=== PATIENT | male | born 1940 | race Caucasian/White ===

== ENCOUNTER 2016-09-25 10:31 | Inpatient (IN) | payer MEDICARE, OTHER ==
[2016-09-25] MEDS ORDERED: ASPIRIN 81 MG TABLET, CHEWABLE PO ONE (10:37)
--- NOTE | 2016-09-25 10:39 | ER Document Report ---
ED Medical Screen (RME) - General Stated Complaint: SHORTNESS OF BREATH Mode of Arrival: Ambulatory Information source: Patient Notes: Patient complains of shortness of breath and peripheral edema for the past 7 days. Patient does report some chest discomfort. Patient also reports waking this week. hx: Cardiac stent, kidney stones, gout, RA TRAVEL OUTSIDE OF THE [place] IN LAST 30 DAYS: No - Related Data Allergies/Adverse Reactions: celecoxib [From Celebrex] Allergy (Severe, Verified 09/25/16 10:37) Chest pain leflunomide [From Arava] Allergy (Severe, Verified 09/25/16 10:37) Chest pain-Full list of symptoms on 05/18/13 DC Summary meloxicam [From Mobic] Allergy (Severe, Verified 09/25/16 10:37) Chest pain methotrexate [Methotrexate] Allergy (Severe, Verified 09/25/16 10:37) Anaphylaxis ketorolac tromethamine [From Toradol] Allergy (Unknown, Verified 09/25/16 10:37) see comment Sulfa (Sulfonamide Antibiotics) Adverse Reaction (Severe, Verified 09/25/16 10: 37) Diarrhea Penicillins Adverse Reaction (Unknown, Verified 09/25/16 10:37) Rash Past Medical History - Past Medical History Cardiac Medical History: Reports: Hx Coronary Artery Disease Denies: Hx Congestive Heart Failure, Hx Heart Attack, Hx Hypertension Pulmonary Medical History: Denies: Hx Asthma, Hx Bronchitis, Hx COPD, Hx Pneumonia, Hx Tuberculosis Neurological Medical History: Denies: Hx Seizures Renal/ Medical History: Reports: Hx Kidney Stones - x30 GI Medical History: Denies: Hx Hiatal Hernia, Hx Ulcer Musculoskeltal Medical History: Reports Hx Arthritis - Rheumatoid, Reports Hx Gout Past Surgical History: Reports: Hx Appendectomy, Hx Cardiac Catheterization, Hx Cardiac Surgery - stent X1, Hx Cholecystectomy. Denies: Hx Open Heart Surgery - CATHERIZATIONS - Immunizations Hx Diphtheria, Pertussis, Tetanus Vaccination: Yes Physical Exam - Extremities General lower extremity: Edema - 2-3+ bilateral lower extremities
[2016-09-25 11:12] LABS: ABSOLUTE BASOPHILS # (AUTO) 0.1 10^3/uL (0.0-0.2); ABSOLUTE EOSINOPHILS # (AUTO) 0.5 10^3/uL (0.0-0.6); ABSOLUTE LYMPHOCYTES (AUTO) 2.2 10^3/uL (0.5-4.7); ABSOLUTE MONOCYTES (AUTO) 0.6 10^3/uL (0.1-1.4); ABSOLUTE NEUT (AUTO) 3.1 10^3/uL (1.7-8.2); EOSINOPHILS % (AUTO) 7.5 % (0-6); HEMATOCRIT 42.6 % (37.9-51.0); HGB HCT DIFFERENCE -0.6; LYMPHOCYTES % (AUTO) 34.9 % (13-45); MEAN CORPUSCULAR HEMOGLOBIN 31.4 pg (27.0-33.4); MEAN CORPUSCULAR HGB CONC 32.7 g/dL (32.0-36.0); MEAN CORPUSCULAR VOLUME 96 fl (80-97); MONOCYTES % (AUTO) 8.9 % (3-13); RED BLOOD COUNT 4.44 10^6/uL (4.35-5.55); RED CELL DISTRIBUTION WIDTH 14.6 % (11.5-14.0); SEGMENTED NEUTROPHILS % (AUTO) 47.7 % (42-78); WHITE BLOOD COUNT 6.4 10^3/uL (4.0-10.5)
--- NOTE | 2016-09-25 11:26 | ER Document Report ---
ED Respiratory Problem - General Chief Complaint: Shortness Of Breath Stated Complaint: SHORTNESS OF BREATH Mode of Arrival: Ambulatory Notes: The patient is a 75-year-old male, past medical history RA, frequent kidney stones, gout, presents with shortness of breath over the past day and chest discomfort. In addition, over the past several days he is noticing increased bilateral leg swelling. He has been in the hospital taking care of his over the past several weeks has not had much activity. He is gaining weight. Denies nausea, vomiting, fevers, cough, back pain, abdominal pain, urinary symptoms, flank pain or headache. TRAVEL OUTSIDE OF THE [place] IN LAST 30 DAYS: No - Related Data Allergies/Adverse Reactions: celecoxib [From Celebrex] Allergy (Severe, Verified 09/25/16 12:14) Chest pain leflunomide [From Arava] Allergy (Severe, Verified 09/25/16 12:14) Chest pain-Full list of symptoms on 05/18/13 DC Summary meloxicam [From Mobic] Allergy (Severe, Verified 09/25/16 12:14) Chest pain methotrexate [Methotrexate] Allergy (Severe, Verified 09/25/16 12:14) Anaphylaxis ketorolac tromethamine [From Toradol] Allergy (Unknown, Verified 09/25/16 12:14) see comment Sulfa (Sulfonamide Antibiotics) Adverse Reaction (Severe, Verified 09/25/16 12: 14) Diarrhea Penicillins Adverse Reaction (Unknown, Verified 09/25/16 12:14) Rash Home Medications: Current Home Medications Actermia 09/25/16 [History] Ezetimibe/Simvastatin [Vytorin 10-20 Mg Tablet] 0.5 each PO QHS 09/25/16 [ History] Naproxen 500 mg PO BID 09/25/16 [History] Tamsulosin HCl [Flomax 0.4 mg Cap.sr] 0.4 mg PO DAILY 09/25/16 [History] Past Medical History - General Information source: Patient - Social History Smoking Status: Never Smoker Chew tobacco use (# tins/day): No Frequency of alcohol use: Occasional Drug Abuse: None Family History: Reviewed & Not Pertinent Patient has suicidal ideation: No Patient has homicidal ideation: No - Past Medical History Cardiac Medical History: Reports: Hx Coronary Artery Disease Denies: Hx Congestive Heart Failure, Hx Heart Attack, Hx Hypertension Pulmonary Medical History: Denies: Hx Asthma, Hx Bronchitis, Hx COPD, Hx Pneumonia, Hx Tuberculosis Neurological Medical History: Denies: Hx Seizures Renal/ Medical History: Reports: Hx Kidney Stones - x30. Denies: Hx Peritoneal Dialysis GI Medical History: Denies: Hx Hiatal Hernia, Hx Ulcer Musculoskeltal Medical History: Reports Hx Arthritis - Rheumatoid, Reports Hx Gout Past Surgical History: Reports: Hx Appendectomy, Hx Cardiac Catheterization, Hx Cardiac Surgery - stent X1, Hx Cholecystectomy. Denies: Hx Open Heart Surgery - CATHERIZATIONS - Immunizations Hx Diphtheria, Pertussis, Tetanus Vaccination: Yes Hx Pneumococcal Vaccination: 08/08/13 Review of Systems - Review of Systems Notes: REVIEW OF SYSTEMS: CONSTITUTIONAL: -fevers, -chills EENT: -eye pain, -difficulty swallowing, -nasal congestion CARDIOVASCULAR: +chest pain, -syncope. RESPIRATORY: -cough, +SOB GASTROINTESTINAL: -abdominal pain, -nausea, -vomiting, -diarrhea GENITOURINARY: -dysuria, -hematuria MUSCULOSKELETAL: +leg swelling, -back pain, -neck pain SKIN: -rash or skin lesions. HEMATOLOGIC: -easy bruising or bleeding. LYMPHATIC: -swollen, enlarged glands. NEUROLOGICAL: -altered mental status or loss of consciousness, -headache, - neurologic symptoms PSYCHIATRIC: -anxiety, -depression. ALL OTHER SYSTEMS REVIEWED AND NEGATIVE. Physical Exam - Vital signs Vitals: Temp Pulse Resp BP Pulse Ox 97.9 F 123 H 22 H 122/92 H 95 09/25/16 10:36 09/25/16 10:36 09/25/16 10:36 09/25/16 10:36 09/25/16 10:36 - Notes Notes: PHYSICAL EXAMINATION: GENERAL: Well-appearing, well-nourished and in no acute distress. HEAD: Atraumatic, normocephalic. EYES: Pupils equal round and reactive to light, extraocular movements intact, sclera anicteric, conjunctiva are normal. ENT: nares patent, oropharynx clear without exudates. Moist mucous membranes. NECK: Normal range of motion, supple without lymphadenopathy LUNGS: Breath sounds clear to auscultation bilaterally and equal. No wheezes rales or rhonchi. HEART: Tachycardia, Regular rhythm without murmurs ABDOMEN: Soft, nontender, normoactive bowel sounds. No guarding, no rebound. No masses appreciated. EXTREMITIES: B/L leg edema up to knees, Normal range of motion. No cyanosis. Strong distal pulses. NEUROLOGICAL: Cranial nerves grossly intact. Normal speech, normal gait. Normal sensory, motor, and reflex exams. PSYCH: Normal mood, normal affect. SKIN: Warm, Dry, normal turgor, no rashes or lesions noted. Course - Re-evaluation Re-evalutation: Patient is tachycardic, tachypneic with new EKG changes. High suspicion for PE due to immobility in hospital visiting his . Will obtain CTA to assess for PE. 09/25/16 16:37 CTA does not show any evidence of PE and bilateral ultrasound does not show any evidence of DVT. Patient still mildly tachycardic in the 100s. Hemodynamically stable. Spoke to Dr. Zapata and the hospitalist will be down to evaluate the patient. Second troponin trending slightly up, but no chest pain at this time. Lovenox started. - Vital Signs Vital signs: Temp Pulse Resp BP Pulse Ox 97.9 F 123 H 28 H 133/102 H 95 09/25/16 10:36 09/25/16 10:36 09/25/16 18:01 09/25/16 18:00 09/25/16 13:00 - Laboratory Result Diagrams: 09/25/16 10:50 09/25/16 10:50 Laboratory results interpreted by me: 09/25/16 09/25/16 09/25/16 10:50 10:50 10:50 RDW 14.6 H Plt Count 147 L Eosinophils % 7.5 H Chloride 109 H Total Bilirubin 1.6 H Creatine Kinase 245 H CK-MB (CK-2) 4.97 H NT-Pro-B Natriuret Pep 991 H Total Protein 5.3 L Albumin 3.4 L Urine Protein Urine Blood Ur Leukocyte Esterase 09/25/16 11:15 RDW Plt Count Eosinophils % Chloride Total Bilirubin Creatine Kinase CK-MB (CK-2) NT-Pro-B Natriuret Pep Total Protein Albumin Urine Protein 30 H Urine Blood LARGE H Ur Leukocyte Esterase MODERATE H - Diagnostic Test Radiology reviewed: Image reviewed, Reports reviewed - EKG Interpretation by Vt EKG shows normal: Sinus rhythm Rate: Tachycardia [place]/QRS: Left axis deviation Voltage: Consistant with LVH When compared to previous EKG there are: Changes noted - T-wave changes in I, aVL and aVF Discharge - Discharge Clinical Impression: EKG abnormality Chest pain Qualifiers: Chest pain type: unspecified Qualified Code(s): R07.9 - Chest pain, unspecified Dyspnea Qualifiers: Dyspnea type: unspecified Qualified Code(s): R06.00 - Dyspnea, unspecified Condition: Stable Disposition: ADMITTED OBSERVATION Admitting Provider: Dodie Zapata
[2016-09-25 11:29] LABS: ALANINE AMINOTRANSFERASE 33 U/L (21-72); ALBUMIN 3.4 g/dL (3.5-5.0); ALKALINE PHOSPHATASE 56 U/L (38-126); ANION GAP 8 (5-19); ASPARTATE AMINO TRANSFERASE 36 U/L (17-59); BILIRUBIN,TOTAL 1.6 mg/dL (0.2-1.3); BLOOD UREA NITROGEN 10 mg/dL (7-20); CALCIUM 9.2 mg/dL (8.4-10.2); CARBON DIOXIDE 26 mmol/L (22-30); CHLORIDE 109 mmol/L (98-107); CREATINE KINASE 245 U/L (55-170); CREATININE RESULT 1.01 mg/dL (0.52-1.25); GLUCOSE 106 mg/dL (75-110); POTASSIUM 4.2 mmol/L (3.6-5.0); SODIUM 143.1 mmol/L (137-145); TOTAL PROTEIN 5.3 g/dL (6.3-8.2)
[2016-09-25 11:41] LABS: CREATINE KINASE MB 4.97 ng/mL (<4.55)
[2016-09-25 11:54] LABS: TROPONIN I 0.052 ng/mL
[2016-09-25 11:55] LABS: APPEARANCE,URINE SLIGHTLY-CLOUDY; BILIRUBIN,URINE NEGATIVE (NEGATIVE); GLUCOSE, URINE NEGATIVE (NEGATIVE); KETONES,URINE NEGATIVE (NEGATIVE); LEUKOCYTE ESTERASE,URINE MODERATE (NEGATIVE); NITRITE,URINE NEGATIVE (NEGATIVE); PROTEIN,URINE 30 mg/dL (NEGATIVE); URINE SPECIFIC GRAVITY 1.015; UROBILINOGEN,URINE NEGATIVE mg/dL (<2.0)
[2016-09-25] MEDS ORDERED: CEFTRIAXONE INJ 1000 MG VIAL IV ONE (12:06)
[2016-09-25] MEDS ORDERED: CEFTRIAXONE 1 GM/D5W RTU 1 GM/50 ML RTUPB IV ONE (13:20)
--- NOTE | 2016-09-25 17:59 | PDOC H&P ---
History of Present Illness Admission Date/PCP: Edward Mattson 09/25/2016 Patient complains of: SOB. weight gain History of Present Illness: KERRY COBURN is a 75 year old male With a significant history of severe rheumatoid arthritis, coronary artery stent, exposed to agent orange in [place]; Presents to the ED with a history of 4 weeks generalized edema, Increase weight of 30 pounds Dyspnea on exertion , orthopnea and chest tightness About 2 weeks ago patient had removal of left kidney stones; a left ureteral stent also was removed at [facility] in [place] Dr. Sandra Upon evaluation in the ED patient was diagnosed of mild CHF His chest x-ray showed bilateral small pleural effusion and fluid overload; BNP was over 900; troponins were intermediate range; EKG showed some ST-T changes with LVH He was subsequently admitted under hospitalist service for further workup Past Medical History Cardiac Medical History: Reports: Coronary Artery Disease Denies: Congestive Heart Failure, Myocardial Infarction, Hypertension Pulmonary Medical History: Denies: Asthma, Bronchitis, Chronic Obstructive Pulmonary Disease (COPD), Pneumonia, Tuberculosis Neurological Medical History: Denies: Seizures GI Medical History: Denies: Hiatal Hernia Musculoskeltal Medical History: Reports: Arthritis - Rheumatoid, Gout Hematology: Denies: Anemia, Sickle Cell Disease Past Surgical History Past Surgical History: Reports: Appendectomy, Cardiac Catheterization, Cholecystectomy, Other - Ureteral stent left kidney Removal stones and stent 2 weeks ago Social History Information Source: Patient Smoking Status: Never Smoker Frequency of Alcohol Use: Occasional Hx Recreational Drug Use: No Hx Prescription Drug Abuse: No - Advance Directive Resuscitation Status: Full Code Surrogate healthcare decision maker:: His Family History Parental Family History Reviewed: Yes Children Family History Reviewed: Yes Sibling(s) Family History Reviewed.: Yes - Patient has no information on his parents His mother when he was 5 years old His father left; he has a half- sister who is in good health Medication/Allergy Home Medications: Cetirizine HCl [Zyrtec 10 mg Chewable Tab] 5 mg PO DAILY 05/18/13 Allopurinol 100 mg PO BID 07/20/13 Potassium Citrate [Urocit-K] 15 meq PO DAILY 07/03/14 Hydromorphone HCl [Dilaudid 2 mg Tablet] 2 mg PO Q4HP PRN 04/02/15 Ondansetron HCl [Zofran 8 mg Tablet] 8 mg PO Q8HP PRN 04/02/15 Actermia 09/25/16 Ezetimibe/Simvastatin [Vytorin 10-20 Mg Tablet] 0.5 each PO QHS 09/25/16 Naproxen 500 mg PO BID 09/25/16 Tamsulosin HCl [Flomax 0.4 mg Cap.sr] 0.4 mg PO DAILY 09/25/16 Allergies/Adverse Reactions: celecoxib [From Celebrex] Allergy (Severe, Verified 09/25/16 12:14) Chest pain leflunomide [From Arava] Allergy (Severe, Verified 09/25/16 12:14) Chest pain-Full list of symptoms on 05/18/13 DC Summary meloxicam [From Mobic] Allergy (Severe, Verified 09/25/16 12:14) Chest pain methotrexate [Methotrexate] Allergy (Severe, Verified 09/25/16 12:14) Anaphylaxis ketorolac tromethamine [From Toradol] Allergy (Unknown, Verified 09/25/16 12:14) see comment Sulfa (Sulfonamide Antibiotics) Adverse Reaction (Severe, Verified 09/25/16 12: 14) Diarrhea Penicillins Adverse Reaction (Unknown, Verified 09/25/16 12:14) Rash Review of Systems Constitutional: PRESENT: as per HPI, fatigue, weakness, weight gain Eyes: ABSENT: visual disturbances Ears: ABSENT: hearing changes Respiratory: PRESENT: as per HPI, dyspnea Gastrointestinal: PRESENT: bloating. ABSENT: coffee ground emesis, nausea, vomiting Genitourinary: ABSENT: dysuria, hematuria Integumentary: ABSENT: rash, wounds Neurological: ABSENT: abnormal gait, abnormal speech, confusion, dizziness, focal weakness, syncope Psychiatric: ABSENT: anxiety, depression, homidical ideation, suicidal ideation Endocrine: ABSENT: cold intolerance, heat intolerance, polydipsia, polyuria Hematologic/Lymphatic: ABSENT: easy bleeding, easy bruising Physical Exam Vital Signs: Temp Pulse Resp BP Pulse Ox 97.9 F 123 H 17 127/89 H 95 09/25/16 10:36 09/25/16 10:36 09/25/16 14:00 09/25/16 11:21 09/25/16 13:00 Intake & Output 09/24/16 09/25/16 09/26/16 00:59 00:59 00:59 Weight 119.2 kg General appearance: PRESENT: no acute distress, obese Head exam: PRESENT: atraumatic, normocephalic Eye exam: PRESENT: conjunctiva pink, EOMI, PERRLA. ABSENT: scleral icterus Mouth exam: PRESENT: moist, tongue midline Neck exam: ABSENT: carotid bruit, JVD, lymphadenopathy, thyromegaly Respiratory exam: PRESENT: decreased breath sounds. ABSENT: accessory muscle use, rales, tachypnea Cardiovascular exam: PRESENT: RRR, tachycardia. ABSENT: diastolic murmur, gallop Pulses: PRESENT: normal dorsalis pedis pul GI/Abdominal exam: PRESENT: normal bowel sounds, soft, other - Obese and distended. ABSENT: distended, guarding, mass, organolmegaly, rebound, tenderness Rectal exam: PRESENT: deferred Extremities exam: PRESENT: +2 edema Musculoskeletal exam: ABSENT: ambulatory, deformity, dislocation, full ROM, normal inspection, tenderness, other Neurological exam: PRESENT: alert, awake, oriented to person, oriented to place , oriented to time, oriented to situation, CN II-XII grossly intact. ABSENT: motor sensory deficit Psychiatric exam: PRESENT: appropriate affect, normal mood. ABSENT: homicidal ideation, suicidal ideation Skin exam: PRESENT: dry, intact, warm. ABSENT: cyanosis, rash Results Laboratory Results: 09/25/16 10:50 09/25/16 10:50 09/25/16 09/25/16 09/25/16 10:50 10:50 11:15 WBC 6.4 RBC 4.44 Hgb 14.0 Hct 42.6 MCV 96 MCH 31.4 MCHC 32.7 RDW 14.6 H Plt Count 147 L Seg Neutrophils % 47.7 Lymphocytes % 34.9 Monocytes % 8.9 Eosinophils % 7.5 H Basophils % 1.0 Absolute Neutrophils 3.1 Absolute Lymphocytes 2.2 Absolute Monocytes 0.6 Absolute Eosinophils 0.5 Absolute Basophils 0.1 Sodium 143.1 Potassium 4.2 Chloride 109 H Carbon Dioxide 26 Anion Gap 8 BUN 10 Creatinine 1.01 Est GFR ( Amer) > 60 Est GFR (Non-Af Amer) > 60 Glucose 106 Calcium 9.2 Total Bilirubin 1.6 H AST 36 ALT 33 Alkaline Phosphatase 56 Total Protein 5.3 L Albumin 3.4 L Urine Color YELLOW Urine Appearance SLIGHTLY-CLOUDY Urine pH 5.0 Ur Specific [place] 1.015 Urine Protein 30 H Urine Glucose (UA) NEGATIVE Urine Ketones NEGATIVE Urine Blood LARGE H Urine Nitrite NEGATIVE Ur Leukocyte Esterase MODERATE H Urine WBC (Auto) 63 Urine RBC (Auto) 117 09/25/16 09/25/16 09/25/16 10:50 10:50 16:00 Creatine Kinase 245 H CK-MB (CK-2) 4.97 H Troponin I 0.052 0.065 NT-Pro-B Natriuret Pep 991 H Impressions: Chest X-Ray 09/25/16 10:36 IMPRESSION: Bilateral atelectasis. Chest/Abdomen CTA 09/25/16 11:23 IMPRESSION: No CT angio evidence of acute pulmonary emboli. Trace bilateral pleural effusions with mild bibasilar atelectasis. Venous Doppler Study 09/25/16 14:20 IMPRESSION: NO EVIDENCE DVT OR SVT IN EITHER LEG. Assessment & Plan - Diagnosis (1) Anasarca Is this a current diagnosis for this admission?: YesPlan: Patient does have hypoalbuminemia and proteinuria ; he may have a nephrotic syndrome We will obtain 24-hour urine for creatinine and protein ; urine a protein creatinine ratio If indeed patient a has a nephrotic syndrome we will complete the workup and a nephrology consult will be obtained In the meantime we will diurese him gently with Lasix 20 mg IV every 12 and keep him on the fluid restriction (2) Nephrotic syndrome Is this a current diagnosis for this admission?: YesPlan: See above (3) Coronary artery disease Qualifiers: Coronary Disease-Associated Artery/Lesion type: [place] artery [place] vs. transplanted heart: [place] heart Associated angina: with unspecified angina Qualified Code(s): I25.119 - Atherosclerotic heart disease of [place] coronary artery with unspecified angina pectoris Is this a current diagnosis for this admission?: YesPlan: We will monitor the patient 2 troponins were intermediate range Repeat another troponin after 6 hours Repeat EKG in a.m. EKG does not show acute ST-T changes; suggestive of LVH (4) Rheumatoid arthritis Qualifiers: Rheumatoid factor presence: unspecified presence Laterality: unspecified laterality Is this a current diagnosis for this admission?: Yes (5) EKG abnormality Is this a current diagnosis for this admission?: YesPlan: LVH Repeat in a.m. (6) CHF (congestive heart failure) Qualifiers: Congestive heart failure type: unspecified congestive heart failure type Congestive heart failure chronicity: unspecified congestive heart failure chronicity Qualified Code(s): I50.9 - Heart failure, unspecified Is this a current diagnosis for this admission?: YesPlan: Secondary to fluid overload We will treat the patient with Coreg lisinopril Lasix aspirin and Lipitor An echocardiogram will be performed (7) UTI (urinary tract infection) Qualifiers: Urinary tract infection type: site unspecified Is this a current diagnosis for this admission?: YesPlan: We'll treat with ceftriaxone - Time Time Spent with patient: Patient will be admitted to [facility] as an inpatient Time Spent: Greater than 70 Minutes - Inpatient Certification Based on my medical assessment, after consideration of the patient's comorbidities, presenting symptoms, or acuity I expect that the services needed warrant INPATIENT care.: Yes I certify that my determination is in accordance with my understanding of Medicare's requirements for reasonable and necessary INPATIENT services [42 CFR 412.3e].: Yes Medical Necessity: Need Close Monitoring Due to Risk of Patient Decompensation, Need For Continuous Telemetry Monitoring
--- NOTE | 2016-09-25 18:35 | EKG REPORT ---
SEVERITY:- ABNORMAL ECG - SINUS TACHYCARDIA LEFT AXIS DEVIATION LVH WITH SECONDARY REPOLARIZATION ABNORMALITY : Confirmed by: Conor Robert 25-Sep-2016 18:35:32
[2016-09-25] MEDS ORDERED: FUROSEMIDE INJ/PF 20 MG/2 ML SDV IV ONE (18:45)
[2016-09-25] MEDS ORDERED: LISINOPRIL 5 MG TABLET PO ONE (18:45)
[2016-09-25] MEDS: CARVEDILOL 3.125 MG TABLET PO SCH (19:47)
[2016-09-25] MEDS: FAMOTIDINE 20 MG TABLET PO SCH (21:48)
[2016-09-25] MEDS: ATORVASTATIN CALCIUM 40 MG TABLET PO SCH (21:48)
[2016-09-26] MEDS ORDERED: ACETAMINOPHEN 325 MG TABLET ONE (04:45)
[2016-09-26 05:57] LABS: ANION GAP 7 (5-19); BLOOD UREA NITROGEN 11 mg/dL (7-20); CALCIUM 9.6 mg/dL (8.4-10.2); CARBON DIOXIDE 28 mmol/L (22-30); CHLORIDE 107 mmol/L (98-107); CHOLESTEROL 144.02 mg/dL (0-200); CREATININE RESULT 1.01 mg/dL (0.52-1.25); Direct HDL 39 mg/dL (>40); GLUCOSE 93 mg/dL (75-110); POTASSIUM 4.2 mmol/L (3.6-5.0); SODIUM 141.6 mmol/L (137-145); TRIGLYCERIDES 179 mg/dL (<150)
[2016-09-26 06:07] LABS: DIRECT LDL 72 mg/dL (<100)
[2016-09-26 06:12] LABS: VLDL CHOLESTEROL 35.8 mg/dL (10-31)
[2016-09-26 06:29] LABS: THYROID STIMULATING HORMONE 2.27 uIU/mL (0.47-4.68)
[2016-09-26] MEDS: ENOXAPARIN SODIUM INJ 40 MG/0.4 ML DISP.SYRIN SUBCUT SCH (07:33)
[2016-09-26] MEDS: CEFTRIAXONE 1 GM/D5W RTU 50 ML IV SCH (09:51)
[2016-09-26] MEDS: ASPIRIN 325 MG TABLET, ENT COATED PO SCH (09:53)
[2016-09-26] MEDS: FAMOTIDINE 20 MG TABLET PO SCH ×2 (09:53→21:04)
[2016-09-26] MEDS: FUROSEMIDE INJ/PF 20 MG/2 ML SDV IV SCH ×2 (09:54→21:04)
[2016-09-26] MEDS: CARVEDILOL 3.125 MG TABLET PO SCH ×2 (09:55→17:11)
[2016-09-26] MEDS: LISINOPRIL 5 MG TABLET PO SCH (09:55)
--- NOTE | 2016-09-26 10:35 | EKG REPORT ---
SEVERITY:- ABNORMAL ECG - SINUS RHYTHM LEFT AXIS DEVIATION NONSPECIFIC T ABNORMALITIES, LATERAL LEADS : Confirmed by: Conor Robert 26-Sep-2016 10:34:08
--- NOTE | 2016-09-26 12:07 | PDOC PROGRESS REPORT ---
Subjective Progress Note for:: 09/26/16 Subjective:: Paatient is doing well minimal SOB less edema work up in progress Physical Exam Vital Signs: Temp Pulse Resp BP Pulse Ox 97.8 F 105 H 18 118/88 H 92 09/26/16 11:36 09/26/16 11:36 09/26/16 11:36 09/26/16 11:36 09/26/16 11:36 Intake & Output 09/25/16 09/26/16 09/27/16 00:59 00:59 00:59 Output Total 400 Balance -400 Weight 115.9 kg General appearance: PRESENT: no acute distress, well-developed, well-nourished Head exam: PRESENT: atraumatic, normocephalic Eye exam: PRESENT: conjunctiva pink, EOMI, PERRLA. ABSENT: scleral icterus Ear exam: PRESENT: normal external ear exam Mouth exam: PRESENT: moist, tongue midline Neck exam: ABSENT: carotid bruit, JVD, lymphadenopathy, thyromegaly Respiratory exam: PRESENT: clear to auscultation nikita. ABSENT: rales, rhonchi, wheezes Cardiovascular exam: PRESENT: RRR. ABSENT: diastolic murmur, rubs, systolic murmur Pulses: PRESENT: normal dorsalis pedis pul Vascular exam: PRESENT: normal capillary refill GI/Abdominal exam: PRESENT: normal bowel sounds, soft. ABSENT: distended, guarding, mass, organolmegaly, rebound, tenderness Rectal exam: PRESENT: deferred Extremities exam: PRESENT: full ROM, +2 edema. ABSENT: calf tenderness, clubbing, pedal edema Neurological exam: PRESENT: alert, awake, oriented to person, oriented to place , oriented to time, oriented to situation, CN II-XII grossly intact. ABSENT: motor sensory deficit Psychiatric exam: PRESENT: appropriate affect, normal mood. ABSENT: homicidal ideation, suicidal ideation Skin exam: PRESENT: dry, intact, warm. ABSENT: cyanosis, rash Results Laboratory Results: 09/26/16 04:20 09/26/16 09/26/16 04:20 04:20 Sodium 141.6 Potassium 4.2 Chloride 107 Carbon Dioxide 28 Anion Gap 7 BUN 11 Creatinine 1.01 Est GFR ( Amer) > 60 Est GFR (Non-Af Amer) > 60 Glucose 93 Calcium 9.6 Triglycerides 179 H Cholesterol 144.02 LDL Cholesterol Direct 72 VLDL Cholesterol 35.8 H HDL Cholesterol 39 L TSH 2.27 Free T4 0.95 09/25/16 09/25/16 22:20 22:20 Creatine Kinase 204 H Troponin I 0.072 Impressions: Chest X-Ray 09/25/16 10:36 IMPRESSION: Bilateral atelectasis. Chest/Abdomen CTA 09/25/16 11:23 IMPRESSION: No CT angio evidence of acute pulmonary emboli. Trace bilateral pleural effusions with mild bibasilar atelectasis. Venous Doppler Study 09/25/16 14:20 IMPRESSION: NO EVIDENCE DVT OR SVT IN EITHER LEG. Assessment & Plan - Diagnosis (1) Anasarca Is this a current diagnosis for this admission?: YesPlan: continue lasix anasarca likely secondary to hypoalbuminemia (2) Nephrotic syndrome Is this a current diagnosis for this admission?: YesPlan: 24 hour urine for protein pending (3) Coronary artery disease Qualifiers: Coronary Disease-Associated Artery/Lesion type: [place] artery [place] vs. transplanted heart: [place] heart Associated angina: with unspecified angina Qualified Code(s): I25.119 - Atherosclerotic heart disease of [place] coronary artery with unspecified angina pectoris Is this a current diagnosis for this admission?: Yes (4) Rheumatoid arthritis Qualifiers: Rheumatoid factor presence: unspecified presence Laterality: unspecified laterality Is this a current diagnosis for this admission?: YesPlan: hold naprosyn (5) EKG abnormality Is this a current diagnosis for this admission?: Yes (6) CHF (congestive heart failure) Qualifiers: Congestive heart failure type: unspecified congestive heart failure type Congestive heart failure chronicity: unspecified congestive heart failure chronicity Qualified Code(s): I50.9 - Heart failure, unspecified Is this a current diagnosis for this admission?: YesPlan: echocardiogram pending in am (7) UTI (urinary tract infection) Qualifiers: Urinary tract infection type: site unspecified Is this a current diagnosis for this admission?: YesPlan: continue ceftriaxone - Time Time Spent with patient: 25-34 minutes
[2016-09-26] MEDS: ACETAMINOPHEN 325 MG TABLET PO PRN (15:14)
[2016-09-26] MEDS: ATORVASTATIN CALCIUM 40 MG TABLET PO SCH (21:04)
[2016-09-26 23:37] LABS: URINE CREATININE 49.6 mg/dL (22-328)
[2016-09-27 08:10] LABS: HEMATOCRIT 42.7 % (37.9-51.0); HEMOGLOBIN 14.2 g/dL (13.5-17.0); HGB HCT DIFFERENCE -0.1; MEAN CORPUSCULAR HEMOGLOBIN 31.6 pg (27.0-33.4); MEAN CORPUSCULAR HGB CONC 33.2 g/dL (32.0-36.0); MEAN CORPUSCULAR VOLUME 95 fl (80-97); RED BLOOD COUNT 4.48 10^6/uL (4.35-5.55); RED CELL DISTRIBUTION WIDTH 14.9 % (11.5-14.0); WHITE BLOOD COUNT 6.4 10^3/uL (4.0-10.5)
[2016-09-27] MEDS: ENOXAPARIN SODIUM INJ 40 MG/0.4 ML DISP.SYRIN SUBCUT SCH (08:29)
[2016-09-27] MEDS: ACETAMINOPHEN 325 MG TABLET PO PRN (08:34)
[2016-09-27] MEDS: CEFTRIAXONE 1 GM/D5W RTU 50 ML IV SCH (09:19)
[2016-09-27] MEDS: FUROSEMIDE INJ/PF 20 MG/2 ML SDV IV SCH ×2 (09:20→21:06)
[2016-09-27] MEDS: FAMOTIDINE 20 MG TABLET PO SCH ×2 (09:21→21:07)
[2016-09-27] MEDS: ASPIRIN 325 MG TABLET, ENT COATED PO SCH (09:21)
[2016-09-27] MEDS: CARVEDILOL 3.125 MG TABLET PO SCH ×2 (09:21→17:25)
[2016-09-27] MEDS: LISINOPRIL 5 MG TABLET PO SCH (09:21)
[2016-09-27] MEDS: ONDANSETRON HCL INJ/PF 4 MG/2 ML SDV IV PRN ×2 (10:11→19:02)
[2016-09-27] MEDS: HYDROMORPHONE HCL 2 MG TABLET PO PRN (10:11)
[2016-09-27] MEDS ORDERED: ALLOPURINOL 100 MG TABLET PO ONE (11:15)
--- NOTE | 2016-09-27 17:07 | PDOC PROGRESS REPORT ---
Subjective Progress Note for:: 09/27/16 Subjective:: Patient is feeling well he states He has less shortness of breath less peripheral edema The workup is pending Results for 24 hour urine for protein is not back yet Report on the echocardiogram is still pending Physical Exam Vital Signs: Temp Pulse Resp BP Pulse Ox 97.5 F 59 L 19 118/86 H 94 09/27/16 15:47 09/27/16 15:47 09/27/16 15:47 09/27/16 15:47 09/27/16 15:47 Intake & Output 09/26/16 09/27/16 09/28/16 00:59 00:59 00:59 Intake Total 820 540 Output Total 1250 250 Balance -430 290 Weight 115.9 kg 115 kg General appearance: PRESENT: no acute distress, well-developed, well-nourished Head exam: PRESENT: atraumatic, normocephalic Eye exam: PRESENT: conjunctiva pink, EOMI, PERRLA. ABSENT: scleral icterus Ear exam: PRESENT: normal external ear exam Mouth exam: PRESENT: moist, tongue midline Neck exam: ABSENT: carotid bruit, JVD, lymphadenopathy, thyromegaly Respiratory exam: PRESENT: clear to auscultation nikita. ABSENT: rales, rhonchi, wheezes Cardiovascular exam: PRESENT: RRR. ABSENT: diastolic murmur, rubs, systolic murmur Pulses: PRESENT: normal dorsalis pedis pul Vascular exam: PRESENT: normal capillary refill GI/Abdominal exam: PRESENT: normal bowel sounds, soft. ABSENT: distended, guarding, mass, organolmegaly, rebound, tenderness Rectal exam: PRESENT: deferred Extremities exam: PRESENT: full ROM. ABSENT: calf tenderness, clubbing, pedal edema Neurological exam: PRESENT: alert, awake, oriented to person, oriented to place , oriented to time, oriented to situation, CN II-XII grossly intact. ABSENT: motor sensory deficit Psychiatric exam: PRESENT: appropriate affect, normal mood. ABSENT: homicidal ideation, suicidal ideation Skin exam: PRESENT: dry, intact, warm, other - Edema lower extremities is still persistent. ABSENT: cyanosis, rash Results Laboratory Results: 09/27/16 08:02 09/26/16 04:20 09/25/16 09/27/16 22:45 08:02 WBC 6.4 RBC 4.48 Hgb 14.2 Hct 42.7 MCV 95 MCH 31.6 MCHC 33.2 RDW 14.9 H Plt Count 136 L Ur 24 Hour Volume 2240 09/25/16 09/25/16 22:20 22:20 Creatine Kinase 204 H Troponin I 0.072 Impressions: Chest X-Ray 09/25/16 10:36 IMPRESSION: Bilateral atelectasis. Chest/Abdomen CTA 09/25/16 11:23 IMPRESSION: No CT angio evidence of acute pulmonary emboli. Trace bilateral pleural effusions with mild bibasilar atelectasis. Venous Doppler Study 09/25/16 14:20 IMPRESSION: NO EVIDENCE DVT OR SVT IN EITHER LEG. Abdomen Ultrasound 09/26/16 00:00 IMPRESSION: 1. Mild right hydronephrosis. Bilateral nephrolithiasis. Limited or Localized CT 09/27/16 10:16 IMPRESSION: Obstructing 3.8 mm in diameter calculus in the proximal right ureter. Small bilateral nonobstructing renal calculi are identified. Other findings as noted above Assessment & Plan - Diagnosis (1) Anasarca Is this a current diagnosis for this admission?: YesPlan: Etiology likely secondary to hypoalbuminemia and nephrotic syndrome 24 hour urine for protein is still pending (2) Nephrotic syndrome Is this a current diagnosis for this admission?: YesPlan: As mentioned above awaiting 24-hour urine for protein to confirm diagnosis Workup is in progress We discussed the case with Dr. Fallon will follow-up the patient in his office after discharge (3) Coronary artery disease Qualifiers: Coronary Disease-Associated Artery/Lesion type: [place] artery [place] vs. transplanted heart: [place] heart Associated angina: with unspecified angina Qualified Code(s): I25.119 - Atherosclerotic heart disease of [place] coronary artery with unspecified angina pectoris Is this a current diagnosis for this admission?: Yes (4) Rheumatoid arthritis Qualifiers: Rheumatoid factor presence: unspecified presence Laterality: unspecified laterality Is this a current diagnosis for this admission?: Yes (5) EKG abnormality Is this a current diagnosis for this admission?: YesPlan: EKG showed LVH with some ST-T changes The troponins were in intermediate range We do not believe that the patient had an acute coronary syndrome Echocardiogram is pending (6) CHF (congestive heart failure) Qualifiers: Congestive heart failure type: unspecified congestive heart failure type Congestive heart failure chronicity: unspecified congestive heart failure chronicity Qualified Code(s): I50.9 - Heart failure, unspecified Is this a current diagnosis for this admission?: YesPlan: Echocardiogram is pending Patient was treated with Lasix Coreg and lisinopril (7) UTI (urinary tract infection) Qualifiers: Urinary tract infection type: site unspecified Is this a current diagnosis for this admission?: YesPlan: Questionable UTI on admission Patient did have some microscopic hematuria He was treated for a couple days with ceftriaxone which will be discontinued as culture was negative (8) Kidney stones Is this a current diagnosis for this admission?: YesPlan: CT abdomen and pelvis shows a 3.8 mm ureteral stone in the proximal right ureter with hydronephrosis Patient has no pain He is already on Flomax We discussed the case with patient's urologist Dr. Santizo in [place] Patient will be seen in the office by Carina Max's PA on September 30 - Time Time Spent with patient: Patient may be discharged tomorrow if workup is completed Time Spent with patient: 25-34 minutes Within: within 24 hours
--- NOTE | 2016-09-27 19:31 | XCELERA REPORT ---
[address] [address] Transthoracic Echocardiogram Report Name: KERRY COBURN Age: 75 yrs Gender: Male : 1940 Patient Status: Inpatient Patient Location: [id number]\A Study Date: 09/27/2016 10:54 AM Height: 68 in Weight: 255 lb BSA: 2.3 m2 Procedure: A two-dimensional transthoracic echocardiogram with color flow and Doppler was performed. Study Quality: Technically suboptimal. Poor wndocardial visualisation and poor doppler interogation. Reason For Study: SOB History: Shortness of breath. Ordering Physician: MARIIA CROWELL Performed By: Adelaida Hayes Interpretation Summary Poor wndocardial visualisation and poor doppler interogation. There is normal left ventricular wall thickness. LV EF is les than 30%.% Left ventricular systolic function is severely reduced. Doppler measurements suggest pseudonormalized left ventricular relaxation, which is associated with grade II/IV or mild to moderate diastolic dysfunction There is severe global hypokinesis of the left ventricle. The left ventricle is mildly dilated. There is no evidence of mitral valve prolapse. There is no mitral valve stenosis. There is a mild amount of mitral regurgitation There is no aortic valve stenosis There is no LVOT obstruction. There is a trace to mild amount of aortic regurgitation There is no tricuspid stenosis. There is a trace amount of tricuspid regurgitation Right ventricular systolic pressure is normal. RVSP is 23 mm of Hg , with RA mean of 5. There is no pericardial effusion. MMode/2D Measurements \T\ Calculations RVDd: 2.8 cm LVIDd: 4.8 cmFS: 24.5 % Ao root diam: 4.2 cm IVSd: 1.1 cm LVIDs: 3.6 cmEDV(Teich): 107.5 ml LVPWd: 1.2 cmESV(Teich): 55.4 ml Ao root area: 13.7 cm2 EF(Teich): 48.5 % LA dimension: 2.9 cm LVOT diam: 2.7 cm LVOT area: 5.7 cm2 Doppler Measurements \T\ Calculations MV E max eligio: MV P1/2t max eligio: Ao V2 max: LV V1 max P.7 cm/sec 61.2 cm/sec 97.7 cm/sec 2.0 mmHg MV A max eligio: MV P1/2t: 44.4 msec Ao max PG: LV V1 max: 89.3 cm/sec MVA(P1/2t): 4.9 cm2 3.8 mmHg 70.0 cm/sec MV E/A: 0.67 MV dec slope: GUME(V,D): 4.1 cm2 403.3 cm/sec2 PA V2 max: TR max eligio: 77.0 cm/sec 211.7 cm/sec PA max PG: TR max P.9 mmHg 2.4 mmHg Left Ventricle There is normal left ventricular wall thickness. The left ventricle is mildly dilated. LV EF is les than 30%.%. Left ventricular systolic function is severely reduced. Doppler measurements suggest pseudonormalized left ventricular relaxation, which is associated with grade II/IV or mild to moderate diastolic dysfunction. There is severe global hypokinesis of the left ventricle. There is no thrombus. Right Ventricle The right ventricle is grossly normal size. Atria The right atrium is normal. The left atrial size is normal. Mitral Valve There is no evidence of mitral valve prolapse. There is no vegetation seen on the mitral valve. There is no mitral valve stenosis. There is a mild amount of mitral regurgitation. Aortic Valve There is no aortic valvular vegetation. There is no aortic valve stenosis. There is no LVOT obstruction. There is a trace to mild amount of aortic regurgitation. Tricuspid Valve There is no tricuspid stenosis. There is a trace amount of tricuspid regurgitation. Right ventricular systolic pressure is normal. RVSP is 23 mm of Hg , with RA mean of 5. Great Vessels The aortic root is mildly dilated. Effusions There is no pericardial effusion. : MARIIA CROWELL > Merlyn Lara
[2016-09-27] MEDS: SIMVASTATIN 10 MG TABLET PO SCH (21:07)
[2016-09-27] MEDS: EZETIMIBE 10 MG TABLET PO SCH (21:07)
[2016-09-27] MEDS ORDERED: EZETIMIBE PO SCH (22:00)
[2016-09-27] MEDS ORDERED: SIMVASTATIN PO SCH (22:00)
[2016-09-28] MEDS: ACETAMINOPHEN 325 MG TABLET PO PRN ×2 (00:01→21:25)
[2016-09-28] MEDS: ONDANSETRON HCL INJ/PF 4 MG/2 ML SDV IV PRN ×3 (01:33→17:22)
[2016-09-28] MEDS: ENOXAPARIN SODIUM INJ 40 MG/0.4 ML DISP.SYRIN SUBCUT SCH (09:08)
[2016-09-28] MEDS ORDERED: CETIRIZINE 10 MG TABLET PO SCH (10:00)
[2016-09-28] MEDS ORDERED: ALLOPURINOL 100 MG TABLET PO SCH (10:00)
[2016-09-28] MEDS ORDERED: TAMSULOSIN HCL 0.4 MG CAP.SR.24H PO SCH (10:00)
[2016-09-28] MEDS: LISINOPRIL 5 MG TABLET PO SCH (10:21)
[2016-09-28] MEDS: ASPIRIN 325 MG TABLET, ENT COATED PO SCH (10:21)
[2016-09-28] MEDS: FAMOTIDINE 20 MG TABLET PO SCH ×2 (10:21→21:23)
[2016-09-28] MEDS: CARVEDILOL 3.125 MG TABLET PO SCH ×2 (10:22→17:22)
[2016-09-28] MEDS: FUROSEMIDE INJ/PF 20 MG/2 ML SDV IV SCH (10:32)
[2016-09-28] MEDS ORDERED: BUMETANIDE INJ/PF 1 MG/4 ML SDV IV ONE (11:30)
[2016-09-28 12:28] LABS: PROTEIN TOTAL UR 24HR 174.7 mg/24 hr (30.0-150.0)
--- NOTE | 2016-09-28 14:52 | PDOC PROGRESS REPORT ---
Subjective Progress Note for:: 09/28/16 Subjective:: Reason for visit: Follow-up anasarca, mixed systolic and diastolic heart failure , obstructing right renal stone Hospital course: Per H&P -"KERRY COBURN is a 75 year old male With a significant history of severe rheumatoid arthritis, coronary artery stent, exposed to agent orange in [place]; Presents to the ED with a history of 4 weeks generalized edema, Increase weight of 30 pounds Dyspnea on exertion , orthopnea and chest tightness About 2 weeks ago patient had removal of left kidney stones; a left ureteral stent also was removed at [facility] in [place] Dr. Dominguez. Upon evaluation in the ED patient was diagnosed of mild CHF. His chest x-ray showed bilateral small pleural effusion and fluid overload; BNP was over 900; troponins were intermediate range; EKG showed some ST-T changes with LVH. He was subsequently admitted under hospitalist service for further workup. " Echocardiogram performed and showed an EF of less than 30% with severely reduced left ventricle systolic function and pseudo-normalized left ventricular relaxation associated with grade 2 out of 4 moderate diastolic dysfunction, severe global hypokinesia of the left ventricle, left ventricle mildly dilated, insignificant valvular regurgitation incidentally noted, please see cardiology' s dictation for full details. No prior history of congestive heart failure. MUGA shows dilated left ventricle with global hypokinesia and an estimated ejection fraction of 33%. Cardiology was consulted for further recommendations. His urinalysis was positive for protein, but a 24-hour protein has been sent to an outside lab and is still pending. spoke with Dr. Fallon over the weekend and suggested he follow up with them as an outpatient. His BUN and creatinine have remained within normal limits since arrival. Incidentally noted is an obstructing 3.8 mm stone in the proximal right ureter with resulting hydronephrosis. spoke with , the patient's urologist in [place], and confirmed he has follow-up appointment on September 30 already scheduled. The patient's edema improved with diuretics, however he is now refusing his Lasix stating it makes him nauseous. Changed to Bumex. Subjective: The patient denies chest pain and states his overall condition is improved including his respiratory status. ROS: per HPI plus a total of 10 systems reviewed, pertinent positives and negatives noted above, remaining systems negative. Physical Exam Vital Signs: Temp Pulse Resp BP Pulse Ox 97.4 F 98 18 122/78 98 09/28/16 07:07 09/28/16 07:07 09/28/16 07:07 09/28/16 07:07 09/28/16 07:07 Intake & Output 09/27/16 09/28/16 09/29/16 06:59 06:59 06:59 Intake Total 1060 1671 Output Total 850 250 Balance 210 1421 Weight 115 kg 113.2 kg EXAM GENERAL: NAD; well developed, well nourished; obese; alert and oriented to person, place, time, situation HEENT: normocephalic, atraumatic; no conjunctival injection, no scleral icterus ; oral mucosa moist; RESPIRATORY: no accessory muscle use, no increased WOB, good air entry bilaterally; no wheezes, rales, rhonchi; bibasilar inspiratory crackles clear with deep breath CARDIO: no JVD; RRR; no systolic murmur; no tachycardia GI: soft; nondistended; normal bowel sounds; no hepato spleno megaly; nontender VASCULAR: no carotid bruit; no abdominal bruit; no pallor; 2+ radial, DP pulse ; normal capillary refill EXTREMITIES: no calf tender; no palpable cords in calf; no clubbing, cyanosis ; 2+ bilateral pedal edema PSYCH: normal affect, normal mood SKIN: warm; moist; no petechiae; no telengectasias; no jaundice; no rash Results Laboratory Results: 09/27/16 08:02 09/26/16 04:20 09/26/16 12:25 Clean Catch Midstream Urine Culture - Final NO GROWTH 2 DAYS 09/25/16 09/25/16 22:20 22:20 Creatine Kinase 204 H Troponin I 0.072 Labs reviewed, good renal function, H&H stable Impressions: Chest X-Ray 09/25/16 10:36 IMPRESSION: Bilateral atelectasis. Chest/Abdomen CTA 09/25/16 11:23 IMPRESSION: No CT angio evidence of acute pulmonary emboli. Trace bilateral pleural effusions with mild bibasilar atelectasis. Venous Doppler Study 09/25/16 14:20 IMPRESSION: NO EVIDENCE DVT OR SVT IN EITHER LEG. Abdomen Ultrasound 09/26/16 00:00 IMPRESSION: 1. Mild right hydronephrosis. Bilateral nephrolithiasis. Limited or Localized CT 09/27/16 10:16 IMPRESSION: Obstructing 3.8 mm in diameter calculus in the proximal right ureter. Small bilateral nonobstructing renal calculi are identified. Other findings as noted above Cardiac Imaging Nuclear Medicine 09/28/16 08:00 IMPRESSION: Dilated left ventricle with global hypokinesia, and estimated left ventricular ejection fraction of 33% Status: Imported from PACS - Reports are reviewed Assessment & Plan - Diagnosis (1) Acute systolic heart failure Is this a current diagnosis for this admission?: YesPlan: Echocardiogram and MUGA show dilated cardiomyopathy with global hypokinesia of the left ventricle and severely suppressed function at only 30% EF. Continue beta carol, SAURABH inhibitor, and Aldactone and consult cardiology for further recommendations. Patient is unsure whether he he wishes to pursue invasive investigation at this time or a more conservative approach with medical management only, he will discuss with cardiology later. He is refusing Lasix therapy due to nausea and wishes to hold on any diuretic therapy at this time. (2) Anasarca Is this a current diagnosis for this admission?: YesPlan: Improved. Multifactorial, predominantly from systolic and diastolic heart failure as noted on echocardiogram but also possibly a contribution from nephrotic syndrome. UA shows proteinuria but the degree of which is yet to be quantified as the studies have not resulted as yet. (3) Coronary artery disease Qualifiers: Coronary Disease-Associated Artery/Lesion type: [place] artery [place] vs. transplanted heart: [place] heart Associated angina: with unspecified angina Qualified Code(s): I25.119 - Atherosclerotic heart disease of [place] coronary artery with unspecified angina pectoris Is this a current diagnosis for this admission?: YesPlan: Physical history of stent [place] the RCA [place] [address] [place]. Further investigation pending cardiology's input. He is chest pain-free and has been since his arrival. 3 sets of cardiac enzymes were negative for acute cardiac ischemia. Continue antiplatelet and statin therapy, beta carol therapy as noted above. (4) Dyspnea Qualifiers: Dyspnea type: unspecified Qualified Code(s): R06.00 - Dyspnea, unspecified Plan: Improved. Not requiring supplemental O2. Multifactorial, likely mostly related to the above with contribution from morbid obesity. (5) Kidney stones Is this a current diagnosis for this admission?: YesPlan: As an obstructing 3.8 mm proximal right ureteral stone, plan is to continue Flomax and outpatient follow-up with his urologist already scheduled for the in [place]. (6) Nephrotic syndrome Is this a current diagnosis for this admission?: YesPlan: Continue SAURABH inhibitor. Follow-up on 24 urine protein studies. (7) Rheumatoid arthritis Qualifiers: Rheumatoid factor presence: unspecified presence Laterality: unspecified laterality Is this a current diagnosis for this admission?: YesPlan: Stable. Predisposes to early coronary artery disease. (8) UTI (urinary tract infection) Qualifiers: Urinary tract infection type: site unspecified Is this a current diagnosis for this admission?: YesPlan: Urine culture shows no growth. No indication for antibiotics at this time. - Time Time Spent with patient: 35 or more minutes Medications reviewed and adjusted accordingly: Yes Anticipated discharge: Home Within: within 24 hours
[2016-09-28] MEDS: HYDROMORPHONE HCL 2 MG TABLET PO PRN (15:28)
[2016-09-28] MEDS: TAMSULOSIN HCL 0.4 MG CAP.SR.24H PO SCH (17:22)
[2016-09-28] MEDS: ALLOPURINOL 100 MG TABLET PO SCH (17:22)
--- NOTE | 2016-09-28 19:49 | PDOC CONSULTATION ---
Consultation Consult Date: 09/28/16 Attending physician:: ARISTIDES CAMPBELL Consult reason:: Shortness of breath, cardiomyopathy and pedal edema History of Present Illness Admission Date/PCP: 09/25/16 17:29 Edward Mattson Patient complains of: Shortness of breath and pedal edema History of Present Illness: KERRY COBURN is a 75 year old male With a significant history of rheumatoid arthritis, coronary artery stent, exposed to agent orange in [place]; Presents to the ED with a history of 4 weeks generalized edema, which progressively got worse, Increase weight of 30 pounds Dyspnea on exertion, which also progressively got worse , orthopnea and chest tightness About 2 weeks ago patient had removal of left kidney stones; a left ureteral stent also was removed at [facility] in [place]. Sandra Upon evaluation in the ED patient was diagnosed of mild CHF. His chest x-ray showed bilateral small pleural effusion and fluid overload; BNP was over 900; troponins were intermediate range; EKG showed some ST-T changes with LVH He was subsequently admitted, further evaluation revealed depressed LVEF and congestive heart failure. Patient feels much improved after being diuresed. Patient claims he has not been taking care of himself because he has to take care of his . Patient does give history of marked fatigue and tiredness during the day, he does not sleep well. He has difficulty falling asleep and staying asleep. There is some history of snoring. Past Medical History Cardiac Medical History: Reports: Coronary Artery Disease Denies: Congestive Heart Failure, Myocardial Infarction, Hypertension Pulmonary Medical History: Denies: Asthma, Bronchitis, Chronic Obstructive Pulmonary Disease (COPD), Pneumonia, Tuberculosis Neurological Medical History: Denies: Seizures GI Medical History: Denies: Hiatal Hernia Musculoskeltal Medical History: Reports: Arthritis - Rheumatoid, Gout Psychiatric Medical History: Denies: Depression Hematology: Denies: Anemia, Sickle Cell Disease Past Surgical History Past Surgical History: Reports: Appendectomy, Cardiac Catheterization, Cholecystectomy, Other - Ureteral stent left kidney Removal stones and stent 2 weeks ago Social History Information Source: Patient Smoking Status: Never Smoker Frequency of Alcohol Use: Rare Hx Recreational Drug Use: No Drugs: None Hx Prescription Drug Abuse: No - Advance Directive Resuscitation Status: Full Code Surrogate healthcare decision maker:: Patient's spouse Family History Family History: Reviewed & Not Pertinent Parental Family History Reviewed: Yes Children Family History Reviewed: Yes Sibling(s) Family History Reviewed.: Yes - Negative for premature coronary artery disease or sudden cardiac in the family amongst first degree relatives. Medication/Allergy Home Medications: Allopurinol [Zyloprim 100 mg Tablet] 200 mg PO DAILY 09/26/16 Cetirizine HCl [Zyrtec 10 mg Tablet] 10 mg PO DAILY 09/26/16 Ezetimibe/Simvastatin [Vytorin 10-20 mg Tablet] 0.5 each PO QHS 09/26/16 Hydromorphone HCl [Dilaudid 2 mg Tablet] 2 mg PO Q4HP PRN 09/26/16 Naproxen 500 mg PO Q12 09/26/16 Ondansetron HCl [Zofran 8 mg Tablet] 8 mg PO Q8HP PRN 09/26/16 Potassium Citrate [Potassium Citrate ER] 15 meq PO Q12 09/26/16 Tamsulosin HCl [Flomax 0.4 mg Cap.sr] 0.4 mg PO DAILY 09/26/16 Allergies/Adverse Reactions: celecoxib [From Celebrex] Allergy (Severe, Verified 09/25/16 12:14) Chest pain leflunomide [From Arava] Allergy (Severe, Verified 09/25/16 12:14) Chest pain-Full list of symptoms on 05/18/13 DC Summary meloxicam [From Mobic] Allergy (Severe, Verified 09/25/16 12:14) Chest pain methotrexate [Methotrexate] Allergy (Severe, Verified 09/25/16 12:14) Anaphylaxis ketorolac tromethamine [From Toradol] Allergy (Unknown, Verified 09/25/16 12:14) see comment Sulfa (Sulfonamide Antibiotics) Adverse Reaction (Severe, Verified 09/25/16 12: 14) Diarrhea Penicillins Adverse Reaction (Unknown, Verified 09/25/16 12:14) Rash Review of Systems Review of Systems: Please see history of present illness and past medical history as wall. Constitutional: No fever or chills reported. Noted marked fatigue and tiredness during the day as well as daytime sleepiness. Head : No recent chronic headaches, recent head injury. Eyes: No recent eye pain, diplopia, redness, discharge, acute visual changes. Ears: No recent chronic ear pain, acute hearing loss, ear discharge. Oral cavity: No recent ulcerations, bleeding, oral cavity discomfort. Neck: No recent acute neck pain reported. Hematologic: No recent easy bruising or bleeding or hematologic malignancy reported. Lymphatic: No recent lymphatic malignancy, chronic lymphadenopathy reported yet Cardiovascular system review: See history of present illness. Respiratory system review: No recent chronic cough, hemoptysis, blood clots in the lungs reported. Mild Shortness of breath on exertion Gastrointestinal system review: Negative for any recent acute or chronic abdominal pain, hematemesis, melena, recent change in bowel habits. Genitourinary system review: No recent acute or chronic hematuria, flank pain, UTI etc. reported. Skin system review: Negative for any recent abnormal bruising, no rash, no pruritus reported. Neurologic: No prior history of strokes, mini strokes, seizure disorder. Psychologic: No history of major psychosis or depression reported. Musculoskeletal: Minor aches and pains reported. No acute joint swelling reported. Endocrine: No recent polyuria, polydipsia, recent heat or cold intolerance. Patient has noted nocturia. Physical Exam Vital Signs: Temp Pulse Resp BP Pulse Ox 97.7 F 104 H 18 110/72 95 09/28/16 15:29 09/28/16 15:29 09/28/16 15:29 09/28/16 15:29 09/28/16 15:29 Intake & Output 09/27/16 09/28/16 09/29/16 06:59 06:59 06:59 Intake Total 1060 1671 832 Output Total 850 250 Balance 210 1421 832 Weight 115 kg 113.2 kg Exam: GENERAL: well-nourished and in no acute distress. Alert and oriented x3 HEAD: Atraumatic, normocephalic. EYES: Pupils equal round and reactive to light, extraocular movements intact, sclera anicteric, conjunctiva are normal. ENT: TMs normal, nares patent, oropharynx clear without exudates. Moist mucous membranes. No oral ulcerations or bleeding gums noted NECK: supple without lymphadenopathy. Trachea is central. No cervical or axillary lymphadenopathy noted. Carotids are 2+, JVD 10-12 CM LUNGS: Respiration seems nonlabored, no significant accessory muscle action noted. Breath sounds clear to auscultation bilaterally and equal noted. No wheezes rales or rhonchi noted. No significant dullness noted on percussion. CHEST: Palpation of the chest wall shows no significant chest wall tenderness. No other significant abnormalities noted. HEART: [place] [facility], No PSH, 1/6 ZHANG aortic area, 1/6 newsome systolic murmur mitral area, no rubs, no gallops. ABDOMEN: Soft, no significant tenderness appreciated, normoactive bowel sounds. No guarding, no rebound. No rigidity noted . No masses appreciated. EXTREMITIES: Pedal pulses are 1-2+, no calf tenderness noted. No clubbing or cyanosis.2+ + pedal edema noted NEUROLOGICAL: Focused neurological exam showed no significant neurologic deficit. Normal speech, no focal weakness appreciated. PSYCH: Normal mood, normal affect. Judgment and insight within normal limits. SKIN: No significant ecchymosis, rash, ulcerations or signs of pruritus noted. MUSCULOSKELETAL EXAM: No significant joint swelling noted. Results Laboratory Results: 09/27/16 08:02 09/26/16 04:20 09/25/16 22:45 Ur Total Protein 24 Hr 174.7 H 09/26/16 12:25 Clean Catch Midstream Urine Culture - Final NO GROWTH 2 DAYS 09/25/16 09/25/16 22:20 22:20 Creatine Kinase 204 H Troponin I 0.072 Impressions: Chest X-Ray 09/25/16 10:36 IMPRESSION: Bilateral atelectasis. Chest/Abdomen CTA 09/25/16 11:23 IMPRESSION: No CT angio evidence of acute pulmonary emboli. Trace bilateral pleural effusions with mild bibasilar atelectasis. Venous Doppler Study 09/25/16 14:20 IMPRESSION: NO EVIDENCE DVT OR SVT IN EITHER LEG. Abdomen Ultrasound 09/26/16 00:00 IMPRESSION: 1. Mild right hydronephrosis. Bilateral nephrolithiasis. Limited or Localized CT 09/27/16 10:16 IMPRESSION: Obstructing 3.8 mm in diameter calculus in the proximal right ureter. Small bilateral nonobstructing renal calculi are identified. Other findings as noted above Cardiac Imaging Nuclear Medicine 09/28/16 08:00 IMPRESSION: Dilated left ventricle with global hypokinesia, and estimated left ventricular ejection fraction of 33% Assessment & Plan - Diagnosis (1) Anasarca Is this a current diagnosis for this admission?: Yes (2) CHF (congestive heart failure) Qualifiers: Congestive heart failure type: unspecified congestive heart failure type Congestive heart failure chronicity: unspecified congestive heart failure chronicity Qualified Code(s): I50.9 - Heart failure, unspecified Is this a current diagnosis for this admission?: Yes (3) Chest pain Qualifiers: Chest pain type: unspecified Qualified Code(s): R07.9 - Chest pain, unspecified Is this a current diagnosis for this admission?: Yes (4) Coronary artery disease Qualifiers: Coronary Disease-Associated Artery/Lesion type: false pass artery [place] vs. transplanted heart: false pass heart Associated angina: with unspecified angina Qualified Code(s): I25.119 - Atherosclerotic heart disease of false pass coronary artery with unspecified angina pectoris Is this a current diagnosis for this admission?: Yes (5) Dyspnea Qualifiers: Dyspnea type: unspecified Qualified Code(s): R06.00 - Dyspnea, unspecified Is this a current diagnosis for this admission?: Yes (6) Rheumatoid arthritis Qualifiers: Rheumatoid factor presence: unspecified presence Laterality: unspecified laterality Is this a current diagnosis for this admission?: Yes - Time Time Spent with patient: Anasarca: Most likely related to underlying acute on chronic systolic heart failure. Continue diuretic therapy. Congestive heart failure: Acute on chronic systolic heart failure. LVEF is noted to be low. Patient may need prophylactic defibrillator, initially external. Cardiomyopathy: Patient noted to have dilated cardiomyopathy based on my echo review. Will optimize therapy for underlying cardiomyopathy. Chest pain: To be evaluated further with a nuclear stress test. Hopefully this can be performed tomorrow. Coronary artery disease: Patient gives a history of stent placement. Patient has symptoms indicative of underlying ischemia or ischemia equivalent symptoms. To be evaluated further with a nuclear stress test. Dyspnea: Predominantly related to cardiomyopathy and systolic heart failure but could well be a ischemia equivalent symptom, pulmonary problem etc. Rheumatoid arthritis: We will leave management plans to the fire lookout. Time Spent: Greater than 70 Minutes - CODE STATUS was discussed, patient remains full code. Surrogate decision-maker patient's . Multiple medical problems were addressed.More than 50% of the time spent coordinating care, discussing management plans with involved caregivers. Management plans discussed with involved personnels. Medical decision making was of high complexity. Medications reviewed and adjusted accordingly: Yes
[2016-09-28] MEDS: EZETIMIBE 10 MG TABLET PO SCH (21:22)
[2016-09-28] MEDS: SIMVASTATIN 10 MG TABLET PO SCH (21:23)
[2016-09-29 04:55] LABS: ANION GAP 7 (5-19); BLOOD UREA NITROGEN 19 mg/dL (7-20); CARBON DIOXIDE 29 mmol/L (22-30); CHLORIDE 102 mmol/L (98-107); CREATININE RESULT 1.61 mg/dL (0.52-1.25); GLUCOSE 88 mg/dL (75-110); MAGNESIUM 1.6 mg/dL (1.6-2.3); PHOSPHORUS 4.1 mg/dL (2.5-4.5); POTASSIUM 3.6 mmol/L (3.6-5.0); SODIUM 137.8 mmol/L (137-145)
[2016-09-29 07:44] LABS: COMPLEMENT C4 14 mg/dL (14-44)
[2016-09-29] MEDS: ONDANSETRON HCL INJ/PF 4 MG/2 ML SDV IV PRN (07:53)
[2016-09-29] MEDS: CETIRIZINE 10 MG TABLET PO SCH (07:53)
[2016-09-29] MEDS: ENOXAPARIN SODIUM INJ 40 MG/0.4 ML DISP.SYRIN SUBCUT SCH (07:58)
[2016-09-29 08:19] LABS: COMPLEMENT C3 81 mg/dL (82-167)
[2016-09-29 08:42] LABS: HEPATITIS C VIRUS AB <0.1 s/co ratio (0.0-0.9)
[2016-09-29] MEDS ORDERED: BUMETANIDE INJ/PF 1 MG/4 ML SDV IV SCH (10:00)
[2016-09-29] MEDS ORDERED: TORSEMIDE 20 MG TABLET PO SCH (10:00)
[2016-09-29] MEDS: SPIRONOLACTONE 25 MG TABLET PO SCH (10:28)
[2016-09-29] MEDS: CARVEDILOL 3.125 MG TABLET PO SCH (10:28)
[2016-09-29] MEDS: FAMOTIDINE 20 MG TABLET PO SCH ×2 (10:29→22:49)
[2016-09-29] MEDS: ASPIRIN 325 MG TABLET, ENT COATED PO SCH (10:29)
[2016-09-29] MEDS: LISINOPRIL 5 MG TABLET PO SCH (10:29)
[2016-09-29] MEDS: ALLOPURINOL 100 MG TABLET PO SCH ×2 (10:29→17:38)
--- NOTE | 2016-09-29 11:10 | PDOC PROGRESS REPORT ---
Subjective Progress Note for:: 09/29/16 Subjective:: Patient seems to be doing better with gradual improvement. Pt is denying any chest arm or neck discomfort. Patient denying any PND, orthopnea. Patient denied any sustained palpitations, dizziness, syncope, near syncope. Patient denying any fever chills. Patient denying any other significant discomfort. Patient is maintaining sinus rhythm. Patient was scheduled for a nuclear stress test but this could not be performed since patient had another nuclear study yesterday. Review of systems: Rest review of systems negative. Medications: Medications have been reviewed. Physical Exam Vital Signs: Temp Pulse Resp BP Pulse Ox 97.9 F 105 H 16 117/79 100 09/29/16 07:44 09/29/16 07:44 09/29/16 07:44 09/29/16 07:44 09/29/16 07:44 Intake & Output 09/28/16 09/29/16 09/30/16 06:59 06:59 06:59 Intake Total 1671 1237 Output Total 250 Balance 1421 1237 Weight 113.2 kg 113.5 kg Exam: GENERAL: well-nourished and in no acute distress. Alert and oriented x3 HEAD: Atraumatic, normocephalic. EYES: Pupils equal round and reactive to light, extraocular movements intact, sclera anicteric, conjunctiva are normal. ENT: TMs normal, nares patent, oropharynx clear without exudates. Moist mucous membranes. No oral ulcerations or bleeding gums noted NECK: supple without lymphadenopathy. Trachea is central. No cervical or axillary lymphadenopathy noted. Carotids are 2+, JVD 8-10 CM LUNGS: Respiration seems nonlabored, no significant accessory muscle action noted. Breath sounds clear to auscultation bilaterally and equal noted. No wheezes rales or rhonchi noted. No significant dullness noted on percussion. CHEST: Palpation of the chest wall shows no significant chest wall tenderness. No other significant abnormalities noted. HEART: [place] [employer], No PSH, 1/6 ZHANG aortic area, 1/6 newsome systolic murmur mitral area, no rubs, no gallops. ABDOMEN: Soft, no significant tenderness appreciated, normoactive bowel sounds. No guarding, no rebound. No rigidity noted . No masses appreciated. EXTREMITIES: Pedal pulses are 1-2+, no calf tenderness noted. No clubbing or cyanosis.1-2 + pedal edema noted NEUROLOGICAL: Focused neurological exam showed no significant neurologic deficit. Normal speech, no focal weakness appreciated. PSYCH: Normal mood, normal affect. Judgment and insight within normal limits. SKIN: No significant ecchymosis, rash, ulcerations or signs of pruritus noted. MUSCULOSKELETAL EXAM: No significant joint swelling noted. Results Laboratory Results: 09/27/16 08:02 09/29/16 03:50 09/25/16 09/29/16 22:45 03:50 Sodium 137.8 Potassium 3.6 Chloride 102 Carbon Dioxide 29 Anion Gap 7 BUN 19 Creatinine 1.61 H Est GFR ( Amer) 51 L Est GFR (Non-Af Amer) 42 L Glucose 88 Calcium 9.0 Phosphorus 4.1 Magnesium 1.6 Ur Total Protein 24 Hr 174.7 H 09/26/16 12:25 Clean Catch Midstream Urine Culture - Final NO GROWTH 2 DAYS 09/25/16 09/25/16 22:20 22:20 Creatine Kinase 204 H Troponin I 0.072 Impressions: Chest X-Ray 09/25/16 10:36 IMPRESSION: Bilateral atelectasis. Chest/Abdomen CTA 09/25/16 11:23 IMPRESSION: No CT angio evidence of acute pulmonary emboli. Trace bilateral pleural effusions with mild bibasilar atelectasis. Venous Doppler Study 09/25/16 14:20 IMPRESSION: NO EVIDENCE DVT OR SVT IN EITHER LEG. Abdomen Ultrasound 09/26/16 00:00 IMPRESSION: 1. Mild right hydronephrosis. Bilateral nephrolithiasis. Limited or Localized CT 09/27/16 10:16 IMPRESSION: Obstructing 3.8 mm in diameter calculus in the proximal right ureter. Small bilateral nonobstructing renal calculi are identified. Other findings as noted above Cardiac Imaging Nuclear Medicine 09/28/16 08:00 IMPRESSION: Dilated left ventricle with global hypokinesia, and estimated left ventricular ejection fraction of 33% Assessment & Plan - Diagnosis (1) Anasarca Is this a current diagnosis for this admission?: Yes (2) CHF (congestive heart failure) Qualifiers: Congestive heart failure type: unspecified congestive heart failure type Congestive heart failure chronicity: unspecified congestive heart failure chronicity Qualified Code(s): I50.9 - Heart failure, unspecified Is this a current diagnosis for this admission?: Yes (3) Chest pain Qualifiers: Chest pain type: unspecified Qualified Code(s): R07.9 - Chest pain, unspecified Is this a current diagnosis for this admission?: Yes (4) Coronary artery disease Qualifiers: Coronary Disease-Associated Artery/Lesion type: [place] artery [place] vs. transplanted heart: al[place]q heart Associated angina: with unspecified angina Qualified Code(s): I25.119 - Atherosclerotic heart disease of [place] coronary artery with unspecified angina pectoris Is this a current diagnosis for this admission?: Yes (5) Dyspnea Qualifiers: Dyspnea type: unspecified Qualified Code(s): R06.00 - Dyspnea, unspecified Is this a current diagnosis for this admission?: Yes (6) Rheumatoid arthritis Qualifiers: Rheumatoid factor presence: unspecified presence Laterality: unspecified laterality Is this a current diagnosis for this admission?: Yes - Notes Notes: Anasarca: Most likely related to underlying acute on chronic systolic heart failure. Continue diuretic therapy. Patient was placed on by mouth torsemide. Congestive heart failure: Acute on chronic systolic heart failure. LVEF is noted to be low. Patient may need prophylactic defibrillator, initially external. Will increase carvedilol to 6.25 by mouth daily. Cardiomyopathy: Patient noted to have dilated cardiomyopathy based on my echo review. Will optimize therapy for underlying cardiomyopathy. Chest pain: To be evaluated further with a nuclear stress test. Hopefully this can be performed tomorrow. This was scheduled for today but could not be performed since patient had another nuclear study yesterday. Coronary artery disease: Patient gives a history of stent placement. Patient has symptoms indicative of underlying ischemia or ischemia equivalent symptoms. To be evaluated further with a nuclear stress test. Dyspnea: Predominantly related to cardiomyopathy and systolic heart failure but could well be a ischemia equivalent symptom, pulmonary problem etc. Rheumatoid arthritis: We will leave management plans to the asphalt smoother. - Time Time with patient: Greater than 35 minutes - CODE STATUS was discussed, patient remains full code. Surrogate decision-maker unchanged. Multiple medical problems were addressed.More than 50% of the time spent coordinating care, discussing management plans with involved caregivers. Management plans discussed with involved personnels. Medical decision making was of moderate complexity. Medications reviewed and adjusted accordingly: Yes
--- NOTE | 2016-09-29 12:30 | PDOC PROGRESS REPORT ---
Subjective Progress Note for:: 09/29/16 Subjective:: Reason for visit: Follow-up anasarca, mixed systolic and diastolic heart failure , obstructing right renal stone Hospital course: Per H&P -"KERRY COBURN is a 75 year old male With a significant history of severe rheumatoid arthritis, coronary artery stent, exposed to agent orange in [place]; Presents to the ED with a history of 4 weeks generalized edema, Increase weight of 30 pounds Dyspnea on exertion , orthopnea and chest tightness About 2 weeks ago patient had removal of left kidney stones; a left ureteral stent also was removed at [facility] in [place] Dr. Dominguez. Upon evaluation in the ED patient was diagnosed of mild CHF. His chest x-ray showed bilateral small pleural effusion and fluid overload; BNP was over 900; troponins were intermediate range; EKG showed some ST-T changes with LVH. He was subsequently admitted under hospitalist service for further workup. " Echocardiogram performed and showed an EF of less than 30% with severely reduced left ventricle systolic function and pseudo-normalized left ventricular relaxation associated with grade 2 out of 4 moderate diastolic dysfunction, severe global hypokinesia of the left ventricle, left ventricle mildly dilated, insignificant valvular regurgitation incidentally noted, please see cardiology' s dictation for full details. No prior history of congestive heart failure. MUGA shows dilated left ventricle with global hypokinesia and an estimated ejection fraction of 33%. Cardiology was consulted for further recommendations. His urinalysis was positive for protein, but a 24-hour protein has been sent to an outside lab and is still pending. spoke with Dr. Fallon over the weekend and suggested he follow up with them as an outpatient. His BUN and creatinine have remained within normal limits since arrival. Incidentally noted is an obstructing 3.8 mm stone in the proximal right ureter with resulting hydronephrosis. spoke with , the patient's urologist in [place], and confirmed he has follow-up appointment on September 30 already scheduled. The patient's edema improved with diuretics, however renal function declined some with diuresis. Subjective: The patient denies chest pain and states his overall condition is improved including his respiratory status. He is frustrated that he is unable to perform his nuclear stress test this morning. ROS: per HPI plus a total of 10 systems reviewed, pertinent positives and negatives noted above, remaining systems negative. Physical Exam Vital Signs: Temp Pulse Resp BP Pulse Ox 97.5 F 98 16 122/79 97 09/29/16 11:26 09/29/16 11:26 09/29/16 11:26 09/29/16 11:26 09/29/16 11:26 Intake & Output 09/28/16 09/29/16 09/30/16 06:59 06:59 06:59 Intake Total 1671 1237 Output Total 250 Balance 1421 1237 Weight 113.2 kg 113.5 kg 113.5 kg EXAM GENERAL: NAD; well developed, well nourished; obese; alert and oriented to person, place, time, situation HEENT: normocephalic, atraumatic; no conjunctival injection, no scleral icterus ; oral mucosa moist; RESPIRATORY: no accessory muscle use, no increased WOB, good air entry bilaterally; no wheezes, rales, rhonchi; bibasilar inspiratory crackles CARDIO: RRR; no systolic murmur; no tachycardia GI: soft; nondistended; normal bowel sounds; no hepato spleno megaly; nontender VASCULAR: no carotid bruit; no abdominal bruit; no pallor; 2+ radial, DP pulse ; normal capillary refill EXTREMITIES: no calf tender; no palpable cords in calf; no clubbing, cyanosis ; 2+ bilateral pedal edema, now much improved PSYCH: normal affect, normal mood SKIN: warm; moist; no petechiae; no telengectasias; no jaundice; no rash Results Laboratory Results: 09/27/16 08:02 09/29/16 03:50 09/25/16 09/29/16 22:45 03:50 Sodium 137.8 Potassium 3.6 Chloride 102 Carbon Dioxide 29 Anion Gap 7 BUN 19 Creatinine 1.61 H Est GFR ( Amer) 51 L Est GFR (Non-Af Amer) 42 L Glucose 88 Calcium 9.0 Phosphorus 4.1 Magnesium 1.6 Ur Total Protein 24 Hr 174.7 H 09/26/16 12:25 Clean Catch Midstream Urine Culture - Final NO GROWTH 2 DAYS 09/25/16 09/25/16 22:20 22:20 Creatine Kinase 204 H Troponin I 0.072 Labs reviewed serum creatinine increasing, 24-hour protein does not reach nephrotic range proteinuria. Troponin is indeterminate Assessment & Plan - Diagnosis (1) Acute systolic heart failure Is this a current diagnosis for this admission?: YesPlan: Echocardiogram and MUGA show dilated cardiomyopathy with global hypokinesia of the left ventricle and severely suppressed function at only 30% EF. Continue beta carol, SAURABH inhibitor, and Aldactone and appreciate consult from cardiology for their recommendations. Patient is agreeable to base of investigation is warranted, plan is to proceed with nuclear stress testing in the morning. (2) Anasarca Is this a current diagnosis for this admission?: YesPlan: Improved. Multifactorial, predominantly from systolic and diastolic heart failure as noted on echocardiogram but also possibly a contribution from acute renal failure. We'll have to hold on further diuresis due to declining renal function. (3) Coronary artery disease Qualifiers: Coronary Disease-Associated Artery/Lesion type: [place] artery [place] vs. transplanted heart: [place] heart Associated angina: with unspecified angina Qualified Code(s): I25.119 - Atherosclerotic heart disease of [place] coronary artery with unspecified angina pectoris Is this a current diagnosis for this admission?: YesPlan: Physical history of stent [place] the RCA [place] [address] [place]. He is chest pain- free and has been since his arrival but his dyspnea and persistent nausea could be considered a cardiac equivalent. 3 sets of cardiac enzymes were indeterminate for acute cardiac ischemia. Continue antiplatelet and statin therapy, beta carol therapy as noted above. Awaiting nuclear stress testing in the morning. (4) Dyspnea Qualifiers: Dyspnea type: unspecified Qualified Code(s): R06.00 - Dyspnea, unspecified Is this a current diagnosis for this admission?: YesPlan: Improved. Not requiring supplemental O2. Multifactorial, likely mostly related to the above with contribution from morbid obesity. (5) Kidney stones Is this a current diagnosis for this admission?: YesPlan: As an obstructing 3.8 mm proximal right ureteral stone, plan is to continue Flomax and outpatient follow-up with his urologist already scheduled for the in [place]. (6) Nephrotic syndrome Is this a current diagnosis for this admission?: YesPlan: Ruled out. Continue low-dose SAURABH inhibitor as his renal function will allow. (7) Rheumatoid arthritis Qualifiers: Rheumatoid factor presence: unspecified presence Laterality: unspecified laterality Is this a current diagnosis for this admission?: YesPlan: Stable. Predisposes to early coronary artery disease. (8) UTI (urinary tract infection) Qualifiers: Urinary tract infection type: site unspecified Is this a current diagnosis for this admission?: YesPlan: Ruled out. Urine culture shows no growth. No indication for antibiotics at this time. (9) Acute renal failure Qualifiers: Acute renal failure type: unspecified Qualified Code(s): N17.9 - Acute kidney failure, unspecified Is this a current diagnosis for this admission?: YesPlan: Likely diuretic induced, hold further diuresis for now and other potentially nephrotoxic meds. - Time Time Spent with patient: 25-34 minutes Medications reviewed and adjusted accordingly: Yes Anticipated discharge: Other - After stress test either discharge home or transfer to tertiary care center for further invasive investigation.
[2016-09-29] MEDS: ACETAMINOPHEN 325 MG TABLET PO PRN ×2 (15:22→22:52)
[2016-09-29 15:38] LABS: FREE KAPPA LIGHT CHAINS 11.97 mg/L (3.30-19.40); FREE LAMBDA LIGHT CHAINS 9.4 mg/L (5.71-26.30)
[2016-09-29 16:39] LABS: ALBUMIN 3 3.1 g/dL (2.9-4.4); ALPHA-1-GLOBULIN 0.2 g/dL (0.0-0.4); ALPHA-2-GLOBULIN 3 0.5 g/dL (0.4-1.0); BETA GLOBULIN 0.8 g/dL (0.7-1.3); GLOBULIN TTL 1.8 g/dL (2.2-3.9); IMMUNOGLOBULIN A 65 mg/dL (61-437); IMMUNOGLOBULIN M 50 mg/dL (15-143); MONOCLONAL-SPIKE Not Observed g/dL (Not Observed); PROTEIN TOTAL SERUM 4.9 g/dL (6.0-8.5)
[2016-09-29] MEDS: TAMSULOSIN HCL 0.4 MG CAP.SR.24H PO SCH (17:38)
[2016-09-29] MEDS: EZETIMIBE 10 MG TABLET PO SCH (22:49)
[2016-09-29] MEDS: SIMVASTATIN 10 MG TABLET PO SCH (22:50)
[2016-09-29] MEDS: CARVEDILOL 6.25 MG TABLET PO SCH (22:50)
[2016-09-30 06:24] LABS: ANION GAP 11 (5-19); BLOOD UREA NITROGEN 19 mg/dL (7-20); CALCIUM 9.3 mg/dL (8.4-10.2); CARBON DIOXIDE 27 mmol/L (22-30); CHLORIDE 101 mmol/L (98-107); CREATININE RESULT 1.58 mg/dL (0.52-1.25); GLUCOSE 80 mg/dL (75-110); MAGNESIUM 1.6 mg/dL (1.6-2.3); PHOSPHORUS 4.6 mg/dL (2.5-4.5); POTASSIUM 3.7 mmol/L (3.6-5.0); SODIUM 138.5 mmol/L (137-145)
[2016-09-30] MEDS: ENOXAPARIN SODIUM INJ 40 MG/0.4 ML DISP.SYRIN SUBCUT SCH (08:23)
[2016-09-30 08:35] LABS: KAPPA LAMBDA RATIO 1.27 (0.26-1.65)
[2016-09-30 08:35] LABS: COMPLEMENT TOTAL (CH50) 54 U/mL (42-60)
[2016-09-30 08:35] LABS: IMMUNOGLOBULIN G 284 mg/dL (700-1600)
[2016-09-30] MEDS ORDERED: TORSEMIDE 20 MG TABLET PO SCH (10:00)
[2016-09-30] MEDS: ONDANSETRON HCL INJ/PF 4 MG/2 ML SDV IV PRN ×2 (10:21→16:55)
[2016-09-30] MEDS: CARVEDILOL 6.25 MG TABLET PO SCH ×2 (11:43→21:18)
[2016-09-30] MEDS: CETIRIZINE 10 MG TABLET PO SCH (11:43)
[2016-09-30] MEDS: FAMOTIDINE 20 MG TABLET PO SCH ×2 (11:44→21:19)
[2016-09-30] MEDS: SPIRONOLACTONE 25 MG TABLET PO SCH (11:44)
[2016-09-30] MEDS: LISINOPRIL 5 MG TABLET PO SCH (11:44)
[2016-09-30] MEDS: ASPIRIN 325 MG TABLET, ENT COATED PO SCH (11:44)
[2016-09-30] MEDS: ALLOPURINOL 100 MG TABLET PO SCH ×2 (11:44→17:01)
[2016-09-30] MEDS ORDERED: REGADENOSON INJ 0.4 MG/5 ML DISP.SYRIN IV ONE (13:31)
--- NOTE | 2016-09-30 14:56 | DRAGON STRESS TEST REPORT ---
INTRAVENOUS LEXISCAN CARDIOLITE STRESS TEST USING SINGLE PHOTON EMMISION COMPUTERIZED TOMOGRAPHIC. DATE OF PROCEDURE: September 30, 2016 INDICATION : Shortness of breath and chest tightness CARDIAC RISK FACTORS: Cardiomyopathy, coronary artery disease with prior stent placement, CHF RESTING EKG: Sinus rhythm, left axis deviation STRESS EKG: No significant changes noted with LexiScan bolus REASON FOR TERMINATION: Protocol. PROCEDURE REPORT: Baseline heart rate 104 beats per minute with blood pressure of 116/73. Patient had no significant complaints. Heart rate at 2 minutes post bolus 114 with a blood pressure of 117/66. 3 minutes post bolus heart rate 113 with blood pressure of 106/67. No significant EKG changes were noted. Patient had no significant complaints during the procedure or postprocedure. CONCLUSIONS: Normal EKG and hemodynamic response to IV LexiScan. NUCLEAR DATA: At rest the patient was given 14.86 millicuries of technetium 99 sestamibi injected intravenously. As per protocol rest gated SPECT images were obtained. Subsequently the patient was given intravenous LexiScan at a dose of 0.4 mg in 5 mL intravenously, followed by flush with normal saline. Subsequently the stress dose of 44.5 millicuries of technetium 99 sestamibi was injected intravenously. As per protocol stress gated images were obtained. NUCLEAR INTERPRETATION: Both raw and processed data were used for interpretation. Visual, qualitative, computer-generated quantitative data was used. There was good myocardial uptake of technetium compound. Motion artifact and soft tissue attenuations were noted. Increased visceral uptake was noted. Inferior wall transient perfusion defect noted associated with a smaller underlying fixed defect. No definitive areas of fixed perfusion defect or scars noted. EKG gated imaging showed LV EF at 20 %, rest and stress gated EF similar visually. T. I D. ratio was 1.04. Lung heart ratio noted to be within normal limits 0.45. No significant extracardiac and abnormal radiotracer activities were noted. RV free wall uptake was noted to be increased. IMPRESSION: Also refer to comments under nuclear interpretation. Also test results needs to be interpreted in the context of pretest probability. 1. Inferior wall, mild to moderate severity transient perfusion defect consistent with ischemia noted associated with a smaller underlying fixed defect. 2. RV free wall uptake noted to be mildly increased consistent with RVH/RV enlargement. 3. EKG gated imaging shows left ejection fraction of approximately 20 % with severe diffuse hypokinesia. 4. Clinical correlation requested as occasionally worse ischemia or balanced ischemia could be missed. In approximately 10% of the cases Lexiscan may not cause adequate vasodilatory stress. RECOMMENDATIONS: Aggressive risk factor modification, medical therapy. Clinical correlation with echocardiogram derived ejection fraction. Inability to exercise by itself can lead to increased cardiovascular event risks. Consider cardiology consultation if clinically indicated. I AM AVAILABLE FOR CARDIOLOGY CONSULTATION AND FOLLOWUP IF REQUESTED BY PMD Conor Robert M.D., JEISON Rib Puller mileage clerk, Board certified in cardiovascular diseases, Nuclear cardiology, Echocardiography Cardiac CT and cardiac MRI Ph. [phone] [facility]
--- NOTE | 2016-09-30 15:45 | PDOC PROGRESS REPORT ---
Subjective Progress Note for:: 09/30/16 Subjective:: Patient seems to be doing better with gradual improvement. Patient completed nuclear stress test. In the morning nuclear stress test procedure, risks benefits were discussed. Later on in the afternoon I discussed the results of nuclear stress test. On repeat questioning patient has noted some intermittent chest tightness. Patient denying any PND, orthopnea. Patient denied any sustained palpitations, dizziness, syncope, near syncope. Patient denying any fever chills. Patient denying any other significant discomfort. Patient is maintaining sinus rhythm. Review of systems: Rest review of systems negative. Medications: Medications have been reviewed. Physical Exam Vital Signs: Temp Pulse Resp BP Pulse Ox 97.9 F 107 H 19 126/76 H 94 09/30/16 11:54 09/30/16 14:00 09/30/16 11:54 09/30/16 11:54 09/30/16 11:54 Intake & Output 09/29/16 09/30/16 10/01/16 06:59 06:59 06:59 Intake Total 1237 1128 0 Balance 1237 1128 0 Weight 113.5 kg 113.5 kg 112.7 kg Exam: GENERAL: well-nourished and in no acute distress. Alert and oriented x3 HEAD: Atraumatic, normocephalic. EYES: Pupils equal round and reactive to light, extraocular movements intact, sclera anicteric, conjunctiva are normal. ENT: TMs normal, nares patent, oropharynx clear without exudates. Moist mucous membranes. No oral ulcerations or bleeding gums noted NECK: supple without lymphadenopathy. Trachea is central. No cervical or axillary lymphadenopathy noted. Carotids are 2+, JVD WNL LUNGS: Respiration seems nonlabored, no significant accessory muscle action noted. Breath sounds clear to auscultation bilaterally and equal noted. No wheezes rales or rhonchi noted. No significant dullness noted on percussion. CHEST: Palpation of the chest wall shows no significant chest wall tenderness. No other significant abnormalities noted. 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 ABDOMEN: Soft, no significant tenderness appreciated, normoactive bowel sounds. No guarding, no rebound. No rigidity noted . No masses appreciated. EXTREMITIES: Pedal pulses are 1-2+, no calf tenderness noted. No clubbing or cyanosis.1+ pedal edema noted NEUROLOGICAL: Focused neurological exam showed no significant neurologic deficit. Normal speech, no focal weakness appreciated. PSYCH: Normal mood, normal affect. Judgment and insight within normal limits. SKIN: No significant ecchymosis, rash, ulcerations or signs of pruritus noted. MUSCULOSKELETAL EXAM: No significant joint swelling noted. Results Laboratory Results: 09/27/16 08:02 09/30/16 05:13 09/27/16 09/30/16 04:20 05:13 Sodium 138.5 Potassium 3.7 Chloride 101 Carbon Dioxide 27 Anion Gap 11 BUN 19 Creatinine 1.58 H Est GFR ( Amer) 52 L Est GFR (Non-Af Amer) 43 L Glucose 80 Calcium 9.3 Phosphorus 4.6 H Magnesium 1.6 Total Protein 4.9 L Albumin 3.1 09/25/16 09/25/16 22:20 22:20 Creatine Kinase 204 H Troponin I 0.072 Impressions: Chest X-Ray 09/25/16 10:36 IMPRESSION: Bilateral atelectasis. Chest/Abdomen CTA 09/25/16 11:23 IMPRESSION: No CT angio evidence of acute pulmonary emboli. Trace bilateral pleural effusions with mild bibasilar atelectasis. Venous Doppler Study 09/25/16 14:20 IMPRESSION: NO EVIDENCE DVT OR SVT IN EITHER LEG. Abdomen Ultrasound 09/26/16 00:00 IMPRESSION: 1. Mild right hydronephrosis. Bilateral nephrolithiasis. Limited or Localized CT 09/27/16 10:16 IMPRESSION: Obstructing 3.8 mm in diameter calculus in the proximal right ureter. Small bilateral nonobstructing renal calculi are identified. Other findings as noted above Cardiac Imaging Nuclear Medicine 09/28/16 08:00 IMPRESSION: Dilated left ventricle with global hypokinesia, and estimated left ventricular ejection fraction of 33% Assessment & Plan - Diagnosis (1) Anasarca Is this a current diagnosis for this admission?: Yes (2) CHF (congestive heart failure) Qualifiers: Qualified Code(s): I50.9 - Heart failure, unspecified Is this a current diagnosis for this admission?: Yes (3) Chest pain Qualifiers: Qualified Code(s): R07.9 - Chest pain, unspecified Is this a current diagnosis for this admission?: Yes (4) Coronary artery disease Qualifiers: Qualified Code(s): I25.119 - Atherosclerotic heart disease of [place] coronary artery with unspecified angina pectoris Is this a current diagnosis for this admission?: Yes (5) Dyspnea Qualifiers: Qualified Code(s): R06.00 - Dyspnea, unspecified Is this a current diagnosis for this admission?: Yes (6) Rheumatoid arthritis Is this a current diagnosis for this admission?: Yes - Notes Notes: Anasarca: Most likely related to underlying acute on chronic systolic heart failure. Continue diuretic therapy. Patient was placed on by mouth torsemide. Congestive heart failure: Acute on chronic systolic heart failure. LVEF is noted to be low. Patient may need prophylactic defibrillator, initially external. Carvedilol increased to 6.25 mg by mouth yesterday which Patient seems to have tolerated. Will optimize therapy further. Cardiomyopathy: Patient noted to have dilated cardiomyopathy based on my echo review. Will optimize therapy for underlying cardiomyopathy. MUGA scan reported by radiologist showed EF of 33% Chest pain: Was evaluated further with a nuclear stress test. This was positive for inferior wall ischemia with her underlying small or fixed defect. On questioning patient did admit to having some chest tightness off and on. In view of depressed LVEF, patient will benefit from a heart catheterization. This was explained to the patient. 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 Coronary artery disease: Patient gives a history of stent placement. Patient has symptoms indicative of underlying ischemia or ischemia equivalent symptoms. Further evaluation with nuclear stress test that show ischemia. In view of depressed LVEF, patient will benefit from a heart catheterization. This was recommended Dyspnea: Predominantly related to cardiomyopathy and systolic heart failure but could well be a ischemia equivalent symptom, pulmonary problem etc. Rheumatoid arthritis: We will leave management plans to the peoplesoft financial developer. 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 Hopefully patient would need hydration prior to heart catheterization. - Time Time with patient: Greater than 35 minutes - Total of approximately 45 minutes spent, discussing results of nuclear stress test, discussing need for prophylactic defibrillator, initially external and then internal if needed and also cardiac catheterization. Patient questions were answered. He is agreeable to proceed.
--- NOTE | 2016-09-30 15:53 | PDOC TRANSFER SUMMARY ---
General Admission Date/PCP: 09/25/16 17:29 MIGNON ROJAS, Resuscitation Status: Full Code - Transfer Diagnosis (1) Acute systolic heart failure Is this a current diagnosis for this admission?: YesDiagnosis Summary: Echocardiogram and MUGA show dilated cardiomyopathy with global hypokinesia of the left ventricle and severely suppressed function at only 30% EF. Continue beta carol, SAURABH inhibitor, and Aldactone and torsemide. cardiolyte stress testing shows inferior wall perfusion defect and severely depressed LV function of only 20%. dr Robert has made arrangements for transfer to [facility], dr barahona accepting oven dumper for heart cath. pt is agreeable to transfer and stable to do so at this time. (2) Anasarca Is this a current diagnosis for this admission?: YesDiagnosis Summary: Improved. Multifactorial, predominantly from systolic and diastolic heart failure as noted on echocardiogram but also possibly a contribution from acute renal failure with probable nephrotic range proteinuria. continue diuresis and ACEi with careful monitoring of his renal function. (3) Coronary artery disease Is this a current diagnosis for this admission?: YesDiagnosis Summary: PT has history of stent to the RCA [place] [address] Nguyen. He is chest pain- free and has been since his arrival but his dyspnea and persistent nausea could be considered a cardiac equivalent. 3 sets of cardiac enzymes were indeterminate for acute cardiac ischemia. Continue antiplatelet and statin therapy, beta carol therapy. transfer for invasive cardiology evaluation. (4) Dyspnea Is this a current diagnosis for this admission?: YesDiagnosis Summary: Improved. Not requiring supplemental O2. Multifactorial, likely mostly related to the above with contribution from morbid obesity. (5) Kidney stones Is this a current diagnosis for this admission?: YesDiagnosis Summary: HAs an obstructing 3.8 mm proximal right ureteral stone, plan is to continue Flomax and follow-up with his urologist in [place]. (6) Nephrotic syndrome Is this a current diagnosis for this admission?: YesDiagnosis Summary: as above (7) Rheumatoid arthritis Is this a current diagnosis for this admission?: YesDiagnosis Summary: Stable. Predisposes to rapidly developing coronary artery disease. (8) UTI (urinary tract infection) Is this a current diagnosis for this admission?: YesDiagnosis Summary: Ruled out. Urine culture shows no growth. No indication for antibiotics at this time. (9) Acute renal failure Is this a current diagnosis for this admission?: YesDiagnosis Summary: Likely diuretic induced, monitor while diuresing and hold other potentially nephrotoxic meds. - Transfer Medications Home Medications: Allopurinol [Zyloprim 100 mg Tablet] 200 mg PO DAILY 09/26/16 Cetirizine HCl [Zyrtec 10 mg Tablet] 10 mg PO DAILY 09/26/16 Ezetimibe/Simvastatin [Vytorin 10-20 mg Tablet] 0.5 each PO QHS 09/26/16 Hydromorphone HCl [Dilaudid 2 mg Tablet] 2 mg PO Q4HP PRN 09/26/16 Naproxen 500 mg PO Q12 09/26/16 Ondansetron HCl [Zofran 8 mg Tablet] 8 mg PO Q8HP PRN 09/26/16 Potassium Citrate [Potassium Citrate ER] 15 meq PO Q12 09/26/16 Tamsulosin HCl [Flomax 0.4 mg Cap.sr] 0.4 mg PO DAILY 09/26/16 Transfer Medications: Current Medications Acetaminophen (Tylenol 325 Mg Tablet) 650 mg PO Q6HP PRN Stop: 10/26/16 04:38 Last Admin: 09/29/16 22:52 Dose: 650 mg Allopurinol (Zyloprim 100 Mg Tablet) 100 mg PO BID [facility] Stop: 10/28/16 17:59 Last Admin: 09/30/16 11:44 Dose: 100 mg Aspirin (Ecotrin 325 Mg Ec Tablet) 325 mg PO DAILY JERALD Stop: 10/26/16 09:59 Last Admin: 09/30/16 11:44 Dose: 325 mg Carvedilol (Coreg 6.25 Mg Tablet) 6.25 mg PO Q12 JERALD Stop: 10/29/16 21:59 Last Admin: 09/30/16 11:43 Dose: 6.25 mg Cetirizine HCl (Zyrtec 10 Mg Tablet) 10 mg PO QAM JERALD Stop: 10/29/16 07:59 Last Admin: 09/30/16 11:43 Dose: 10 mg Ezetimibe (Zetia 10 Mg Tablet) 5 mg PO QHS JERALD Stop: 10/27/16 21:59 Last Admin: 09/29/16 22:49 Dose: 5 mg Enoxaparin Sodium (Lovenox Inj 40 Mg/0.4 Ml Disp.Syrin) 40 mg SUBCUT QAM JERALD Stop: 10/26/16 07:59 Last Admin: 09/30/16 08:23 Dose: Not Given Famotidine (Pepcid 20 Mg Tablet) 20 mg PO Q12 JERALD Stop: 10/25/16 21:59 Last Admin: 09/30/16 11:44 Dose: 20 mg Hydromorphone HCl (Dilaudid 2 Mg Tablet) 2 mg PO Q4HP PRN PRN Reason: FOR PAIN Stop: 10/04/16 09:13 Last Admin: 09/28/16 15:28 Dose: 2 mg Lisinopril (Prinivil 5 Mg Tablet) 5 mg PO DAILY JERALD Stop: 10/26/16 09:59 Last Admin: 09/30/16 11:44 Dose: 5 mg Ondansetron HCl (Zofran Inj/Pf 4 Mg/2 Ml Sdv) 4 mg IV Q4HP PRN Stop: 10/28/16 10:33 Last Admin: 09/30/16 10:21 Dose: 4 mg Simvastatin (Zocor 10 Mg Tablet) 10 mg PO QHS JERALD Stop: 10/27/16 21:59 Last Admin: 09/29/16 22:50 Dose: 10 mg Spironolactone (Aldactone 25 Mg Tablet) 25 mg PO DAILY JERALD Stop: 10/29/16 09:59 Last Admin: 09/30/16 11:44 Dose: 25 mg Tamsulosin HCl (Flomax 0.4 Mg Cap.Sr) 0.4 mg PO QPM JERALD Stop: 10/28/16 17:59 Last Admin: 09/29/16 17:38 Dose: 0.4 mg Torsemide (Demadex 20 Mg Tablet) 10 mg PO DAILY JERALD Stop: 10/30/16 09:59 Last Admin: 09/30/16 11:45 Dose: 10 mg - Allergies Allergies/Adverse Reactions: celecoxib [From Celebrex] Allergy (Severe, Verified 09/25/16 12:14) Chest pain leflunomide [From Arava] Allergy (Severe, Verified 09/25/16 12:14) Chest pain-Full list of symptoms on 05/18/13 DC Summary meloxicam [From Mobic] Allergy (Severe, Verified 09/25/16 12:14) Chest pain methotrexate [Methotrexate] Allergy (Severe, Verified 09/25/16 12:14) Anaphylaxis ketorolac tromethamine [From Toradol] Allergy (Unknown, Verified 09/25/16 12:14) see comment Sulfa (Sulfonamide Antibiotics) Adverse Reaction (Severe, Verified 09/25/16 12: 14) Diarrhea Penicillins Adverse Reaction (Unknown, Verified 09/25/16 12:14) Rash - Diet/Activity Discharge Diet: Other (Comments) - NPO until evaluated at [facility] Course Hospital Course: Hospital course: Per H&P -"KERRY COBURN is a 75 year old male With a significant history of severe rheumatoid arthritis, coronary artery stent, exposed to agent orange in [place]; Presents to the ED with a history of 4 weeks generalized edema, Increase weight of 30 pounds Dyspnea on exertion , orthopnea and chest tightness About 2 weeks ago patient had removal of left kidney stones; a left ureteral stent also was removed at [facility] in [place] Dr. Dominguez. Upon evaluation in the ED patient was diagnosed of mild CHF. His chest x-ray showed bilateral small pleural effusion and fluid overload; BNP was over 900; troponins were intermediate range; EKG showed some ST-T changes with LVH. He was subsequently admitted under hospitalist service for further workup. " Echocardiogram performed and showed an EF of less than 30% with severely reduced left ventricle systolic function and pseudo-normalized left ventricular relaxation associated with grade 2 out of 4 moderate diastolic dysfunction, severe global hypokinesia of the left ventricle, left ventricle mildly dilated, insignificant valvular regurgitation incidentally noted, please see cardiology' s dictation for full details. No prior history of congestive heart failure. MUGA shows dilated left ventricle with global hypokinesia and an estimated ejection fraction of 33%. Cardiology was consulted for further recommendations. He underwent Cardiolite stress testing this morning that shows perfusion defect in the inferior wall and global hypokinesia with severely depressed LV function of 20%. Cardiology is recommending transfer to tertiary care center for invasive investigation with heart catheter. Dr. [place] sterile preparation technician at [facility] has graciously accepted the patient in transfer arrangements are in process. His urinalysis was positive for protein, but a 24-hour protein has been sent to an outside lab and is portions are still pending. spoke with Dr. Fallon who suggested he follow up with them as an outpatient. His BUN and creatinine have declined a bit with diuresis but holding at 1.6. Incidentally noted is an obstructing 3.8 mm stone in the proximal right ureter with resulting hydronephrosis. spoke with , the patient's urologist in [place], and confirmed he has follow-up appointment on September 30 already scheduled. The patient's edema improved with diuretics, however renal function declined some with diuresis. He was easily weaned off supplemental O2 and denies dyspnea at rest, only with exertion still. Physical Exam Vital Signs: Temp Pulse Resp BP Pulse Ox 97.9 F 107 H 19 126/76 H 94 09/30/16 11:54 09/30/16 14:00 09/30/16 11:54 09/30/16 11:54 09/30/16 11:54 Intake & Output 09/29/16 09/30/16 10/01/16 06:59 06:59 06:59 Intake Total 1237 1128 0 Balance 1237 1128 0 Weight 113.5 kg 113.5 kg 112.7 kg EXAM GENERAL: NAD; well developed, well nourished; obese; alert and oriented to person, place, time, situation HEENT: normocephalic, atraumatic; no conjunctival injection, no scleral icterus ; oral mucosa moist; RESPIRATORY: no accessory muscle use, no increased WOB, good air entry bilaterally; no wheezes, rales, rhonchi; bibasilar inspiratory crackles persist CARDIO: RRR; no systolic murmur; mild sinus tachycardia GI: soft; nondistended; normal bowel sounds; no hepato spleno megaly; nontender VASCULAR: Large neck. This makes it difficult to assess for JVD do not see any obvious distention, no carotid bruit; no abdominal bruit; no pallor; 2+ radial, DP pulse; normal capillary refill EXTREMITIES: no calf tender; no palpable cords in calf; no clubbing, cyanosis ; 2+ bilateral pedal edema PSYCH: normal affect, normal mood SKIN: warm; moist; no petechiae; no telengectasias; no jaundice; no rash Results Laboratory Results: 09/27/16 08:02 09/30/16 05:13 09/27/16 09/30/16 04:20 05:13 Sodium 138.5 Potassium 3.7 Chloride 101 Carbon Dioxide 27 Anion Gap 11 BUN 19 Creatinine 1.58 H Est GFR ( Amer) 52 L Est GFR (Non-Af Amer) 43 L Glucose 80 Calcium 9.3 Phosphorus 4.6 H Magnesium 1.6 Total Protein 4.9 L Albumin 3.1 09/25/16 09/25/16 22:20 22:20 Creatine Kinase 204 H Troponin I 0.072 Impressions: Chest X-Ray 09/25/16 10:36 IMPRESSION: Bilateral atelectasis. Chest/Abdomen CTA 09/25/16 11:23 IMPRESSION: No CT angio evidence of acute pulmonary emboli. Trace bilateral pleural effusions with mild bibasilar atelectasis. Venous Doppler Study 09/25/16 14:20 IMPRESSION: NO EVIDENCE DVT OR SVT IN EITHER LEG. Abdomen Ultrasound 09/26/16 00:00 IMPRESSION: 1. Mild right hydronephrosis. Bilateral nephrolithiasis. Limited or Localized CT 09/27/16 10:16 IMPRESSION: Obstructing 3.8 mm in diameter calculus in the proximal right ureter. Small bilateral nonobstructing renal calculi are identified. Other findings as noted above Cardiac Imaging Nuclear Medicine 09/28/16 08:00 IMPRESSION: Dilated left ventricle with global hypokinesia, and estimated left ventricular ejection fraction of 33% Status: Imported from PACS Plan Discharge Plan: Transfer to tertiary care center for invasive cardiology intervention. Time Spent: Greater than 30 Minutes - Anticipated bed availability later this evening per transfer center.
[2016-09-30] MEDS: TAMSULOSIN HCL 0.4 MG CAP.SR.24H PO SCH (17:01)
[2016-09-30 17:37] LABS: ALBUMIN UR 63.1 % (.); GAMMA GLOBULIN URINE 7.4 % (.); M-SPIKE % UR Not Observed % (Not Observed)
[2016-09-30] MEDS: EZETIMIBE 10 MG TABLET PO SCH (21:18)
[2016-09-30] MEDS: SIMVASTATIN 10 MG TABLET PO SCH (21:19)
[2016-09-30] MEDS: ACETAMINOPHEN 325 MG TABLET PO PRN (23:37)
[2016-10-01 01:36] VITALS: BP 101/60
== END 2016-10-01 03:00 | disposition short-term general hospital (02) | DRG 292 ==
LOC: ER 10:31 → EH 17:29 → 3N 21:30
PROVIDERS: ADMIT Emergency Medicine; ATTEND Emergency Medicine
DX: I50.23 Acute on chronic systolic (congestive) heart failure (principal); I42.9 Cardiomyopathy, unspecified; N04.9 Nephrotic syndrome with unspecified morphologic changes; N39.0 Urinary tract infection, site not specified; N13.2 Hydronephrosis with renal and ureteral calculous obstruction; N17.9 Acute kidney failure, unspecified; I25.119 Atherosclerotic heart disease of native coronary artery with unspecified angina pectoris; E88.09 Other disorders of plasma-protein metabolism, not elsewhere classified; R80.9 Proteinuria, unspecified; M06.9 Rheumatoid arthritis, unspecified; R94.31 Abnormal electrocardiogram [ECG] [EKG]; Z95.5 Presence of coronary angioplasty implant and graft; Z88.2 Allergy status to sulfonamides; Z88.0 Allergy status to penicillin; Z88.8 Allergy status to other drugs, medicaments and biological substances; Z77.29 Contact with and (suspected) exposure to other hazardous substances
CPT/HCPCS: 36415; 71020; 71275; 76380; 76700; 78452; 78496; 80048; 80053; 80061; 81001; 82550; 82553; 82570; 83036; 83735; 83880; 83883; 84100; 84156; 84166; 84439; 84443; 84484; 85025; 85027; 86038; 86160; 86162; 86320; 86592; 86706; 86803; 86804; 87086; 87340; 93005; 93010; 93017; 93306; 93970; 96365; 96375; 99285; A9500; A9560; J0696; J1650; J1940; J2405; J2785; Q9969

== ENCOUNTER 2017-02-24 16:20 | Inpatient (IN) | payer MEDICARE, OTHER ==
[2017-02-24 17:40] LABS: ABSOLUTE LYMPHOCYTES (AUTO) 0.9 10^3/uL (0.5-4.7); ABSOLUTE MONOCYTES (AUTO) 0.1 10^3/uL (0.1-1.4); BASOPHILS % (AUTO) 0.3 % (0-2); EOSINOPHILS % (AUTO) 0.1 % (0-6); HEMATOCRIT 42.9 % (37.9-51.0); HEMOGLOBIN 14.5 g/dL (13.5-17.0); HGB HCT DIFFERENCE 0.6; LYMPHOCYTES % (AUTO) 11.7 % (13-45); MEAN CORPUSCULAR HEMOGLOBIN 33.1 pg (27.0-33.4); MEAN CORPUSCULAR HGB CONC 33.8 g/dL (32.0-36.0); MEAN CORPUSCULAR VOLUME 98 fl (80-97); MONOCYTES % (AUTO) 1.3 % (3-13); RED BLOOD COUNT 4.37 10^6/uL (4.35-5.55); RED CELL DISTRIBUTION WIDTH 15.8 % (11.5-14.0); SEGMENTED NEUTROPHILS % (AUTO) 86.6 % (42-78)
[2017-02-24 17:46] LABS: ALANINE AMINOTRANSFERASE 35 U/L (21-72); ALBUMIN 4.7 g/dL (3.5-5.0); ALKALINE PHOSPHATASE 50 U/L (38-126); ANION GAP 11 (5-19); ASPARTATE AMINO TRANSFERASE 34 U/L (17-59); BILIRUBIN,DIRECT 0.4 mg/dL (0.0-0.4); BILIRUBIN,TOTAL 0.8 mg/dL (0.2-1.3); BLOOD UREA NITROGEN 28 mg/dL (7-20); CARBON DIOXIDE 27 mmol/L (22-30); CHLORIDE 103 mmol/L (98-107); CREATININE RESULT 1.43 mg/dL (0.52-1.25); GLUCOSE 142 mg/dL (75-110); POTASSIUM 4.7 mmol/L (3.6-5.0); TOTAL PROTEIN 7.3 g/dL (6.3-8.2)
[2017-02-24] MEDS ORDERED: NORMAL SALINE 1000 ML 1,000 ML IV ONE (17:49)
[2017-02-24 17:58] LABS: CREATINE KINASE MB 3.63 ng/mL (<4.55); TROPONIN I 0.018 ng/mL
[2017-02-24 18:08] LABS: APPEARANCE,URINE CLEAR; BILIRUBIN,URINE NEGATIVE (NEGATIVE); GLUCOSE, URINE NEGATIVE (NEGATIVE); KETONES,URINE NEGATIVE (NEGATIVE); LEUKOCYTE ESTERASE,URINE NEGATIVE (NEGATIVE); NITRITE,URINE NEGATIVE (NEGATIVE); PROTEIN,URINE NEGATIVE (NEGATIVE); URINE SPECIFIC GRAVITY 1.005; UROBILINOGEN,URINE NEGATIVE mg/dL (<2.0)
--- NOTE | 2017-02-24 19:16 | ER Document Report ---
ED General - General Chief Complaint: Abnormal Lab Results Stated Complaint: RIGHT LEG PAIN Time Seen by Provider: 02/24/17 17:27 Notes: Patient had an outpatient ultrasound of his right leg today showing that he has a clot in his right popliteal vein. He was being seen by Dr. Fallon today, following up on blood work that have been drawn several weeks ago. During his evaluation, Dr. Fallon noted that he has swelling of his right lower leg and the patient says that has been present for a couple of weeks. He is also noted some shortness of breath at times. He has a history of some renal insufficiency with a creatinine of 1.6 in the past. He was sent to the emergency department because Dr. Fallon felt he needed a CTA to rule out a possible PE. Patient denies any chest pains. Denies any nausea or vomiting. Denies any fever or cough or chest congestion, but does have some shortness of breath. Patient has a history of bad gout and RA for which he gets infusion treatments monthly and is on low dose of prednisone. He has considerable problems with kidney stones requiring surgical removal. PMH: Appendectomy, cholecystectomy, coronary artery disease with a stent many years ago. History of CHF episode in September. Had a cardiac cath 2-3 months ago and was told everything looked good. TRAVEL OUTSIDE OF THE [place] IN LAST 30 DAYS: No - Related Data Allergies/Adverse Reactions: celecoxib [From Celebrex] Allergy (Severe, Verified 02/24/17 16:26) Chest pain leflunomide [From Arava] Allergy (Severe, Verified 02/24/17 16:26) Chest pain-Full list of symptoms on 05/18/13 DC Summary meloxicam [From Mobic] Allergy (Severe, Verified 02/24/17 16:26) Chest pain methotrexate [Methotrexate] Allergy (Severe, Verified 02/24/17 16:26) Anaphylaxis ketorolac tromethamine [From Toradol] Allergy (Unknown, Verified 02/24/17 16:26) see comment Sulfa (Sulfonamide Antibiotics) Adverse Reaction (Severe, Verified 02/24/17 16: 26) Diarrhea Penicillins Adverse Reaction (Unknown, Verified 02/24/17 16:26) Rash Home Medications: Current Home Medications Allopurinol [Zyloprim 100 mg Tablet] 200 mg PO DAILY 02/24/17 [History] Carvedilol [Coreg 6.25 mg Tablet] 6.25 mg PO DAILY 02/24/17 [History] Cetirizine HCl [Zyrtec 10 mg Tablet] 10 mg PO DAILY 02/24/17 [History] Esomeprazole Magnesium [Nexium] 40 mg PO DAILY 02/24/17 [History] Fluticasone Propionate [Flonase Nasal [place] 50 Mcg/[place] 16 gm] 1 spray NASL DAILY 02/24/17 [History] Gabapentin [Neurontin 100 mg Capsule] 100 mg PO Q12 02/24/17 [History] Lisinopril [Zestril] 10 mg PO DAILY 02/24/17 [History] Montelukast Sodium [Singulair 10 mg Tablet] 10 mg PO QPM 02/24/17 [History] Oxycodone HCl/Acetaminophen [Percocet 7.5-325 mg Tablet] 1 tab PO Q6HP PRN 02/24 [History] Prednisone [Deltasone 5 mg Tablet] 10 mg PO DAILY 02/24/17 [History] Sacubitril/Valsartan [Entresto 24 mg-26 mg Tablet] 1 tab PO Q12 02/24/17 [ History] Spironolactone [Aldactone 25 mg Tablet] 25 mg PO DAILY 02/24/17 [History] Tamsulosin HCl [Flomax 0.4 mg Cap.sr] 0.4 mg PO DAILY 02/24/17 [History] Torsemide [Demadex 20 mg Tablet] 20 mg PO DAILY 02/24/17 [History] Past Medical History - Social History Smoking Status: Never Smoker Frequency of alcohol use: Rare Drug Abuse: None Family History: Reviewed & Not Pertinent Patient has suicidal ideation: No Patient has homicidal ideation: No - Past Medical History Cardiac Medical History: Reports: Hx Coronary Artery Disease - 1 coronary artery stent many years ago. Cardiac cath 2 or 3 months ago ok Renal/ Medical History: Reports: Hx Kidney Stones - x30 GI Medical History: Denies: Hx Hiatal Hernia, Hx Ulcer Musculoskeltal Medical History: Reports Hx Arthritis - Rheumatoid, Reports Hx Gout Past Surgical History: Reports: Hx Appendectomy, Hx Cardiac Catheterization, Hx Cardiac Surgery - stent X1, Hx Cholecystectomy, Other - Ureteral stent left kidney Removal stones and stent 2 weeks ago. Denies: Hx Open Heart Surgery - CATHERIZATIONS - Immunizations Hx Diphtheria, Pertussis, Tetanus Vaccination: Yes Hx Pneumococcal Vaccination: 08/08/13 Review of Systems - Review of Systems Notes: REVIEW OF SYSTEMS: CONSTITUTIONAL : Denies fever. EENT: Denies eye, ear, nose or mouth or throat pain or other symptoms. CARDIOVASCULAR: Denies chest pain. RESPIRATORY: Denies cough, chest congestion, but has felt some shortness of breath. GASTROINTESTINAL: Denies abdominal pain or nausea, vomiting, or diarrhea. GENITOURINARY: Denies difficulty or painful urinating, urinary frequency, blood in urine. MUSCULOSKELETAL: Denies back or neck pain. Denies joint pain or swelling. Swelling of right lower leg from the knee downward. SKIN: Denies rash or skin lesions. NEUROLOGICAL: Denies LOC or altered mental status. Denies headache. Denies sensory loss or motor deficits. ALL OTHER SYSTEMS REVIEWED AND NEGATIVE. Physical Exam - Vital signs Interpretation: Normal - Notes Notes: PHYSICAL EXAMINATION: GENERAL: Well-appearing, in no acute distress. Vital signs are all normal. HEAD: Atraumatic, normocephalic. EYES: Pupils equal round and reactive to light, extraocular movements intact. ENT: oropharynx clear without exudates. Moist mucous membranes. NECK: Normal range of motion, supple. LUNGS: Breath sounds clear and equal bilaterally. HEART: Regular rate and rhythm without murmurs. ABDOMEN: Soft, nontender. No guarding or rebound. BACK: No tenderness throughout entire back. EXTREMITIES: Normal range of motion without pain. Right lower leg is swollen from about the knee downward. However, there is no pain or tenderness of that right lower leg or the right popliteal fossa. NEUROLOGICAL: Normal speech, normal gait. Normal sensory, motor, and reflex exams. Awake, alert, and oriented x3. Cranial nerves normal. SKIN: Warm, dry, no rashes. Course - Re-evaluation Re-evalutation: 02/24/17 19:57 I called the hospitalist on, Dr. Horne, who will be admitting the patient for anticoagulation treatment. - Laboratory Result Diagrams: 02/24/17 16:37 02/24/17 16:37 Laboratory results interpreted by me: 02/24/17 02/24/17 16:37 16:37 MCV 98 H RDW 15.8 H Seg Neutrophils % 86.6 H Lymphocytes % 11.7 L Monocytes % 1.3 L BUN 28 H Creatinine 1.43 H Est GFR ( Amer) 58 L Est GFR (Non-Af Amer) 48 L Glucose 142 H Critical Care Note - Critical Care Note Total time excluding time spent on procedures (mins): 30 Discharge - Discharge Clinical Impression: Multiple pulmonary emboli Deep vein thrombosis (DVT) of popliteal vein of right lower extremity Qualifiers: Chronicity: acute Qualified Code(s): I82.431 - Acute embolism and thrombosis of right popliteal vein Condition: Stable Disposition: ADMITTED INPATIENT Admitting Provider: Hospitalist Unit Admitted: [facility]
--- NOTE | 2017-02-24 19:18 | RADIOLOGY REPORT (SQ) ---
EXAM DESCRIPTION: CHEST PA/LAT COMPLETED DATE/TIME: 02/24/2017 6:26 pm REASON FOR STUDY: Shortness of breath COMPARISON: 09/25/2016 TECHNIQUE: Frontal and lateral radiographic views of the chest acquired. NUMBER OF VIEWS: Two view. LIMITATIONS: Patient body habitus and shallow inspiration. FINDINGS: LUNGS AND PLEURA: Lungs appear generally clear on the current study, with clearing since p rior examination. No developing infiltrates or pleural effusion. MEDIASTINUM AND HILAR STRUCTURES: Stable appearance. HEART AND VASCULAR STRUCTURES: Heart is stable. No overt CHF. BONES: No acute findings. HARDWARE: None in the chest. OTHER: No other significant finding. IMPRESSION: Nothing acute. TECHNICAL DOCUMENTATION: JOB ID: [id number] [employer]- All Rights Reserved
--- NOTE | 2017-02-24 19:52 | RADIOLOGY REPORT (SQ) ---
EXAM DESCRIPTION: CTA CHEST COMPLETED DATE/TIME: 02/24/2017 6:40 pm REASON FOR STUDY: Short of breath with venous thromb R pop vein COMPARISON: None. TECHNIQUE: CT scan of the chest performed using helical scanning technique with dynamic intravenous contrast injection. Images reviewed with lung, soft tissue and bone windows. Reconstructed coronal and sagittal MPR images reviewed. Additional 3 dimensional post-processing performed to develop Maximal Intensity Projection images (CO P). All images stored on PACS. All CT scanners at this facility use dose modulation, iterative reconstruction, and/or weight based d osing when appropriate to reduce radiation dose to as low as reasonably achievable (ALARA). [facility]: Dose Right [facility]: CareDose [facility]: Dose Right [facility]: Teradose 4D [facility]: Aspen Evian CONTRAST TYPE AND DOSE: contrast/concentration: Isovue 370.00 mg/ml; Total Contrast Delivered: 86.0 ml; Total Saline Delivered: 100.0 ml RENAL FUNCTION: BUN 28 creatinine 1.43 RADIATION DOSE: Up-to-date CT equipment and radiation dose reduction techniques were employed. CTDIv ol: 19.8 - 28.5 mGy. DLP: 994 mGy-cm. . LIMITATIONS: None. FINDINGS: LUNGS AND PLEURA: No masses, infiltrates, pneumothorax. Mild dependent subsegmental atele ctasis. No pleural effusions, calcifications. AORTA AND GREAT VESSELS: No aneurysm or dissection. HEART: No pericardial effusion. PULMONARY ARTERIES: Nonocclusive thrombus is identified within the segmental branches of the right lo wer lobe, right middle lobe, and right upper lobe with extension into the subsegmental branches. Non occlusive thrombus noted in a few subsegmental branches of the left upper lobe. No large central pul monary embolus identified in the main pulmonary arteries. HILAR AND MEDIASTINAL STRUCTURES: No identified masses or abnormal nodes. HARDWARE: None in the chest. UPPER ABDOMEN: No significant findings. Question possible hydronephrosis on the right. Limited exam . THYROID AND OTHER SOFT TISSUES: No masses. No adenopathy. BONES: No acute or significant finding. 3D MIPS: Confirm above findings. OTHER: No other significant finding. IMPRESSION: Nonocclusive segmental and subsegmental pulmonary emboli identified in right upper, midd le, and lower lobes. Scattered nonocclusive thrombus noted in a few branches of the left upper lobe. Possible right hydronephrosis, kidney are completely visualized on this study. COMMENT: Pertinent findings on the imaging study reported as a CRITICAL RESULT to SARAH CAMACHO MD at19:45 on 02/24/2017. Category of Critical Result: 1 TECHNICAL DOCUMENTATION: JOB ID: [id number] Quality ID # [id number]: Final reports with documentation of one or more dose reduction techniques (e.g., Au tomated exposure control, adjustment of the mA and/or kV according to patient size, use of iterative reconstruction technique) 2010 [employer] All Rights Reserved
[2017-02-24] MEDS ORDERED: HEPARIN SOD (PORCINE) 1,000 UNIT/ML 10 ML VIAL IV ONE (19:53)
[2017-02-24] MEDS ORDERED: HEPARIN SODIUM,PORCINE/D5W 250 ML IV PRN (19:56)
[2017-02-24] MEDS ORDERED: ACETAMINOPHEN 325 MG TABLET PO PRN (19:56)
[2017-02-24] MEDS ORDERED: ONDANSETRON HCL INJ/PF 4 MG/2 ML SDV IV PRN (19:56)
[2017-02-24] MEDS ORDERED: HEPARIN SOD (PORCINE) 1,000 UNIT/ML 10 ML VIAL IV PRN (19:56)
[2017-02-24] MEDS ORDERED: IPRATROPIUM/ALBUTEROL 0.5-2.5 MG/3 ML AMPUL NEB PRN (19:56)
[2017-02-24] MEDS ORDERED: NORMAL SALINE 1000 ML 1,000 ML IV SCH (20:00)
[2017-02-24 20:09] LABS: PROTHROMBIN TIME 11.9 SEC (11.4-15.4)
[2017-02-24] MEDS ORDERED: EZETIMIBE 10 MG TABLET PO SCH ×2 (22:00)
[2017-02-24] MEDS ORDERED: SIMVASTATIN 10 MG TABLET PO SCH (22:00)
[2017-02-24] MEDS ORDERED: EZETIMIBE PO SCH (22:00)
[2017-02-24] MEDS ORDERED: SIMVASTATIN PO SCH (22:00)
--- NOTE | 2017-02-25 00:30 | PDOC H&P ---
History of Present Illness Admission Date/PCP: 02/24/17 19:57 SHERIN GR MD Patient complains of: Right leg swelling History of Present Illness: KERRY COBURN is a 76 year old male with a past medical history of rheumatoid arthritis, chronic kidney disease, chronic low back pain and gout who has been in his usual state of health until approximately 2 weeks ago noting asymmetric swelling to his right leg prompting him to take additional diuretic without significant improvement. During evaluation by his felt pad cutter is right leg swelling prompts a lower extremity Doppler resulting positive for deep vein thrombosis and is referred to the emergency room for evaluation where he has a CT of the chest notable for bilateral pulmonary emboli. Fortunately he has been without shortness of breath chest pain nausea vomiting or diaphoresis. He started on IV heparin and referred to the hospitalist for admission. Patient denies recent trauma however has chronic inflammation from gout and rheumatoid arthritis in addition to limited mobility secondary to chronic pain. He denies any recent changes in his medications. Past Medical History Cardiac Medical History: Reports: Coronary Artery Disease - 1 coronary artery stent many years ago. Cardiac cath 2 or 3 months ago ok Denies: Congestive Heart Failure, Myocardial Infarction, Hypertension Pulmonary Medical History: Denies: Asthma, Bronchitis, Chronic Obstructive Pulmonary Disease (COPD), Pneumonia, Tuberculosis Neurological Medical History: Denies: Seizures Renal/ Medical History: Reports: Chronic Kidney Disease, Nephrolithiasis GI Medical History: Denies: Hiatal Hernia Musculoskeltal Medical History: Reports: Arthritis - Rheumatoid, Gout, Other - Rheumatoid arthritis Psychiatric Medical History: Denies: Depression Hematology: Denies: Anemia, Sickle Cell Disease Past Surgical History Past Surgical History: Reports: Appendectomy, Cardiac Catheterization, Cholecystectomy, Other - Ureteral stent left kidney Removal stones and stent 2 weeks ago Social History Information Source: Patient Lives with: Spouse/Significant other Smoking Status: Never Smoker Frequency of Alcohol Use: Rare Hx Recreational Drug Use: No Drugs: None Hx Prescription Drug Abuse: No - Advance Directive Resuscitation Status: Full Code Family History Parental Family History Reviewed: Yes Children Family History Reviewed: Yes Sibling(s) Family History Reviewed.: Yes Medication/Allergy Home Medications: Actemra Infusion 800 mg IV [id number] 02/24/17 Allopurinol [Zyloprim 100 mg Tablet] 100 mg PO DAILY 02/24/17 Carvedilol [Coreg 6.25 mg Tablet] 6.25 mg PO DAILY 02/24/17 Cetirizine HCl [Zyrtec 10 mg Tablet] 10 mg PO DAILY 02/24/17 Fluticasone Propionate [Flonase Nasal [place] 50 Mcg/[place] 16 gm] 1 spray NASL DAILY 02/24/17 Gabapentin [Neurontin 100 mg Capsule] 100 mg PO Q12 02/24/17 Hydromorphone HCl [Dilaudid 2 mg Tablet] 2 mg PO Q6HP PRN 02/24/17 L.acidoph & Paracasei,B.lactis [Probiotic] 1 cap PO QHS 02/24/17 Ondansetron HCl [Zofran 8 mg Tablet] 8 mg PO Q8HP PRN 02/24/17 Prednisone [Deltasone 5 mg Tablet] 5 mg PO DAILY 02/24/17 Sacubitril/Valsartan [Entresto 24 mg-26 mg Tablet] 1 tab PO DAILY 02/24/17 Tamsulosin HCl [Flomax 0.4 mg Cap.sr] 0.4 mg PO QHS 02/24/17 Torsemide [Demadex 20 mg Tablet] 10 mg PO DAILY 02/24/17 Allergies/Adverse Reactions: celecoxib [From Celebrex] Allergy (Severe, Verified 02/24/17 16:26) Chest pain leflunomide [From Arava] Allergy (Severe, Verified 02/24/17 16:26) Chest pain-Full list of symptoms on 05/18/13 DC Summary meloxicam [From Mobic] Allergy (Severe, Verified 02/24/17 16:26) Chest pain methotrexate [Methotrexate] Allergy (Severe, Verified 02/24/17 16:26) Anaphylaxis ketorolac tromethamine [From Toradol] Allergy (Unknown, Verified 02/24/17 16:26) see comment Sulfa (Sulfonamide Antibiotics) Adverse Reaction (Severe, Verified 02/24/17 16: 26) Diarrhea Penicillins Adverse Reaction (Unknown, Verified 02/24/17 16:26) Rash Review of Systems Constitutional: ABSENT: chills, fever(s), headache(s), weight gain, weight loss Eyes: ABSENT: visual disturbances Ears: ABSENT: hearing changes Cardiovascular: ABSENT: chest pain, dyspnea on exertion, edema, orthropnea, palpitations Respiratory: ABSENT: cough, hemoptysis Gastrointestinal: ABSENT: abdominal pain, constipation, diarrhea, hematemesis, hematochezia, nausea, vomiting Genitourinary: ABSENT: dysuria, hematuria Musculoskeletal: ABSENT: joint swelling Integumentary: ABSENT: rash, wounds Neurological: ABSENT: abnormal gait, abnormal speech, confusion, dizziness, focal weakness, syncope Psychiatric: ABSENT: anxiety, depression, homidical ideation, suicidal ideation Endocrine: ABSENT: cold intolerance, heat intolerance, polydipsia, polyuria Hematologic/Lymphatic: ABSENT: easy bleeding, easy bruising Physical Exam Vital Signs: Temp Pulse Resp BP Pulse Ox 98.0 F 115 H 16 131/82 H 100 02/24/17 21:35 02/24/17 22:01 02/24/17 21:35 02/24/17 21:35 02/24/17 21:35 General appearance: PRESENT: no acute distress, well-developed, well-nourished Head exam: PRESENT: atraumatic, normocephalic Eye exam: PRESENT: conjunctiva pink, EOMI, PERRLA. ABSENT: scleral icterus Ear exam: PRESENT: normal external ear exam Mouth exam: PRESENT: moist, tongue midline Neck exam: ABSENT: carotid bruit, JVD, lymphadenopathy, thyromegaly Respiratory exam: PRESENT: clear to auscultation nikita. ABSENT: rales, rhonchi, wheezes Cardiovascular exam: PRESENT: RRR. ABSENT: diastolic murmur, rubs, systolic murmur Pulses: PRESENT: normal dorsalis pedis pul Vascular exam: PRESENT: normal capillary refill GI/Abdominal exam: PRESENT: normal bowel sounds, soft. ABSENT: distended, guarding, mass, organolmegaly, rebound, tenderness Rectal exam: PRESENT: deferred Extremities exam: PRESENT: full ROM. ABSENT: calf tenderness, clubbing, pedal edema Neurological exam: PRESENT: alert, awake, oriented to person, oriented to place , oriented to time, oriented to situation, CN II-XII grossly intact. ABSENT: motor sensory deficit Psychiatric exam: PRESENT: appropriate affect, normal mood. ABSENT: homicidal ideation, suicidal ideation Skin exam: PRESENT: dry, intact, warm. ABSENT: cyanosis, rash Results Impressions: Chest X-Ray 02/24/17 17:27 IMPRESSION: Nothing acute. Chest/Abdomen CTA 02/24/17 17:51 IMPRESSION: Nonocclusive segmental and subsegmental pulmonary emboli identified in right upper, middle, and lower lobes. Scattered nonocclusive thrombus noted in a few branches of the left upper lobe. Possible right hydronephrosis, kidney are completely visualized on this study. Assessment & Plan - Diagnosis (1) Pulmonary embolism, bilateral Is this a current diagnosis for this admission?: YesPlan: Hemodynamically stable not warranting thrombolysis he is admitted to the telemetry floor instructions for 12 hours of bedrest, IV heparin initiated, supplemental oxygen symptomatic management. History of inflammatory state with recurrent gout and rheumatoid arthritis likely underlying cause also limited mobility secondary to chronic pain. (2) Chronic renal failure Is this a current diagnosis for this admission?: YesPlan: Avoiding nephrotoxic meds and doses evaluate follow-up chemistry consideration of nephrology consultation with Dr. Fallon (3) Deep vein thrombosis (DVT) of popliteal vein of right lower extremity Qualifiers: Chronicity: acute Qualified Code(s): I82.431 - Acute embolism and thrombosis of right popliteal vein Is this a current diagnosis for this admission?: YesPlan: IV heparin with transition to Coumadin. (4) Rheumatoid arthritis Qualifiers: Rheumatoid factor presence: unspecified presence Laterality: unspecified laterality Is this a current diagnosis for this admission?: YesPlan: Continue outpatient regiment. Bowel prophylaxis for chronic pain. - Inpatient Certification Medical Necessity: Need Close Monitoring Due to Risk of Patient Decompensation
[2017-02-25] MEDS ORDERED: TAMSULOSIN HCL 0.4 MG CAP.SR.24H PO SCH ×3 (10:00→18:00)
[2017-02-25] MEDS ORDERED: ALLOPURINOL 100 MG TABLET PO SCH ×3 (10:00→18:00)
[2017-02-25] MEDS ORDERED: DOCUSATE SODIUM 100 MG CAPSULE PO SCH (10:00)
[2017-02-25] MEDS ORDERED: HYDROMORPHONE HCL 2 MG TABLET PO PRN (10:44)
[2017-02-25] MEDS ORDERED: ONDANSETRON HCL 8 MG TABLET PO PRN (10:44)
[2017-02-25] MEDS ORDERED: SACUBITRIL/VALSARTAN 24 MG/26 MG TABLET PO SCH (12:00)
[2017-02-25] MEDS ORDERED: CETIRIZINE 10 MG TABLET PO ONE (12:00)
[2017-02-25] MEDS ORDERED: TORSEMIDE 20 MG TABLET PO ONE (12:00)
[2017-02-25] MEDS ORDERED: SACUBITRIL/VALSARTAN 24 MG/26 MG TABLET PO ONE (12:00)
[2017-02-25] MEDS ORDERED: FLUTICASONE NASAL SPRAY 50 MCG/SPRY 120 SPRAY/16 GM NASL ONE (12:00)
[2017-02-25] MEDS ORDERED: TORSEMIDE 20 MG TABLET PO SCH (12:00)
[2017-02-25] MEDS ORDERED: CARVEDILOL 6.25 MG TABLET PO ONE (12:00)
[2017-02-25] MEDS ORDERED: RIVAROXABAN 15 MG TABLET PO ONE (12:00)
[2017-02-25] MEDS ORDERED: PREDNISONE 5 MG TABLET PO ONE (12:00)
[2017-02-25 12:02] LABS: ANION GAP 13 (5-19); BLOOD UREA NITROGEN 26 mg/dL (7-20); CALCIUM 9.3 mg/dL (8.4-10.2); CARBON DIOXIDE 19 mmol/L (22-30); CHLORIDE 107 mmol/L (98-107); CREATININE RESULT 1.28 mg/dL (0.52-1.25); GLUCOSE 168 mg/dL (75-110); POTASSIUM 4.3 mmol/L (3.6-5.0); SODIUM 138.6 mmol/L (137-145)
[2017-02-25 13:11] VITALS: BP 131/78
--- NOTE | 2017-02-25 16:48 | PDOC DISCHARGE SUMMARY ---
General - Admit/Disc Date/PCP Admission Date/Primary Care Provider: 02/24/17 19:57 SHERIN GR MD Discharge Date: 02/25/17 - Discharge Diagnosis (1) Pulmonary embolism, bilateral Is this a current diagnosis for this admission?: Yes (2) Deep vein thrombosis (DVT) of popliteal vein of right lower extremity Is this a current diagnosis for this admission?: Yes (3) Chronic renal failure Is this a current diagnosis for this admission?: Yes (4) CHF (congestive heart failure) Is this a current diagnosis for this admission?: Yes (5) Rheumatoid arthritis Is this a current diagnosis for this admission?: Yes - Additional Information Resuscitation Status: Full Code Discharge Diet: Cardiac, Diabetic Discharge Activity: Activity As Tolerated, Slowly Increase Activity Home Medications: Actemra Infusion 800 mg IV [id number] 02/24/17 Allopurinol [Zyloprim 100 mg Tablet] 100 mg PO QPM 02/24/17 Carvedilol [Coreg 6.25 mg Tablet] 6.25 mg PO QAM 02/24/17 Cetirizine HCl [Zyrtec 10 mg Tablet] 10 mg PO QAM 02/24/17 Fluticasone Propionate [Flonase Nasal [place] 50 Mcg/[place] 16 gm] 1 spray NASL QAM 02/24/17 Gabapentin [Neurontin 100 mg Capsule] 100 mg PO QPM 02/24/17 Hydromorphone HCl [Dilaudid 2 mg Tablet] 2 mg PO Q6HP PRN 02/24/17 L.acidoph & Paracasei,B.lactis [Probiotic] 1 cap PO QPM 02/24/17 Ondansetron HCl [Zofran 8 mg Tablet] 8 mg PO Q8HP PRN 02/24/17 Prednisone [Deltasone 5 mg Tablet] 5 mg PO QAM 02/24/17 Sacubitril/Valsartan [Entresto 24 mg-26 mg Tablet] 1 tab PO QAM 02/24/17 Tamsulosin HCl [Flomax 0.4 mg Cap.sr] 0.4 mg PO QPM 02/24/17 Torsemide [Demadex 20 mg Tablet] 10 mg PO QAM 02/24/17 Rivaroxaban [Xarelto 15 mg Tablet] 15 mg PO BIDBS #42 tablet 02/25/17 History of Present Illness History of Present Illness: KERRY COBURN is a 76 year old male with a past medical history of rheumatoid arthritis, chronic kidney disease, chronic low back pain and gout who has been in his usual state of health until approximately 2 weeks ago noting asymmetric swelling to his right leg prompting him to take additional diuretic without significant improvement. During evaluation by his test desk trouble locator is right leg swelling prompts a lower extremity Doppler resulting positive for deep vein thrombosis and is referred to the emergency room for evaluation where he has a CT of the chest notable for bilateral pulmonary emboli. Fortunately he has been without shortness of breath chest pain nausea vomiting or diaphoresis. He started on IV heparin and referred to the hospitalist for admission. Patient denies recent trauma however has chronic inflammation from gout and rheumatoid arthritis in addition to limited mobility secondary to chronic pain. He denies any recent changes in his medications. Hospital Course Hospital Course: Patient was initially started on heparin ggt. Patient received small amount of IVF for use of torsemide. Based on GFR patient is a good candidate for Xarelto. Patient educated on increased risk for bleeding. Acknowledged and accepted risk. Patient without hemodynamically significant emboli. Patient to see PCP on Tuesday. Patient should see hematology within 6 weeks. Discharged in stable condition. Physical Exam Vital Signs: Temp Pulse Resp BP Pulse Ox 98.0 F 88 17 130/77 H 99 02/25/17 12:20 02/25/17 12:20 02/25/17 12:20 02/25/17 12:20 02/25/17 12:20 Intake & Output 02/24/17 02/25/17 02/26/17 06:59 06:59 06:59 Intake Total 2004 237 Output Total 550 100 Balance 1454 137 Weight 107.4 kg Exam: General: Awake alert and orientedx3, no acute respiratory distress HEENT: AT/NC, PERRL, EOMI, oropharynx is moist, pink, no scleral icterus, no conjunctival injection Neck: No JVD, trachea midline Chest: Clear to auscultation bilaterally, no wheezes rhonchi or rales CV: Regular rate and rhythm, normal S1 and S2, no rub or gallop Abdomen: Soft, nontender to palpation, nondistended, active bowel sounds; no rebound, rigidity, or guarding Extremities: No cyanosis, clubbing;2+ edema RLE Neuro: Cranial nerves II through XII are grossly intact without focal deficits; awake alert and oriented x3 Psych: Normal mood and affect Results Laboratory Results: 02/25/17 09:17 02/25/17 02/25/17 07:25 09:17 Sodium 138.6 Potassium 4.3 Chloride 107 Carbon Dioxide 19 L Anion Gap 13 BUN 26 H Creatinine 1.28 H Est GFR ( Amer) > 60 Est GFR (Non-Af Amer) 55 L Glucose 168 H Calcium 9.3 Stool Occult Blood NEGATIVE Impressions: Chest X-Ray 02/24/17 17:27 IMPRESSION: Nothing acute. Chest/Abdomen CTA 02/24/17 17:51 IMPRESSION: Nonocclusive segmental and subsegmental pulmonary emboli identified in right upper, middle, and lower lobes. Scattered nonocclusive thrombus noted in a few branches of the left upper lobe. Possible right hydronephrosis, kidney are completely visualized on this study. Qualifiers PATEINT BEING DISCHARGED WITH ANY OF THE FOLLOWING DIAGNOSIS?: VTE (PE or DVT) VTE patient discharged on overlapping Therapy?: No Reason(s) for not prescribing Overlap Therapy:: Not indicated - on xarelto
[2017-02-25] MEDS ORDERED: RIVAROXABAN 15 MG TABLET PO SCH (17:00)
[2017-02-25] MEDS ORDERED: GABAPENTIN 100 MG CAPSULE PO SCH (18:00)
[2017-02-25] MEDS ORDERED: LACTOBACILLUS ACIDOPHILUS 250 MG TAB PO SCH (18:00)
[2017-02-25] MEDS ORDERED: (PENDING PHARMACY ID) (L.Acidoph & Paracasei,B.Lactis [Probiotic] 1 CAP) PO SCH (18:00)
[2017-02-26] MEDS ORDERED: SACUBITRIL/VALSARTAN 24 MG/26 MG TABLET PO SCH (08:00)
[2017-02-26] MEDS ORDERED: PREDNISONE 5 MG TABLET PO SCH (08:00)
[2017-02-26] MEDS ORDERED: TORSEMIDE 20 MG TABLET PO SCH (08:00)
[2017-02-26] MEDS ORDERED: FLUTICASONE NASAL SPRAY 50 MCG/SPRY 120 SPRAY/16 GM NASL SCH (08:00)
[2017-02-26] MEDS ORDERED: CETIRIZINE 10 MG TABLET PO SCH (08:00)
[2017-02-26] MEDS ORDERED: CARVEDILOL 6.25 MG TABLET PO SCH (08:00)
== END 2017-02-25 13:19 | disposition home or self-care (01) | DRG 176 ==
LOC: ER 16:20 → EH 19:57 → UNDOADMIN 20:07 → 3W 21:10 → 3N 21:30
PROVIDERS: ADMIT Internal Medicine; ATTEND Internal Medicine
DX: I26.99 Other pulmonary embolism without acute cor pulmonale (principal); I82.4Z1 Acute embolism and thrombosis of unspecified deep veins of right distal lower extremity; I25.10 Atherosclerotic heart disease of native coronary artery without angina pectoris; M06.9 Rheumatoid arthritis, unspecified; M10.9 Gout, unspecified; N18.9 Chronic kidney disease, unspecified; I50.9 Heart failure, unspecified; G89.29 Other chronic pain; Z95.5 Presence of coronary angioplasty implant and graft; Z90.49 Acquired absence of other specified parts of digestive tract; Z79.899 Other long term (current) drug therapy; Z79.52 Long term (current) use of systemic steroids; Z88.0 Allergy status to penicillin; Z88.2 Allergy status to sulfonamides; Z88.8 Allergy status to other drugs, medicaments and biological substances
CPT/HCPCS: 36415; 71020; 71275; 80048; 80053; 81001; 82272; 82553; 84484; 85025; 85610; 85730; 93971; 99291; J1644; J3490; J7030; J7512

== ENCOUNTER → 2017-02-24 | Outpatient (CLI) | payer MEDICARE, OTHER ==
--- NOTE | 2017-02-24 16:36 | XCELERA REPORT ---
[address] [address] Lower Extremity Venous Evaluation Name: KERRY COBURN Age: 76 yrs Gender: Male : 1940 Patient Status: Outpatient Patient Location: Study Date: 02/24/2017 03:31 PM Procedure: Color flow and duplex imaging of the veins of the right lower extremity as well as the left Common Femoral vein. Reason For Study: R22.41 Ordering Physician: Matthew FALLON Performed By: Cheryl New Right Sided Venous Evaluation Abnormal vessel filling, no compression no Colour flow in the Popliteal vein. Otherwise normal down to the infrageniculate veins. Left Sided Venous Evaluation The left common femoral vein is fully compressible. Spontaneous and phasic flow is present in the left common femoral vein. Critical Findings Discussed with Dr Fallon and with Dr Pacheco. Interpretation Summary Positive for DVT in the right Popliteal vein. : Matthew FALLON [place]
== END ==
LOC: SP 15:19
PROVIDERS: ATTEND Internal Medicine Nephrology
DX: R60.0 Localized edema (principal); N18.3 Chronic kidney disease, stage 3 (moderate); I50.9 Heart failure, unspecified
CPT/HCPCS: 93971

== ENCOUNTER → 2017-03-17 | Outpatient (CLI) | payer MEDICARE, OTHER ==
[2017-03-17 10:44] LABS: ABSOLUTE EOSINOPHILS # (AUTO) 0.1 10^3/uL (0.0-0.6); ABSOLUTE LYMPHOCYTES (AUTO) 2.3 10^3/uL (0.5-4.7); ABSOLUTE MONOCYTES (AUTO) 0.4 10^3/uL (0.1-1.4); ABSOLUTE NEUT (AUTO) 3.7 10^3/uL (1.7-8.2); BASOPHILS % (AUTO) 0.7 % (0-2); EOSINOPHILS % (AUTO) 1.4 % (0-6); HEMATOCRIT 37.6 % (37.9-51.0); HGB HCT DIFFERENCE 1.4; LYMPHOCYTES % (AUTO) 35.3 % (13-45); MEAN CORPUSCULAR HEMOGLOBIN 33.8 pg (27.0-33.4); MEAN CORPUSCULAR HGB CONC 34.5 g/dL (32.0-36.0); MEAN CORPUSCULAR VOLUME 98 fl (80-97); MONOCYTES % (AUTO) 5.7 % (3-13); RED BLOOD COUNT 3.85 10^6/uL (4.35-5.55); RED CELL DISTRIBUTION WIDTH 14.8 % (11.5-14.0); SEGMENTED NEUTROPHILS % (AUTO) 56.9 % (42-78); WHITE BLOOD COUNT 6.5 10^3/uL (4.0-10.5)
[2017-03-17 11:06] LABS: APPEARANCE,URINE CLEAR; BILIRUBIN,URINE NEGATIVE (NEGATIVE); GLUCOSE, URINE NEGATIVE (NEGATIVE); KETONES,URINE NEGATIVE (NEGATIVE); LEUKOCYTE ESTERASE,URINE NEGATIVE (NEGATIVE); NITRITE,URINE NEGATIVE (NEGATIVE); PROTEIN,URINE NEGATIVE (NEGATIVE); URINE SPECIFIC GRAVITY 1.015; UROBILINOGEN,URINE NEGATIVE mg/dL (<2.0)
[2017-03-17 11:08] LABS: ALANINE AMINOTRANSFERASE 30 U/L (21-72); ALBUMIN 3.6 g/dL (3.5-5.0); ALKALINE PHOSPHATASE 40 U/L (38-126); ANION GAP 9 (5-19); ASPARTATE AMINO TRANSFERASE 18 U/L (17-59); BILIRUBIN,DIRECT 0.3 mg/dL (0.0-0.4); BILIRUBIN,TOTAL 0.7 mg/dL (0.2-1.3); BLOOD UREA NITROGEN 34 mg/dL (7-20); CALCIUM 9.4 mg/dL (8.4-10.2); CARBON DIOXIDE 21 mmol/L (22-30); CHLORIDE 107 mmol/L (98-107); CREATININE RESULT 1.68 mg/dL (0.52-1.25); GLUCOSE 128 mg/dL (75-110); POTASSIUM 4.6 mmol/L (3.6-5.0); SODIUM 137.1 mmol/L (137-145); TOTAL PROTEIN 5.6 g/dL (6.3-8.2)
== END ==
LOC: OD 09:40
PROVIDERS: ATTEND Internal Medicine Nephrology
DX: N18.3 Chronic kidney disease, stage 3 (moderate) (principal); I50.9 Heart failure, unspecified; R60.9 Edema, unspecified
CPT/HCPCS: 36415; 80053; 81001; 85025

== ENCOUNTER → 2017-03-23 | Outpatient (CLI) | payer MEDICARE, OTHER ==
[2017-03-23 16:38] LABS: HEMATOCRIT 38.8 % (37.9-51.0); HEMOGLOBIN 13.1 g/dL (13.5-17.0); HGB HCT DIFFERENCE 0.5; MEAN CORPUSCULAR HEMOGLOBIN 33.4 pg (27.0-33.4); MEAN CORPUSCULAR HGB CONC 33.8 g/dL (32.0-36.0); MEAN CORPUSCULAR VOLUME 99 fl (80-97); RED BLOOD COUNT 3.92 10^6/uL (4.35-5.55); RED CELL DISTRIBUTION WIDTH 14.6 % (11.5-14.0); WHITE BLOOD COUNT 5.9 10^3/uL (4.0-10.5)
== END ==
LOC: OD 16:08
PROVIDERS: ATTEND Internal Medicine Nephrology
DX: D64.9 Anemia, unspecified (principal); N18.3 Chronic kidney disease, stage 3 (moderate)
CPT/HCPCS: 36415; 85027

== ENCOUNTER → 2017-04-29 | Outpatient (CLI) | payer MEDICARE, OTHER ==
[2017-04-29 11:57] LABS: APPEARANCE,URINE CLEAR; BILIRUBIN,URINE NEGATIVE (NEGATIVE); GLUCOSE, URINE NEGATIVE (NEGATIVE); KETONES,URINE NEGATIVE (NEGATIVE); LEUKOCYTE ESTERASE,URINE SMALL (NEGATIVE); NITRITE,URINE NEGATIVE (NEGATIVE); PROTEIN,URINE NEGATIVE (NEGATIVE); UROBILINOGEN,URINE NEGATIVE mg/dL (<2.0)
[2017-04-29 12:00] LABS: HEMOGLOBIN 14.1 g/dL (13.5-17.0); HGB HCT DIFFERENCE 1.3; MEAN CORPUSCULAR HEMOGLOBIN 32.9 pg (27.0-33.4); MEAN CORPUSCULAR HGB CONC 34.4 g/dL (32.0-36.0); MEAN CORPUSCULAR VOLUME 96 fl (80-97); RED BLOOD COUNT 4.29 10^6/uL (4.35-5.55); RED CELL DISTRIBUTION WIDTH 13.6 % (11.5-14.0); WHITE BLOOD COUNT 5.9 10^3/uL (4.0-10.5)
[2017-04-29 12:32] LABS: ANION GAP 13 (5-19); BLOOD UREA NITROGEN 22 mg/dL (7-20); CALCIUM 9.4 mg/dL (8.4-10.2); CARBON DIOXIDE 27 mmol/L (22-30); CHLORIDE 100 mmol/L (98-107); CREATININE RESULT 1.36 mg/dL (0.52-1.25); GLUCOSE 97 mg/dL (75-110); POTASSIUM 3.4 mmol/L (3.6-5.0); SODIUM 140.2 mmol/L (137-145)
== END ==
LOC: OD 10:35
PROVIDERS: ATTEND Internal Medicine Nephrology
DX: N18.3 Chronic kidney disease, stage 3 (moderate) (principal); I50.9 Heart failure, unspecified; N13.30 Unspecified hydronephrosis
CPT/HCPCS: 36415; 80048; 81001; 85027

== ENCOUNTER 2017-07-01 08:53 | Emergency (ER) | payer MEDICARE, OTHER ==
[2017-07-01] MEDS ORDERED: LIDOCAINE 5% (700 MG) TRANSDERMAL ADH..PATCH TP ONE (09:36)
[2017-07-01] MEDS ORDERED: NORMAL SALINE 1000 ML 1,000 ML IV ONE (10:06)
[2017-07-01] MEDS ORDERED: HYDROMORPHONE HCL INJ/PF 2 MG/ML AMPULE IV ONE ×2 (10:06→12:32)
[2017-07-01 10:38] LABS: ABSOLUTE LYMPHOCYTES (AUTO) 2.4 10^3/uL (0.5-4.7); ABSOLUTE MONOCYTES (AUTO) 0.9 10^3/uL (0.1-1.4); ABSOLUTE NEUT (AUTO) 6.9 10^3/uL (1.7-8.2); BASOPHILS % (AUTO) 0.1 % (0-2); EOSINOPHILS % (AUTO) 0.4 % (0-6); HEMATOCRIT 43.2 % (37.9-51.0); HEMOGLOBIN 14.5 g/dL (13.5-17.0); HGB HCT DIFFERENCE 0.3; LYMPHOCYTES % (AUTO) 23.6 % (13-45); MEAN CORPUSCULAR HEMOGLOBIN 31.5 pg (27.0-33.4); MEAN CORPUSCULAR HGB CONC 33.6 g/dL (32.0-36.0); MEAN CORPUSCULAR VOLUME 94 fl (80-97); MONOCYTES % (AUTO) 8.5 % (3-13); RED BLOOD COUNT 4.61 10^6/uL (4.35-5.55); RED CELL DISTRIBUTION WIDTH 13.3 % (11.5-14.0); SEGMENTED NEUTROPHILS % (AUTO) 67.4 % (42-78); WHITE BLOOD COUNT 10.3 10^3/uL (4.0-10.5)
[2017-07-01 10:44] LABS: PROTHROMBIN TIME 16.7 SEC (11.4-15.4)
[2017-07-01 10:45] LABS: PARTIAL THROMBOPLASTIN TIME 26.9 SEC (23.5-35.8)
[2017-07-01 11:01] LABS: ANION GAP 10 (5-19); BLOOD UREA NITROGEN 23 mg/dL (7-20); CALCIUM 9.2 mg/dL (8.4-10.2); CARBON DIOXIDE 27 mmol/L (22-30); CHLORIDE 108 mmol/L (98-107); CREATININE RESULT 0.98 mg/dL (0.52-1.25); GLUCOSE 88 mg/dL (75-110); POTASSIUM 3.7 mmol/L (3.6-5.0); SODIUM 144.6 mmol/L (137-145)
--- NOTE | 2017-07-01 11:41 | ER Document Report ---
ED General - General Chief Complaint: Back Injury Stated Complaint: BACK PAIN Time Seen by Provider: 07/01/17 09:28 TRAVEL OUTSIDE OF THE [place] IN LAST 30 DAYS: No - HPI Patient complains to provider of: back pain after fall Notes: Patient coming in for evaluation of back pain at the fall. Patient states she was in the shower when he slipped and fell in the bench in the shower in the middle of his back. Patient states receiving pain did take 2 mg of Dilaudid prior to arrival however states that this has not taken care of any of his pain. Denies any shortness of breath denies any abdominal pain denies any fevers chills chest pain or pain prior to the fall. Patient is lying in stretcher upon my evaluation. Patient is on Xarelto currently due to clotting disorder. Patient denies any head trauma - Related Data Allergies/Adverse Reactions: celecoxib [From Celebrex] Allergy (Severe, Verified 02/24/17 16:26) Chest pain leflunomide [From Arava] Allergy (Severe, Verified 02/24/17 16:26) Chest pain-Full list of symptoms on 05/18/13 DC Summary meloxicam [From Mobic] Allergy (Severe, Verified 02/24/17 16:26) Chest pain methotrexate [Methotrexate] Allergy (Severe, Verified 02/24/17 16:26) Anaphylaxis ketorolac tromethamine [From Toradol] Allergy (Unknown, Verified 02/24/17 16:26) see comment Sulfa (Sulfonamide Antibiotics) Adverse Reaction (Severe, Verified 02/24/17 16: 26) Diarrhea Penicillins Adverse Reaction (Unknown, Verified 02/24/17 16:26) Rash Past Medical History - Social History Smoking Status: Never Smoker Family History: Reviewed & Not Pertinent Patient has suicidal ideation: No Patient has homicidal ideation: No - Past Medical History Cardiac Medical History: Reports: Hx Congestive Heart Failure, Hx Coronary Artery Disease - 1 coronary artery stent many years ago. Cardiac cath 2 or 3 months ago ok Denies: Hx Heart Attack, Hx Hypertension Pulmonary Medical History: Denies: Hx Asthma, Hx Bronchitis, Hx COPD, Hx Pneumonia, Hx Tuberculosis Neurological Medical History: Denies: Hx Seizures Renal/ Medical History: Reports: Hx Kidney Stones. Denies: Hx Peritoneal Dialysis GI Medical History: Denies: Hx Hiatal Hernia, Hx Ulcer Musculoskeltal Medical History: Reports Hx Arthritis - Rheumatoid, Reports Hx Gout Psychiatric Medical History: Denies: Hx Depression Past Surgical History: Reports: Hx Appendectomy, Hx Cardiac Catheterization, Hx Cardiac Surgery - stent X1, Hx Cholecystectomy, Other - Ureteral stent left kidney Removal stones and stent 2 weeks ago. Denies: Hx Open Heart Surgery - CATHERIZATIONS - Immunizations Hx Diphtheria, Pertussis, Tetanus Vaccination: Yes Hx Pneumococcal Vaccination: 08/08/13 Review of Systems - Review of Systems Constitutional: No symptoms reported EENT: No symptoms reported Cardiovascular: No symptoms reported Respiratory: No symptoms reported Gastrointestinal: No symptoms reported Genitourinary: No symptoms reported Male Genitourinary: No symptoms reported Musculoskeletal: Back pain Skin: No symptoms reported Hematologic/Lymphatic: No symptoms reported Neurological/Psychological: No symptoms reported -: Yes All other systems reviewed and negative Physical Exam - Vital signs Vitals: Temp Pulse Resp BP Pulse Ox 97.8 F 62 22 H 147/89 H 100 07/01/17 09:02 07/01/17 09:02 07/01/17 09:02 07/01/17 09:02 07/01/17 09:02 Interpretation: Normal - General General appearance: Appears well, Alert - HEENT Head: Normocephalic, Atraumatic Eyes: Normal Pupils: PERRL - Respiratory Respiratory status: No respiratory distress Chest status: Nontender Breath sounds: Normal Chest palpation: Normal - Cardiovascular Rhythm: Regular Heart sounds: Normal auscultation Murmur: No - Abdominal Inspection: Normal Distension: No distension Bowel sounds: Normal Tenderness: Nontender Organomegaly: No organomegaly - Back Back: Normal, Tender - Diffuse tenderness of the thoracic spine paraspinal and midline - Extremities General upper extremity: Normal inspection, Nontender, Normal color, Normal ROM , Normal temperature General lower extremity: Normal inspection, Nontender, Normal color, Normal ROM , Normal temperature, Normal weight bearing. No: Lupis's sign - Neurological Neuro grossly intact: Yes Cognition: Normal Orientation: AAOx4 Jenny Coma Scale Eye Opening: Spontaneous Jenny Coma Scale Verbal: Oriented Jenny Coma Scale Motor: Obeys Commands [place] Coma Scale Total: 15 Speech: Normal Motor strength normal: LUE, RUE, LLE, RLE Sensory: Normal - Psychological Associated symptoms: Normal affect, Normal mood - Skin Skin Temperature: Warm Skin Moisture: Dry Skin Color: Normal Course - Re-evaluation Re-evalutation: 07/01/17 15:17 Patient complaint diffuse back pain. Because the patient was on blood thinning medication the CT scan of the chest and abdomen were performed no pathology. Pain better control after IV Dilaudid. Patient was in courage to continue his Dilaudid at home patient is to follow-up as needed. - Vital Signs Vital signs: Temp Pulse Resp BP Pulse Ox 97.7 F 68 18 146/89 H 98 07/01/17 12:44 07/01/17 12:44 07/01/17 12:44 07/01/17 12:44 07/01/17 12:44 - Laboratory Result Diagrams: 07/01/17 10:23 07/01/17 10:23 Laboratory results interpreted by me: 07/01/17 07/01/17 10:23 10:23 PT 16.7 H Chloride 108 H BUN 23 H Discharge - Discharge Clinical Impression: Back contusion Qualifiers: Encounter type: initial encounter Laterality: unspecified laterality Qualified Code(s): S20.229A - Contusion of unspecified back wall of thorax, initial encounter Fall Qualifiers: Encounter type: initial encounter Qualified Code(s): W19.XXXA - Unspecified fall, initial encounter Condition: Good Disposition: HOME, SELF-CARE Instructions: Contusion ([facility]), Ice Packs ([facility]), Stretching Exercises for the Back ([facility]), Warm Packs ([facility]) Additional Instructions: Follow-up with your primary care physician. Return to ER symptoms worsen. Take medications as prescribed. Your CT scans today do not show any signs of injury to your internal organs or any signs of fracture. There is no signs of acute bleeding as well. There is a slight sign of some inflammation that does not specific along the muscles in the lower abdominal cavity. This is an incidental finding and not contributing to yourr back pain nor does it contribute to your fall. Referrals: CONSTANTIN WISE PA-C [Primary Care Provider] - Follow up as needed
--- NOTE | 2017-07-01 11:51 | RADIOLOGY REPORT (SQ) ---
EXAM DESCRIPTION: CT CHEST WITH COMPLETED DATE/TIME: 07/01/2017 11:42 am REASON FOR STUDY: FALL BACK PAIN ABD PAIN ON XARELTO COMPARISON: 02/24/2017 TECHNIQUE: CT scan of the chest performed using helical scanning technique with dynamic intravenous contrast injection. Images reviewed with lung, soft tissue and bone windows. Reconstructed coronal and sagittal MPR images reviewed. All images stored on PACS. All CT scanners at this facility use dose modulation, iterative reconstruction, and/or weight based d osing when appropriate to reduce radiation dose to as low as reasonably achievable (ALARA). [facility]: Dose Right [facility]: CareDose [facility]: Dose Right [facility]: Teradose 4D [facility]: GeoQuip CONTRAST TYPE AND DOSE: 100 mL Isovue 370- low osmolar. RENAL FUNCTION: BUN 23, creatinine 0.98 RADIATION DOSE: . LIMITATIONS: None. FINDINGS: LUNGS AND PLEURA: No opacities, nodules, masses. No pneumothorax. No effusions. HILAR AND MEDIASTINAL STRUCTURES: No identified masses or abnormal nodes. HEART AND VASCULAR STRUCTURES: No aneurysm or dissection. No central pulmonary emboli. No pericardi al effusion. HARDWARE: None in the chest. UPPER ABDOMEN: No significant findings. Limited exam. THYROID AND OTHER SOFT TISSUES: No masses. No adenopathy. BONES: No significant finding. OTHER: No other significant finding. IMPRESSION: NORMAL CT OF THE CHEST WITH IV CONTRAST. TECHNICAL DOCUMENTATION: JOB ID: [id number] Quality ID # [id number]: Final reports with documentation of one or more dose reduction techniques (e.g., Au tomated exposure control, adjustment of the mA and/or kV according to patient size, use of iterative reconstruction technique) 2010 [employer]- All Rights Reserved
--- NOTE | 2017-07-01 11:54 | RADIOLOGY REPORT (SQ) ---
EXAM DESCRIPTION: CT ABD/PELVIS WITH IV ONLY COMPLETED DATE/TIME: 07/01/2017 11:42 am REASON FOR STUDY: FALL BACK PAIN ABD PAIN ON XARELTO COMPARISON: 09/27/2016 TECHNIQUE: CT scan of the abdomen and pelvis performed using helical scanning technique with dynamic intravenous contrast injection. No oral contrast. Images reviewed with lung, soft tissue, and bone windows. Reconstructed coronal and sagittal MPR images reviewed. Delayed images for evaluation of the urinary system also acquired. All images stored on PACS. All CT scanners at this facility use dose modulation, iterative reconstruction, and/or weight based d osing when appropriate to reduce radiation dose to as low as reasonably achievable (ALARA). [facility]: Dose Right [facility]: CareDose [facility]: Dose Right [facility]: Teradose 4D [facility]: Live[employer] CONTRAST TYPE AND DOSE: contrast/concentration: Isovue 370.00 mg/ml; Total Contrast Delivered: 100.0 ml; Total Saline Delivered: 64.9 ml RENAL FUNCTION: BUN 23, creatinine 0.98 RADIATION DOSE: CT Rad equipment meets quality standard of care and radiation dose reduction techniq ues were employed. CTDIvol: 18.1 - 20.9 mGy. DLP: 2463 mGy-cm.. LIMITATIONS: None. FINDINGS: LOWER CHEST: No significant findings. No nodules or infiltrates. LIVER: Normal size. No masses. No dilated ducts. SPLEEN: Normal size. No focal lesions. PANCREAS: No masses. No significant calcifications. No adjacent inflammation or peripancreatic fluid collections. Pancreatic duct not dilated. GALLBLADDER: Surgically absent. ADRENAL GLANDS: No significant masses or asymmetry. RIGHT KIDNEY AND URETER: No solid masses. No significant calcifications. No hydronephrosis or hyd roureter. LEFT KIDNEY AND URETER: No solid masses. There are nonobstructing left renal calculi. No hydronep hrosis or hydroureter. AORTA AND VESSELS: No aneurysm. No dissection. Renal arteries, SMA, celiac without stenosis. RETROPERITONEUM: No retroperitoneal adenopathy, hemorrhage or masses. BOWEL AND PERITONEAL CAVITY: There is mild inflammatory changes along the left ileo psoas muscle. Th ere is no surrounding bowel. Etiology of this is uncertain. There are scattered diverticuli. No ac [place] diverticulitis. APPENDIX: Surgically absent. PELVIS: No mass. No free fluid. Normal bladder. ABDOMINAL WALL: There is an umbilical hernia containing omental fat only. BONES: No significant or acute findings. OTHER: No other significant finding. IMPRESSION: Mild peritoneal inflammatory changes along the left ileo psoas muscle. Etiology of this is uncertain. No surrounding bowel wall thickening or diverticulitis. No focal fluid collections. TECHNICAL DOCUMENTATION: JOB ID: [id number] Quality ID # [id number]: Final reports with documentation of one or more dose reduction techniques (e.g., Au tomated exposure control, adjustment of the mA and/or kV according to patient size, use of iterative reconstruction technique) 2010 [facility]- All Rights Reserved
[2017-07-01 12:49] VITALS: BP 146/89
== END 2017-07-01 12:53 | disposition home or self-care (01) ==
LOC: ER 08:53
DX: S20.229A Contusion of unspecified back wall of thorax, initial encounter (principal); W01.0XXA Fall on same level from slipping, tripping and stumbling without subsequent striking against object, initial encounter; Y93.E1 Activity, personal bathing and showering; I50.9 Heart failure, unspecified; I25.10 Atherosclerotic heart disease of native coronary artery without angina pectoris; Z88.2 Allergy status to sulfonamides; Z88.0 Allergy status to penicillin; Z79.02 Long term (current) use of antithrombotics/antiplatelets; Z87.442 Personal history of urinary calculi; Z90.49 Acquired absence of other specified parts of digestive tract
CPT/HCPCS: 96376; 99284; 96361; 96374; 36415; 85025; 85610; 85730; 80048; 71260; 74177; J1170; J7030

== ENCOUNTER 2017-09-01 09:33 | Observation (INO) | payer MEDICARE, OTHER ==
[2017-09-01] MEDS ORDERED: ASPIRIN 81 MG TABLET, CHEWABLE PO ONE (11:04)
--- NOTE | 2017-09-01 11:05 | ER Document Report ---
ED Medical Screen (RME) - General Chief Complaint: Shortness Of Breath Stated Complaint: SHORTNESS OF BREATH Time Seen by Provider: 09/01/17 11:00 Mode of Arrival: Ambulatory Information source: Patient Notes: 76 yo CHF, severe RA, kidney stones (passed 2 this morning), CAD with stent 10 years ago, male with chest sharp discomfort and shortness of breath prior to cardiac rehab this morning. BP was OK at home but HR was 120. When he got to [facility] , HR was 122 so they brought him to the ER. Heart failure EF 30- 35% . Waiting for echo next month dr. Santo [facility] to see if he needs a defib. Took his cardica meds this am. pulse in [place] [facility], Still has chest discomfort all the way across. TRAVEL OUTSIDE OF THE [place] IN LAST 30 DAYS: No - Related Data Allergies/Adverse Reactions: celecoxib [From Celebrex] Allergy (Severe, Verified 02/24/17 16:26) Chest pain leflunomide [From Arava] Allergy (Severe, Verified 02/24/17 16:26) Chest pain-Full list of symptoms on 05/18/13 DC Summary meloxicam [From Mobic] Allergy (Severe, Verified 02/24/17 16:26) Chest pain methotrexate [Methotrexate] Allergy (Severe, Verified 02/24/17 16:26) Anaphylaxis ketorolac tromethamine [From Toradol] Allergy (Unknown, Verified 02/24/17 16:26) see comment Sulfa (Sulfonamide Antibiotics) Adverse Reaction (Severe, Verified 02/24/17 16: 26) Diarrhea Penicillins Adverse Reaction (Unknown, Verified 02/24/17 16:26) Rash Past Medical History - Past Medical History Cardiac Medical History: Reports: Hx Congestive Heart Failure, Hx Coronary Artery Disease - 1 coronary artery stent many years ago. Cardiac cath 2 or 3 months ago ok Denies: Hx Heart Attack, Hx Hypertension Pulmonary Medical History: Denies: Hx Asthma, Hx Bronchitis, Hx COPD, Hx Pneumonia, Hx Tuberculosis Neurological Medical History: Denies: Hx Seizures Renal/ Medical History: Reports: Hx Kidney Stones. Denies: Hx Peritoneal Dialysis GI Medical History: Denies: Hx Hiatal Hernia, Hx Ulcer Musculoskeltal Medical History: Reports Hx Arthritis - Rheumatoid, Reports Hx Gout Psychiatric Medical History: Denies: Hx Depression Past Surgical History: Reports: Hx Appendectomy, Hx Cardiac Catheterization, Hx Cardiac Surgery - stent X1, Hx Cholecystectomy, Other - Ureteral stent left kidney Removal stones and stent 2 weeks ago. Denies: Hx Open Heart Surgery - CATHERIZATIONS - Immunizations Hx Diphtheria, Pertussis, Tetanus Vaccination: Yes
[2017-09-01 11:29] LABS: APPEARANCE,URINE SLIGHTLY-CLOUDY; BILIRUBIN,URINE NEGATIVE (NEGATIVE); COLOR,URINE YELLOW; GLUCOSE, URINE NEGATIVE (NEGATIVE); KETONES,URINE NEGATIVE (NEGATIVE); LEUKOCYTE ESTERASE,URINE TRACE (NEGATIVE); NITRITE,URINE NEGATIVE (NEGATIVE); PROTEIN,URINE NEGATIVE (NEGATIVE); URINE SPECIFIC GRAVITY 1.012; UROBILINOGEN,URINE NEGATIVE mg/dL (<2.0)
[2017-09-01 11:45] LABS: ABSOLUTE BASOPHILS # (AUTO) 0.1 10^3/uL (0.0-0.2); ABSOLUTE EOSINOPHILS # (AUTO) 0.1 10^3/uL (0.0-0.6); ABSOLUTE MONOCYTES (AUTO) 0.6 10^3/uL (0.1-1.4); ABSOLUTE NEUT (AUTO) 4.9 10^3/uL (1.7-8.2); BASOPHILS % (AUTO) 1.1 % (0-2); EOSINOPHILS % (AUTO) 1.2 % (0-6); HEMATOCRIT 47.6 % (37.9-51.0); HEMOGLOBIN 16.1 g/dL (13.5-17.0); LYMPHOCYTES % (AUTO) 26.5 % (13-45); MEAN CORPUSCULAR HEMOGLOBIN 31.3 pg (27.0-33.4); MEAN CORPUSCULAR HGB CONC 33.9 g/dL (32.0-36.0); MEAN CORPUSCULAR VOLUME 92 fl (80-97); MONOCYTES % (AUTO) 8.3 % (3-13); PLATELET COUNT 196 10^3/uL (150-450); RED BLOOD COUNT 5.15 10^6/uL (4.35-5.55); RED CELL DISTRIBUTION WIDTH 14.2 % (11.5-14.0); SEGMENTED NEUTROPHILS % (AUTO) 62.9 % (42-78); TOTAL CELLS COUNTED % (AUTO) 100 %; WHITE BLOOD COUNT 7.7 10^3/uL (4.0-10.5)
--- NOTE | 2017-09-01 11:56 | EKG REPORT ---
SEVERITY:- ABNORMAL ECG - SINUS RHYTHM PROBABLE LEFT ATRIAL ABNORMALITY LEFT AXIS DEVIATION LVH WITH SECONDARY REPOLARIZATION ABNORMALITY BORDERLINE PROLONGED QT INTERVAL : Confirmed by: Conor Robert 01-Sep-2017 11:55:56
[2017-09-01 12:05] LABS: ALANINE AMINOTRANSFERASE 33 U/L (21-72); ALBUMIN 4.6 g/dL (3.5-5.0); ALKALINE PHOSPHATASE 66 U/L (38-126); ANION GAP 10 (5-19); ASPARTATE AMINO TRANSFERASE 35 U/L (17-59); BILIRUBIN,DIRECT 0.4 mg/dL (0.0-0.4); BILIRUBIN,TOTAL 1.7 mg/dL (0.2-1.3); BLOOD UREA NITROGEN 21 mg/dL (7-20); CARBON DIOXIDE 32 mmol/L (22-30); CHLORIDE 99 mmol/L (98-107); CREATINE KINASE 93 U/L (55-170); GLUCOSE 109 mg/dL (75-110); POTASSIUM 3.8 mmol/L (3.6-5.0); SODIUM 141.3 mmol/L (137-145); TOTAL PROTEIN 6.6 g/dL (6.3-8.2)
[2017-09-01 12:17] LABS: CREATINE KINASE MB 2.25 ng/mL (<4.55); NT PRO BNP 71 pg/mL (5-900); TROPONIN I < 0.012 ng/mL
--- NOTE | 2017-09-01 12:48 | RADIOLOGY REPORT (SQ) ---
EXAM DESCRIPTION: CHEST SINGLE VIEW COMPLETED DATE/TIME: 09/01/2017 12:34 pm REASON FOR STUDY: chest pain COMPARISON: February 2017 EXAM PARAMETERS: NUMBER OF VIEWS: One view. TECHNIQUE: Single frontal radiographic view of the chest acquired. RADIATION DOSE: NA LIMITATIONS: None. FINDINGS: LUNGS AND PLEURA: No opacities, masses or pneumothorax. No pleural effusion. MEDIASTINUM AND HILAR STRUCTURES: Stable appearance. HEART AND VASCULAR STRUCTURES: Heart normal in size. Normal vasculature. BONES: No acute findings. HARDWARE: None in the chest. OTHER: No other significant finding. IMPRESSION: NO ACUTE RADIOGRAPHIC FINDING IN THE CHEST. TECHNICAL DOCUMENTATION: JOB ID: [id number] [employer]- All Rights Reserved
--- NOTE | 2017-09-01 13:19 | ER Document Report ---
ED Cardiac - General Chief Complaint: Shortness Of Breath Stated Complaint: SHORTNESS OF BREATH Time Seen by Provider: 09/01/17 11:00 Mode of Arrival: Ambulatory Information source: Patient TRAVEL OUTSIDE OF THE [place] IN LAST 30 DAYS: No - HPI Patient complains to provider of: Chest pain, Shortness of breath, Other - TACHYCARDIA Use of: denies: Alcohol, Amphetamines, Bath salts, Caffeine, Cocaine, Decongestants Was the onset of pain: Sudden When did pain begin: THIS A.M., SHORTLY AFTER ARISING Is the pain a: New problem - HAS NOTED SOME MILD LIGHT-HEADEDNESS FOR A WEEK OR SO Chest pain location: Substernal Quality of pain: Pressure - VERY SLIGHT Chest pain radiation location: None Severity now: None Severity at worst: Mild Cardiac risk factors: Hypertension, Smoker - FORMERLY, Hx CHF. denies: Hx [place] Positive cardiac history: Yes Associated symptoms: Hypotension, Lightheaded, Palpitations, Shortness of breath - SLIGHT. denies: Diaphoresis, Edema, Syncope Exacerbated by: Standing Relieved by: Rest Similar symptoms previously: Yes Recently seen / treated by doctor: Yes - LAST WEEK, MEDS CHANGED - Related Data Allergies/Adverse Reactions: celecoxib [From Celebrex] Allergy (Severe, Verified 02/24/17 16:26) Chest pain leflunomide [From Arava] Allergy (Severe, Verified 02/24/17 16:26) Chest pain-Full list of symptoms on 05/18/13 DC Summary meloxicam [From Mobic] Allergy (Severe, Verified 02/24/17 16:26) Chest pain methotrexate [Methotrexate] Allergy (Severe, Verified 02/24/17 16:26) Anaphylaxis ketorolac tromethamine [From Toradol] Allergy (Unknown, Verified 02/24/17 16:26) see comment Sulfa (Sulfonamide Antibiotics) Adverse Reaction (Severe, Verified 02/24/17 16: 26) Diarrhea Penicillins Adverse Reaction (Unknown, Verified 02/24/17 16:26) Rash Past Medical History - General Information source: Patient - Social History Smoking Status: Former Smoker Chew tobacco use (# tins/day): No Frequency of alcohol use: None Drug Abuse: None Lives with: Spouse/Significant other Family History: Reviewed & Not Pertinent Patient has suicidal ideation: No Patient has homicidal ideation: No - Past Medical History Cardiac Medical History: Reports: Hx Congestive Heart Failure, Hx Coronary Artery Disease - 1 coronary artery stent many years ago. Cardiac cath 2 or 3 months ago ok, Hx DVT - FEBRUARY 2017 Denies: Hx Heart Attack, Hx Hypertension Pulmonary Medical History: Denies: Hx Asthma, Hx Bronchitis, Hx COPD, Hx Pneumonia, Hx Tuberculosis EENT Medical History: Reports: None Neurological Medical History: Reports: None. Denies: Hx Seizures Endocrine Medical History: Reports: None Renal/ Medical History: Reports: Hx Kidney Stones. Denies: Hx Peritoneal Dialysis Malignancy Medical History: Reports None GI Medical History: Reports: None. Denies: Hx Hiatal Hernia, Hx Ulcer Musculoskeltal Medical History: Reports Hx Arthritis - Rheumatoid, Reports Hx Gout Psychiatric Medical History: Reports: None Denies: Hx Depression Past Surgical History: Reports: Hx Appendectomy, Hx Cardiac Catheterization, Hx Cardiac Surgery - stent X1, Hx Cholecystectomy, Other - Ureteral stent left kidney Removal stones and stent 2 weeks ago. Denies: Hx Open Heart Surgery - CATHERIZATIONS - Immunizations Hx Diphtheria, Pertussis, Tetanus Vaccination: Yes Hx Pneumococcal Vaccination: 08/08/13 Review of Systems - Review of Systems Constitutional: Weakness EENT: Sinus discharge - IMPROVING W/ ANTIBIOTIC Rx Cardiovascular: See HPI Respiratory: See HPI Gastrointestinal: No symptoms reported. denies: Nausea Genitourinary: No symptoms reported Musculoskeletal: No symptoms reported Skin: No symptoms reported Neurological/Psychological: Weakness - GENERALIZED Physical Exam - Vital signs Vitals: Temp Pulse Resp BP Pulse Ox 97.9 F 105 H 16 102/78 95 09/01/17 09:49 09/01/17 09:49 09/01/17 09:49 09/01/17 09:49 09/01/17 09:49 Interpretation: Hypotensive, Tachycardic. No: Hypertensive, Tachypneic, Febrile - General General appearance: Appears well, Alert In distress: None - HEENT Head: Normocephalic Eyes: Normal Conjunctiva: Normal Ears: Normal Nasal: Normal Mouth/Lips: Normal Mucous membranes: Normal Neck: Normal - Respiratory Respiratory status: No respiratory distress Breath sounds: Normal - Cardiovascular Rhythm: Regular Heart sounds: Normal auscultation Murmur: No - Abdominal Inspection: Obese Distension: No distension Bowel sounds: Normal - Back Back: Normal - Extremities General upper extremity: Normal inspection General lower extremity: Normal inspection. No: Tender, Edema - Neurological Neuro grossly intact: Yes Cognition: Normal Orientation: AAOx4 - Psychological Associated symptoms: Normal affect, Normal mood - Skin Skin Temperature: Warm Skin Moisture: Dry Skin Color: Normal Skin Turgor: Elastic Course - Vital Signs Vital signs: Temp Pulse Resp BP Pulse Ox 97.9 F 105 H 23 H 113/79 87 L 09/01/17 09:49 09/01/17 09:49 09/01/17 18:01 09/01/17 17:31 09/01/17 18:01 - Laboratory Result Diagrams: 09/01/17 11:34 09/01/17 11:34 Laboratory results interpreted by me: 09/01/17 09/01/17 09/01/17 11:11 11:34 11:34 RDW 14.2 H Carbon Dioxide 32 H BUN 21 H Creatinine 1.28 H Est GFR (Non-Af Amer) 55 L Total Bilirubin 1.7 H Ur Leukocyte Esterase TRACE H - Diagnostic Test Radiology reviewed: Image reviewed, Reports reviewed - EKG Interpretation by Me EKG shows normal: Sinus rhythm. abnormal: [place], Intervals - BORDERLINE LONG QT , QRS Complexes, ST-T Waves - REPOL. ABNL. DUE TO LVH Rate: Normal Rhythm: NSR [place]/QRS: Left axis deviation Voltage: Consistant with LVH - Consults DR. AKBAR Time consulted: 16:00 Consulted provider: will come to ER Discharge - Discharge Clinical Impression: Symptomatic hypotension Condition: Good Disposition: ADMITTED OBSERVATION Admitting Provider: Hospitalist Unit Admitted: Telemetry
--- NOTE | 2017-09-01 16:07 | RADIOLOGY REPORT (SQ) ---
EXAM DESCRIPTION: VENOUS BILATERAL LOWER COMPLETED DATE/TIME: 09/01/2017 3:51 pm REASON FOR STUDY: DYSPNEA, TACHYCARDIA, H/O DVT COMPARISON: 09/25/2016. TECHNIQUE: Dynamic and static chiang scale and color images acquired of both lower extremity venous sy stems. Selected spectral images acquired with additional compression and augmentation maneuvers. Imag es stored on PACS. LIMITATIONS: None. FINDINGS: RIGHT LEG COMMON FEMORAL AND FEMORAL: Normal phasicity, compression and augmentation. No visualized echogenic m aterial on chiang scale. No defects on color images. POPLITEAL: Normal compression and augmentation. No visualized echogenic material on chiang scale. No de fects on color images. CALF VESSELS: Normal compression and augmentation. No visualized echogenic material on chiang scale. No defects on color image. GSV AND SSV: Normal compression. No visualized echogenic material on chiang scale. No defects on color images. ANY DEEP VENOUS INSUFFICIENCY: Not evaluated. ANY EVIDENCE OF POPLITEAL CYST: No. OTHER: No other significant finding. LEFT LEG COMMON FEMORAL AND FEMORAL: Normal phasicity, compression and augmentation. No visualized echogenic m aterial on chiang scale. No defects on color images. POPLITEAL: Normal compression and augmentation. No visualized echogenic material on chiang scale. No de fects on color images. CALF VESSELS: Normal compression and augmentation. No visualized echogenic material on chiang scale. No defects on color images. GSV AND SSV: Normal compression. No visualized echogenic material on chiang scale. No defects on color images. ANY DEEP VENOUS INSUFFICIENCY: Not evaluated. ANY EVIDENCE POPLITEAL CYST: No. OTHER: No other significant finding. IMPRESSION: NO EVIDENCE DVT OR SVT IN EITHER LEG. TECHNICAL DOCUMENTATION: JOB ID: [id number] [employer]- All Rights Reserved
[2017-09-01] MEDS ORDERED: ACETAMINOPHEN 325 MG TABLET PO PRN (16:51)
[2017-09-01] MEDS ORDERED: RIVAROXABAN 15 MG TABLET PO SCH (17:00)
[2017-09-01] MEDS ORDERED: HYDROMORPHONE HCL 2 MG TABLET PO PRN (17:00)
[2017-09-01] MEDS ORDERED: NORMAL SALINE 1000 ML 500 ML IV ONE (17:01)
--- NOTE | 2017-09-01 17:23 | PDOC H&P ---
History of Present Illness Admission Date/PCP: Dr. Cole 09/01/2017 Patient complains of: Dizziness and falling in setting of low blood pressure History of Present Illness: KERRY COBURN is a 76 year old male presents with to the hospital after complaining of low blood pressure for 10 weeks. 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 Cole during the last 3-4 days. Patient states that Dr. Cole decreased his losartan to try to see if patient's hypotension would improve. Patient states that he continue to take his other medicines as directed and he continued to feel lightheaded and dizzy. Patient states that 2 days ago he fell out of bed. Past Medical History Cardiac Medical History: Reports: Congestive Heart Failure, Coronary Artery Disease - 1 coronary artery stent many years ago. Cardiac cath 2 or 3 months ago ok, DVT - FEBRUARY 2017 Denies: Myocardial Infarction, Hypertension Pulmonary Medical History: Denies: Asthma, Bronchitis, Chronic Obstructive Pulmonary Disease (COPD), Pneumonia, Tuberculosis EENT Medical History: Reports: None Neurological Medical History: Reports: None Denies: Seizures Endocrine Medical History: Reports: None Malignancy Medical History: Reports: None GI Medical History: Reports: None Denies: Hiatal Hernia Musculoskeltal Medical History: Reports: Arthritis - Rheumatoid, Gout Psychiatric Medical History: Reports: None Denies: Depression Hematology: Denies: Anemia, Sickle Cell Disease Past Surgical History Past Surgical History: Reports: Appendectomy, Cardiac Catheterization, Cholecystectomy, Orthopedic Surgery - ankle / elbows, Other - Ureteral stent left kidney Removal stones and stent 2 weeks ago Social History Information Source: Patient Lives with: Spouse/Significant other Smoking Status: Former Smoker Frequency of Alcohol Use: Rare Hx Recreational Drug Use: No Drugs: None Hx Prescription Drug Abuse: No - Advance Directive Resuscitation Status: Full Code Family History Family History: Reviewed & Not Pertinent Parental Family History Reviewed: Yes Children Family History Reviewed: Yes Sibling(s) Family History Reviewed.: Yes Medication/Allergy Home Medications: Actemra Infusion 800 mg IV [id number] 02/24/17 Allopurinol [Zyloprim 100 mg Tablet] 100 mg PO QPM 02/24/17 Carvedilol [Coreg 6.25 mg Tablet] 6.25 mg PO QAM 02/24/17 Cetirizine HCl [Zyrtec 10 mg Tablet] 10 mg PO QAM 07/20/17 Fluticasone Propionate [Flonase Nasal Oto 50 Mcg/Oto 16 gm] 1 spray NASL QAM 02/24/17 Gabapentin [Neurontin 100 mg Capsule] 100 mg PO QPM 02/24/17 Hydromorphone HCl [Dilaudid 2 mg Tablet] 2 mg PO Q6HP PRN 02/24/17 L.acidoph,Paracasei, B.lactis [Probiotic] 1 cap PO QPM 02/24/17 Ondansetron HCl [Zofran 8 mg Tablet] 8 mg PO Q8HP PRN 02/24/17 Prednisone [Deltasone 5 mg Tablet] 5 mg PO QAM 02/24/17 Sacubitril/Valsartan [Entresto 24 mg-26 mg Tablet] 1 tab PO QAM 02/24/17 Tamsulosin HCl [Flomax 0.4 mg Cap.sr] 0.4 mg PO QPM 02/24/17 Torsemide [Demadex 20 mg Tablet] 10 mg PO QAM 02/24/17 Rivaroxaban [Xarelto 15 mg Tablet] 15 mg PO BIDBS #42 tablet 02/25/17 Allergies/Adverse Reactions: celecoxib [From Celebrex] Allergy (Severe, Verified 02/24/17 16:26) Chest pain leflunomide [From Arava] Allergy (Severe, Verified 02/24/17 16:26) Chest pain-Full list of symptoms on 05/18/13 DC Summary meloxicam [From Mobic] Allergy (Severe, Verified 02/24/17 16:26) Chest pain methotrexate [Methotrexate] Allergy (Severe, Verified 02/24/17 16:26) Anaphylaxis ketorolac tromethamine [From Toradol] Allergy (Unknown, Verified 02/24/17 16:26) see comment Sulfa (Sulfonamide Antibiotics) Adverse Reaction (Severe, Verified 02/24/17 16: 26) Diarrhea Penicillins Adverse Reaction (Unknown, Verified 02/24/17 16:26) Rash Review of Systems Constitutional: PRESENT: fatigue, weakness. ABSENT: chills, fever(s), headache( s), weight gain, weight loss Eyes: ABSENT: visual disturbances Ears: ABSENT: hearing changes Cardiovascular: PRESENT: other - Dizziness. ABSENT: chest pain, dyspnea on exertion, edema, orthropnea, palpitations Respiratory: ABSENT: cough, hemoptysis Gastrointestinal: ABSENT: abdominal pain, constipation, diarrhea, hematemesis, hematochezia, nausea, vomiting Genitourinary: ABSENT: dysuria, hematuria Musculoskeletal: ABSENT: joint swelling Integumentary: ABSENT: rash, wounds Neurological: ABSENT: abnormal gait, abnormal speech, confusion, dizziness, focal weakness, syncope Psychiatric: ABSENT: anxiety, depression, homidical ideation, suicidal ideation Endocrine: ABSENT: cold intolerance, heat intolerance, polydipsia, polyuria Hematologic/Lymphatic: ABSENT: easy bleeding, easy bruising Physical Exam Vital Signs: Temp Pulse Resp BP Pulse Ox 97.9 F 105 H 14 87/68 L 91 L 09/01/17 09:49 09/01/17 09:49 09/01/17 15:01 09/01/17 15:01 09/01/17 15:01 General appearance: PRESENT: no acute distress, well-developed, well-nourished Head exam: PRESENT: atraumatic, normocephalic Eye exam: PRESENT: conjunctiva pink, EOMI. ABSENT: scleral icterus Ear exam: PRESENT: normal external ear exam Mouth exam: PRESENT: moist, tongue midline Neck exam: ABSENT: carotid bruit, JVD, lymphadenopathy, thyromegaly Respiratory exam: PRESENT: clear to auscultation nikita. ABSENT: rales, rhonchi, wheezes Cardiovascular exam: PRESENT: RRR. ABSENT: diastolic murmur, rubs, systolic murmur Pulses: PRESENT: normal dorsalis pedis pul Vascular exam: PRESENT: normal capillary refill GI/Abdominal exam: PRESENT: normal bowel sounds, soft. ABSENT: distended, guarding, mass, organolmegaly, rebound, tenderness Rectal exam: PRESENT: deferred Extremities exam: PRESENT: full ROM. ABSENT: calf tenderness, clubbing, pedal edema Neurological exam: PRESENT: alert, awake, oriented to person, oriented to place , oriented to time, oriented to situation, CN II-XII grossly intact. ABSENT: motor sensory deficit Psychiatric exam: PRESENT: appropriate affect, normal mood. ABSENT: homicidal ideation, suicidal ideation Skin exam: PRESENT: dry, intact, warm. ABSENT: cyanosis, rash Results Laboratory Results: 09/01/17 11:34 09/01/17 11:34 09/01/17 09/01/17 09/01/17 11:11 11:34 11:34 WBC 7.7 RBC 5.15 Hgb 16.1 Hct 47.6 MCV 92 MCH 31.3 MCHC 33.9 RDW 14.2 H Plt Count 196 Seg Neutrophils % 62.9 Lymphocytes % 26.5 Monocytes % 8.3 Eosinophils % 1.2 Basophils % 1.1 Absolute Neutrophils 4.9 Absolute Lymphocytes 2.0 Absolute Monocytes 0.6 Absolute Eosinophils 0.1 Absolute Basophils 0.1 Sodium 141.3 Potassium 3.8 Chloride 99 Carbon Dioxide 32 H Anion Gap 10 BUN 21 H Creatinine 1.28 H Est GFR ( Amer) > 60 Est GFR (Non-Af Amer) 55 L Glucose 109 Calcium 10.0 Total Bilirubin 1.7 H AST 35 ALT 33 Alkaline Phosphatase 66 Total Protein 6.6 Albumin 4.6 Urine Color YELLOW Urine Appearance SLIGHTLY-CLOUDY Urine pH 6.0 Ur Specific [place] 1.012 Urine Protein NEGATIVE Urine Glucose (UA) NEGATIVE Urine Ketones NEGATIVE Urine Blood NEGATIVE Urine Nitrite NEGATIVE Ur Leukocyte Esterase TRACE H Urine WBC (Auto) 10 Urine RBC (Auto) 2 09/01/17 09/01/17 11:34 11:34 Creatine Kinase 93 CK-MB (CK-2) 2.25 Troponin I < 0.012 NT-Pro-B Natriuret Pep 71 Impressions: Chest X-Ray 09/01/17 11:04 IMPRESSION: NO ACUTE RADIOGRAPHIC FINDING IN THE CHEST. Venous Doppler Study 09/01/17 13:42 IMPRESSION: NO EVIDENCE DVT OR SVT IN EITHER LEG. Assessment & Plan - Diagnosis (1) Orthostatic hypotension Is this a current diagnosis for this admission?: Yes Plan: Secondary to medication: We will hold patient's blood pressure medication. Will give 500 cc normal saline bolus. Of note patient does have EF of 30-35%. (2) Fall Is this a current diagnosis for this admission?: Yes Plan: We will have patient work with PT OT. Will check CT of head given the fact the patient fell and was recently on blood thinner. (3) CHF (congestive heart failure) Qualifiers: Congestive heart failure type: unspecified congestive heart failure type Congestive heart failure chronicity: unspecified congestive heart failure chronicity Qualified Code(s): I50.9 - Heart failure, unspecified Is this a current diagnosis for this admission?: Yes Plan: Systolic congestive heart failure stable no acute exacerbation: Patient with EF of 30%. Will give 500 cc normal saline bolus. Patient currently is not in CHF exacerbation. (4) Pulmonary embolism, bilateral Is this a current diagnosis for this admission?: Yes Plan: Patient has completed treatment with anticoagulation. (5) Rheumatoid arthritis Qualifiers: Rheumatoid factor presence: unspecified presence Laterality: unspecified laterality Is this a current diagnosis for this admission?: Yes Plan: We will continue patient's steroids. (6) Swelling of lower limb Is this a current diagnosis for this admission?: Yes Plan: ER ordered venous study to evaluate for DVTs. No evidence of DVTs and d-dimer within normal range. Of note patient did not have lower extremity edema on physical exam. (7) DVT prophylaxis Is this a current diagnosis for this admission?: Yes Plan: SCDs - Time Time Spent: 30 to 50 Minutes - Patient admitted under observation status.
[2017-09-01] MEDS ORDERED: TAMSULOSIN HCL 0.4 MG CAP.SR.24H PO SCH (18:00)
[2017-09-01] MEDS ORDERED: GABAPENTIN 100 MG CAPSULE PO SCH (18:00)
[2017-09-01] MEDS ORDERED: ALLOPURINOL 100 MG TABLET PO SCH (18:00)
--- NOTE | 2017-09-01 18:47 | RADIOLOGY REPORT (SQ) ---
EXAM DESCRIPTION: CT HEAD WITHOUT COMPLETED DATE/TIME: 09/01/2017 6:12 pm REASON FOR STUDY: Fall COMPARISON: 10/19/2013 TECHNIQUE: Axial images acquired through the brain without intravenous contrast. Images reviewed wi th bone, brain and subdural windows. Images stored on PACS. All CT scanners at this facility use dose modulation, iterative reconstruction, and/or weight based d osing when appropriate to reduce radiation dose to as low as reasonably achievable (ALARA). [facility]: Dose Right [facility]: CareDose [facility]: Dose Right [facility]: Teradose 4D [facility]: ReDigi RADIATION DOSE: CT Rad equipment meets quality standard of care and radiation dose reduction techniq ues were employed. CTDIvol: 64.6 mGy. DLP: 1034 mGy-cm. mGy. FINDINGS: VENTRICLES: Normal size and contour. CEREBRUM: No masses. No hemorrhage. No midline shift. No evidence for acute infarction. Normal gra y/white matter differentiation. No areas of low density in the white matter. CEREBELLUM: No masses. No hemorrhage. No alteration of density. No evidence for acute infarction. EXTRAAXIAL SPACES: No fluid collections. No masses. ORBITS AND GLOBE: No intra- or extraconal masses. Normal contour of globe without masses. CALVARIUM: No fracture. PARANASAL SINUSES: No fluid or mucosal thickening. SOFT TISSUES: No mass or hematoma. OTHER: No other significant finding. IMPRESSION: No acute intracranial findings. EVIDENCE OF ACUTE STROKE: NO. COMMENT: Quality ID # [id number]: Final reports with documentation of one or more dose reduction techniques (e.g., Automated exposure control, adjustment of the mA and/or kV according to patient size, use of iterative reconstruction technique) TECHNICAL DOCUMENTATION: JOB ID: [id number] [email or web address] All Rights Reserved
[2017-09-02] MEDS: ONDANSETRON 4 MG TAB.RAPDIS PO PRN ×2 (00:49→10:15)
[2017-09-02 05:29] LABS: ABSOLUTE BASOPHILS # (AUTO) 0.1 10^3/uL (0.0-0.2); ABSOLUTE EOSINOPHILS # (AUTO) 0.2 10^3/uL (0.0-0.6); ABSOLUTE MONOCYTES (AUTO) 0.7 10^3/uL (0.1-1.4); ABSOLUTE NEUT (AUTO) 3.5 10^3/uL (1.7-8.2); BASOPHILS % (AUTO) 0.9 % (0-2); EOSINOPHILS % (AUTO) 3.1 % (0-6); HEMATOCRIT 42.2 % (37.9-51.0); HEMOGLOBIN 14.4 g/dL (13.5-17.0); LYMPHOCYTES % (AUTO) 40.5 % (13-45); MEAN CORPUSCULAR HEMOGLOBIN 31.2 pg (27.0-33.4); MEAN CORPUSCULAR HGB CONC 34.1 g/dL (32.0-36.0); MEAN CORPUSCULAR VOLUME 92 fl (80-97); MONOCYTES % (AUTO) 8.8 % (3-13); PLATELET COUNT 155 10^3/uL (150-450); RED CELL DISTRIBUTION WIDTH 14.1 % (11.5-14.0); SEGMENTED NEUTROPHILS % (AUTO) 46.7 % (42-78); TOTAL CELLS COUNTED % (AUTO) 100 %; WHITE BLOOD COUNT 7.5 10^3/uL (4.0-10.5)
[2017-09-02 06:04] LABS: ALANINE AMINOTRANSFERASE 34 U/L (21-72); ALBUMIN 3.6 g/dL (3.5-5.0); ALKALINE PHOSPHATASE 49 U/L (38-126); ANION GAP 7 (5-19); ASPARTATE AMINO TRANSFERASE 28 U/L (17-59); BILIRUBIN,DIRECT 0.3 mg/dL (0.0-0.4); BILIRUBIN,TOTAL 1.5 mg/dL (0.2-1.3); BLOOD UREA NITROGEN 21 mg/dL (7-20); CALCIUM 9.7 mg/dL (8.4-10.2); CARBON DIOXIDE 29 mmol/L (22-30); CHLORIDE 105 mmol/L (98-107); GLUCOSE 95 mg/dL (75-110); POTASSIUM 3.5 mmol/L (3.6-5.0); TOTAL PROTEIN 5.3 g/dL (6.3-8.2)
[2017-09-02 06:11] LABS: FREE T4 (FREE THYROXINE) 1.28 ng/dL (0.78-2.19)
[2017-09-02 06:25] LABS: THYROID STIMULATING HORMONE 1.84 uIU/mL (0.47-4.68)
[2017-09-02] MEDS ORDERED: CARVEDILOL 6.25 MG TABLET PO SCH (08:00)
[2017-09-02] MEDS ORDERED: FLUTICASONE NASAL SPRAY 50 MCG/SPRY 120 SPRAY/16 GM NASL SCH (08:00)
[2017-09-02] MEDS ORDERED: CETIRIZINE 10 MG TABLET PO SCH (08:00)
[2017-09-02] MEDS ORDERED: PREDNISONE 5 MG TABLET PO SCH (08:00)
[2017-09-02 15:46] VITALS: BP 134/79
--- NOTE | 2017-09-02 15:57 | PDOC DISCHARGE SUMMARY ---
General - Admit/Disc Date/PCP Admission Date/Primary Care Provider: 09/01/17 17:39 Discharge Date: 09/02/17 - Discharge Diagnosis (1) Orthostatic hypotension Is this a current diagnosis for this admission?: Yes Summary: Secondary to medication Lorsartan, Torsemide, and Metoprolol: Losartan was discontinued and torsemide was changed to as needed. Patient was told that he will need to weigh himself and if weight increases by 3 pounds to use torsemide (2) Fall Is this a current diagnosis for this admission?: Yes Summary: Hypotension secondary to medication: Patient has been ambulating around room without any difficulty. (3) CHF (congestive heart failure) Is this a current diagnosis for this admission?: Yes Summary: Stable (4) Pulmonary embolism, bilateral Is this a current diagnosis for this admission?: No Summary: resolved. (5) Rheumatoid arthritis Is this a current diagnosis for this admission?: Yes Summary: Continue home medication (6) Swelling of lower limb Is this a current diagnosis for this admission?: Yes Summary: No evidence of DVT - Additional Information Resuscitation Status: Full Code Discharge Diet: Cardiac Discharge Activity: Activity As Tolerated Prescriptions: Metoprolol Succinate [Toprol Xl 25 mg Tab.sr] 12.5 mg PO DAILY #1 tab.sr.24h Home Medications: Cetirizine HCl [Zyrtec 10 mg Tablet] 10 mg PO DAILY 09/01/17 Escitalopram Oxalate [Lexapro] 5 mg PO DAILY 09/01/17 Fluticasone Propionate [Flonase Nasal Section 50 Mcg/Section 16 gm] 1 spray NASL DAILY 09/01/17 Lidocaine [Lidoderm 5% (700 mg) Transdermal Patch] 1 patch TOP DAILY 09/01/17 Montelukast Sodium [Singulair 10 mg Tablet] 10 mg PO QPM 09/01/17 Ondansetron HCl [Zofran 8 mg Tablet] 8 mg PO Q6HP PRN 09/01/17 Rivaroxaban [Xarelto] 20 mg PO WSUPPER 09/01/17 Tamsulosin HCl [Flomax 0.4 mg Cap.sr] 0.4 mg PO DAILY 09/01/17 Zolpidem Tartrate [Ambien 5 mg Tablet] 5 mg PO QHS 09/01/17 Allopurinol [Zyloprim 100 mg Tablet] 100 mg PO QPM tablet 09/02/17 Cetirizine HCl [Zyrtec 10 mg Tablet] 10 mg PO QAM tablet 09/02/17 Fluticasone Propionate [Flonase Nasal Section 50 Mcg/Section 16 gm] 1 spray NASL QAM spray.pump 09/02/17 Gabapentin [Neurontin 100 mg Capsule] 100 mg PO QPM capsule 09/02/17 Hydromorphone HCl [Dilaudid 2 mg Tablet] 2 mg PO Q6HP PRN tablet 09/02/17 Metoprolol Succinate [Toprol Xl 25 mg Tab.sr] 12.5 mg PO DAILY #1 tab.sr.24h Ondansetron [Zofran Odt 4 mg Tablet] 4 mg PO Q6HP PRN tab.rapdis 09/02/17 Prednisone [Deltasone 5 mg Tablet] 5 mg PO QAM tablet 09/02/17 Tamsulosin HCl [Flomax 0.4 mg Cap.sr] 0.4 mg PO QPM cap.sr.24h 09/02/17 History of Present Illness Patient complains of: Syncope History of Present Illness: KERRY COBURN is a 76 year old male presents with to the hospital after complaining of low blood pressure for 10 weeks. Patient states he followed up with his orchestrator Dr. Cole during the last 3-4 days. Patient states that Dr. Cole decreased his losartan to try to see if patient's hypotension would improve. Patient states that he continue to take his other medicines as directed and he continued to feel lightheaded and dizzy. Patient states that 2 days ago he fell out of bed. Hospital Course Hospital Course: Patient is a 76-year-old gentleman that was admitted to our facility due to syncope. Patient was found to be orthostatic at time of admission. After reviewing patient's medications patient's syncope was due to med home meds. Patient was given a 500 cc normal saline bolus and home medicines were held. At time of discharge patient was able to ambulate around room without any difficulty. Patient's metoprolol dose was decreased to 12.5 p.o. daily and losartan was discontinued. Patient was told to use torsemide only if weight increases by 3 pounds. Patient will need to follow-up with cardiology. Patient also had ultrasound of lower extremities that demonstrated no evidence of DVT and d-dimer was within normal range. Physical Exam Vital Signs: Temp Pulse Resp BP Pulse Ox 98.4 F 80 14 134/79 H 96 09/02/17 15:00 09/02/17 15:00 09/02/17 15:00 09/02/17 15:00 09/02/17 07:26 Intake & Output 09/01/17 09/02/17 09/03/17 06:59 06:59 06:59 Intake Total 103 550 Output Total 200 Balance -97 550 Weight 103.8 kg General appearance: PRESENT: no acute distress, well-developed, well-nourished Head exam: PRESENT: atraumatic, normocephalic Eye exam: PRESENT: conjunctiva pink, EOMI, PERRLA. ABSENT: scleral icterus Ear exam: PRESENT: normal external ear exam Mouth exam: PRESENT: moist, tongue midline Neck exam: ABSENT: carotid bruit, JVD, lymphadenopathy, thyromegaly Respiratory exam: PRESENT: clear to auscultation nikita. ABSENT: rales, rhonchi, wheezes Cardiovascular exam: PRESENT: RRR. ABSENT: diastolic murmur, rubs, systolic murmur Pulses: PRESENT: normal dorsalis pedis pul Vascular exam: PRESENT: normal capillary refill GI/Abdominal exam: PRESENT: normal bowel sounds, soft. ABSENT: distended, guarding, mass, organolmegaly, rebound, tenderness Rectal exam: PRESENT: deferred Extremities exam: PRESENT: full ROM. ABSENT: calf tenderness, clubbing, pedal edema Neurological exam: PRESENT: alert, awake, oriented to person, oriented to place , oriented to time, oriented to situation, CN II-XII grossly intact. ABSENT: motor sensory deficit Psychiatric exam: PRESENT: appropriate affect, normal mood. ABSENT: homicidal ideation, suicidal ideation Skin exam: PRESENT: dry, intact, warm. ABSENT: cyanosis, rash Results Laboratory Results: 09/02/17 05:23 09/02/17 05:23 09/02/17 09/02/17 09/02/17 05:23 05:23 05:23 WBC 7.5 RBC 4.60 Hgb 14.4 Hct 42.2 MCV 92 MCH 31.2 MCHC 34.1 RDW 14.1 H Plt Count 155 Seg Neutrophils % 46.7 Lymphocytes % 40.5 Monocytes % 8.8 Eosinophils % 3.1 Basophils % 0.9 Absolute Neutrophils 3.5 Absolute Lymphocytes 3.0 Absolute Monocytes 0.7 Absolute Eosinophils 0.2 Absolute Basophils 0.1 Sodium 141.0 Potassium 3.5 L Chloride 105 Carbon Dioxide 29 Anion Gap 7 BUN 21 H Creatinine 1.03 Est GFR ( Amer) > 60 Est GFR (Non-Af Amer) > 60 Glucose 95 Calcium 9.7 Total Bilirubin 1.5 H AST 28 ALT 34 Alkaline Phosphatase 49 Total Protein 5.3 L Albumin 3.6 TSH 1.84 Free T4 1.28 09/01/17 09/02/17 09/02/17 23:20 05:23 10:54 Troponin I 0.020 0.015 < 0.012 Impressions: Head CT 09/01/17 00:00 IMPRESSION: No acute intracranial findings. EVIDENCE OF ACUTE STROKE: NO. Chest X-Ray 09/01/17 11:04 IMPRESSION: NO ACUTE RADIOGRAPHIC FINDING IN THE CHEST. Venous Doppler Study 09/01/17 13:42 IMPRESSION: NO EVIDENCE DVT OR SVT IN EITHER LEG. Plan Time Spent: Less than 30 Minutes
== END 2017-09-02 16:30 | disposition home or self-care (01) ==
LOC: ER 09:33 → INTOOBSV 17:39 → EH 17:39 → ICU 09-02 01:13
PROVIDERS: ADMIT Emergency Medicine; ATTEND Emergency Medicine
DX: I95.2 Hypotension due to drugs (principal); T46.5X5A Adverse effect of other antihypertensive drugs, initial encounter; T50.1X5A Adverse effect of loop [high-ceiling] diuretics, initial encounter; T44.7X5A Adverse effect of beta-adrenoreceptor antagonists, initial encounter; W06.XXXA Fall from bed, initial encounter; I26.99 Other pulmonary embolism without acute cor pulmonale; M06.9 Rheumatoid arthritis, unspecified; M79.89 Other specified soft tissue disorders; I50.20 Unspecified systolic (congestive) heart failure; I25.10 Atherosclerotic heart disease of native coronary artery without angina pectoris; M10.9 Gout, unspecified; R09.89 Other specified symptoms and signs involving the circulatory and respiratory systems; E66.9 Obesity, unspecified; Z68.32 Body mass index [BMI] 32.0-32.9, adult; Z79.899 Other long term (current) drug therapy; Z95.5 Presence of coronary angioplasty implant and graft; Z86.718 Personal history of other venous thrombosis and embolism; Z90.49 Acquired absence of other specified parts of digestive tract; Z96.0 Presence of urogenital implants; Z87.891 Personal history of nicotine dependence
CPT/HCPCS: 93005; 99285; 36415 ×2; 84439; 82553; 82550; 84443; 85025 ×2; 80053 ×2; 81001; 84484 ×2; 85379; 83880; 93970; 71045; 70450; 93010; G0378 ×2; A9270 ×10; J7030; J7512; S0119

== ENCOUNTER 2017-10-14 11:20 | Emergency (ER) | payer MEDICARE, OTHER ==
[2017-10-14] MEDS ORDERED: ASPIRIN 81 MG TABLET, CHEWABLE PO ONE (11:32)
--- NOTE | 2017-10-14 11:34 | ER Document Report ---
ED Medical Screen (RME) - General Chief Complaint: Chest Pain > 30 Stated Complaint: CHEST PRESSURE Time Seen by Provider: 10/14/17 11:27 Notes: RME DISCLOSURE I have seen this patient as part of a Rapid Medical Evaluation and, if applicable, placed any initially appropriate orders. The patient will be seen and fully evaluated, including a full history and physical exam, by a provider ( in Main ED or Fast Track) when a room becomes available. 76-year-old male past medical history CHF here with complaints of midsternal chest discomfort and shortness of breath that started yesterday. He tried taking some [id number] pain medication without much relief. 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 Also complains of some headache. TRAVEL OUTSIDE OF THE [place] IN LAST 30 DAYS: No - Related Data Allergies/Adverse Reactions: celecoxib [From Celebrex] Allergy (Severe, Verified 10/14/17 11:21) Chest pain leflunomide [From Arava] Allergy (Severe, Verified 10/14/17 11:21) Chest pain-Full list of symptoms on 05/18/13 DC Summary meloxicam [From Mobic] Allergy (Severe, Verified 10/14/17 11:21) Chest pain methotrexate [Methotrexate] Allergy (Severe, Verified 10/14/17 11:21) Anaphylaxis ketorolac tromethamine [From Toradol] Allergy (Unknown, Verified 10/14/17 11:21) see comment Sulfa (Sulfonamide Antibiotics) Adverse Reaction (Severe, Verified 10/14/17 11: 21) Diarrhea Penicillins Adverse Reaction (Unknown, Verified 10/14/17 11:21) Rash Past Medical History - Social History Frequency of alcohol use: None Drug Abuse: None - Past Medical History Cardiac Medical History: Reports: Hx Congestive Heart Failure, Hx Coronary Artery Disease - 1 coronary artery stent many years ago. Cardiac cath 2 or 3 months ago ok, Hx DVT - FEBRUARY 2017 Denies: Hx Heart Attack, Hx Hypertension Pulmonary Medical History: Denies: Hx Asthma, Hx Bronchitis, Hx COPD, Hx Pneumonia, Hx Tuberculosis Neurological Medical History: Denies: Hx Seizures Renal/ Medical History: Reports: Hx Kidney Stones. Denies: Hx Peritoneal Dialysis GI Medical History: Denies: Hx Hiatal Hernia, Hx Ulcer Musculoskeltal Medical History: Reports Hx Arthritis - Rheumatoid, Reports Hx Gout Psychiatric Medical History: Denies: Hx Depression Past Surgical History: Reports: Hx Appendectomy, Hx Cardiac Catheterization, Hx Cardiac Surgery - stent X1, Hx Cholecystectomy, Hx Orthopedic Surgery - ankle / elbows, Other - Ureteral stent left kidney Removal stones and stent 2 weeks ago. Denies: Hx Open Heart Surgery - CATHERIZATIONS - Immunizations Hx Diphtheria, Pertussis, Tetanus Vaccination: Yes History of Influenza Vaccine for 05/2017 - 10/2017 Season: Yes Influenza Administration Date for 05/2017 - 10/2017 Season: 04/08/17 Physical Exam - Vital signs Vitals: Temp Pulse Resp BP Pulse Ox 98.4 F 66 18 152/80 H 100 10/14/17 11:28 10/14/17 11:28 10/14/17 11:28 10/14/17 11:28 10/14/17 11:28 Course - Vital Signs Vital signs: Temp Pulse Resp BP Pulse Ox 98.4 F 66 18 152/80 H 100 10/14/17 11:28 10/14/17 11:28 10/14/17 11:28 10/14/17 11:28 10/14/17 11:28
--- NOTE | 2017-10-14 12:08 | RADIOLOGY REPORT (SQ) ---
EXAM DESCRIPTION: CHEST PA/LAT COMPLETED DATE/TIME: 10/14/2017 11:51 am REASON FOR STUDY: cp COMPARISON: 09/01/2017 EXAM PARAMETERS: NUMBER OF VIEWS: two views TECHNIQUE: Digital Frontal and Lateral radiographic views of the chest acquired. RADIATION DOSE: NA LIMITATIONS: none FINDINGS: LUNGS AND PLEURA: No opacities, masses or pneumothorax. No pleural effusion. MEDIASTINUM AND HILAR STRUCTURES: Stable. HEART AND VASCULAR STRUCTURES: Stable heart size. No evidence of failure. BONES: No acute findings. HARDWARE: None in the chest. OTHER: No other significant finding. IMPRESSION: NO ACUTE RADIOGRAPHIC FINDING IN THE CHEST. TECHNICAL DOCUMENTATION: JOB ID: [id number] [employer]- All Rights Reserved Reading location - IP/workstation name: [email or web address]
[2017-10-14 13:18] LABS: ABSOLUTE LYMPHOCYTES (AUTO) 1.6 10^3/uL (0.5-4.7); ABSOLUTE MONOCYTES (AUTO) 0.5 10^3/uL (0.1-1.4); ABSOLUTE NEUT (AUTO) 5.8 10^3/uL (1.7-8.2); BASOPHILS % (AUTO) 0.2 % (0-2); EOSINOPHILS % (AUTO) 0.3 % (0-6); HEMATOCRIT 45.5 % (37.9-51.0); HEMOGLOBIN 15.2 g/dL (13.5-17.0); LYMPHOCYTES % (AUTO) 19.7 % (13-45); MEAN CORPUSCULAR HEMOGLOBIN 31.6 pg (27.0-33.4); MEAN CORPUSCULAR HGB CONC 33.3 g/dL (32.0-36.0); MEAN CORPUSCULAR VOLUME 95 fl (80-97); MONOCYTES % (AUTO) 6.7 % (3-13); PLATELET COUNT 211 10^3/uL (150-450); RED CELL DISTRIBUTION WIDTH 13.9 % (11.5-14.0); SEGMENTED NEUTROPHILS % (AUTO) 73.1 % (42-78); TOTAL CELLS COUNTED % (AUTO) 100 %; WHITE BLOOD COUNT 7.9 10^3/uL (4.0-10.5)
--- NOTE | 2017-10-14 13:27 | ER Document Report ---
ED General - General Chief Complaint: Chest Pain > 30 Stated Complaint: CHEST PRESSURE Time Seen by Provider: 10/14/17 11:27 Mode of Arrival: Ambulatory Information source: Patient Notes: 76-year-old male with a history of CAD, CHF, previous stent placement presents with complaint of chest pain, shortness of breath and headache. Patient states symptoms started 1 day prior to arrival. He describes his chest discomfort as constant, pressure-like without radiation or associated diaphoresis. Patient's shortness of breath is present with minimal activity. Patient's headache is described as aching, diffusely located. He is currently undergoing cardiac rehab. He has been placed on a new medication for his congestive heart failure and states since that time he has been feeling weak and has noticed that his blood pressure is more elevated than usual. He denies any fever, chills, nausea , vomiting, abdominal pain, dysuria. His cardiology care is at [facility] by Dr. Cole. Is requesting transfer to [place] if necessary. TRAVEL OUTSIDE OF THE [place] IN LAST 30 DAYS: No - HPI Onset: Yesterday - 2 Days prior to arrival Onset/Duration: Gradual, Constant Quality of pain: Pressure Severity: Mild Pain Level: 1 Associated symptoms: denies: Chills, Fever Exacerbated by: Sitting, Movement, Walking Relieved by: Denies Similar symptoms previously: Yes Recently seen / treated by doctor: Yes - Dr. Cole at [facility] - Related Data Allergies/Adverse Reactions: celecoxib [From Celebrex] Allergy (Severe, Verified 10/14/17 11:21) Chest pain leflunomide [From Arava] Allergy (Severe, Verified 10/14/17 11:21) Chest pain-Full list of symptoms on 05/18/13 DC Summary meloxicam [From Mobic] Allergy (Severe, Verified 10/14/17 11:21) Chest pain methotrexate [Methotrexate] Allergy (Severe, Verified 10/14/17 11:21) Anaphylaxis ketorolac tromethamine [From Toradol] Allergy (Unknown, Verified 10/14/17 11:21) see comment Sulfa (Sulfonamide Antibiotics) Adverse Reaction (Severe, Verified 10/14/17 11: 21) Diarrhea Penicillins Adverse Reaction (Unknown, Verified 10/14/17 11:21) Rash Past Medical History - Social History Smoking Status: Never Smoker Frequency of alcohol use: None Drug Abuse: None Lives with: Family Family History: Reviewed & Not Pertinent Patient has suicidal ideation: No Patient has homicidal ideation: No - Past Medical History Cardiac Medical History: Reports: Hx Congestive Heart Failure, Hx Coronary Artery Disease - 1 coronary artery stent many years ago. Cardiac cath 2 or 3 months ago ok, Hx DVT - FEBRUARY 2017 Denies: Hx Heart Attack, Hx Hypertension Pulmonary Medical History: Reports: Other - Pulmonary embolism Denies: Hx Asthma, Hx Bronchitis, Hx COPD, Hx Pneumonia, Hx Tuberculosis Neurological Medical History: Denies: Hx Seizures Renal/ Medical History: Reports: Hx Kidney Stones. Denies: Hx Peritoneal Dialysis GI Medical History: Denies: Hx Hiatal Hernia, Hx Ulcer Musculoskeltal Medical History: Reports Hx Arthritis - Rheumatoid, Reports Hx Gout Psychiatric Medical History: Denies: Hx Depression Past Surgical History: Reports: Hx Appendectomy, Hx Cardiac Catheterization, Hx Cardiac Surgery - stent X1, Hx Cholecystectomy, Hx Orthopedic Surgery - ankle / elbows, Other - Ureteral stent left kidney Removal stones and stent 2 weeks ago. Denies: Hx Open Heart Surgery - CATHERIZATIONS - Immunizations Hx Diphtheria, Pertussis, Tetanus Vaccination: Yes Hx Pneumococcal Vaccination: 08/08/13 Review of Systems - Review of Systems Constitutional: Weakness. denies: Fever EENT: Other - headache Cardiovascular: Chest pain, Orthopnea, Dyspnea Respiratory: Short of breath Gastrointestinal: No symptoms reported Physical Exam - Vital signs Vitals: Temp Pulse Resp BP Pulse Ox 98.4 F 66 18 152/80 H 100 10/14/17 11:28 10/14/17 11:28 10/14/17 11:28 10/14/17 11:28 10/14/17 11:28 Interpretation: Normal - General General appearance: Appears well, Alert - HEENT Head: Normocephalic, Atraumatic Eyes: Normal Pupils: PERRL - Respiratory Respiratory status: No respiratory distress. No: Respiratory distress Chest status: Nontender Breath sounds: Normal Chest palpation: Normal - Cardiovascular Rhythm: Regular Heart sounds: Normal auscultation Murmur: No Pulses: Normal: Radial, Popliteal - Extremities General upper extremity: Normal inspection, Nontender, Normal color, Normal ROM , Normal temperature General lower extremity: Normal inspection, Nontender, Normal color, Normal ROM , Normal temperature, Normal weight bearing. No: Lupis's sign Ankle: No: Edema Foot: No: Edema Course - Re-evaluation Re-evalutation: 10/14/17 16:16 76-year-old male with an extensive cardiac history including coronary artery disease, congestive heart failure, stent placement in 2009 currently undergoing cardiac rehab presents with complaint of chest pain, shortness of breath, weakness and headache. Patient states that he has had ongoing chest discomfort that he describes as pressure-like. He describes worsening shortness of breath with minimal exertion as well as a headache. He believes this is related to a new congestive heart failure medication (Corlanor)that he started 3 days ago. He also notes that he has had an elevated blood pressure over the last few days. On arrival EKG was obtained and showed the patient be in sinus rhythm without any ST elevation. I Did initially speak to the hospitalist regarding admission for ACS rule out but because patient receives most of his cardiac care at [facility] I was advised to transfer him there. Patient is okay with transfer to [place]. [facility] contacted at 4 PM still awaiting hospitalist return call. Laboratory 10/14/17 10/14/17 10/14/17 12:53 12:53 12:53 WBC 7.9 RBC 4.80 Hgb 15.2 Hct 45.5 MCV 95 MCH 31.6 MCHC 33.3 RDW 13.9 Plt Count 211 Seg Neutrophils % 73.1 Lymphocytes % 19.7 Monocytes % 6.7 Eosinophils % 0.3 Basophils % 0.2 Absolute Neutrophils 5.8 Absolute Lymphocytes 1.6 Absolute Monocytes 0.5 Absolute Eosinophils 0.0 Absolute Basophils 0.0 PT INR APTT D-Dimer Sodium Cancelled Potassium Cancelled Chloride Cancelled Carbon Dioxide Cancelled Anion Gap Cancelled BUN Cancelled Creatinine Cancelled Est GFR ( Amer) Cancelled Est GFR (Non-Af Amer) Cancelled Glucose Cancelled Calcium Cancelled Phosphorus Magnesium Total Bilirubin Direct Bilirubin Neonat Total Bilirubin Neonat Direct Bilirubin Neonat Indirect Bili AST ALT Alkaline Phosphatase Troponin I Cancelled NT-Pro-B Natriuret Pep Cancelled Total Protein Albumin 10/14/17 10/14/17 10/14/17 14:27 14:27 14:27 WBC RBC Hgb Hct MCV MCH MCHC RDW Plt Count Seg Neutrophils % Lymphocytes % Monocytes % Eosinophils % Basophils % Absolute Neutrophils Absolute Lymphocytes Absolute Monocytes Absolute Eosinophils Absolute Basophils PT 12.6 INR 0.88 APTT 23.1 L D-Dimer 0.36 Sodium Potassium Chloride Carbon Dioxide Anion Gap BUN Creatinine Est GFR ( Amer) Est GFR (Non-Af Amer) Glucose Calcium Phosphorus 3.9 Magnesium 2.2 Total Bilirubin 0.9 Direct Bilirubin 0.4 Neonat Total Bilirubin Not Reportable Neonat Direct Bilirubin Not Reportable Neonat Indirect Bili Not Reportable AST 23 ALT 35 Alkaline Phosphatase 42 Troponin I < 0.012 NT-Pro-B Natriuret Pep 145 Total Protein 5.4 L Albumin 3.4 L 10/14/17 14:27 WBC RBC Hgb Hct MCV MCH MCHC RDW Plt Count Seg Neutrophils % Lymphocytes % Monocytes % Eosinophils % Basophils % Absolute Neutrophils Absolute Lymphocytes Absolute Monocytes Absolute Eosinophils Absolute Basophils PT INR APTT D-Dimer Sodium 138.8 Potassium 4.5 Chloride 110 H Carbon Dioxide 23 Anion Gap 6 BUN 23 H Creatinine 0.98 Est GFR ( Amer) > 60 Est GFR (Non-Af Amer) > 60 Glucose 101 Calcium 9.1 Phosphorus Magnesium Total Bilirubin Direct Bilirubin Neonat Total Bilirubin Neonat Direct Bilirubin Neonat Indirect Bili AST ALT Alkaline Phosphatase Troponin I NT-Pro-B Natriuret Pep Total Protein Albumin Chest X-Ray 10/14/17 00:00 IMPRESSION: NO ACUTE RADIOGRAPHIC FINDING IN THE CHEST. 10/14/17 16:30 Patient was signed out to Dr. Max pending transfer center acceptance and return call from hospitalist 10/14/17 19:16 - Vital Signs Vital signs: Temp Pulse Resp BP Pulse Ox 98.4 F 66 22 H 140/90 H 98 10/14/17 11:28 10/14/17 11:28 10/14/17 18:15 10/14/17 18:15 10/14/17 17:01 - Laboratory Result Diagrams: 10/14/17 12:53 10/14/17 14:27 Laboratory results interpreted by me: 10/14/17 10/14/17 10/14/17 14:27 14:27 14:27 APTT 23.1 L Chloride 110 H BUN 23 H Total Protein 5.4 L Albumin 3.4 L Discharge - Discharge Referrals: CONSTANTIN WISE PA-C [Primary Care Provider] - Follow up as needed
[2017-10-14] MEDS ORDERED: ACETAMINOPHEN 325 MG TABLET PO ONE (14:44)
[2017-10-14 14:52] LABS: INTERNATIONAL RATION (INR) 0.88; PROTHROMBIN TIME 12.6 SEC (11.4-15.4)
[2017-10-14 14:53] LABS: PARTIAL THROMBOPLASTIN TIME 23.1 SEC (23.5-35.8)
[2017-10-14 14:55] LABS: D-DIMER 0.36 ug/mL (0.00-0.50)
[2017-10-14 15:05] LABS: ANION GAP 6 (5-19); BLOOD UREA NITROGEN 23 mg/dL (7-20); CALCIUM 9.1 mg/dL (8.4-10.2); CARBON DIOXIDE 23 mmol/L (22-30); CHLORIDE 110 mmol/L (98-107); GLUCOSE 101 mg/dL (75-110); POTASSIUM 4.5 mmol/L (3.6-5.0); SODIUM 138.8 mmol/L (137-145)
[2017-10-14 15:06] LABS: ALANINE AMINOTRANSFERASE 35 U/L (21-72); ALBUMIN 3.4 g/dL (3.5-5.0); ALKALINE PHOSPHATASE 42 U/L (38-126); ASPARTATE AMINO TRANSFERASE 23 U/L (17-59); BILIRUBIN,DIRECT 0.4 mg/dL (0.0-0.4); BILIRUBIN,TOTAL 0.9 mg/dL (0.2-1.3); PHOSPHORUS 3.9 mg/dL (2.5-4.5); TOTAL PROTEIN 5.4 g/dL (6.3-8.2)
[2017-10-14 15:16] LABS: NT PRO BNP 145 pg/mL (5-900); TROPONIN I < 0.012 ng/mL
--- NOTE | 2017-10-14 19:22 | ER Document Report ---
Doctor's Note Notes: 10/14/17 19:20 Instructions were given to transfer patient to [facility] based on his cardiac history and the fact that he could be having an anginal equivalent. Patient has completely normal labs with regards to troponin and BNP. Recent symptoms have resolved. Patient states that he absolutely does not want to be transferred. Is willing to take the risk of this at this time. States that he has thinks he needs to do. Had a long and lengthy discussion with him. Patient was examined in. No acute distress. Vital signs are normal at this time. 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 Offered admission for observation but declined. Patient wants to go home. Will DC at this time. Discharge - Discharge Clinical Impression: Palpitations Condition: Good Disposition: HOME, SELF-CARE Instructions: Palpitations (Irregular or Rapid Heartrate) (COUNTS INCLUDE 234 BEDS AT THE [facility]) Additional Instructions: Please follow-up with your hand fretted instrument maker and your regular doctor. If you begin to develop any worsening symptoms or concerns please return immediately. Referrals: CONSTANTIN WISE PA-C [Primary Care Provider] - Follow up as needed
[2017-10-14 19:43] VITALS: BP 164/99
--- NOTE | 2017-10-14 21:06 | EKG REPORT ---
SEVERITY:- ABNORMAL ECG - SINUS RHYTHM LEFT AXIS DEVIATION LEFT VENTRICULAR HYPERTROPHY : Confirmed by: Conor Robert 14-Oct-2017 21:05:49
== END 2017-10-14 19:45 | disposition home or self-care (01) ==
LOC: ER 11:20
DX: R00.2 Palpitations (principal); R07.9 Chest pain, unspecified; I50.9 Heart failure, unspecified; Z88.2 Allergy status to sulfonamides; Z88.0 Allergy status to penicillin; Z87.442 Personal history of urinary calculi
CPT/HCPCS: 93005; 99285; 36415; 83735; 84100; 85025; 85610; 85730; 80076; 80048; 84484; 85379; 83880; 71046; 93010; A9270 ×2

== ENCOUNTER 2017-10-16 09:54 | Emergency (ER) | payer MEDICARE, OTHER ==
[2017-10-16] MEDS ORDERED: ASPIRIN 81 MG TABLET, CHEWABLE PO ONE (10:19)
--- NOTE | 2017-10-16 10:21 | ER Document Report ---
ED Medical Screen (RME) - General Chief Complaint: High Blood Pressure Stated Complaint: BLOOD PRESSURE ISSUE, SHORTNESS OF BREATH Time Seen by Provider: 10/16/17 10:04 Mode of Arrival: Ambulatory Information source: Patient Notes: This is a 76-year-old man with a history of CHF, coronary artery disease (1 stent), (VTE had been on Xarelto for 6 months, taken off a month and a half ago) . He has had medications adjustments for increased blood pressure lately and presents to the emergency room with palpitations, some chest heaviness (right- sided), some shortness of breath. TRAVEL OUTSIDE OF THE [place] IN LAST 30 DAYS: No - Related Data Allergies/Adverse Reactions: celecoxib [From Celebrex] Allergy (Severe, Verified 10/16/17 09:57) Chest pain leflunomide [From Arava] Allergy (Severe, Verified 10/16/17 09:57) Chest pain-Full list of symptoms on 05/18/13 DC Summary meloxicam [From Mobic] Allergy (Severe, Verified 10/16/17 09:57) Chest pain methotrexate [Methotrexate] Allergy (Severe, Verified 10/16/17 09:57) Anaphylaxis ketorolac tromethamine [From Toradol] Allergy (Unknown, Verified 10/16/17 09:57) see comment Sulfa (Sulfonamide Antibiotics) Adverse Reaction (Severe, Verified 10/16/17 09: 57) Diarrhea Penicillins Adverse Reaction (Unknown, Verified 10/16/17 09:57) Rash Past Medical History - Social History Chew tobacco use (# tins/day): No Frequency of alcohol use: Rare Drug Abuse: None - Past Medical History Cardiac Medical History: Reports: Hx Congestive Heart Failure, Hx Coronary Artery Disease - 1 coronary artery stent many years ago. Cardiac cath 2 or 3 months ago ok, Hx DVT - FEBRUARY 2017 Denies: Hx Heart Attack, Hx Hypertension Pulmonary Medical History: Denies: Hx Asthma, Hx Bronchitis, Hx COPD, Hx Pneumonia, Hx Tuberculosis Neurological Medical History: Denies: Hx Seizures Renal/ Medical History: Reports: Hx Kidney Stones. Denies: Hx Peritoneal Dialysis GI Medical History: Denies: Hx Hiatal Hernia, Hx Ulcer Musculoskeltal Medical History: Reports Hx Arthritis - Rheumatoid, Reports Hx Gout Psychiatric Medical History: Denies: Hx Depression Past Surgical History: Reports: Hx Appendectomy, Hx Cardiac Catheterization, Hx Cardiac Surgery - stent X1, Hx Cholecystectomy, Hx Orthopedic Surgery - ankle / elbows, Other - Ureteral stent left kidney Removal stones and stent 2 weeks ago. Denies: Hx Open Heart Surgery - CATHERIZATIONS - Immunizations Hx Diphtheria, Pertussis, Tetanus Vaccination: Yes History of Influenza Vaccine for 05/2017 - 10/2017 Season: Yes Influenza Administration Date for 05/2017 - 10/2017 Season: 04/08/17 Physical Exam - Vital signs Vitals: Temp Pulse Resp BP Pulse Ox 98.6 F 92 18 154/102 H 99 10/16/17 10:06 10/16/17 10:06 10/16/17 10:06 10/16/17 10:06 10/16/17 10:06 Course - Vital Signs Vital signs: Temp Pulse Resp BP Pulse Ox 98.6 F 92 18 154/102 H 99 10/16/17 10:06 10/16/17 10:06 10/16/17 10:06 10/16/17 10:06 10/16/17 10:06
--- NOTE | 2017-10-16 10:39 | RADIOLOGY REPORT (SQ) ---
EXAM DESCRIPTION: CHEST SINGLE VIEW COMPLETED DATE/TIME: 10/16/2017 10:28 am REASON FOR STUDY: cp COMPARISON: 10/14/2017. EXAM PARAMETERS: NUMBER OF VIEWS: One view. TECHNIQUE: Single frontal radiographic view of the chest acquired. RADIATION DOSE: NA LIMITATIONS: None. FINDINGS: LUNGS AND PLEURA: No opacities, masses or pneumothorax. No pleural effusion. MEDIASTINUM AND HILAR STRUCTURES: No masses. Contour normal. HEART AND VASCULAR STRUCTURES: Heart upper limits of normal in size. Normal vasculature. BONES: No acute findings. HARDWARE: None in the chest. OTHER: No other significant finding. IMPRESSION: NO ACUTE RADIOGRAPHIC FINDING IN THE CHEST. TECHNICAL DOCUMENTATION: JOB ID: [id number] [employer]- All Rights Reserved Reading location - IP/workstation name: [email or web address]
--- NOTE | 2017-10-16 10:45 | EKG REPORT ---
SEVERITY:- ABNORMAL ECG - SINUS RHYTHM VENTRICULAR PREMATURE COMPLEX LEFT AXIS DEVIATION LVH WITH SECONDARY REPOLARIZATION ABNORMALITY : Confirmed by: Conor Robert 16-Oct-2017 10:44:23
[2017-10-16 11:23] LABS: ABSOLUTE BASOPHILS # (AUTO) 0.1 10^3/uL (0.0-0.2); ABSOLUTE EOSINOPHILS # (AUTO) 0.1 10^3/uL (0.0-0.6); ABSOLUTE LYMPHOCYTES (AUTO) 2.7 10^3/uL (0.5-4.7); ABSOLUTE MONOCYTES (AUTO) 0.7 10^3/uL (0.1-1.4); ABSOLUTE NEUT (AUTO) 4.5 10^3/uL (1.7-8.2); BASOPHILS % (AUTO) 0.7 % (0-2); EOSINOPHILS % (AUTO) 1.1 % (0-6); HEMATOCRIT 45.5 % (37.9-51.0); HEMOGLOBIN 15.2 g/dL (13.5-17.0); LYMPHOCYTES % (AUTO) 33.9 % (13-45); MEAN CORPUSCULAR HEMOGLOBIN 31.6 pg (27.0-33.4); MEAN CORPUSCULAR HGB CONC 33.3 g/dL (32.0-36.0); MEAN CORPUSCULAR VOLUME 95 fl (80-97); MONOCYTES % (AUTO) 8.2 % (3-13); PLATELET COUNT 198 10^3/uL (150-450); RED BLOOD COUNT 4.81 10^6/uL (4.35-5.55); RED CELL DISTRIBUTION WIDTH 14.4 % (11.5-14.0); SEGMENTED NEUTROPHILS % (AUTO) 56.1 % (42-78); TOTAL CELLS COUNTED % (AUTO) 100 %; WHITE BLOOD COUNT 8.1 10^3/uL (4.0-10.5)
[2017-10-16 11:32] LABS: INTERNATIONAL RATION (INR) 0.85; PROTHROMBIN TIME 12.2 SEC (11.4-15.4)
[2017-10-16 11:44] LABS: ALANINE AMINOTRANSFERASE 28 U/L (21-72); ALBUMIN 3.7 g/dL (3.5-5.0); ALKALINE PHOSPHATASE 44 U/L (38-126); ANION GAP 6 (5-19); ASPARTATE AMINO TRANSFERASE 25 U/L (17-59); BILIRUBIN,DIRECT 0.3 mg/dL (0.0-0.4); BILIRUBIN,TOTAL 1.2 mg/dL (0.2-1.3); BLOOD UREA NITROGEN 22 mg/dL (7-20); CALCIUM 9.5 mg/dL (8.4-10.2); CARBON DIOXIDE 27 mmol/L (22-30); CHLORIDE 108 mmol/L (98-107); CREATINE KINASE 69 U/L (55-170); GLUCOSE 93 mg/dL (75-110); SODIUM 140.8 mmol/L (137-145); TOTAL PROTEIN 5.9 g/dL (6.3-8.2)
[2017-10-16 11:54] LABS: CREATINE KINASE MB 2.51 ng/mL (<4.55); TROPONIN I < 0.012 ng/mL
[2017-10-16] MEDS ORDERED: ACETAMINOPHEN 325 MG TABLET PO ONE (12:19)
[2017-10-16 12:35] LABS: APPEARANCE,URINE CLEAR; BILIRUBIN,URINE NEGATIVE (NEGATIVE); COLOR,URINE YELLOW; GLUCOSE, URINE NEGATIVE (NEGATIVE); KETONES,URINE NEGATIVE (NEGATIVE); LEUKOCYTE ESTERASE,URINE NEGATIVE (NEGATIVE); NITRITE,URINE NEGATIVE (NEGATIVE); PROTEIN,URINE NEGATIVE (NEGATIVE); UROBILINOGEN,URINE NEGATIVE mg/dL (<2.0)
--- NOTE | 2017-10-16 13:21 | RADIOLOGY REPORT (SQ) ---
EXAM DESCRIPTION: CTA CHEST COMPLETED DATE/TIME: 10/16/2017 1:04 pm REASON FOR STUDY: cp, sob, tachycardia, hx pe COMPARISON: 07/01/2017. TECHNIQUE: CT scan of the chest performed using helical scanning technique with dynamic intravenous contrast injection. Images reviewed with lung, soft tissue and bone windows. Reconstructed coronal and sagittal MPR images reviewed. Additional 3 dimensional post-processing performed to develop Maximal Intensity Projection images (WA P). All images stored on PACS. All CT scanners at this facility use dose modulation, iterative reconstruction, and/or weight based d osing when appropriate to reduce radiation dose to as low as reasonably achievable (ALARA). [facility]: Dose Right [facility]: CareDose [facility]: Dose Right [facility]: Teradose 4D [facility]: [employer] CONTRAST TYPE AND DOSE: contrast/concentration: Isovue 370.00 mg/ml; Total Contrast Delivered: 82.0 ml; Total Saline Delivered: 100.0 ml Contrast bolus optimized for the pulmonary arteries. Not diagnostic for the aorta. RENAL FUNCTION: BUN 22 creatinine 1.03. RADIATION DOSE: CT Rad equipment meets quality standard of care and radiation dose reduction techniq ues were employed. CTDIvol: 23.2 - 28.0 mGy. DLP: 1089 mGy-cm. . LIMITATIONS: None. FINDINGS: LUNGS AND PLEURA: No masses, infiltrates, pneumothorax. No pleural effusions, calcificati ons. AORTA AND GREAT VESSELS: No aneurysm. Contrast bolus not optimized for the aorta. HEART: No pericardial effusion. No significant coronary artery calcifications. PULMONARY ARTERIES: No emboli visualized in the main pulmonary arteries or the segmental branches. HILAR AND MEDIASTINAL STRUCTURES: No identified masses or abnormal nodes. HARDWARE: None in the chest. UPPER ABDOMEN: Renal calculi. Limited exam. THYROID AND OTHER SOFT TISSUES: No masses. No adenopathy. BONES: No acute or significant finding. 3D MIPS: Confirm above findings. OTHER: No other significant finding. IMPRESSION: NORMAL CTA OF THE CHEST. NO PULMONARY EMBOLI. COMMENT: Quality ID # [id number]: Final reports with documentation of one or more dose reduction techniques (e.g., Automated exposure control, adjustment of the mA and/or kV according to patient size, use of iterative reconstruction technique) TECHNICAL DOCUMENTATION: JOB ID: [id number] [employer]- All Rights Reserved Reading location - IP/workstation name: [email or web address]
--- NOTE | 2017-10-16 13:56 | ER Document Report ---
ED Blood Pressure Problem - General Chief Complaint: High Blood Pressure Stated Complaint: BLOOD PRESSURE ISSUE, SHORTNESS OF BREATH Time Seen by Provider: 10/16/17 10:04 Mode of Arrival: Ambulatory Information source: Patient Notes: Patient is a 76-year-old male with a history of congestive heart failure who presents to the ER today for shortness of breath on exertion, chest pressure all across his chest and palpitations at home of the last 2-3 days. Patient was seen here 2 days ago for the same symptoms and workup was negative at that time. He denies any swelling to his lower extremities. 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 Patient has a history of depression and is on antidepressant medication. He denies any nausea or vomiting with this. He has never had a heart attack or stroke. TRAVEL OUTSIDE OF THE [place] IN LAST 30 DAYS: No - Related Data Allergies/Adverse Reactions: celecoxib [From Celebrex] Allergy (Severe, Verified 10/16/17 09:57) Chest pain leflunomide [From Arava] Allergy (Severe, Verified 10/16/17 09:57) Chest pain-Full list of symptoms on 05/18/13 DC Summary meloxicam [From Mobic] Allergy (Severe, Verified 10/16/17 09:57) Chest pain methotrexate [Methotrexate] Allergy (Severe, Verified 10/16/17 09:57) Anaphylaxis ketorolac tromethamine [From Toradol] Allergy (Unknown, Verified 10/16/17 09:57) see comment Sulfa (Sulfonamide Antibiotics) Adverse Reaction (Severe, Verified 10/16/17 09: 57) Diarrhea Penicillins Adverse Reaction (Unknown, Verified 10/16/17 09:57) Rash Past Medical History - General Information source: Patient - Social History Smoking Status: Never Smoker Chew tobacco use (# tins/day): No Frequency of alcohol use: Rare Drug Abuse: None Family History: Reviewed & Not Pertinent Patient has suicidal ideation: No Patient has homicidal ideation: No - Past Medical History Cardiac Medical History: Reports: Hx Congestive Heart Failure, Hx Coronary Artery Disease - 1 coronary artery stent many years ago. Cardiac cath 2 or 3 months ago ok, Hx DVT - FEBRUARY 2017 Denies: Hx Heart Attack, Hx Hypertension Pulmonary Medical History: Denies: Hx Asthma, Hx Bronchitis, Hx COPD, Hx Pneumonia, Hx Tuberculosis Neurological Medical History: Denies: Hx Seizures Renal/ Medical History: Reports: Hx Kidney Stones. Denies: Hx Peritoneal Dialysis GI Medical History: Denies: Hx Hiatal Hernia, Hx Ulcer Musculoskeltal Medical History: Reports Hx Arthritis - Rheumatoid, Reports Hx Gout Psychiatric Medical History: Denies: Hx Depression Past Surgical History: Reports: Hx Appendectomy, Hx Cardiac Catheterization, Hx Cardiac Surgery - stent X1, Hx Cholecystectomy, Hx Orthopedic Surgery - ankle / elbows, Other - Ureteral stent left kidney Removal stones and stent 2 weeks ago. Denies: Hx Open Heart Surgery - CATHERIZATIONS - Immunizations Hx Diphtheria, Pertussis, Tetanus Vaccination: Yes Hx Pneumococcal Vaccination: 08/08/13 Review of Systems - Review of Systems Constitutional: No symptoms reported EENT: No symptoms reported Cardiovascular: See HPI Respiratory: See HPI Gastrointestinal: No symptoms reported Genitourinary: No symptoms reported Male Genitourinary: No symptoms reported Musculoskeletal: No symptoms reported Skin: No symptoms reported Hematologic/Lymphatic: No symptoms reported Neurological/Psychological: No symptoms reported Physical Exam - Vital signs Vitals: Temp Pulse Resp BP Pulse Ox 98.6 F 92 18 154/102 H 99 10/16/17 10:06 10/16/17 10:06 10/16/17 10:06 10/16/17 10:06 10/16/17 10:06 - Notes Notes: PHYSICAL EXAMINATION: GENERAL: Well-appearing and in no acute distress. HEAD: Atraumatic, normocephalic. EYES: Pupils equal round and reactive to light, extraocular movements intact, sclera anicteric, conjunctiva are normal. ENT: ear canals without erythema or foreign body, TMs pearly fan with good bony landmarks, nares patent, oropharynx clear without exudates. Moist mucous membranes. NECK: Normal range of motion, supple without lymphadenopathy LUNGS: CTAB and equal. No wheezes rales or rhonchi. HEART: Regular rate and rhythm without murmurs ABDOMEN: Soft, no tenderness. No guarding, no rebound BACK: no vertebral tenderness, normal ROM GI/: no CVA tenderness EXTREMITIES: Normal range of motion, no pitting edema. No cyanosis. NEUROLOGICAL: Cranial nerves grossly intact. Normal sensory/motor exams. PSYCH: Normal mood, normal affect. SKIN: Warm, Dry, normal turgor, no rashes or lesions noted Course - Re-evaluation Re-evalutation: 10/16/17 21:19 Patient has normal vital signs here, workup is unremarkable including normal troponin, EKG without evidence of ischemia or abnormality. Patient does state that he feels better here in the emergency department and that everything has "calmed down because I can rest." Dr. Chong, party plan sales unit advisor on-call for patient' s party plan sales unit advisor, Dr. Cole, did call me back and states that it sounds like some of his medications may need to be changed by Dr. Coel and he needs an appointment with him. Dr. Chong saw no emergency that needed to be urgently evaluated today. - Vital Signs Vital signs: Temp Pulse Resp BP Pulse Ox 98.6 F 92 14 149/90 H 97 10/16/17 10:06 10/16/17 10:06 10/16/17 14:00 10/16/17 14:00 10/16/17 14:00 - Laboratory Result Diagrams: 10/16/17 10:45 10/16/17 10:45 Laboratory results interpreted by me: 10/16/17 10/16/17 10:45 10:45 RDW 14.4 H Chloride 108 H BUN 22 H Total Protein 5.9 L Discharge - Discharge Clinical Impression: Dyspnea Qualifiers: Dyspnea type: dyspnea on exertion Qualified Code(s): R06.09 - Other forms of dyspnea HTN (hypertension) Qualifiers: Hypertension type: unspecified Qualified Code(s): I10 - Essential (primary) hypertension Condition: Stable Disposition: HOME, SELF-CARE Additional Instructions: Return immediately for any new or worsening symptoms. Follow up with your party plan sales unit advisor, call tomorrow to make followup appointment. Referrals: CONSTANTIN WISE PA-C [Primary Care Provider] - Follow up as needed
[2017-10-16 14:02] VITALS: BP 149/90
== END 2017-10-16 14:13 | disposition home or self-care (01) ==
LOC: ER 09:54
DX: R06.09 Other forms of dyspnea (principal); I10 Essential (primary) hypertension; I50.9 Heart failure, unspecified; R07.9 Chest pain, unspecified; R00.2 Palpitations; F32.9 Major depressive disorder, single episode, unspecified; I25.10 Atherosclerotic heart disease of native coronary artery without angina pectoris; Z79.899 Other long term (current) drug therapy
CPT/HCPCS: 93005; 99285; 36415; 82553; 82550; 85025; 85610; 80053; 81001; 84484; 71045; 71275; 93010; A9270 ×2

== ENCOUNTER 2018-02-12 09:49 | Emergency (ER) | payer OTHER, MEDICARE ==
[2018-02-12 09:56] VITALS: BP 129/85
[2018-02-12] MEDS ORDERED: MORPHINE SULFATE 10 MG/ML INJ IV ONE (10:08)
--- NOTE | 2018-02-12 10:08 | ER Document Report ---
ED GI/ - General Chief Complaint: Possible Kidney Stone Stated Complaint: RIGHT FLANK PAIN Time Seen by Provider: 02/12/18 10:00 Notes: The patient is a 77-year-old male, past medical history multiple kidney stones required surgical extraction, CHF, presents with 3 days of intermittent right flank pain. He follows with [facility]. He denies nausea, vomiting, rash, diarrhea, constipation, hematuria, dysuria, fevers, chest pain or shortness of breath. TRAVEL OUTSIDE OF THE [place] IN LAST 30 DAYS: No - Related Data Allergies/Adverse Reactions: celecoxib [From Celebrex] Allergy (Severe, Verified 02/12/18 09:51) Chest pain leflunomide [From Arava] Allergy (Severe, Verified 02/12/18 09:51) Chest pain-Full list of symptoms on 05/18/13 DC Summary meloxicam [From Mobic] Allergy (Severe, Verified 02/12/18 09:51) Chest pain methotrexate [Methotrexate] Allergy (Severe, Verified 02/12/18 09:51) Anaphylaxis ketorolac tromethamine [From Toradol] Allergy (Unknown, Verified 02/12/18 09:51) see comment Sulfa (Sulfonamide Antibiotics) Adverse Reaction (Severe, Verified 02/12/18 09: 51) Diarrhea Penicillins Adverse Reaction (Unknown, Verified 02/12/18 09:51) Rash Past Medical History - General Information source: Patient - Social History Smoking Status: Never Smoker Chew tobacco use (# tins/day): No Frequency of alcohol use: None Drug Abuse: None Family History: Reviewed & Not Pertinent Patient has suicidal ideation: No Patient has homicidal ideation: No - Past Medical History Cardiac Medical History: Reports: Hx Congestive Heart Failure, Hx Coronary Artery Disease - 1 coronary artery stent many years ago. Cardiac cath 2 or 3 months ago ok, Hx DVT - FEBRUARY 2017 Denies: Hx Heart Attack, Hx Hypertension Pulmonary Medical History: Denies: Hx Asthma, Hx Bronchitis, Hx COPD, Hx Pneumonia, Hx Tuberculosis Neurological Medical History: Denies: Hx Seizures Renal/ Medical History: Reports: Hx Kidney Stones. Denies: Hx Peritoneal Dialysis GI Medical History: Denies: Hx Hiatal Hernia, Hx Ulcer Musculoskeltal Medical History: Reports Hx Arthritis - Rheumatoid, Reports Hx Gout Psychiatric Medical History: Denies: Hx Depression Past Surgical History: Reports: Hx Appendectomy, Hx Cardiac Catheterization, Hx Cardiac Surgery - stent X1, Hx Cholecystectomy, Hx Orthopedic Surgery - ankle / elbows, Other - Ureteral stent left kidney Removal stones and stent 2 weeks ago. Denies: Hx Open Heart Surgery - CATHERIZATIONS - Immunizations Hx Diphtheria, Pertussis, Tetanus Vaccination: Yes Hx Pneumococcal Vaccination: 08/08/13 Review of Systems - Review of Systems Notes: REVIEW OF SYSTEMS: CONSTITUTIONAL: -fevers, -chills EENT: -eye pain, -difficulty swallowing, -nasal congestion CARDIOVASCULAR: -chest pain, -syncope. RESPIRATORY: -cough, -SOB GASTROINTESTINAL: -abdominal pain, -nausea, -vomiting, -diarrhea GENITOURINARY: -dysuria, -hematuria MUSCULOSKELETAL: +right flank pain, -neck pain SKIN: -rash or skin lesions. HEMATOLOGIC: -easy bruising or bleeding. LYMPHATIC: -swollen, enlarged glands. NEUROLOGICAL: -altered mental status or loss of consciousness, -headache, - neurologic symptoms PSYCHIATRIC: -anxiety, -depression. ALL OTHER SYSTEMS REVIEWED AND NEGATIVE. Physical Exam - Vital signs Vitals: Temp Pulse Resp BP Pulse Ox 98.9 F 61 18 129/85 H 100 02/12/18 09:54 02/12/18 09:54 02/12/18 09:54 02/12/18 09:54 02/12/18 09:54 - Notes Notes: PHYSICAL EXAMINATION: GENERAL: Well-appearing, well-nourished and in no acute distress. HEAD: Atraumatic, normocephalic. EYES: Pupils equal round and reactive to light, extraocular movements intact, sclera anicteric, conjunctiva are normal. ENT: nares patent, oropharynx clear without exudates. Moist mucous membranes. NECK: Normal range of motion, supple without lymphadenopathy LUNGS: Breath sounds clear to auscultation bilaterally and equal. No wheezes rales or rhonchi. HEART: Regular rate and rhythm without murmurs ABDOMEN: Soft, nontender, normoactive bowel sounds. No guarding, no rebound. No masses appreciated. EXTREMITIES: Normal range of motion, no pitting or edema. No cyanosis. BACK: No CVA tenderness. NEUROLOGICAL: Cranial nerves grossly intact. Normal speech, normal gait. Normal sensory and motor exams. PSYCH: Normal mood, normal affect. SKIN: Warm, Dry, normal turgor, no rashes or lesions noted. Course - Re-evaluation Re-evalutation: Patient with a history of kidney stones and symptoms of renal colic. His CT scan does not show any obstructing hydronephrosis or other complications. Radiology is reading multiple vascular calcifications in his kidneys, but suspect this is multiple small kidney stones with his history. No signs of infection on his urinalysis and rest of blood work is unremarkable, other than a slight leukocytosis, which is most likely reactive and not related to infection. He has an appointment with his urologist in 4 days. Given very strict return precautions and he understands. - Vital Signs Vital signs: Temp Pulse Resp BP Pulse Ox 98.9 F 61 18 129/85 H 100 02/12/18 09:54 02/12/18 09:54 02/12/18 09:54 02/12/18 09:54 02/12/18 09:54 - Laboratory Result Diagrams: 02/12/18 10:15 02/12/18 10:15 Laboratory results interpreted by me: 02/12/18 02/12/18 10:15 10:15 WBC 11.4 H RDW 14.3 H Abs Neuts (Manual) 8.4 H Chloride 109 H BUN 21 H Alkaline Phosphatase 36 L Total Protein 6.1 L - Diagnostic Test Radiology reviewed: Image reviewed, Reports reviewed Radiology results interpreted by me: CT A/P: NAD Discharge - Discharge Clinical Impression: Right flank pain Condition: Stable Disposition: HOME, SELF-CARE Additional Instructions: Flank Pain We weren't able to prove an exact cause for your flank pain. Pain in the flank can be caused by a muscle strain or spasm. Sometimes a kidney stone causes pain, but can't be found on our tests. Infection in the kidney should be evident on a urine test. Early shingles can occasionally cause flank pain, without the rash that proves the diagnosis. On rare occasions, disease of the pancreas, aorta, spleen, or colon can create pain in the flank. At this time, there's no evidence of a dangerous condition, and it seems safe for you to be at home. If the pain goes away and does not come back, no further testing will be needed. If pain persists, or becomes more severe, we may need to repeat some tests or order additional new testing. Blood in the urine, urgency to urinate frequently, and pain that radiates to the groin can indicate a kidney stone. Fever may mean that the pain is due to infection, either of the kidney or the colon (diverticulitis). If your pain is early shingles, you should develop an eruption of blisters in the painful area within a few days. Call the doctor or return if you have pain that is spreading or becoming more severe, pain that does not resolve with time, fever, or any other new symptoms. Referrals: CONSTANTIN WISE PA-C [COMMUNITY BASED STAFF] - Follow up as needed [facility] [Provider Group] - Follow up as needed
[2018-02-12 10:30] LABS: HEMATOCRIT 45.4 % (37.9-51.0); HEMOGLOBIN 15.6 g/dL (13.5-17.0); MEAN CORPUSCULAR HEMOGLOBIN 32.2 pg (27.0-33.4); MEAN CORPUSCULAR HGB CONC 34.3 g/dL (32.0-36.0); MEAN CORPUSCULAR VOLUME 94 fl (80-97); PLATELET COUNT 168 10^3/uL (150-450); RED BLOOD COUNT 4.83 10^6/uL (4.35-5.55); RED CELL DISTRIBUTION WIDTH 14.3 % (11.5-14.0); WHITE BLOOD COUNT 11.4 10^3/uL (4.0-10.5)
[2018-02-12 10:37] LABS: APPEARANCE,URINE CLEAR; BILIRUBIN,URINE NEGATIVE (NEGATIVE); COLOR,URINE YELLOW; GLUCOSE, URINE NEGATIVE (NEGATIVE); KETONES,URINE NEGATIVE (NEGATIVE); LEUKOCYTE ESTERASE,URINE NEGATIVE (NEGATIVE); NITRITE,URINE NEGATIVE (NEGATIVE); PROTEIN,URINE NEGATIVE (NEGATIVE); URINE SPECIFIC GRAVITY 1.021; UROBILINOGEN,URINE NEGATIVE mg/dL (<2.0)
--- NOTE | 2018-02-12 10:42 | RADIOLOGY REPORT (SQ) ---
EXAM DESCRIPTION: CT LTD RENAL STONE PROTOCOL ON COMPLETED DATE/TIME: 02/12/2018 10:28 am REASON FOR STUDY: right flank pain into groin COMPARISON: None. TECHNIQUE: CT scan of the abdomen and pelvis performed without intravenous or oral contrast. Images reviewed with lung, soft tissue, and bone windows. Reconstructed coronal and sagittal MPR images revi ewed. All images stored on PACS. All CT scanners at this facility use dose modulation, iterative reconstruction, and/or weight based d osing when appropriate to reduce radiation dose to as low as reasonably achievable (ALARA). [facility]: Dose Right [facility]: CareDose [facility]: Dose Right [facility]: Teradose 4D [facility]: [employer] RADIATION DOSE: CT Rad equipment meets quality standard of care and radiation dose reduction techniq ues were employed. CTDIvol: 17.0 mGy. DLP: 1008 mGy-cm. mGy. LIMITATIONS: None. FINDINGS: LOWER CHEST: No significant findings. No nodules or infiltrates. NON-CONTRASTED LIVER, SPLEEN, ADRENALS: Evaluation limited by lack of IV contrast. No identified sign ificant masses. PANCREAS: No masses. No peripancreatic inflammatory changes. GALLBLADDER: Surgically absent. RIGHT KIDNEY AND URETER: Mild cortical atrophy without mass lesion identified. No hydronephrosis. No hydro-ureter. There are multiple calcifications present however these appear to be vascular. No definite nephrolit hs present. No significant masses. Note limitations of lack of contrast. LEFT KIDNEY AND URETER: Mild cortical atrophy without mass lesion identified. No hydronephrosis. No hydro-ureter. There are multiple calcifications present, however these appear to be vascular. No definite nephroli th is present. No significant masses. Note limitations of lack of contrast. BLADDER: Decompressed and not completely evaluated. No calcifications appreciated. PELVIC ORGANS: There are a few calcifications noted within the prostate AORTA : No aneurysm. Scattered aortoiliac calcifications are present. NON-OPACIFIED BOWEL, PERITONEAL CAVITY, RETROPERITONEUM, ABDOMINAL WALL : No obvious masses or inflam matory changes. No free fluid. No abdominal wall hernias. No retroperitoneal masses. No pelvic masses. APPENDIX: Surgically absent. BONES: No aggressive appearing bony lesions. OTHER: No other significant finding. IMPRESSION: NO SIGNIFICANT OR ACUTE ABDOMINAL PROCESS. NO SIGNIFICANT URINARY TRACT PATHOLOGY. COMMENT: GENERAL PARAMETERS: Measure on bone windows with magnification SIZE: 4 mm or less 6-15 mm Greater than 15 mm HOUNSFIELD UNITS: Uric acid stones 200 - 400 HU Struvite stones 600 - 1000 HU Calcium phosphate, brushite, cystine stones > 1000 HU COMPOSITION: Homogeneous Heterogeneous Source: [facility] [employer]. [facility] 2009. TECHNICAL DOCUMENTATION: JOB ID: [id number] Quality ID # [id number]: Final reports with documentation of one or more dose reduction techniques (e.g., Au tomated exposure control, adjustment of the mA and/or kV according to patient size, use of iterative reconstruction technique) 2010 [employer]- All Rights Reserved Reading location - IP/workstation name: [email or web address]
[2018-02-12 10:45] LABS: ALANINE AMINOTRANSFERASE 29 U/L (21-72); ALBUMIN 3.7 g/dL (3.5-5.0); ALKALINE PHOSPHATASE 36 U/L (38-126); ANION GAP 8 (5-19); ASPARTATE AMINO TRANSFERASE 29 U/L (17-59); BILIRUBIN,DIRECT 0.3 mg/dL (0.0-0.4); BLOOD UREA NITROGEN 21 mg/dL (7-20); CALCIUM 8.9 mg/dL (8.4-10.2); CARBON DIOXIDE 25 mmol/L (22-30); CHLORIDE 109 mmol/L (98-107); GLUCOSE 101 mg/dL (75-110); POTASSIUM 4.2 mmol/L (3.6-5.0); SODIUM 141.7 mmol/L (137-145); TOTAL PROTEIN 6.1 g/dL (6.3-8.2)
[2018-02-12 10:49] LABS: ABSOLUTE LYMPHOCYTES# (MANUAL) 2.1 10^3/uL (0.5-4.7); ABSOLUTE MONOCYTES # (MANUAL) 0.8 10^3/uL (0.1-1.4); ABSOLUTE NEUTROPHILS# (MANUAL) 8.4 10^3/uL (1.7-8.2); BASOPHILS % (MANUAL) 0 % (0-2); EOSINOPHILS % (MANUAL) 1 % (0-6); LYMPHOCYTES % (MANUAL) 18 % (13-45); MONOCYTES % (MANUAL) 7 % (3-13); SEGMENTED NEUTROPHILS % (MAN) 74 % (42-78); TOTAL CELLS COUNTED 100
[2018-02-12 10:51] LABS: PLATELET COMMENT ADEQUATE; RBC MORPHOLOGY COMMENT NORMO-CYTIC/CHROMIC
== END 2018-02-12 11:02 | disposition home or self-care (01) ==
LOC: ER 09:49
DX: R10.9 Unspecified abdominal pain (principal); N20.0 Calculus of kidney; I50.9 Heart failure, unspecified; I25.10 Atherosclerotic heart disease of native coronary artery without angina pectoris; Z87.442 Personal history of urinary calculi; Z88.2 Allergy status to sulfonamides; Z88.0 Allergy status to penicillin; Z86.718 Personal history of other venous thrombosis and embolism; Z90.49 Acquired absence of other specified parts of digestive tract
CPT/HCPCS: 99284; 96374; 36415; 85025; 80053; 81001; 76380; J2270

== ENCOUNTER 2018-02-27 10:26 | Observation (INO) | payer MEDICARE, OTHER ==
--- NOTE | 2018-02-27 10:51 | EKG REPORT ---
SEVERITY:- OTHERWISE NORMAL ECG - SINUS RHYTHM LEFT AXIS DEVIATION : Confirmed by: Merlyn Lara MD 27-Feb-2018 10:50:50
[2018-02-27] MEDS ORDERED: LIDOCAINE 5% (700 MG) TRANSDERMAL ADH..PATCH TP ONE (11:01)
--- NOTE | 2018-02-27 11:02 | ER Document Report ---
ED Medical Screen (RME) - General Chief Complaint: Chest Pain Stated Complaint: CHEST PAIN/SHORTNESS OF BREATH Time Seen by Provider: 02/27/18 10:57 TRAVEL OUTSIDE OF THE [place] IN LAST 30 DAYS: No - HPI Notes: 02/27/18 11:02 Chest pain since yesterday - Related Data Allergies/Adverse Reactions: celecoxib [From Celebrex] Allergy (Severe, Verified 02/27/18 11:01) Chest pain leflunomide [From Arava] Allergy (Severe, Verified 02/27/18 11:01) Chest pain-Full list of symptoms on 05/18/13 DC Summary meloxicam [From Mobic] Allergy (Severe, Verified 02/27/18 11:01) Chest pain methotrexate [Methotrexate] Allergy (Severe, Verified 02/27/18 11:01) Anaphylaxis ketorolac tromethamine [From Toradol] Allergy (Unknown, Verified 02/27/18 11:01) see comment Sulfa (Sulfonamide Antibiotics) Adverse Reaction (Severe, Verified 02/27/18 11: 01) Diarrhea Penicillins Adverse Reaction (Unknown, Verified 02/27/18 11:01) Rash Past Medical History - Social History Chew tobacco use (# tins/day): No Frequency of alcohol use: None Drug Abuse: None - Past Medical History Cardiac Medical History: Reports: Hx Congestive Heart Failure, Hx Coronary Artery Disease - 1 coronary artery stent many years ago. Cardiac cath 2 or 3 months ago ok, Hx DVT - FEBRUARY 2017 Denies: Hx Heart Attack, Hx Hypertension Pulmonary Medical History: Denies: Hx Asthma, Hx Bronchitis, Hx COPD, Hx Pneumonia, Hx Tuberculosis Neurological Medical History: Denies: Hx Seizures Renal/ Medical History: Reports: Hx Kidney Stones. Denies: Hx Peritoneal Dialysis GI Medical History: Denies: Hx Hiatal Hernia, Hx Ulcer Musculoskeltal Medical History: Reports Hx Arthritis - Rheumatoid, Reports Hx Gout Psychiatric Medical History: Denies: Hx Depression Past Surgical History: Reports: Hx Appendectomy, Hx Cardiac Catheterization, Hx Cardiac Surgery - stent X1, Hx Cholecystectomy, Hx Orthopedic Surgery - ankle / elbows, Other - Ureteral stent left kidney Removal stones and stent 2 weeks ago. Denies: Hx Open Heart Surgery - CATHERIZATIONS - Immunizations Hx Diphtheria, Pertussis, Tetanus Vaccination: Yes History of Influenza Vaccine for 05/2017 - 10/2017 Season: Yes Influenza Administration Date for 05/2017 - 10/2017 Season: 04/08/17 Review of Systems - Review of Systems Cardiovascular: Chest pain Physical Exam - Vital signs Vitals: Temp Pulse Resp BP Pulse Ox 98 F 77 18 138/87 H 93 02/27/18 10:42 02/27/18 10:42 02/27/18 10:42 02/27/18 10:42 02/27/18 10:42 - Respiratory Respiratory status: No respiratory distress Chest status: Nontender Breath sounds: Normal Chest palpation: Normal Course - Vital Signs Vital signs: Temp Pulse Resp BP Pulse Ox 98 F 77 18 138/87 H 93 02/27/18 10:42 02/27/18 10:42 02/27/18 10:42 02/27/18 10:42 02/27/18 10:42 Doctor's Discharge - Discharge Referrals: CHEN KEYS DO [Primary Care Provider] - Follow up as needed
[2018-02-27 11:39] LABS: APPEARANCE,URINE CLEAR; BILIRUBIN,URINE NEGATIVE (NEGATIVE); COLOR,URINE YELLOW; GLUCOSE, URINE NEGATIVE (NEGATIVE); KETONES,URINE NEGATIVE (NEGATIVE); LEUKOCYTE ESTERASE,URINE TRACE (NEGATIVE); NITRITE,URINE NEGATIVE (NEGATIVE); PROTEIN,URINE NEGATIVE (NEGATIVE); URINE SPECIFIC GRAVITY 1.018; UROBILINOGEN,URINE NEGATIVE mg/dL (<2.0)
[2018-02-27 12:07] LABS: ABSOLUTE BASOPHILS # (AUTO) 0.1 10^3/uL (0.0-0.2); ABSOLUTE EOSINOPHILS # (AUTO) 0.2 10^3/uL (0.0-0.6); ABSOLUTE LYMPHOCYTES (AUTO) 1.7 10^3/uL (0.5-4.7); ABSOLUTE MONOCYTES (AUTO) 0.5 10^3/uL (0.1-1.4); ABSOLUTE NEUT (AUTO) 3.6 10^3/uL (1.7-8.2); BASOPHILS % (AUTO) 1.3 % (0-2); EOSINOPHILS % (AUTO) 2.9 % (0-6); HEMATOCRIT 46.7 % (37.9-51.0); HEMOGLOBIN 15.4 g/dL (13.5-17.0); LYMPHOCYTES % (AUTO) 28.1 % (13-45); MEAN CORPUSCULAR HEMOGLOBIN 31.6 pg (27.0-33.4); MEAN CORPUSCULAR HGB CONC 33.1 g/dL (32.0-36.0); MEAN CORPUSCULAR VOLUME 96 fl (80-97); MONOCYTES % (AUTO) 8.5 % (3-13); PLATELET COUNT 162 10^3/uL (150-450); RED BLOOD COUNT 4.88 10^6/uL (4.35-5.55); RED CELL DISTRIBUTION WIDTH 14.8 % (11.5-14.0); SEGMENTED NEUTROPHILS % (AUTO) 59.2 % (42-78); TOTAL CELLS COUNTED % (AUTO) 100 %; WHITE BLOOD COUNT 6.1 10^3/uL (4.0-10.5)
--- NOTE | 2018-02-27 12:07 | RADIOLOGY REPORT (SQ) ---
EXAM DESCRIPTION: CHEST 2 VIEWS COMPLETED DATE/TIME: 02/27/2018 11:34 am REASON FOR STUDY: cp COMPARISON: 10/14/2017 EXAM PARAMETERS: NUMBER OF VIEWS: two views TECHNIQUE: Digital Frontal and Lateral radiographic views of the chest acquired. RADIATION DOSE: NA LIMITATIONS: none FINDINGS: LUNGS AND PLEURA: Low lung volumes. No opacities, masses or pneumothorax. No pleural eff usion. MEDIASTINUM AND HILAR STRUCTURES: No masses or contour abnormalities. HEART AND VASCULAR STRUCTURES: Heart normal size. No evidence for failure. BONES: No acute findings. HARDWARE: monitoring specialist overlying the left lower anterior chest wall, new finding. OTHER: Prior cholecystectomy. IMPRESSION: 1 NO ACUTE RADIOGRAPHIC FINDING IN THE CHEST. 2. Additional finding as above. TECHNICAL DOCUMENTATION: JOB ID: [id number] [employer]- All Rights Reserved Reading location - IP/workstation name: [email or web address]
[2018-02-27 12:16] LABS: INTERNATIONAL RATION (INR) 0.89; PROTHROMBIN TIME 12.5 SEC (11.4-15.4)
[2018-02-27] MEDS ORDERED: ONDANSETRON HCL INJ/PF 4 MG/2 ML SDV IV ONE (12:39)
[2018-02-27] MEDS ORDERED: HYDROMORPHONE HCL INJ/PF 2 MG/ML AMPULE IV ONE (12:39)
[2018-02-27] MEDS ORDERED: FUROSEMIDE INJ/PF 40 MG/4 ML SDV IV ONE (12:40)
[2018-02-27 13:45] LABS: ALANINE AMINOTRANSFERASE 34 U/L (21-72); ALBUMIN 3.7 g/dL (3.5-5.0); ALKALINE PHOSPHATASE 41 U/L (38-126); ANION GAP 6 (5-19); ASPARTATE AMINO TRANSFERASE 29 U/L (17-59); BILIRUBIN,DIRECT 0.2 mg/dL (0.0-0.4); BLOOD UREA NITROGEN 17 mg/dL (7-20); CALCIUM 9.2 mg/dL (8.4-10.2); CARBON DIOXIDE 30 mmol/L (22-30); CHLORIDE 108 mmol/L (98-107); CREATINE KINASE 66 U/L (55-170); GLUCOSE 92 mg/dL (75-110); LIPASE 209.3 U/L (23-300); TOTAL PROTEIN 5.7 g/dL (6.3-8.2)
[2018-02-27 13:55] LABS: CREATINE KINASE MB 2.45 ng/mL (<4.55); TROPONIN I 0.015 ng/mL
--- NOTE | 2018-02-27 14:39 | ER Document Report ---
ED Cardiac - General Chief Complaint: Chest Pain Stated Complaint: CHEST PAIN/SHORTNESS OF BREATH Time Seen by Provider: 02/27/18 10:57 Notes: Chief complaint: Shortness of breath/chest pain History of complain:( obtained from----patient) 77 years old male presents today with pain over the substernal region just prior to arrival. Yesterday had started having some shortness of breath, this morning he went to the post box any return he was extremely short of breath and started having substernal chest pain which lasted for about 10-15 minutes and then subsided. Which was not associated with any left arm numbness tingling sensation nausea vomiting. He has gained 3 pounds within the last 2 days. After eating some salty crackers. Is a known CHF patient. Also had a right flank pain had an CT done as an outpatient. No hematuria. Onset: As above Duration: As above Severity: Moderate Quality: Dull Context: History of CHF Exacerbating factor and relieving factors: Exertion REVIEW OF SYSTEMS: CONSTITUTIONAL : Denies fever, chills, or sweats. Denies recent illness. EENT: Denies eye, ear, throat, or mouth pain or symptoms. Denies nasal or sinus congestion or discharge. Denies throat, tongue, or mouth swelling or difficulty swallowing. CARDIOVASCULAR: Denies chest pain. Denies palpitations or racing or irregular heart beat. Denies ankle edema. RESPIRATORY: Denies cough, cold, or chest congestion. GASTROINTESTINAL: Denies distention. Denies nausea, vomiting, or diarrhea. Denies blood in vomitus, stools, or per rectum. Denies black, tarry stools. Denies constipation. GENITOURINARY: Denies difficulty urinating, painful urination, burning, frequency, blood in urine, or discharge. FEMALE GENITOURINARY: Denies vaginal bleeding, heavy or abnormal periods, irregular periods. Denies vaginal discharge or odor. MUSCULOSKELETAL: Denies back or neck pain or stiffness. Denies joint pain or swelling. SKIN: Denies rash, lesions or sores. HEMATOLOGIC : Denies easy bruising or bleeding. LYMPHATIC: Denies swollen, enlarged glands. NEUROLOGICAL: Denies confusion or altered mental status. Denies passing out or loss of consciousness. Denies dizziness or lightheadedness. Denies headache. Denies weakness or paralysis or loss of use of either side. Denies problems with gait or speech. Denies sensory loss, numbness, or tingling. Denies seizures. PSYCHIATRIC: Denies anxiety or stress. Denies depression, suicidal ideation, or homicidal ideation. ALL OTHER SYSTEMS REVIEWED AND NEGATIVE. PHYSICAL EXAMINATION: GENERAL: Well-appearing, well-nourished and in mild acute distress. HEAD: Atraumatic, normocephalic. EYES: Pupils equal round and reactive to light, extraocular movements intact, conjunctiva are normal. ENT: Nares patent, oropharynx clear without exudates. Moist mucous membranes. NECK: Normal range of motion, supple without lymphadenopathy LUNGS: Breath sounds clear to auscultation bilaterally and equal. No wheezes rales or rhonchi. HEART: Regular rate and rhythm without murmurs ABDOMEN: Soft, nontender, nondistended abdomen. No guarding, no rebound. No masses appreciated. Examination of genitals-deferred Musculoskeletal: Normal range of motion, no pitting or edema. No cyanosis. NEUROLOGICAL: Cranial nerves grossly intact. Normal speech, normal gait. Normal sensory, motor exams PSYCH: Normal mood, normal affect. SKIN: Warm, Dry, normal turgor, no rashes or lesions noted. Dictation was performed using [employer] voice recognition software TRAVEL OUTSIDE OF THE [place] IN LAST 30 DAYS: No - HPI Notes: Dictated - Related Data Allergies/Adverse Reactions: celecoxib [From Celebrex] Allergy (Severe, Verified 02/27/18 11:01) Chest pain leflunomide [From Arava] Allergy (Severe, Verified 02/27/18 11:01) Chest pain-Full list of symptoms on 05/18/13 DC Summary meloxicam [From Mobic] Allergy (Severe, Verified 02/27/18 11:01) Chest pain methotrexate [Methotrexate] Allergy (Severe, Verified 02/27/18 11:01) Anaphylaxis ketorolac tromethamine [From Toradol] Allergy (Unknown, Verified 02/27/18 11:01) see comment Sulfa (Sulfonamide Antibiotics) Adverse Reaction (Severe, Verified 02/27/18 11: 01) Diarrhea Penicillins Adverse Reaction (Unknown, Verified 02/27/18 11:01) Rash Past Medical History - Social History Smoking Status: Never Smoker Chew tobacco use (# tins/day): No Frequency of alcohol use: None Drug Abuse: None Family History: Reviewed & Not Pertinent Patient has suicidal ideation: No Patient has homicidal ideation: No - Medical History Notes: Dictated - Past Medical History Cardiac Medical History: Reports: Hx Congestive Heart Failure, Hx Coronary Artery Disease - 1 coronary artery stent many years ago. Cardiac cath 2 or 3 months ago ok, Hx DVT - FEBRUARY 2017 Denies: Hx Heart Attack, Hx Hypertension Pulmonary Medical History: Denies: Hx Asthma, Hx Bronchitis, Hx COPD, Hx Pneumonia, Hx Tuberculosis Neurological Medical History: Denies: Hx Seizures Renal/ Medical History: Reports: Hx Kidney Stones. Denies: Hx Peritoneal Dialysis GI Medical History: Denies: Hx Hiatal Hernia, Hx Ulcer Musculoskeletal Medical History: Reports Hx Arthritis - Rheumatoid, Reports Hx Gout Psychiatric Medical History: Denies: Hx Depression Past Surgical History: Reports: Hx Appendectomy, Hx Cardiac Catheterization, Hx Cardiac Surgery - stent X1, Hx Cholecystectomy, Hx Orthopedic Surgery - ankle / elbows, Other - Ureteral stent left kidney Removal stones and stent 2 weeks ago. Denies: Hx Open Heart Surgery - CATHERIZATIONS - Immunizations Hx Diphtheria, Pertussis, Tetanus Vaccination: Yes Hx Pneumococcal Vaccination: 08/08/13 Review of Systems - Review of Systems Notes: Dictated Physical Exam - Vital signs Vitals: Temp Pulse Resp BP Pulse Ox 98 F 77 18 138/87 H 93 02/27/18 10:42 02/27/18 10:42 02/27/18 10:42 02/27/18 10:42 02/27/18 10:42 - Notes Notes: Dictated Course - Re-evaluation Re-evalutation: 02/27/18 14:41 Case was discussed with the hospitalist and currently being admitted - Vital Signs Vital signs: Temp Pulse Resp BP Pulse Ox 98 F 77 18 149/86 H 93 02/27/18 10:42 02/27/18 10:42 02/27/18 13:06 02/27/18 13:06 02/27/18 13:06 - Laboratory Result Diagrams: 02/27/18 11:40 02/27/18 13:02 Laboratory results interpreted by me: 02/27/18 02/27/18 02/27/18 10:46 11:40 13:02 RDW 14.8 H Chloride 108 H Total Protein 5.7 L Ur Leukocyte Esterase TRACE H - Diagnostic Test Radiology reviewed: Reports reviewed - Reported by radiologist as no acute finding - EKG Interpretation by Me EKG shows normal: Sinus rhythm - Sinus rhythm at rate of 62 bpm, left axis otherwise no acute ST-T wave changes Discharge - Discharge Clinical Impression: Chest pain, rule out acute myocardial infarction, Right flank pain CHF (congestive heart failure) Qualifiers: Heart failure type: systolic Heart failure chronicity: acute Qualified Code(s) : I50.21 - Acute systolic (congestive) heart failure Condition: Fair Admitting Provider: Hospitalist Unit Admitted: Telemetry Referrals: CHEN KEYS DO [Primary Care Provider] - Follow up as needed
[2018-02-27] MEDS ORDERED: ONDANSETRON 4 MG TAB.RAPDIS PO PRN (14:47)
[2018-02-27] MEDS ORDERED: NITROGLYCERIN 0.4 MG/TAB 25 TAB/BOTTLE SL PRN (14:47)
[2018-02-27] MEDS ORDERED: MAG HYDROX/AL HYDROX/SIMETH SUSP 30 ML UDCUP PO PRN (14:47)
[2018-02-27] MEDS ORDERED: TEMAZEPAM 15 MG CAPSULE PO PRN (14:47)
[2018-02-27] MEDS ORDERED: HYDROMORPHONE HCL 2 MG TABLET PO PRN (17:37)
--- NOTE | 2018-02-27 18:12 | PDOC H&P ---
History of Present Illness Admission Date/PCP: 02/27/18 15:24 CHEN KEYS DO Patient complains of: Shortness of breath and dyspnea History of Present Illness: KERRY COBURN is a 77 year old male with past medical history of CAD, chronic systolic and diastolic heart failure, nephrolithiasis and hypertension; presents with presents today with pain over the substernal region just prior to arrival. Yesterday had started having some shortness of breath that became quite severe this while taking the garbage out. This morning he went to the post box any return he was extremely short of breath and started having substernal chest pain which lasted for about 10-15 minutes and then subsided. Which was not associated with any left arm numbness tingling sensation nausea vomiting. He has gained 3 pounds within the last 2 days. After eating some salty crackers. He also complains of right flank pain. He has had a noncontrast CT of the abdomen as well as a contrast CT scan. These showed only 5 tiny stones in the right kidney, largest being 3 mm. He has no hematuria today. Past Medical History Cardiac Medical History: Reports: Congestive Heart Failure, Coronary Artery Disease - 1 coronary artery stent many years ago. Cardiac cath 2 or 3 months ago ok, DVT - FEBRUARY 2017 Denies: Myocardial Infarction, Hypertension Pulmonary Medical History: Denies: Asthma, Bronchitis, Chronic Obstructive Pulmonary Disease (COPD), Pneumonia, Tuberculosis EENT Medical History: Reports: None Neurological Medical History: Reports: None Denies: Seizures Endocrine Medical History: Reports: None Renal/ Medical History: Reports: None Malignancy Medical History: Reports: None GI Medical History: Reports: None Denies: Hiatal Hernia Musculoskeltal Medical History: Reports: Arthritis - Rheumatoid, Gout Skin Medical History: Reports: None Psychiatric Medical History: Reports: None Denies: Depression Traumatic Medical History: Reports: None Hematology: Denies: Anemia, Sickle Cell Disease Infectious Medical History: Reports: None Past Surgical History Past Surgical History: Reports: Appendectomy, Cardiac Catheterization, Cholecystectomy, Orthopedic Surgery - ankle / elbows, Other - Ureteral stent left kidney Removal stones and stent 2 weeks ago Social History Information Source: Patient Lives with: Spouse/Significant other Smoking Status: Never Smoker Frequency of Alcohol Use: Rare Hx Recreational Drug Use: Yes Drugs: None Hx Prescription Drug Abuse: No - Advance Directive Resuscitation Status: Full Code Surrogate healthcare decision maker:: Family History Family History: Hypertension Parental Family History Reviewed: Yes Children Family History Reviewed: Yes Sibling(s) Family History Reviewed.: Yes Medication/Allergy Home Medications: Allopurinol [Zyloprim 100 mg Tablet] 200 mg PO DAILY 02/27/18 Cetirizine HCl [Zyrtec 10 mg Tablet] 10 mg PO DAILY 02/27/18 Ergocalciferol (Vitamin D2) [Drisdol 50,000 unit (1.25MG) Capsule] 50,000 unit PO MO@1000 02/27/18 Escitalopram Oxalate [Lexapro] 5 mg PO DAILY 02/27/18 Fluticasone Propionate [Flonase Nasal [place] 50 Mcg/[place] 16 gm] 1 spray NASL DAILY 02/27/18 Losartan Potassium [Cozaar 25 mg Tablet] 25 mg PO DAILY 02/27/18 Metoprolol Succinate [Toprol Xl 25 mg Tab.sr] 25 mg PO DAILY 02/27/18 Pantoprazole Sodium [Protonix] 40 mg PO DAILY 02/27/18 Prednisone [Deltasone 5 mg Tablet] 10 mg PO DAILY 02/27/18 Pregnenolone Sr 5mg Cap Cmpnd 5 mg PO DAILY 02/27/18 Tamsulosin HCl [Flomax 0.4 mg Cap.sr] 0.4 mg PO DAILY 02/27/18 Testosterone 10mg/Ml Cmpnd 2 pump TOP DAILY 02/27/18 Torsemide [Demadex 20 mg Tablet] 20 mg PO DAILY 02/27/18 Allergies/Adverse Reactions: celecoxib [From Celebrex] Allergy (Severe, Verified 02/27/18 11:01) Chest pain leflunomide [From Arava] Allergy (Severe, Verified 02/27/18 11:01) Chest pain-Full list of symptoms on 05/18/13 DC Summary meloxicam [From Mobic] Allergy (Severe, Verified 02/27/18 11:01) Chest pain methotrexate [Methotrexate] Allergy (Severe, Verified 02/27/18 11:01) Anaphylaxis ketorolac tromethamine [From Toradol] Allergy (Unknown, Verified 02/27/18 11:01) see comment Sulfa (Sulfonamide Antibiotics) Adverse Reaction (Severe, Verified 02/27/18 11: 01) Diarrhea Penicillins Adverse Reaction (Unknown, Verified 02/27/18 11:01) Rash Review of Systems Constitutional: ABSENT: chills, fever(s), headache(s), weight gain, weight loss Eyes: ABSENT: visual disturbances Ears: ABSENT: hearing changes Cardiovascular: PRESENT: chest pain, dyspnea on exertion Respiratory: PRESENT: dyspnea Gastrointestinal: PRESENT: abdominal pain Genitourinary: ABSENT: dysuria, hematuria Musculoskeletal: ABSENT: joint swelling Integumentary: ABSENT: rash, wounds Neurological: ABSENT: abnormal gait, abnormal speech, confusion, dizziness, focal weakness, syncope Psychiatric: ABSENT: anxiety, depression, homidical ideation, suicidal ideation Endocrine: ABSENT: cold intolerance, heat intolerance, polydipsia, polyuria Hematologic/Lymphatic: ABSENT: easy bleeding, easy bruising Physical Exam Vital Signs: Temp Pulse Resp BP Pulse Ox 98 F 77 22 H 120/96 H 91 L 02/27/18 10:42 02/27/18 10:42 02/27/18 14:31 02/27/18 14:31 02/27/18 14:31 General appearance: PRESENT: no acute distress, obese, well-developed, well- nourished Head exam: PRESENT: atraumatic, normocephalic Eye exam: PRESENT: conjunctiva pink, EOMI, PERRLA. ABSENT: scleral icterus Ear exam: PRESENT: normal external ear exam Mouth exam: PRESENT: moist, tongue midline Neck exam: ABSENT: carotid bruit, JVD, lymphadenopathy, thyromegaly Respiratory exam: PRESENT: clear to auscultation nikita, symmetrical, unlabored. ABSENT: rales, rhonchi, wheezes Cardiovascular exam: PRESENT: RRR. ABSENT: diastolic murmur, rubs, systolic murmur Pulses: PRESENT: normal carotid pulses, normal radial pulses Vascular exam: PRESENT: normal capillary refill GI/Abdominal exam: PRESENT: normal bowel sounds, soft. ABSENT: distended, guarding, mass, organolmegaly, rebound, tenderness Rectal exam: PRESENT: deferred Extremities exam: PRESENT: full ROM. ABSENT: calf tenderness, clubbing, pedal edema Musculoskeletal exam: PRESENT: ambulatory, full ROM, normal inspection Neurological exam: PRESENT: alert, awake, oriented to person, oriented to place , oriented to time, oriented to situation, CN II-XII grossly intact. ABSENT: motor sensory deficit Psychiatric exam: PRESENT: appropriate affect, normal mood. ABSENT: homicidal ideation, suicidal ideation Skin exam: PRESENT: dry, intact, warm. ABSENT: cyanosis, rash Results Impressions: Chest X-Ray 02/27/18 11:01 IMPRESSION: 1 NO ACUTE RADIOGRAPHIC FINDING IN THE CHEST. 2. Additional finding as above. Assessment & Plan - Diagnosis (1) Chest pain, rule out acute myocardial infarction Is this a current diagnosis for this admission?: Yes Plan: Patient had a stress test within the last year which was negative. He does have history of a coronary stent and follows with Dr. Cole at [facility]. Will admit the patient to telemetry on observation and follow serial troponins. (2) Chronic combined systolic and diastolic heart failure Is this a current diagnosis for this admission?: Yes Plan: Patient does not appear volume overloaded at the present time. Chest x-ray is clear. NT BNP is 178. He has no lower extremity edema. He has no symptoms of heart failure that would explain his dyspnea. (3) Right flank pain Is this a current diagnosis for this admission?: Yes Plan: Patient has had a contrast and noncontrast study in the last 2 weeks of his abdomen. I spoke with Dr. Horne his urologist to [facility] who gave me verbal report of his CT with contrast. This showed 5 tiny stones in the right kidney cortex the greatest was 3 mm there is no hydronephrosis or any other abnormalities that would explain his right flank pain. (4) Coronary artery disease Qualifiers: Coronary Disease-Associated Artery/Lesion type: [place] artery [place] vs. transplanted heart: [place] heart Associated angina: with unspecified angina Qualified Code(s): I25.119 - Atherosclerotic heart disease of [place] coronary artery with unspecified angina pectoris (5) Dyspnea Qualifiers: Dyspnea type: dyspnea on exertion Qualified Code(s): R06.09 - Other forms of dyspnea Is this a current diagnosis for this admission?: Yes Plan: He has had a history of bilateral pulmonary embolism. Will obtain CTA to rule out any new PE (6) Kidney stones Is this a current diagnosis for this admission?: Yes Plan: CT shows stones only in the kidney largest a 3 mm on the right. (7) Rheumatoid arthritis Qualifiers: Rheumatoid factor presence: unspecified presence Laterality: unspecified laterality Is this a current diagnosis for this admission?: Yes Plan: Continue prn pain medication - Time Time Spent: 50 to 70 Minutes Critical Time spent with patient: 25-34 minutes Medications reviewed and adjusted accordingly: Yes Anticipated discharge: Home Within: within 24 hours - Inpatient Certification Based on my medical assessment, after consideration of the patient's comorbidities, presenting symptoms, or acuity I expect that the services needed warrant INPATIENT care.: Yes I certify that my determination is in accordance with my understanding of Medicare's requirements for reasonable and necessary INPATIENT services [42 CFR 412.3e].: Yes Medical Necessity: Need Close Monitoring Due to Risk of Patient Decompensation
--- NOTE | 2018-02-27 18:15 | RADIOLOGY REPORT (SQ) ---
EXAM DESCRIPTION: CTA CHEST COMPLETED DATE/TIME: 02/27/2018 6:05 pm REASON FOR STUDY: Acute onset of shortness of breath, COMPARISON: 10/16/2017. TECHNIQUE: CT scan of the chest performed using helical scanning technique with dynamic intravenous contrast injection. Images reviewed with lung, soft tissue and bone windows. Reconstructed coronal and sagittal MPR images reviewed. Additional 3 dimensional post-processing performed to develop Maximal Intensity Projection images (TN P). All images stored on PACS. All CT scanners at this facility use dose modulation, iterative reconstruction, and/or weight based d osing when appropriate to reduce radiation dose to as low as reasonably achievable (ALARA). [facility]: Dose Right [facility]: CareDose [facility]: Dose Right [facility]: Teradose 4D [facility]: Smart Plated CONTRAST TYPE AND DOSE: contrast/concentration: Isovue 370.00 mg/ml; Total Contrast Delivered: 82.0 ml; Total Saline Delivered: 90.0 ml Contrast bolus optimized for the pulmonary arteries. Not diagnostic for the aorta. RENAL FUNCTION: BUN 17 creatinine 1.02. RADIATION DOSE: CT Rad equipment meets quality standard of care and radiation dose reduction techniq ues were employed. CTDIvol: 28.6 - 39.7 mGy. DLP: 1096 mGy-cm. . LIMITATIONS: None. FINDINGS: LUNGS AND PLEURA: No masses, infiltrates, or pneumothorax. No pleural effusions or pleura l calcifications. AORTA AND GREAT VESSELS: No aneurysm. Contrast bolus not optimized for the aorta. HEART: No pericardial effusion. No significant coronary artery calcifications. PULMONARY ARTERIES: Emboli in the branches of the right and left upper and lower lobes. HILAR AND MEDIASTINAL STRUCTURES: No identified masses or abnormal nodes. HARDWARE: None in the chest. UPPER ABDOMEN: Renal calculi. Limited exam. THYROID AND OTHER SOFT TISSUES: No masses. No adenopathy. BONES: No acute or significant finding. 3D MIPS: Confirm above findings. OTHER: No other significant finding. IMPRESSION: BILATERAL PULMONARY EMBOLI. COMMENT: Quality ID # [id number]: Final reports with documentation of one or more dose reduction techniques (e.g., Automated exposure control, adjustment of the mA and/or kV according to patient size, use of iterative reconstruction technique) TECHNICAL DOCUMENTATION: JOB ID: [id number] [employer]- All Rights Reserved Reading location - IP/workstation name: [email or web address]
[2018-02-27] MEDS ORDERED: HYDROMORPHONE HCL INJ/PF 2 MG/ML AMPULE IV PRN (18:21)
[2018-02-27] MEDS: RIVAROXABAN 15 MG TABLET PO SCH (20:19)
[2018-02-27] MEDS ORDERED: HEPARIN SOD (PORCINE) 5,000 UNIT/ML 1 ML SYRINGE SUBCUT SCH (22:00)
[2018-02-28] MEDS ORDERED: ACETAMINOPHEN 325 MG TABLET PO PRN (03:19)
[2018-02-28] MEDS ORDERED: LANSOPRAZOLE 30 MG TAB.RAP.DR PO SCH ×2 (06:00)
[2018-02-28 08:25] LABS: CHOLESTEROL 237.58 mg/dL (0-200); TRIGLYCERIDES 253 mg/dL (<150)
[2018-02-28 08:36] LABS: DIRECT LDL 119 mg/dL (<100)
[2018-02-28 08:39] LABS: VLDL CHOLESTEROL 50.6 mg/dL (10-31)
[2018-02-28] MEDS: RIVAROXABAN 15 MG TABLET PO SCH (09:42)
[2018-02-28] MEDS ORDERED: CETIRIZINE 10 MG TABLET PO SCH (10:00)
[2018-02-28] MEDS ORDERED: PREGNENOLONE PO SCH (10:00)
[2018-02-28] MEDS ORDERED: TESTOSTERONE TOP SCH (10:00)
[2018-02-28] MEDS ORDERED: ASPIRIN 81 MG TABLET, ENT COATED PO SCH (10:00)
[2018-02-28] MEDS ORDERED: PREDNISONE 10 MG TABLET PO SCH (10:00)
[2018-02-28] MEDS ORDERED: ESCITALOPRAM OXALATE 10 MG TABLET PO SCH (10:00)
[2018-02-28] MEDS ORDERED: ALLOPURINOL 100 MG TABLET PO SCH (10:00)
[2018-02-28] MEDS ORDERED: TORSEMIDE 20 MG TABLET PO SCH (10:00)
[2018-02-28] MEDS ORDERED: PREDNISONE 5 MG TABLET PO SCH (10:00)
[2018-02-28] MEDS ORDERED: FLUTICASONE NASAL SPRAY 50 MCG/SPRY 120 SPRAY/16 GM NASL SCH (10:00)
[2018-02-28] MEDS ORDERED: LOSARTAN POTASSIUM 25 MG TABLET PO SCH (10:00)
[2018-02-28] MEDS ORDERED: TAMSULOSIN HCL 0.4 MG CAP.SR.24H PO SCH (10:00)
[2018-02-28] MEDS ORDERED: METOPROLOL SUCCINATE 25 MG TAB.SR.24H PO SCH (10:00)
[2018-02-28] MEDS ORDERED: (PENDING PHARMACY ID) (Escitalopram Oxalate [Lexapro] 5 MG) PO SCH (10:00)
--- NOTE | 2018-02-28 10:39 | PDOC DISCHARGE SUMMARY ---
General - Admit/Disc Date/PCP Admission Date/Primary Care Provider: 02/27/18 15:24 CHEN KEYS, Discharge Date: 02/28/18 - Discharge Diagnosis (1) Pulmonary emboli Is this a current diagnosis for this admission?: Yes (2) Chest pain, rule out acute myocardial infarction Is this a current diagnosis for this admission?: Yes Summary: ACS has been ruled out. Chest pain is secondary to pulmonary emboli (3) CHF (congestive heart failure) Is this a current diagnosis for this admission?: Yes Summary: No acute decompensation (4) Right flank pain Is this a current diagnosis for this admission?: Yes - Additional Information Resuscitation Status: Full Code Discharge Diet: Cardiac Discharge Activity: Activity As Tolerated Prescriptions: Rivaroxaban [Xarelto] 20 mg PO DAILY #30 tablet Rivaroxaban [Xarelto 15 mg Tablet] 15 mg PO BIDBS #40 tablet Home Medications: Allopurinol [Zyloprim 100 mg Tablet] 200 mg PO DAILY 02/27/18 Cetirizine HCl [Zyrtec 10 mg Tablet] 10 mg PO DAILY 02/27/18 Ergocalciferol (Vitamin D2) [Drisdol 50,000 unit (1.25MG) Capsule] 50,000 unit PO MO@1000 02/27/18 Escitalopram Oxalate [Lexapro] 5 mg PO DAILY 02/27/18 Fluticasone Propionate [Flonase Nasal [place] 50 Mcg/[place] 16 gm] 1 spray NASL DAILY 02/27/18 Losartan Potassium [Cozaar 25 mg Tablet] 25 mg PO DAILY 02/27/18 Metoprolol Succinate [Toprol Xl 25 mg Tab.sr] 25 mg PO DAILY 02/27/18 Pantoprazole Sodium [Protonix] 40 mg PO DAILY 02/27/18 Prednisone [Deltasone 5 mg Tablet] 10 mg PO DAILY 02/27/18 Pregnenolone Sr 5mg Cap Cmpnd 5 mg PO DAILY 02/27/18 Tamsulosin HCl [Flomax 0.4 mg Cap.sr] 0.4 mg PO DAILY 02/27/18 Testosterone 10mg/Ml Cmpnd 2 pump TOP DAILY 02/27/18 Torsemide [Demadex 20 mg Tablet] 20 mg PO DAILY 02/27/18 Rivaroxaban [Xarelto 15 mg Tablet] 15 mg PO BIDBS #40 tablet 07/24/18 Rivaroxaban [Xarelto] 20 mg PO DAILY #30 tablet 02/28/18 History of Present Illness Patient complains of: Progressive shortness of breath and difficulty breathing and right-sided chest pain History of Present Illness: KERRY COBURN is a 77 year old male Hospital Course Hospital Course: Patient was admitted with difficulty breathing and shortness of breath as well as mild hypoxemia. Is found to have a bilateral pulmonary emboli. He was started on Xarelto. Patient was monitored overnight and he has improved. He has remained hemodynamically stable and hypoxemia is resolved. He does have a history of prior venous thromboembolism for which he was on Xarelto so patient was reminded of the potential adverse effects with Xarelto. His chest pain has subsided and patient is stable enough to be discharged home so is been discharged home. Decompensated CHF was ruled out with a normal chest x-ray as well as normal pro- BNP. He was advised however to back on his salt intake and to be compliant with his recommended diet. Patient also has a history of nephrolithiasis but has no episode of acute pain from nephrolithiasis. Chest pain is secondary to bilateral PE and coronary syndrome has been ruled out. Patient is been discharged home in stable condition Physical Exam Vital Signs: Temp Pulse Resp BP Pulse Ox 98.5 F 66 14 107/73 93 02/28/18 03:21 02/28/18 07:00 02/28/18 03:21 02/28/18 03:21 02/28/18 03:21 Intake & Output 02/27/18 02/28/18 03/01/18 06:59 06:59 06:59 Intake Total 222 Balance 222 Weight 103.7 kg General appearance: PRESENT: no acute distress, obese, well-developed, well- nourished Head exam: PRESENT: atraumatic, normocephalic Eye exam: PRESENT: conjunctiva pink, EOMI, PERRLA. ABSENT: scleral icterus Ear exam: PRESENT: normal external ear exam Mouth exam: PRESENT: moist, tongue midline Neck exam: ABSENT: carotid bruit, JVD, lymphadenopathy, thyromegaly Respiratory exam: PRESENT: clear to auscultation nikita. ABSENT: rales, rhonchi, wheezes Cardiovascular exam: PRESENT: RRR. ABSENT: diastolic murmur, rubs, systolic murmur Pulses: PRESENT: normal dorsalis pedis pul Vascular exam: PRESENT: normal capillary refill GI/Abdominal exam: PRESENT: normal bowel sounds, soft. ABSENT: distended, guarding, mass, organolmegaly, rebound, tenderness Rectal exam: PRESENT: deferred Extremities exam: PRESENT: full ROM. ABSENT: calf tenderness, clubbing, pedal edema Neurological exam: PRESENT: alert, awake, oriented to person, oriented to place , oriented to time, oriented to situation, CN II-XII grossly intact. ABSENT: motor sensory deficit Psychiatric exam: PRESENT: appropriate affect, normal mood. ABSENT: homicidal ideation, suicidal ideation Skin exam: PRESENT: dry, intact, warm. ABSENT: cyanosis, rash Results Laboratory Results: 02/28/18 07:21 Triglycerides 253 H Cholesterol 237.58 H LDL Cholesterol Direct 119 H VLDL Cholesterol 50.6 H HDL Cholesterol 45 02/27/18 02/28/18 02/28/18 19:00 00:54 07:21 Troponin I < 0.012 0.013 0.017 Impressions: Chest X-Ray 02/27/18 11:01 IMPRESSION: 1 NO ACUTE RADIOGRAPHIC FINDING IN THE CHEST. 2. Additional finding as above. Chest/Abdomen CTA 02/27/18 16:09 IMPRESSION: BILATERAL PULMONARY EMBOLI. Qualifiers - * PATIENT BEING DISCHARGED WITH ANY OF THE FOLLOWING DIAGNOSIS: VTE (PE or DVT) VTE patient discharged on overlapping Therapy?: No Reason(s) for not prescribing Overlap Therapy:: Not indicated Plan Time Spent: Greater than 30 Minutes
[2018-02-28 10:59] VITALS: BP 107/73
[2018-03-06] MEDS ORDERED: ERGOCALCIFEROL (VITAMIN D2) 50000 UNIT (1.25 MG) CAPSULE PO SCH (10:00)
== END 2018-02-28 11:09 | disposition home or self-care (01) ==
LOC: ER 10:26 → EH 15:24 → 4S 20:48
PROVIDERS: ADMIT Internal Medicine; ATTEND Internal Medicine
DX: I26.99 Other pulmonary embolism without acute cor pulmonale (principal); I11.0 Hypertensive heart disease with heart failure; I50.42 Chronic combined systolic (congestive) and diastolic (congestive) heart failure; R10.9 Unspecified abdominal pain; I25.10 Atherosclerotic heart disease of native coronary artery without angina pectoris; M06.9 Rheumatoid arthritis, unspecified; N20.0 Calculus of kidney; M10.9 Gout, unspecified; Z86.718 Personal history of other venous thrombosis and embolism; Z79.899 Other long term (current) drug therapy; Z90.49 Acquired absence of other specified parts of digestive tract; Z98.890 Other specified postprocedural states; Z82.49 Family history of ischemic heart disease and other diseases of the circulatory system
CPT/HCPCS: 93005; 96376; 99285; 96374; 96375; 36415 ×2; 82553; 82550; 83690; 85025; 85610; 80053; 81001; 84484 ×2; 80061; 83880; 71046; 71275; 93010; G0378 ×2; A9270 ×9; J1940; J1170; J2405; J3490; S0119

== ENCOUNTER 2018-04-07 07:06 | Day surgery (SDC) | payer MEDICARE, OTHER ==
[~2018-04-07 07:06] MED LIST: FENTANYL CITRATE INJ/PF 100 MCG/2 ML AMPUL ONE; LIDOCAINE 2% INJ-PF (100 MG/5 ML) SYRINGE ONE; MIDAZOLAM 2 MG/2 ML INJ ONE; PROPOFOL INJ 200 MG/20 ML VIAL IV ONE
[2018-04-07 08:34] LABS: INTERNATIONAL RATION (INR) 0.95; PARTIAL THROMBOPLASTIN TIME 25.2 SEC (23.5-35.8); PROTHROMBIN TIME 13.2 SEC (11.4-15.4)
[2018-04-07] MEDS ORDERED: ONDANSETRON HCL INJ/PF 4 MG/2 ML SDV ONE (08:55)
[2018-04-07] MEDS ORDERED: METOCLOPRAMIDE HCL INJ/PF 10 MG/2 ML SDV ONE (08:55)
[2018-04-07] MEDS ORDERED: ACETAMINOPHEN 1,000 MG/100 ML RTUPB IV ONE (08:55)
[2018-04-07] MEDS ORDERED: MIDAZOLAM 2 MG/2 ML INJ ONE (08:57)
[2018-04-07] MEDS ORDERED: ONDANSETRON HCL INJ/PF 4 MG/2 ML SDV IV PRN (08:58)
[2018-04-07] MEDS ORDERED: FENTANYL CITRATE INJ/PF 100 MCG/2 ML AMPUL IV PRN ×3 (08:58)
[2018-04-07] MEDS ORDERED: DIPHENHYDRAMINE HCL 50 MG/ML VIAL IV PRN (08:58)
[2018-04-07] MEDS ORDERED: MEPERIDINE HCL/PF INJ 25 MG/1 ML DISP.SYRIN IV PRN (08:58)
[2018-04-07] MEDS ORDERED: PROMETHAZINE HCL INJ 25 MG/1 ML VIAL IV PRN ×2 (08:58)
[2018-04-07] MEDS ORDERED: DEXTROSE 5%-1/2 NORMAL SALINE 1,000 ML IV PRN (10:06)
[2018-04-07] MEDS ORDERED: SIMETHICONE 80 MG TAB.CHEW PO PRN (10:06)
[2018-04-07] MEDS ORDERED: ACETAMINOPHEN 325 MG TABLET PO PRN (10:06)
[2018-04-07] MEDS ORDERED: PROMETHAZINE HCL INJ 25 MG/1 ML VIAL INJ PRN (10:07)
[2018-04-07 11:30] VITALS: BP 115/62
--- NOTE | 2018-04-07 12:30 | Operative Report ---
Operative Report DATE OF SURGERY: 04/07/18 Operative Report: The risks, benefits and alternatives of the procedure including the risks of bleeding, perforation requiring surgery are explained to the patient in detail the operating room and placed in the left, lateral decubital position. Timeout was called. Propofol medication is administered. A rectal examination is done which did not reveal any masses, tears or fissures. An Olympus videoscope was inserted into the patient's rectum. The scope was then carefully advanced all the way to the cecum. The cecum was identified by the usual anatomical landmarks including the ileocecal valve as well as the appendiceal office. Photodocumentation is obtained. The scope was then sequentially pulled back via the various segments of the colon including the ascending colon, hepatic flexure, transverse colon, splenic flexure, descending colon and finally into the rectosigmoid portions of the colon. Retroflexion maneuvers performed. The risks benefits and alternatives of the procedure explained to the patient in detail and informed consent is obtained.A GIF Olympus video scope was inserted into the patient's mouth and hypopharynx, the esophagus is identified intubated and insufflated, the scope was then advanced through the esophagus stomach and duodenum, retroflexion maneuver is done, the esophagus stomach and first and second portions of the duodenum examined PREOPERATIVE DIAGNOSIS: Change in bowel habits. Personal history of polyp. Epigastric pain POSTOPERATIVE DIAGNOSIS: Colon polyp transverse colon is removed via snare polypectomy and retrieved. Splenic flexure polyp 2. Similarly removed via snare polypectomy and retrieved. Descending colon polyp removed via snare polypectomy and retrieved. Sigmoid polyp status post removal via snare polypectomy and to endoclips were placed at the base to reduce the risk of post polypectomy bleeding. Another sigmoid polyp that has ablated in situ. Diverticulosis. Internal hemorrhoids. Gastritis status post biopsy rule out Helicobacter pylori OPERATION: Colonoscopy with snare polypectomy. Colonoscopy with ablation. EGD with biopsy SURGEON: LAURA MCBRIDE ANESTHESIA: LMAC TISSUE REMOVED OR ALTERED: As noted above. COMPLICATIONS: None. ESTIMATED BLOOD LOSS: None. INTRAOPERATIVE FINDINGS: As noted above. PROCEDURE: Patient tolerated the procedure well. No immediate postprocedure complications are noted. Patient discharged in good condition. Discharge date 04/07/2018. Discharge diet: Regular. Discharge activity: Regular. 2-3 week follow-up to discuss findings. Patient is instructed to call the office or proceed to the emergency room should there be any further problems or questions. Wait on the pathology. 1 year surveillance colonoscopy.
== END 2018-04-07 11:27 | disposition home or self-care (01) ==
LOC: OROUT 07:06
PROVIDERS: ATTEND Internal Medicine Gastroenterology
DX: K29.50 Unspecified chronic gastritis without bleeding (principal); D12.4 Benign neoplasm of descending colon; D12.6 Benign neoplasm of colon, unspecified; Z86.010 Personal history of colon polyps; M19.90 Unspecified osteoarthritis, unspecified site; K57.30 Diverticulosis of large intestine without perforation or abscess without bleeding; D64.9 Anemia, unspecified; I26.99 Other pulmonary embolism without acute cor pulmonale; I25.2 Old myocardial infarction; Z79.82 Long term (current) use of aspirin; Z79.899 Other long term (current) drug therapy; Z79.51 Long term (current) use of inhaled steroids; Z88.2 Allergy status to sulfonamides; Z88.0 Allergy status to penicillin; Z88.8 Allergy status to other drugs, medicaments and biological substances; Z79.01 Long term (current) use of anticoagulants
CPT/HCPCS: 43239; 45385; 36415; 84132; 85610; 85730; 88342 ×2; 88305 ×2; J2250; J3010; J2001; J2765; A9270; J2405; J2704; J0131; 813

== ENCOUNTER 2018-08-04 06:43 | Emergency (ER) | payer MEDICARE, OTHER ==
[2018-08-04 07:17] LABS: HEMATOCRIT 44.1 % (37.9-51.0); MEAN CORPUSCULAR HEMOGLOBIN 31.9 pg (27.0-33.4); MEAN CORPUSCULAR HGB CONC 33.9 g/dL (32.0-36.0); MEAN CORPUSCULAR VOLUME 94 fl (80-97); PLATELET COUNT 193 10^3/uL (150-450); RED CELL DISTRIBUTION WIDTH 14.8 % (11.5-14.0)
[2018-08-04] MEDS ORDERED: LIDOCAINE 1% INJ-PF (10 MG/ML) 30 ML SDV NEB ONE (07:18)
--- NOTE | 2018-08-04 07:28 | RADIOLOGY REPORT (SQ) ---
EXAM DESCRIPTION: XR CHEST 1 VIEW COMPLETED DATE/TME: 08/04/2018 06:56 CLINICAL HISTORY: cp COMPARISON: 02/27/2018 FINDINGS: Single frontal view of the chest. Leads overlie the chest. The cardiomediastinal silhouette has normal size and contour. No consolidation, pneumothorax, or pleural effusion. No displaced rib fractures identified. Upper abdominal soft tissues are unremarkable. IMPRESSION: 1. No acute pulmonary process identified.
[2018-08-04 07:45] LABS: ABSOLUTE LYMPHOCYTES# (MANUAL) 1.4 10^3/uL (0.5-4.7); ABSOLUTE NEUTROPHILS# (MANUAL) 7.6 10^3/uL (1.7-8.2); BASOPHILS % (MANUAL) 0 % (0-2); EOSINOPHILS % (MANUAL) 0 % (0-6); LYMPHOCYTES % (MANUAL) 14 % (13-45); METAMYELOCYTES % (MANUAL) 1 % (0); MONOCYTES % (MANUAL) 10 % (3-13); PLATELET COMMENT ADEQUATE; RBC MORPHOLOGY COMMENT NORMO-CYTIC/CHROMIC; SEGMENTED NEUTROPHILS % (MAN) 75 % (42-78); TOTAL CELLS COUNTED 100; TOXIC GRANULATION SLIGHT
[2018-08-04] MEDS ORDERED: BENZONATATE 100 MG CAPSULE PO ONE (08:07)
[2018-08-04 08:33] LABS: ALANINE AMINOTRANSFERASE 25 U/L (21-72); ALBUMIN 3.3 g/dL (3.5-5.0); ALKALINE PHOSPHATASE 36 U/L (38-126); ANION GAP 5 (5-19); ASPARTATE AMINO TRANSFERASE 23 U/L (17-59); BILIRUBIN,DIRECT 0.1 mg/dL (0.0-0.4); BILIRUBIN,TOTAL 0.9 mg/dL (0.2-1.3); BLOOD UREA NITROGEN 23 mg/dL (7-20); CALCIUM 9.1 mg/dL (8.4-10.2); CARBON DIOXIDE 23 mmol/L (22-30); CHLORIDE 110 mmol/L (98-107); CREATINE KINASE 88 U/L (55-170); GLUCOSE 95 mg/dL (75-110); POTASSIUM 4.2 mmol/L (3.6-5.0); SODIUM 138.4 mmol/L (137-145); TOTAL PROTEIN 5.3 g/dL (6.3-8.2)
[2018-08-04 09:09] LABS: CREATINE KINASE MB 2.45 ng/mL (<4.55)
[2018-08-04 09:14] LABS: TROPONIN I < 0.012 ng/mL
--- NOTE | 2018-08-04 10:40 | ER Document Report ---
ED General - General Chief Complaint: Chest Pain Stated Complaint: CHEST PAIN Time Seen by Provider: 08/04/18 06:56 TRAVEL OUTSIDE OF THE [place] IN LAST 30 DAYS: No - HPI Patient complains to provider of: Chest pain shortness of breath cough Notes: Patient coming in for evaluation of chest pain shortness of breath and cough ongoing for greater than the last 3-4 days. Patient states he has been seen in urgent care was placed on a steroid burst given an inhaler and also Cindi Graham however states no improvement of symptoms along with chest achiness. Patient denies any fevers or chills states he did receive a flu shot this year. Patient denies any travel outside the state or outside the country. Patient denies any recent antibiotic use. Upon my evaluation patient is resting comfortably no signs of any obvious distress. - Related Data Allergies/Adverse Reactions: celecoxib [From Celebrex] Allergy (Severe, Verified 04/07/18 07:36) Chest pain leflunomide [From Arava] Allergy (Severe, Verified 04/07/18 07:36) Chest pain-Full list of symptoms on 05/18/13 DC Summary meloxicam [From Mobic] Allergy (Severe, Verified 04/07/18 07:36) Chest pain methotrexate [Methotrexate] Allergy (Severe, Verified 04/07/18 07:36) Anaphylaxis ketorolac tromethamine [From Toradol] Allergy (Unknown, Verified 04/07/18 07:36) see comment NSAIDS (Non-Steroidal Anti-Inflamma Allergy (Verified 04/07/18 07:36) Sulfa (Sulfonamide Antibiotics) Adverse Reaction (Severe, Verified 04/07/18 07:36) Diarrhea Penicillins Adverse Reaction (Unknown, Verified 04/07/18 07:36) Rash Past Medical History - Social History Smoking Status: Never Smoker Chew tobacco use (# tins/day): No Frequency of alcohol use: Rare Drug Abuse: None Family History: Hypertension Patient has suicidal ideation: No Patient has homicidal ideation: No - Past Medical History Cardiac Medical History: Reports: Hx Congestive Heart Failure, Hx Coronary Artery Disease - CARDIAC CATH WITH ONE STENT, Hx DVT - FEBRUARY 2017 Denies: Hx Heart Attack, Hx Hypertension - ON MEDS FOR HEART FAILURE Pulmonary Medical History: Denies: Hx Asthma, Hx Bronchitis, Hx COPD, Hx Pneumonia, Hx Tuberculosis Neurological Medical History: Denies: Hx Cerebrovascular Accident, Hx Seizures Renal/ Medical History: Reports: Hx Kidney Stones. Denies: Hx Peritoneal Dialysis GI Medical History: Denies: Hx Hiatal Hernia, Hx Ulcer Musculoskeletal Medical History: Reports Hx Arthritis - RA, Reports Hx Gout Psychiatric Medical History: Denies: Hx Depression Past Surgical History: Reports: Hx Appendectomy, Hx Cardiac Catheterization, Hx Cardiac Surgery - stent X1, Hx Cholecystectomy, Hx Orthopedic Surgery - ankle / elbows, Other - Ureteral stent left kidney Removal stones and stent 2 weeks ago. Denies: Hx Open Heart Surgery - CATHERIZATIONS - Immunizations Hx Diphtheria, Pertussis, Tetanus Vaccination: Yes Hx Pneumococcal Vaccination: 08/08/13 Review of Systems - Review of Systems Constitutional: No symptoms reported EENT: No symptoms reported Cardiovascular: Chest pain Respiratory: Cough, Short of breath Gastrointestinal: No symptoms reported Genitourinary: No symptoms reported Male Genitourinary: No symptoms reported Musculoskeletal: Muscle pain Skin: No symptoms reported Hematologic/Lymphatic: No symptoms reported Neurological/Psychological: No symptoms reported -: Yes All other systems reviewed and negative Physical Exam - Vital signs Vitals: Pulse Ox 100 08/04/18 06:56 Interpretation: Normal - General General appearance: Appears well, Alert - HEENT Head: Normocephalic, Atraumatic Eyes: Normal Pupils: PERRL - Respiratory Respiratory status: No respiratory distress Chest status: Nontender Breath sounds: Normal Chest palpation: Normal - Cardiovascular Rhythm: Regular Heart sounds: Normal auscultation Murmur: No - Abdominal Inspection: Normal Distension: No distension Bowel sounds: Normal Tenderness: Nontender Organomegaly: No organomegaly - Back Back: Normal, Nontender - Extremities General upper extremity: Normal inspection, Nontender, Normal color, Normal ROM, Normal temperature General lower extremity: Normal inspection, Nontender, Normal color, Normal ROM, Normal temperature, Normal weight bearing. No: Lupis's sign - Neurological Neuro grossly intact: Yes Cognition: Normal Orientation: AAOx4 Jenny Coma Scale Eye Opening: Spontaneous Jenny Coma Scale Verbal: Oriented Jenny Coma Scale Motor: Obeys Commands Jenny Coma Scale Total: 15 Speech: Normal Motor strength normal: LUE, RUE, LLE, RLE Sensory: Normal - Psychological Associated symptoms: Normal affect, Normal mood - Skin Skin Temperature: Warm Skin Moisture: Dry Skin Color: Normal Course - Re-evaluation Re-evalutation: 08/04/18 14:39 Patient coming in for multiple complaints laboratory studies chest x-rays not show any significant pathology I explained to the patient more likely has an underlying virus causing his symptoms like the flu I would recommend that he continue on his current treatment course days currently on do not see a need for any antibiotics at this time as the patient has no white count afebrile. Did recommend patient continue with Tessalon Perles for cough suppression also recommend the use of honey for cough suppression patient is encouraged to follow-up with his primary care physician for further evaluation of his symptoms. The patient has atypical chest pain as the patient's chest pain is not suggestive of pulmonary embolus, cardiac ischemia, aortic dissection, or other serious etiology. Given the extremely low risk of these diagnoses further testing and evaluation for these possibilities does not appear to be indicated at this time. The patient has been instructed to return if the symptoms worsen or change in any way. - Vital Signs Vital signs: Temp Pulse Resp BP Pulse Ox 98.1 F 21 H 130/76 H 97 08/04/18 10:57 08/04/18 10:57 08/04/18 10:57 08/04/18 10:57 - Laboratory Result Diagrams: 08/04/18 07:00 08/04/18 08:05 Laboratory results interpreted by me: 08/04/18 08/04/18 07:00 08:05 RDW 14.8 H Metamyelocytes % 1 H Chloride 110 H BUN 23 H Alkaline Phosphatase 36 L Total Protein 5.3 L Albumin 3.3 L Discharge - Discharge Clinical Impression: Flu-like symptoms Condition: Good Disposition: HOME, SELF-CARE Instructions: Viral Syndrome ([facility]) Additional Instructions: Your symptoms are consistent with a viral illness possibly the flu recommend continuing the inhalers cough suppressant and steroids that were given to you by the urgent care. Your workup today does not show any critical pathology no pneumonia no signs of any bacterial infection that would require an antibiotic would recommend following up with your primary care physician in the next 3-5 days. Would recommend honey as a natural cough suppressant Referrals: CHEN KEYS, [Primary Care Provider] - Follow up as needed
[2018-08-04 11:01] VITALS: BP 130/76
--- NOTE | 2018-08-04 14:54 | EKG REPORT ---
SEVERITY:- OTHERWISE NORMAL ECG - SINUS RHYTHM LEFT AXIS DEVIATION : Confirmed by: Conor Robert 04-Aug-2018 14:53:32
== END 2018-08-04 11:02 | disposition home or self-care (01) ==
LOC: ER 06:43
DX: R07.9 Chest pain, unspecified (principal); R06.02 Shortness of breath; R05 Cough; Z88.0 Allergy status to penicillin; Z88.2 Allergy status to sulfonamides; I50.9 Heart failure, unspecified; I25.10 Atherosclerotic heart disease of native coronary artery without angina pectoris; Z86.718 Personal history of other venous thrombosis and embolism; Z87.442 Personal history of urinary calculi; Z90.49 Acquired absence of other specified parts of digestive tract
CPT/HCPCS: 93005; 99285; 36415; 82553; 82550; 83735; 85025; 80053; 84484; 71045; 93010; A9270; J3490

== ENCOUNTER 2018-10-24 10:06 | Inpatient (IN) | payer MEDICARE, OTHER ==
[2018-10-24] MEDS ORDERED: NORMAL SALINE 1000 ML 1,000 ML IV ONE (10:25)
[2018-10-24] MEDS ORDERED: HYDROMORPHONE HCL INJ/PF 2 MG/ML AMPULE IV ONE ×3 (10:25→14:22)
--- NOTE | 2018-10-24 10:31 | ER Document Report ---
ED Medical Screen (RME) - General Chief Complaint: Abdominal Pain Stated Complaint: STOMACH PAIN, FLANK PAIN Time Seen by Provider: 10/24/18 10:18 Primary Care Provider: CHEN KEYS DO [Primary Care Provider] - Follow up as needed TRAVEL OUTSIDE OF THE [place] IN LAST 30 DAYS: No - HPI Notes: 10/24/18 10:27 Patient is a 77-year-old male that presents to the emergency department for chief complaint of abdominal pain. Patient reports 5 days of epigastric abdominal pain that radiates down towards his umbilicus. He states the pain is sharp and has been constant with periods of exacerbation. He reports associated nausea, vomiting and diarrhea. Patient took 8 mg p.o. Zofran at 530 this morning. 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 He has IVC filter in place. He has not been taking Eliquis for 1 day because of a scheduled spinal injection tomorrow. ROS: GENERAL: Denies fever of chills CV: Denies chest pain PHYSICAL EXAMINATION: GENERAL: Ill-appearing, well-nourished and in moderate acute distress. HEAD: Atraumatic, normocephalic. EYES: Pupils equal round extraocular movements intact, conjunctiva are normal. ENT: Nares patent NECK: Normal range of motion LUNGS: No respiratory distress Musculoskeletal: Normal range of motion Abdominal pain: epigastric tenderness NEUROLOGICAL: Normal speech, normal gait. PSYCH: Normal mood, normal affect. MDM: Patient seen and examined for rapid initial assessment. Vital signs reviewed. A comprehensive ED assessment and evaluation of the patient, analysis of test results and completion of the medical decision making process will be conducted by additional ED providers. - Related Data Allergies/Adverse Reactions: celecoxib [From Celebrex] Allergy (Severe, Verified 10/24/18 10:10) Chest pain leflunomide [From Arava] Allergy (Severe, Verified 10/24/18 10:10) Chest pain-Full list of symptoms on 05/18/13 DC Summary meloxicam [From Mobic] Allergy (Severe, Verified 10/24/18 10:10) Chest pain methotrexate [Methotrexate] Allergy (Severe, Verified 10/24/18 10:10) Anaphylaxis ketorolac tromethamine [From Toradol] Allergy (Unknown, Verified 10/24/18 10:10) see comment NSAIDS (Non-Steroidal Anti-Inflamma Allergy (Verified 10/24/18 10:10) Sulfa (Sulfonamide Antibiotics) Adverse Reaction (Severe, Verified 10/24/18 10:10) Diarrhea Penicillins Adverse Reaction (Unknown, Verified 10/24/18 10:10) Rash Past Medical History - Social History Chew tobacco use (# tins/day): No Frequency of alcohol use: None Drug Abuse: None - Past Medical History Cardiac Medical History: Reports: Hx Congestive Heart Failure, Hx Coronary Artery Disease - CARDIAC CATH WITH ONE STENT, Hx DVT - FEBRUARY 2017 Denies: Hx Heart Attack, Hx Hypertension - ON MEDS FOR HEART FAILURE Pulmonary Medical History: Denies: Hx Asthma, Hx Bronchitis, Hx COPD, Hx Pneumonia, Hx Tuberculosis Neurological Medical History: Denies: Hx Cerebrovascular Accident, Hx Seizures Renal/ Medical History: Reports: Hx Kidney Stones. Denies: Hx Peritoneal Dialysis GI Medical History: Denies: Hx Hiatal Hernia, Hx Ulcer Musculoskeltal Medical History: Reports Hx Arthritis - RA, Reports Hx Gout Psychiatric Medical History: Denies: Hx Depression Past Surgical History: Reports: Hx Appendectomy, Hx Cardiac Catheterization, Hx Cardiac Surgery - stent X1, Hx Cholecystectomy, Hx Orthopedic Surgery - ankle / elbows, Other - Ureteral stent left kidney Removal stones and stent 2 weeks ago. Denies: Hx Open Heart Surgery - CATHERIZATIONS - Immunizations Hx Diphtheria, Pertussis, Tetanus Vaccination: Yes History of Influenza Vaccine for 05/2017 - 10/2017 Season: Yes Influenza Administration Date for 05/2017 - 10/2017 Season: 04/08/17 Physical Exam - Vital signs Vitals: Temp Pulse Resp BP Pulse Ox 97.6 F 87 20 139/78 H 99 10/24/18 10:09 10/24/18 10:09 10/24/18 10:09 10/24/18 10:09 10/24/18 10:09 Course - Vital Signs Vital signs: Temp Pulse Resp BP Pulse Ox 97.6 F 87 20 139/78 H 99 10/24/18 10:09 10/24/18 10:09 10/24/18 10:09 10/24/18 10:09 10/24/18 10:09 Doctor's Discharge - Discharge Referrals: CHEN KEYS DO [Primary Care Provider] - Follow up as needed
[2018-10-24 11:15] LABS: ABSOLUTE BASOPHILS # (AUTO) 0.1 10^3/uL (0.0-0.2); ABSOLUTE EOSINOPHILS # (AUTO) 0.2 10^3/uL (0.0-0.6); ABSOLUTE LYMPHOCYTES (AUTO) 2.8 10^3/uL (0.5-4.7); ABSOLUTE MONOCYTES (AUTO) 0.8 10^3/uL (0.1-1.4); ABSOLUTE NEUT (AUTO) 5.1 10^3/uL (1.7-8.2); BASOPHILS % (AUTO) 0.9 % (0-2); EOSINOPHILS % (AUTO) 2.6 % (0-6); HEMATOCRIT 48.2 % (37.9-51.0); HEMOGLOBIN 16.6 g/dL (13.5-17.0); LYMPHOCYTES % (AUTO) 31.5 % (13-45); MEAN CORPUSCULAR HEMOGLOBIN 32.7 pg (27.0-33.4); MEAN CORPUSCULAR HGB CONC 34.4 g/dL (32.0-36.0); MEAN CORPUSCULAR VOLUME 95 fl (80-97); MONOCYTES % (AUTO) 8.6 % (3-13); PLATELET COUNT 185 10^3/uL (150-450); RED BLOOD COUNT 5.07 10^6/uL (4.35-5.55); RED CELL DISTRIBUTION WIDTH 13.7 % (11.5-14.0); SEGMENTED NEUTROPHILS % (AUTO) 56.4 % (42-78); TOTAL CELLS COUNTED % (AUTO) 100 %
[2018-10-24 11:34] LABS: ALANINE AMINOTRANSFERASE 30 U/L (21-72); ALBUMIN 4.2 g/dL (3.5-5.0); ALKALINE PHOSPHATASE 43 U/L (38-126); ANION GAP 9 (5-19); ASPARTATE AMINO TRANSFERASE 30 U/L (17-59); BILIRUBIN,DIRECT 0.3 mg/dL (0.0-0.4); BILIRUBIN,TOTAL 1.1 mg/dL (0.2-1.3); BLOOD UREA NITROGEN 16 mg/dL (7-20); CALCIUM 9.7 mg/dL (8.4-10.2); CARBON DIOXIDE 26 mmol/L (22-30); CHLORIDE 105 mmol/L (98-107); GLUCOSE 101 mg/dL (75-110); LIPASE 208.3 U/L (23-300); POTASSIUM 3.9 mmol/L (3.6-5.0); SODIUM 140.1 mmol/L (137-145); TOTAL PROTEIN 6.4 g/dL (6.3-8.2)
--- NOTE | 2018-10-24 12:27 | RADIOLOGY REPORT (SQ) ---
EXAM DESCRIPTION: CHEST SINGLE VIEW COMPLETED DATE/TIME: 10/24/2018 12:22 pm REASON FOR STUDY: epigastric pain COMPARISON: 08/04/2018 EXAM PARAMETERS: NUMBER OF VIEWS: One view. TECHNIQUE: Single frontal radiographic view of the chest acquired. RADIATION DOSE: NA LIMITATIONS: None. FINDINGS: LUNGS AND PLEURA: No opacities, masses or pneumothorax. No pleural effusion. MEDIASTINUM AND HILAR STRUCTURES: No masses. Contour normal. HEART AND VASCULAR STRUCTURES: Heart size is borderline. There is no pulmonary edema. BONES: No acute findings. HARDWARE: Loop recorder. OTHER: No other significant finding. IMPRESSION: Borderline cardiomegaly without pulmonary edema. TECHNICAL DOCUMENTATION: JOB ID: [id number] [employer]- All Rights Reserved Reading location - IP/workstation name: [email or web address]
[2018-10-24 12:46] LABS: APPEARANCE,URINE SLIGHTLY-CLOUDY; BILIRUBIN,URINE NEGATIVE (NEGATIVE); COLOR,URINE YELLOW; GLUCOSE, URINE NEGATIVE (NEGATIVE); KETONES,URINE NEGATIVE (NEGATIVE); LEUKOCYTE ESTERASE,URINE SMALL (NEGATIVE); NITRITE,URINE NEGATIVE (NEGATIVE); PROTEIN,URINE NEGATIVE (NEGATIVE); URINE SPECIFIC GRAVITY 1.017; UROBILINOGEN,URINE NEGATIVE mg/dL (<2.0)
--- NOTE | 2018-10-24 12:49 | RADIOLOGY REPORT (SQ) ---
EXAM DESCRIPTION: CT ABD/PELVIS WITH IV ONLY COMPLETED DATE/TIME: 10/24/2018 12:11 pm REASON FOR STUDY: abdominal pain COMPARISON: 07/01/2017 TECHNIQUE: CT scan of the abdomen and pelvis performed using helical scanning technique with dynamic intravenous contrast injection. No oral contrast. Images reviewed with lung, soft tissue, and bone windows. Reconstructed coronal and sagittal MPR images reviewed. Delayed images for evaluation of the urinary system also acquired. All images stored on PACS. All CT scanners at this facility use dose modulation, iterative reconstruction, and/or weight based d osing when appropriate to reduce radiation dose to as low as reasonably achievable (ALARA). [facility]: Dose Right [facility]: CareDose [facility]: Dose Right [facility]: Teradose 4D [facility]: Conversion [employer] CONTRAST TYPE AND DOSE: contrast/concentration: Isovue 350.00 mg/ml; Total Contrast Delivered: 100.0 ml; Total Saline Delivered: 72.0 ml Omnipaque 350 100 cc RENAL FUNCTION: BUN 16, creatinine 1.0 RADIATION DOSE: CT Rad equipment meets quality standard of care and radiation dose reduction techniq ues were employed. CTDIvol: 18.1 - 19.8 mGy. DLP: 2281 mGy-cm.. LIMITATIONS: None. FINDINGS: LOWER CHEST: Dependent hypoventilatory change. No acute intrathoracic findings. LIVER: Normal size. No masses. No dilated ducts. SPLEEN: Normal size. No focal lesions. PANCREAS: No masses. No significant calcifications. No adjacent inflammation or peripancreatic fluid collections. Pancreatic duct not dilated. GALLBLADDER: Surgically absent. ADRENAL GLANDS: No significant masses or asymmetry. RIGHT KIDNEY AND URETER: No solid masses. Punctate nonobstructing interpolar stones. No hydroneph rosis or hydroureter. LEFT KIDNEY AND URETER: No solid masses. Multiple nonobstructing stones. Largest measuring 8 mm. No hydronephrosis or hydroureter. AORTA AND VESSELS: No aneurysm. No dissection. Renal arteries, SMA, celiac without stenosis. Inferio r vena cava filter below the level of the renal veins. RETROPERITONEUM: No retroperitoneal adenopathy, hemorrhage or masses. BOWEL AND PERITONEAL CAVITY: There is long segment diffuse bowel wall thickening of the terminal ileu m to the level of the ileocecal valve. There is mild mesenteric engorgement associated with these lo ops with small volume low attenuation ascites within the right lower quadrant. Mild gas fluid levels proximally without significant bowel dilation. Mild submucosal fatty deposition noted within the as cending colon. Scattered colonic diverticula. APPENDIX: Surgically absent. PELVIS: Decompressed urinary bladder. ABDOMINAL WALL: No masses. No hernias. BONES: No acute bony abnormality. No suspicious osseous lesions. OTHER: No other significant finding. IMPRESSION: 1. Long segment diffuse bowel wall thickening involving the terminal ileum to the level of the ileocecal valve with associated mesenteric engorgement and small volume adjacent ascites. Fi ndings suggestive of inflammatory bowel disease (Crohn's disease). 2. Multiple nonobstructing renal stones, left greater than right. Findings discussed with Dr. Ralph at the time of interpretation. TECHNICAL DOCUMENTATION: JOB ID: [id number] Quality ID # [id number]: Final reports with documentation of one or more dose reduction techniques (e.g., Au tomated exposure control, adjustment of the mA and/or kV according to patient size, use of iterative reconstruction technique) 2010 [employer]- All Rights Reserved Reading location - IP/workstation name: [email or web address]
[2018-10-24] MEDS ORDERED: CIPROFLOXACIN HCL 500 MG TABLET PO ONE (13:08)
[2018-10-24] MEDS ORDERED: OXYCODONE-ACETAMINOPHEN 5-325 MG TABLET PO ONE (13:08)
[2018-10-24] MEDS ORDERED: METRONIDAZOLE 500 MG TABLET PO ONE (13:08)
[2018-10-24] MEDS ORDERED: ONDANSETRON 4 MG TAB.RAPDIS PO ONE (13:08)
[2018-10-24] MEDS ORDERED: ONDANSETRON HCL INJ/PF 4 MG/2 ML SDV IV ONE (14:22)
--- NOTE | 2018-10-24 14:39 | ER Document Report ---
Entered by SERGEI SWARTZ SCRIBE 10/24/18 1113 Acting as scribe for:MARION DODD DO ED General - General Chief Complaint: Abdominal Pain Stated Complaint: STOMACH PAIN, FLANK PAIN Time Seen by Provider: 10/24/18 10:18 Primary Care Provider: CHEN KEYS DO [Primary Care Provider] - Follow up as needed Mode of Arrival: Ambulatory Information source: Patient Notes: Patient is a 77 year old male with CHF, type 2 diabetes, rheumatoid arthritis, CAD (1 stent) presents to the emergency department complaining of abdominal pain . Patient states he began to have abdominal pain around his umbilicus 4 days ago and began to take a stool softener. He states the next day, he developed diarrhea which is described has "purely liquid". He states he has been subsequently taking Immodium AD occasionally. He states yesterday the pain sherley me unbearable and states it is the same severity as his previous kidney stones but feels differently. He also complains of right flank pain, chills and 1 episode of vomiting (reports taking 8mg of Zofran this morning). He denies any blood in urine, burning with urination or fevers. Patient reports taking antibiotics in the last 3 months. He states he is currently on a taper dose of steroids and has also reports taking probiotics. TRAVEL OUTSIDE OF THE [place] IN LAST 30 DAYS: No - Related Data Allergies/Adverse Reactions: celecoxib [From Celebrex] Allergy (Severe, Verified 10/24/18 10:10) Chest pain leflunomide [From Arava] Allergy (Severe, Verified 10/24/18 10:10) Chest pain-Full list of symptoms on 05/18/13 DC Summary meloxicam [From Mobic] Allergy (Severe, Verified 10/24/18 10:10) Chest pain methotrexate [Methotrexate] Allergy (Severe, Verified 10/24/18 10:10) Anaphylaxis ketorolac tromethamine [From Toradol] Allergy (Unknown, Verified 10/24/18 10:10) see comment NSAIDS (Non-Steroidal Anti-Inflamma Allergy (Verified 10/24/18 10:10) Sulfa (Sulfonamide Antibiotics) Adverse Reaction (Severe, Verified 10/24/18 10:10) Diarrhea Penicillins Adverse Reaction (Unknown, Verified 10/24/18 10:10) Rash Past Medical History - General Information source: Patient - Social History Smoking Status: Never Smoker Chew tobacco use (# tins/day): No Frequency of alcohol use: None Drug Abuse: None Family History: Hypertension Patient has suicidal ideation: No Patient has homicidal ideation: No - Past Medical History Cardiac Medical History: Reports: Hx Congestive Heart Failure, Hx Coronary Artery Disease - CARDIAC CATH WITH ONE STENT, Hx DVT - FEBRUARY 2017 Neurological Medical History: Denies: Hx Cerebrovascular Accident, Hx Seizures Renal/ Medical History: Reports: Hx Kidney Stones. Denies: Hx Peritoneal Dialysis GI Medical History: Denies: Hx Hiatal Hernia, Hx Ulcer Musculoskeletal Medical History: Reports Hx Arthritis - RA, Reports Hx Gout Psychiatric Medical History: Denies: Hx Depression Past Surgical History: Reports: Hx Appendectomy, Hx Cardiac Catheterization, Hx Cardiac Surgery - stent X1, Hx Cholecystectomy, Hx Orthopedic Surgery - ankle / elbows, Other - Ureteral stent left kidney Removal stones and stent 2 weeks ago. Denies: Hx Open Heart Surgery - CATHERIZATIONS - Immunizations Hx Diphtheria, Pertussis, Tetanus Vaccination: Yes Hx Pneumococcal Vaccination: 08/08/13 Review of Systems - Review of Systems Constitutional: See HPI, Chills EENT: No symptoms reported Cardiovascular: No symptoms reported Respiratory: No symptoms reported Gastrointestinal: See HPI, Abdominal pain, Diarrhea Genitourinary: See HPI, Flank pain Male Genitourinary: No symptoms reported Musculoskeletal: No symptoms reported Skin: No symptoms reported Hematologic/Lymphatic: No symptoms reported Neurological/Psychological: No symptoms reported -: Yes All other systems reviewed and negative Physical Exam - Vital signs Vitals: Temp Pulse Resp BP Pulse Ox 97.6 F 87 20 139/78 H 99 10/24/18 10:09 10/24/18 10:09 10/24/18 10:09 10/24/18 10:09 10/24/18 10:09 - Notes Notes: GENERAL: Alert, interacts well. Appears mildly uncomfortable. HEAD: Normocephalic, atraumatic. EYES: Pupils equal, round, and reactive to light. Extraocular movements intact. ENT: Oral mucosa moist, tongue midline. NECK: Full range of motion. Supple. Trachea midline. LUNGS: Clear to auscultation bilaterally, no wheezes, rales, or rhonchi. No respiratory distress. HEART: Regular rate and rhythm. No murmurs, gallops, or rubs. ABDOMEN: Soft, diffuse abdominal tenderness, worse in the LLQ. Non-distended. Bowel sounds present in all 4 quadrants. No guarding, rigidity, or rebound. EXTREMITIES: Moves all 4 extremities spontaneously. NEUROLOGICAL: Alert and oriented x3. Normal speech. PSYCH: Normal affect, normal mood. SKIN: Warm, dry, normal turgor. No rashes or lesions noted. Course - Re-evaluation Re-evalutation: 10/24/18 13:07 Chest x-ray shows cardiomegaly without pulmonary edema, CBC unremarkable, CMP unremarkable, cardiac enzymes negative, lipase normal, urinalysis shows small blood and small leukocyte esterase, no real signs of an action. CT scan of the abdomen pelvis shows long segment of diffuse bowel wall thickening of the terminal ileum to the level of the ileocecal valve, there is mild mesenteric engorgement associated with these loops with small volume low-attenuation ascites within the right lower quadrant. Mild gas fluid levels approximately without significant bowel dilation. CT scan interpretation says findings suggestive of inflammatory bowel disease (Crohn's disease). I find it very unlikely that the patient has developed her first episode of Crohn's disease at 77 years old. Suspect that this is more infectious than inflammatory particularly as he is already on Biologics and steroids at this present time. Discussed with surgeon who agrees that the patient should have outpatient follow-up but if his pain can be controlled orally and he can tolerate food that this is more likely infectious than inflammatory. Patient will be given an oral challenge and if he passes that pain is controlled with oral pain medications he will be discharged home on antibiotics. 10/24/18 14:38 Pain was significantly worsened with fluids by mouth and james crackers. Increased nausea and inability to keep the james crackers down. Discussed the patient with Dr. Mercado and the nurse practitioner Sari Alexander, they accepted the patient to their service on the telemetry care unit. IV antibiotics have been started. - Vital Signs Vital signs: Temp Pulse Resp BP Pulse Ox 97.6 F 87 20 139/78 H 99 10/24/18 10:09 10/24/18 10:09 10/24/18 10:09 10/24/18 10:09 10/24/18 10:09 - Laboratory Result Diagrams: 10/24/18 11:03 10/24/18 11:03 Laboratory results interpreted by me: 10/24/18 10:26 Urine Blood SMALL H Ur Leukocyte Esterase SMALL H Discharge - Discharge Clinical Impression: Ileitis Condition: Fair Disposition: ADMITTED INPATIENT Admitting Provider: Dodie Alexander Unit Admitted: Telemetry Referrals: CHEN KEYS, [Primary Care Provider] - Follow up as needed I personally performed the services described in the documentation, reviewed and edited the documentation which was dictated to the scribe in my presence, and it accurately records my words and actions.
[2018-10-24] MEDS ORDERED: METRONIDAZOLE 500 MG/NS RTU 500 MG/100 ML RTUPB IV ONE (15:00)
[2018-10-24] MEDS: CIPROFLOXACIN 400 MG/D5W RTU 400 MG/200 ML RTUPB IV SCH ×2 (15:06→22:18)
[2018-10-24] MEDS ORDERED: ONDANSETRON HCL INJ/PF 4 MG/2 ML SDV IV PRN (15:40)
[2018-10-24] MEDS ORDERED: NORMAL SALINE 1000 ML 1,000 ML IV PRN (15:40)
[2018-10-24] MEDS ORDERED: DEXTROSE 40% GEL 15 GM TUBE PO PRN ×2 (15:40)
[2018-10-24] MEDS ORDERED: DEXTROSE 50%-WATER 25 GM/50 ML DISP.SYRIN IV PRN ×2 (15:40)
[2018-10-24] MEDS ORDERED: GLUCAGON,HUMAN RECOMB 1 MG INJ SUBCUT PRN (15:40)
--- NOTE | 2018-10-24 16:23 | PDOC H&P ---
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 He presented to [facility] with a 4-day history of diarrhea. The patient states he began experiencing abdominal pain approximately 4 days ago, thought it was related to constipation and took a stool softener. Within 24 hours he developed significant diarrhea and umbilical abdominal pain. Patient describes the pain as intermittent, severe and cramping, radiating to his bilateral flanks. He then began taking Imodium to attempt to control his diarrhea and simethicone for "gas pains." He also endorses nausea and vomiting, for which she took Zofran. The patient reports these medications did not offer relief, his pain got so bad this morning that he asked his daughter to drive him to the emergency department. Vital signs upon arrival BP 139/78 HR 87 RR 20 T 97.6 SPO2 99%. Laboratory s tudies were completely benign, including CBC, CMP and cardiac enzymes. CT abdomen/pelvis indicative of long segment diffuse bowel wall thickening involving the terminal ileum to the level of the ileocecal valve, mesenteric engorgement, small volume of adjacent ascites. Radiologist interpreted these findings as inflammatory bowel disease. Additionally, there were multiple nonobstructing renal calculi present, left more than right. Upon examination, the patient is resting comfortably in bed on room air. He is endorses umbilical abdominal pain, radiating to the bilateral lower quadrants an d bilateral flanks. He endorses nausea, vomiting and diarrhea. Denies lower back pain, fever or chills. Abdomen is soft, rotund, TTP to the umbilicus, bilateral lower quadrants. Hypoactive bowel sounds. Discussed the patient's case with supervisor bindery, Dr. Carranza, who agrees that a new diagnosis of IBD in a 77-year-old patient is highly unlikely. Given the patient's symptomology and radiological findings, this is most likely infectious colitis, made worse by Imodium. Plan to admit to the hospitalist service for acute colitis. Past Medical History Past Medical History: RHEUMATOID ARTHRITIS. Cardiac Medical History: Reports: Congestive Heart Failure - LVEF 30%, Coronary Artery Disease - CARDIAC CATH WITH ONE STENT, DVT - FEBRUARY 2017. IVC FILTER, Pulmonary Embolism - ON ELIQUIS Denies: Myocardial Infarction, Hypertension - ON MEDS FOR HEART FAILURE Pulmonary Medical History: Denies: Asthma, Bronchitis, Chronic Obstructive Pulmonary Disease (COPD), Pneumonia, Tuberculosis EENT Medical History: Reports: Cataracts Neurological Medical History: Denies: Seizures GI Medical History: Denies: Hiatal Hernia Musculoskeltal Medical History: Reports: Arthritis - RA, Gout Psychiatric Medical History: Denies: Depression Hematology: Denies: Anemia, Sickle Cell Disease Past Surgical History Past Surgical History: Reports: Appendectomy, Cardiac Catheterization, Cholecystectomy, Orthopedic Surgery - ankle / elbows, Other - Ureteral stent left kidney Removal stones and stent 2 weeks ago Social History Information Source: Patient Lives with: Alone Smoking Status: Never Smoker Frequency of Alcohol Use: Rare Hx Recreational Drug Use: Yes Drugs: None Hx Prescription Drug Abuse: No - Advance Directive Resuscitation Status: Full Code Family History Family History: Reviewed & Not Pertinent - PATIENT DOES NOT KNOW PARENTAL MEDICA L HISTORY. 1/2 SISTER HAS 'OBGYN CANCER', Hypertension Parental Family History Reviewed: Yes Children Family History Reviewed: Yes Sibling(s) Family History Reviewed.: Yes Medication/Allergy Home Medications: Allopurinol [Zyloprim 100 mg Tablet] 100 mg PO DAILY 02/27/18 Cetirizine HCl [Zyrtec 10 mg Tablet] 10 mg PO DAILY 02/27/18 Ergocalciferol (Vitamin D2) [Drisdol 50,000 unit (1.25MG) Capsule] 50,000 unit PO TH@1000 02/27/18 Fluticasone Propionate [Flonase Nasal [place] 50 Mcg/[place] 16 gm] 1 spray NASL DAILY 02/27/18 Losartan Potassium [Cozaar 25 mg Tablet] 1 tab PO DAILY 02/27/18 Metoprolol Succinate [Toprol Xl 25 mg Tab.sr] 25 mg PO BID 02/27/18 Prednisone [Deltasone 5 mg Tablet] 5 mg PO DAILY 02/27/18 Tamsulosin HCl [Flomax 0.4 mg Cap.sr] 0.4 mg PO DAILY 02/27/18 Torsemide [Demadex 20 mg Tablet] 20 mg PO PRN PRN 02/27/18 Apixaban [Eliquis 5 mg Tablet] 5 mg PO BID 04/06/18 Tocilizumab [Actemra] 800 mg IV-INFUSE .[id number] 04/06/18 Ondansetron HCl [Zofran 4 mg Tablet] 4 mg PO Q8 PRN 04/07/18 Escitalopram Oxalate [Lexapro] 10 mg PO DAILY 10/24/18 Folic Acid [Folvite 1 mg Tablet] 1 tab PO DAILY 10/24/18 Allergies/Adverse Reactions: celecoxib [From Celebrex] Allergy (Severe, Verified 10/24/18 10:10) Chest pain leflunomide [From Arava] Allergy (Severe, Verified 10/24/18 10:10) Chest pain-Full list of symptoms on 05/18/13 DC Summary meloxicam [From Mobic] Allergy (Severe, Verified 10/24/18 10:10) Chest pain methotrexate [Methotrexate] Allergy (Severe, Verified 10/24/18 10:10) Anaphylaxis ketorolac tromethamine [From Toradol] Allergy (Unknown, Verified 10/24/18 10:10) see comment NSAIDS (Non-Steroidal Anti-Inflamma Allergy (Verified 10/24/18 10:10) Sulfa (Sulfonamide Antibiotics) Adverse Reaction (Severe, Verified 10/24/18 10:10) Diarrhea Penicillins Adverse Reaction (Unknown, Verified 10/24/18 10:10) Rash Review of Systems Constitutional: PRESENT: weakness Nose, Mouth, and Throat: PRESENT: vertigo Cardiovascular: ABSENT: edema, palpitations Gastrointestinal: PRESENT: abdominal pain, bloating, diarrhea, nausea, vomiting Genitourinary: ABSENT: difficulty urinating Musculoskeletal: PRESENT: other - MUSCLE CRAMPING. ABSENT: back pain Integumentary: ABSENT: diaphoresis Neurological: ABSENT: confusion Endocrine: ABSENT: polyuria Hematologic/Lymphatic: ABSENT: lymphadenopathy Physical Exam Vital Signs: Temp Pulse Resp BP Pulse Ox 97.6 F 87 12 115/84 99 10/24/18 10:09 10/24/18 10:09 10/24/18 15:01 10/24/18 15:00 10/24/18 15:01 Intake & Output 10/23/18 10/24/18 10/25/18 06:59 06:59 06:59 Intake Total 1000 Balance 1000 Weight 106.9 kg Results Laboratory Results: 10/24/18 11:03 10/24/18 11:03 10/24/18 10/24/18 10/24/18 10:26 11:03 11:03 WBC 9.0 RBC 5.07 Hgb 16.6 Hct 48.2 MCV 95 MCH 32.7 MCHC 34.4 RDW 13.7 Plt Count 185 Seg Neutrophils % 56.4 Lymphocytes % 31.5 Monocytes % 8.6 Eosinophils % 2.6 Basophils % 0.9 Absolute Neutrophils 5.1 Absolute Lymphocytes 2.8 Absolute Monocytes 0.8 Absolute Eosinophils 0.2 Absolute Basophils 0.1 Sodium 140.1 Potassium 3.9 Chloride 105 Carbon Dioxide 26 Anion Gap 9 BUN 16 Creatinine 1.00 Est GFR ( Amer) > 60 Est GFR (Non-Af Amer) > 60 Glucose 101 Calcium 9.7 Total Bilirubin 1.1 AST 30 ALT 30 Alkaline Phosphatase 43 Total Protein 6.4 Albumin 4.2 Lipase 208.3 Urine Color YELLOW Urine Appearance SLIGHTLY-CLOUDY Urine pH 6.0 Ur Specific [place] 1.017 Urine Protein NEGATIVE Urine Glucose (UA) NEGATIVE Urine Ketones NEGATIVE Urine Blood SMALL H Urine Nitrite NEGATIVE Ur Leukocyte Esterase SMALL H Urine WBC (Auto) 29 Urine RBC (Auto) 6 10/24/18 11:03 Troponin I < 0.012 Impressions: Abdomen/Pelvis CT 10/24/18 10:26 IMPRESSION: 1. Long segment diffuse bowel wall thickening involving the terminal ileum to the level of the ileocecal valve with associated mesenteric engorgement and small volume adjacent ascites. Findings suggestive of inflammatory bowel disease (Crohn's disease). 2. Multiple nonobstructing renal stones, left greater than right. Findings discussed with Dr. Ralph at the time of interpretation. Chest X-Ray 10/24/18 10:27 IMPRESSION: Borderline cardiomegaly without pulmonary edema. Status: Imported from PACS Assessment and Plan - Diagnosis (1) Ileitis Is this a current diagnosis for this admission?: Yes Plan: Unclear etiology but likely infectious CT Abd/Pelvis reveals long segment diffuse bowel wall thickening involving the terminal ileum to the level of the ileocecal valve with associated mesenteric engorgement and small volume adjacent ascites. Findings suggestive of inflammatory bowel disease. This is highly unlikely due to patient's age & no PMH of IBD colonoscopy was relatively benign - revealed multiple polyps, diverticulosis, internal hemorrhoids. GI consulted - discussed with Dr. Carranza. Agree that this is likely infectious ileitis made worse by the patient taking Immodium Initiated IV ciprofloxacin and Flagyl Send stool samples for culture/C.diff PCR when possible Maintenance IVF -gentle hydration given the patient's history of CHF PRN IV analgesia If patient's symptoms have not improved in 3 days, plan for repeat CT (2) History of DVT (deep vein thrombosis) Is this a current diagnosis for this admission?: Yes Plan: History of DVT Continue PO eliquis (3) History of pulmonary embolism Is this a current diagnosis for this admission?: Yes Plan: History of PE Continue PO eliquis (4) CHF (congestive heart failure) Is this a current diagnosis for this admission?: Yes Plan: History of CHF Echocardiogram from 2017 indicates LVEF less than 30% EKG shows NSR, no evidence of ischemia or infarction Check Pro-BNP Continue metoprolol (5) Kidney stones Is this a current diagnosis for this admission?: Yes Plan: History of frequent kidney stones Multiple non-obstructing stones seen on CT Continue home dose flomax - Time Time Spent with patient: 15-24 minutes Medications reviewed and adjusted accordingly: Yes Anticipated discharge: Home Within: within 72 hours - Inpatient Certification Based on my medical assessment, after consideration of the patient's comorbidities, presenting symptoms, or acuity I expect that the services needed warrant INPATIENT care.: Yes I certify that my determination is in accordance with my understanding of Medicare's requirements for reasonable and necessary INPATIENT services [42 CFR 412.3e].: Yes Medical Necessity: Need for IV Antibiotics, Risk of Complication if Not Cared For in Hospital - Plan Summary Plan Summary: IVF. ANTIBIOTICS.
--- NOTE | 2018-10-24 16:43 | EKG REPORT ---
SEVERITY:- ABNORMAL ECG - SINUS RHYTHM MULTIPLE VENTRICULAR PREMATURE COMPLEXES LEFT AXIS DEVIATION : Confirmed by: Conor Robert 24-Oct-2018 16:42:47
--- NOTE | 2018-10-24 16:57 | PDOC CONSULTATION ---
Consultation Consult Date: 10/24/18 Attending physician:: LAURA MCBRIDE Consult reason:: abnormal findings on CT scan, abdominal pain and diarrhea History of Present Illness Admission Date/PCP: 10/24/18 14:46 CHEN KEYS DO History of Present Illness: KERRY COBURN is a 77 year old male patient is familiar to my service he had a colonoscopy less than 1 year ago, has a history of polyps and these were removed pathology was negative his labs are normal patient started his present course of illness with diarrhea and abdominal pain he started to take Immodium to try and improve his symptoms he present to the ED when his symptoms did not improve labs are normal, but patient had a CT scan it was read as having a long segment of inflammation at the terminal ileum that was concerning for possible Crohn's patient had a colonoscopy in March of last year and at that time did not have any evidence of Crohn's patient is not neutropenic and a typhilitis is less likely still could be an infectious process patient is admitted for now conservative management with hydration avoid narcotic pain management, with an infectious process, stopping the diarrhea and use of narcotics usually prolongs the duration of the illness he is being admitted for observation, would check stool samples to be checked for the usual incriminating agents such as Salmonella and Shigella denies any blood in his stools Past Medical History Cardiac Medical History: Reports: Congestive Heart Failure - LVEF 30%, Coronary Artery Disease - CARDIAC CATH WITH ONE STENT, DVT - FEBRUARY 2017. IVC FILTER, Pulmonary Embolism - ON ELIQUIS Denies: Myocardial Infarction, Hypertension - ON MEDS FOR HEART FAILURE Pulmonary Medical History: Denies: Asthma, Bronchitis, Chronic Obstructive Pulmonary Disease (COPD), Pneumonia, Tuberculosis EENT Medical History: Reports: Cataracts Neurological Medical History: Denies: Seizures GI Medical History: Denies: Hiatal Hernia Musculoskeltal Medical History: Reports: Arthritis - RA, Gout Psychiatric Medical History: Denies: Depression Hematology: Denies: Anemia, Sickle Cell Disease Past Surgical History Past Surgical History: Reports: Appendectomy, Cardiac Catheterization, Cholecystectomy, Orthopedic Surgery - ankle / elbows, Other - Ureteral stent left kidney Removal stones and stent 2 weeks ago Social History Lives with: Alone Smoking Status: Never Smoker Frequency of Alcohol Use: Rare Hx Recreational Drug Use: Yes Drugs: None Hx Prescription Drug Abuse: No - Advance Directive Resuscitation Status: Full Code Family History Family History: Reviewed & Not Pertinent - PATIENT DOES NOT KNOW PARENTAL MEDICAL HISTORY. 1/2 SISTER HAS 'OBGYN CANCER', Hypertension Parental Family History Reviewed: Yes Children Family History Reviewed: Unknown Sibling(s) Family History Reviewed.: Unknown Medication/Allergy Home Medications: Allopurinol [Zyloprim 100 mg Tablet] 100 mg PO DAILY 02/27/18 Cetirizine HCl [Zyrtec 10 mg Tablet] 10 mg PO DAILY 02/27/18 Ergocalciferol (Vitamin D2) [Drisdol 50,000 unit (1.25MG) Capsule] 50,000 unit PO TH@1000 02/27/18 Fluticasone Propionate [Flonase Nasal [place] 50 Mcg/[place] 16 gm] 1 spray NASL DAILY 02/27/18 Losartan Potassium [Cozaar 25 mg Tablet] 1 tab PO DAILY 02/27/18 Metoprolol Succinate [Toprol Xl 25 mg Tab.sr] 25 mg PO BID 02/27/18 Prednisone [Deltasone 5 mg Tablet] 5 mg PO DAILY 02/27/18 Tamsulosin HCl [Flomax 0.4 mg Cap.sr] 0.4 mg PO DAILY 02/27/18 Torsemide [Demadex 20 mg Tablet] 20 mg PO PRN PRN 02/27/18 Apixaban [Eliquis 5 mg Tablet] 5 mg PO BID 04/06/18 Tocilizumab [Actemra] 800 mg IV-INFUSE .[id number] 04/06/18 Ondansetron HCl [Zofran 4 mg Tablet] 4 mg PO Q8 PRN 04/07/18 Escitalopram Oxalate [Lexapro] 10 mg PO DAILY 10/24/18 Folic Acid [Folvite 1 mg Tablet] 1 tab PO DAILY 10/24/18 Allergies/Adverse Reactions: celecoxib [From Celebrex] Allergy (Severe, Verified 10/24/18 10:10) Chest pain leflunomide [From Arava] Allergy (Severe, Verified 10/24/18 10:10) Chest pain-Full list of symptoms on 05/18/13 DC Summary meloxicam [From Mobic] Allergy (Severe, Verified 10/24/18 10:10) Chest pain methotrexate [Methotrexate] Allergy (Severe, Verified 10/24/18 10:10) Anaphylaxis ketorolac tromethamine [From Toradol] Allergy (Unknown, Verified 10/24/18 10:10) see comment NSAIDS (Non-Steroidal Anti-Inflamma Allergy (Verified 10/24/18 10:10) Sulfa (Sulfonamide Antibiotics) Adverse Reaction (Severe, Verified 10/24/18 10:10) Diarrhea Penicillins Adverse Reaction (Unknown, Verified 10/24/18 10:10) Rash Review of Systems Constitutional: ABSENT: fever(s), headache(s), night sweats Eyes: ABSENT: visual disturbances Ears: ABSENT: hearing changes Nose, Mouth, and Throat: ABSENT: mouth pain, sore throat Cardiovascular: ABSENT: orthropnea Respiratory: ABSENT: dyspnea, hemoptysis Gastrointestinal: PRESENT: abdominal pain, diarrhea. ABSENT: hematemesis, judy tochezia, melena Genitourinary: ABSENT: dysuria, hematuria Musculoskeletal: ABSENT: deformity, joint swelling Neurological: ABSENT: syncope, tingling, tremor(s) Endocrine: ABSENT: polydipsia, polyphagia, polyuria Hematologic/Lymphatic: ABSENT: easy bruising Physical Exam Vital Signs: Temp Pulse Resp BP Pulse Ox 97.6 F 87 12 115/84 99 10/24/18 10:09 10/24/18 10:09 10/24/18 15:01 10/24/18 15:00 10/24/18 15:01 Intake & Output 10/23/18 10/24/18 10/25/18 06:59 06:59 06:59 Intake Total 1200 Balance 1200 Weight 106.9 kg General appearance: PRESENT: mild distress, well-developed, well-nourished Head exam: PRESENT: atraumatic, normocephalic Eye exam: PRESENT: EOMI, PERRLA. ABSENT: nystagmus, periorbital swelling, scleral icterus Mouth exam: PRESENT: moist, neck supple Throat exam: ABSENT: tonsillar exudate, tonsillogmegaly Respiratory exam: PRESENT: symmetrical, unlabored. ABSENT: tachypnea, wheezes Cardiovascular exam: PRESENT: RRR, +S1, +S2 GI/Abdominal exam: PRESENT: diminished bowel sounds, distended, tenderness. ABSENT: Rice's sign, rebound Extremities exam: ABSENT: joint swelling Musculoskeletal exam: PRESENT: full ROM Neurological exam: PRESENT: oriented to time, oriented to situation, CN II-XII grossly intact Focused psych exam: ABSENT: restlessness Skin exam: PRESENT: normal color. ABSENT: mottled, pallor, urticaria, vesicles Results Laboratory Results: 10/24/18 11:03 10/24/18 11:03 10/24/18 10/24/18 10/24/18 10:26 11:03 11:03 WBC 9.0 RBC 5.07 Hgb 16.6 Hct 48.2 MCV 95 MCH 32.7 MCHC 34.4 RDW 13.7 Plt Count 185 Seg Neutrophils % 56.4 Lymphocytes % 31.5 Monocytes % 8.6 Eosinophils % 2.6 Basophils % 0.9 Absolute Neutrophils 5.1 Absolute Lymphocytes 2.8 Absolute Monocytes 0.8 Absolute Eosinophils 0.2 Absolute Basophils 0.1 Sodium 140.1 Potassium 3.9 Chloride 105 Carbon Dioxide 26 Anion Gap 9 BUN 16 Creatinine 1.00 Est GFR ( Amer) > 60 Est GFR (Non-Af Amer) > 60 Glucose 101 Calcium 9.7 Total Bilirubin 1.1 AST 30 ALT 30 Alkaline Phosphatase 43 Total Protein 6.4 Albumin 4.2 Lipase 208.3 Urine Color YELLOW Urine Appearance SLIGHTLY-CLOUDY Urine pH 6.0 Ur Specific [place] 1.017 Urine Protein NEGATIVE Urine Glucose (UA) NEGATIVE Urine Ketones NEGATIVE Urine Blood SMALL H Urine Nitrite NEGATIVE Ur Leukocyte Esterase SMALL H Urine WBC (Auto) 29 Urine RBC (Auto) 6 10/24/18 11:03 Troponin I < 0.012 Impressions: Abdomen/Pelvis CT 10/24/18 10:26 IMPRESSION: 1. Long segment diffuse bowel wall thickening involving the terminal ileum to the level of the ileocecal valve with associated mesenteric engorgement and small volume adjacent ascites. Findings suggestive of inflammatory bowel disease (Crohn's disease). 2. Multiple nonobstructing renal stones, left greater than right. Findings discussed with Dr. Ralph at the time of interpretation. Chest X-Ray 10/24/18 10:27 IMPRESSION: Borderline cardiomegaly without pulmonary edema. Assessment & Plan - Diagnosis (1) Ileitis Is this a current diagnosis for this admission?: Yes Plan: patient likely have a prolonged gastroenteritis likely worsened with use of Imodium and he was on steroid at this point some what unusual that a 77 year old would develop Crohn's . in fact, if this were Crohn's the use of steroids would have improved symptoms rather than make it worse he likely contracted a gastroenteritis with findings of the TI more of sign of a prolonged infection the use of Imodium as well as the fact that he was on steroids likely made the infection worse admit for observation and follow labs patient to get hydration, likely to equilibrate his hemodynamics, drop in his Hgb send for stool samples including the usual culprits and for C.Diff as well does not need instrumentation for now reviewed previous colonoscopy and EGD report - Time Time Spent: 50 to 70 Minutes
[2018-10-24] MEDS: HYDROMORPHONE HCL INJ/PF 2 MG/ML AMPULE IV PRN ×2 (19:04→22:23)
[2018-10-24] MEDS: PROMETHAZINE HCL INJ 25 MG/1 ML VIAL IV PRN (22:22)
[2018-10-24] MEDS: PANTOPRAZOLE SODIUM 40 MG VIAL IV SCH (22:22)
[2018-10-25] MEDS: HYDROMORPHONE HCL INJ/PF 2 MG/ML AMPULE IV PRN (05:58)
[2018-10-25] MEDS: PROMETHAZINE HCL INJ 25 MG/1 ML VIAL IV PRN ×2 (06:00→21:55)
[2018-10-25 07:19] LABS: ABSOLUTE EOSINOPHILS # (AUTO) 0.4 10^3/uL (0.0-0.6); ABSOLUTE LYMPHOCYTES (AUTO) 2.2 10^3/uL (0.5-4.7); ABSOLUTE MONOCYTES (AUTO) 0.5 10^3/uL (0.1-1.4); ABSOLUTE NEUT (AUTO) 3.2 10^3/uL (1.7-8.2); BASOPHILS % (AUTO) 0.4 % (0-2); EOSINOPHILS % (AUTO) 5.9 % (0-6); HEMATOCRIT 45.3 % (37.9-51.0); HEMOGLOBIN 15.3 g/dL (13.5-17.0); LYMPHOCYTES % (AUTO) 34.8 % (13-45); MEAN CORPUSCULAR HEMOGLOBIN 32.6 pg (27.0-33.4); MEAN CORPUSCULAR HGB CONC 33.7 g/dL (32.0-36.0); MEAN CORPUSCULAR VOLUME 97 fl (80-97); MONOCYTES % (AUTO) 8.6 % (3-13); PLATELET COUNT 161 10^3/uL (150-450); RED BLOOD COUNT 4.68 10^6/uL (4.35-5.55); RED CELL DISTRIBUTION WIDTH 13.7 % (11.5-14.0); SEGMENTED NEUTROPHILS % (AUTO) 50.3 % (42-78); TOTAL CELLS COUNTED % (AUTO) 100 %; WHITE BLOOD COUNT 6.4 10^3/uL (4.0-10.5)
[2018-10-25 07:38] LABS: ALANINE AMINOTRANSFERASE 30 U/L (21-72); ALBUMIN 3.3 g/dL (3.5-5.0); ALKALINE PHOSPHATASE 43 U/L (38-126); ANION GAP 6 (5-19); ASPARTATE AMINO TRANSFERASE 22 U/L (17-59); BILIRUBIN,DIRECT 0.2 mg/dL (0.0-0.4); BILIRUBIN,TOTAL 0.8 mg/dL (0.2-1.3); BLOOD UREA NITROGEN 11 mg/dL (7-20); CALCIUM 8.9 mg/dL (8.4-10.2); CARBON DIOXIDE 28 mmol/L (22-30); CHLORIDE 108 mmol/L (98-107); CHOLESTEROL 117.77 mg/dL (0-200); GLUCOSE 88 mg/dL (75-110); POTASSIUM 3.7 mmol/L (3.6-5.0); SODIUM 141.7 mmol/L (137-145); TOTAL PROTEIN 5.4 g/dL (6.3-8.2); TRIGLYCERIDES 317 mg/dL (<150)
[2018-10-25 07:49] LABS: DIRECT LDL 44 mg/dL (<100)
[2018-10-25 07:50] LABS: VLDL CHOLESTEROL 63.4 mg/dL (10-31)
[2018-10-25] MEDS ORDERED: DIPHENHYDRAMINE HCL 25 MG CAPSULE PO PRN (08:22)
--- NOTE | 2018-10-25 08:52 | PDOC PROGRESS REPORT ---
Subjective Progress Note for:: 10/25/18 Subjective:: labs remain normal patient does have trace findings on his UA including blood and leukocyte esterace. he had been on a tapering dose of steroids and so his reaction to a possible UTI/ kidney stone that he has a history of in the past may be muted would be prudent to add antibiotics to treat for that as well Reason For Visit: COLITIS Physical Exam Vital Signs: Temp Pulse Resp BP Pulse Ox 98.6 F 95 19 111/57 L 92 10/25/18 07:44 10/25/18 07:44 10/25/18 07:44 10/25/18 07:44 10/25/18 07:44 Intake & Output 10/24/18 10/25/18 10/26/18 06:59 06:59 06:59 Intake Total 1500 Balance 1500 Weight 106.594 kg General appearance: PRESENT: mild distress, well-developed, well-nourished Head exam: PRESENT: atraumatic, normocephalic Eye exam: PRESENT: EOMI, PERRLA. ABSENT: nystagmus, periorbital swelling, scleral icterus Mouth exam: PRESENT: moist, neck supple Throat exam: ABSENT: tonsillar exudate, tonsillogmegaly Neck exam: ABSENT: meningismus, tenderness, thyromegaly Respiratory exam: PRESENT: symmetrical, unlabored. ABSENT: tachypnea, wheezes Cardiovascular exam: PRESENT: +S1, +S2 GI/Abdominal exam: PRESENT: diminished bowel sounds, distended. ABSENT: rebound Extremities exam: ABSENT: joint swelling Musculoskeletal exam: PRESENT: full ROM Neurological exam: PRESENT: oriented to time, oriented to situation, CN II-XII grossly intact Focused psych exam: ABSENT: restlessness Skin exam: PRESENT: normal color. ABSENT: mottled, pallor, urticaria, vesicles Results Laboratory Results: 10/25/18 06:24 10/25/18 06:24 10/24/18 10/24/18 10/24/18 10:26 11:03 11:03 WBC 9.0 RBC 5.07 Hgb 16.6 Hct 48.2 MCV 95 MCH 32.7 MCHC 34.4 RDW 13.7 Plt Count 185 Seg Neutrophils % 56.4 Lymphocytes % 31.5 Monocytes % 8.6 Eosinophils % 2.6 Basophils % 0.9 Absolute Neutrophils 5.1 Absolute Lymphocytes 2.8 Absolute Monocytes 0.8 Absolute Eosinophils 0.2 Absolute Basophils 0.1 Sodium 140.1 Potassium 3.9 Chloride 105 Carbon Dioxide 26 Anion Gap 9 BUN 16 Creatinine 1.00 Est GFR ( Amer) > 60 Est GFR (Non-Af Amer) > 60 Glucose 101 Calcium 9.7 Magnesium Total Bilirubin 1.1 AST 30 ALT 30 Alkaline Phosphatase 43 Total Protein 6.4 Albumin 4.2 Triglycerides Cholesterol LDL Cholesterol Direct VLDL Cholesterol HDL Cholesterol Lipase 208.3 Urine Color YELLOW Urine Appearance SLIGHTLY-CLOUDY Urine pH 6.0 Ur Specific [place] 1.017 Urine Protein NEGATIVE Urine Glucose (UA) NEGATIVE Urine Ketones NEGATIVE Urine Blood SMALL H Urine Nitrite NEGATIVE Ur Leukocyte Esterase SMALL H Urine WBC (Auto) 29 Urine RBC (Auto) 6 10/25/18 10/25/18 06:24 06:24 WBC 6.4 RBC 4.68 Hgb 15.3 Hct 45.3 MCV 97 MCH 32.6 MCHC 33.7 RDW 13.7 Plt Count 161 Seg Neutrophils % 50.3 Lymphocytes % 34.8 Monocytes % 8.6 Eosinophils % 5.9 Basophils % 0.4 Absolute Neutrophils 3.2 Absolute Lymphocytes 2.2 Absolute Monocytes 0.5 Absolute Eosinophils 0.4 Absolute Basophils 0.0 Sodium 141.7 Potassium 3.7 Chloride 108 H Carbon Dioxide 28 Anion Gap 6 BUN 11 Creatinine 1.04 Est GFR ( Amer) > 60 Est GFR (Non-Af Amer) > 60 Glucose 88 Calcium 8.9 Magnesium 2.0 Total Bilirubin 0.8 AST 22 ALT 30 Alkaline Phosphatase 43 Total Protein 5.4 L Albumin 3.3 L Triglycerides 317 H Cholesterol 117.77 LDL Cholesterol Direct 44 VLDL Cholesterol 63.4 H HDL Cholesterol 36 L Lipase Urine Color Urine Appearance Urine pH Ur Specific [place] Urine Protein Urine Glucose (UA) Urine Ketones Urine Blood Urine Nitrite Ur Leukocyte Esterase Urine WBC (Auto) Urine RBC (Auto) 10/24/18 10/25/18 11:03 06:24 Troponin I < 0.012 NT-Pro-B Natriuret Pep 94 Impressions: Abdomen/Pelvis CT 10/24/18 10:26 IMPRESSION: 1. Long segment diffuse bowel wall thickening involving the terminal ileum to the level of the ileocecal valve with associated mesenteric engorgement and small volume adjacent ascites. Findings suggestive of inflammatory bowel disease (Crohn's disease). 2. Multiple nonobstructing renal stones, left greater than right. Findings discussed with Dr. Ralph at the time of interpretation. Chest X-Ray 10/24/18 10:27 IMPRESSION: Borderline cardiomegaly without pulmonary edema. Assessment & Plan - Diagnosis (1) Ileitis Is this a current diagnosis for this admission?: Yes Plan: continue antibiotics labs remain normal agree with continue hydration avoid narcotics if possible repeat CT scan in several days if still in hospital will follow - Time Time Spent with patient: 15-24 minutes
--- NOTE | 2018-10-25 09:24 | Progress Note ---
Provider Note Provider Note: In speaking with the patient this am he provides the history of being on biological therapy for his RA certainly since that he has RA which is an autoimmune disease, Crohn's would be a possibility, however the acute presentation is somewhat atypical. however it should have similarly been controlled with the biological and also with the steroid taper that he was on will continue to follow , his pain continues to have periumbilical in nature with oral intake. would check ASCA and pANCA on labs.
[2018-10-25] MEDS: APIXABAN 5 MG TABLET PO SCH ×2 (09:26→21:28)
[2018-10-25] MEDS: FOLIC ACID 1 MG TABLET PO SCH (09:26)
[2018-10-25] MEDS: ESCITALOPRAM OXALATE 10 MG TABLET PO SCH (09:26)
[2018-10-25] MEDS: PREDNISONE 5 MG TABLET PO SCH (09:26)
[2018-10-25] MEDS: METOPROLOL SUCCINATE 25 MG TAB.SR.24H PO SCH ×2 (09:27→21:28)
[2018-10-25] MEDS: TIMOLOL MALEATE 0.5% OPH SOLN 5 ML OU SCH ×2 (09:27→21:27)
[2018-10-25] MEDS: PANTOPRAZOLE SODIUM 40 MG VIAL IV SCH ×2 (09:27→21:26)
[2018-10-25] MEDS: CIPROFLOXACIN 400 MG/D5W RTU 400 MG/200 ML RTUPB IV SCH ×2 (09:27→21:28)
[2018-10-25] MEDS ORDERED: (PENDING PHARMACY ID) (Timolol [Betimol] 5 ML) OU SCH (10:00)
[2018-10-25] MEDS ORDERED: TAMSULOSIN HCL 0.4 MG CAP.SR.24H PO SCH (10:00)
[2018-10-25] MEDS ORDERED: ENOXAPARIN SODIUM INJ 30 MG/0.3 ML DISP.SYRIN SUBCUT SCH (10:00)
--- NOTE | 2018-10-25 11:39 | PDOC PROGRESS REPORT ---
Subjective Progress Note for:: 10/25/18 Subjective:: Patient is a 77-year-old male admitted for ileitis. Overall he is feeling slightly better he did have an episode of pain early this morning when he attempted to drink a couple of sips of water. Been afebrile overnight. Still complaining of abdominal pain but currently his current pain medication regimen is working for him. Reason For Visit: COLITIS Physical Exam Vital Signs: Temp Pulse Resp BP Pulse Ox 98.6 F 95 19 111/57 L 92 10/25/18 07:44 10/25/18 07:44 10/25/18 07:44 10/25/18 07:44 10/25/18 07:44 Intake & Output 10/24/18 10/25/18 10/26/18 06:59 06:59 06:59 Intake Total 1500 Balance 1500 Weight 106.594 kg General appearance: PRESENT: no acute distress, cooperative Eye exam: ABSENT: scleral icterus Mouth exam: PRESENT: moist, neck supple Throat exam: ABSENT: tonsillogmegaly Neck exam: ABSENT: full ROM, JVD, lymphadenopathy, tenderness, thyromegaly, tracheal deviation Respiratory exam: PRESENT: clear to auscultation nikita. ABSENT: accessory muscle use Cardiovascular exam: PRESENT: RRR GI/Abdominal exam: PRESENT: normal bowel sounds, soft, tenderness - diffuse Extremities exam: ABSENT: pedal edema, tenderness Musculoskeletal exam: PRESENT: full ROM Neurological exam: PRESENT: alert, oriented to person, oriented to place, oriented to time, oriented to situation Psychiatric exam: ABSENT: agitated, anxious Skin exam: PRESENT: dry, normal color, warm Results Laboratory Results: 10/25/18 06:24 10/25/18 06:24 10/24/18 10/24/18 10/25/18 10:26 11:03 06:24 WBC 6.4 RBC 4.68 Hgb 15.3 Hct 45.3 MCV 97 MCH 32.6 MCHC 33.7 RDW 13.7 Plt Count 161 Seg Neutrophils % 50.3 Lymphocytes % 34.8 Monocytes % 8.6 Eosinophils % 5.9 Basophils % 0.4 Absolute Neutrophils 3.2 Absolute Lymphocytes 2.2 Absolute Monocytes 0.5 Absolute Eosinophils 0.4 Absolute Basophils 0.0 Sodium 140.1 Potassium 3.9 Chloride 105 Carbon Dioxide 26 Anion Gap 9 BUN 16 Creatinine 1.00 Est GFR ( Amer) > 60 Est GFR (Non-Af Amer) > 60 Glucose 101 Calcium 9.7 Magnesium Total Bilirubin 1.1 AST 30 ALT 30 Alkaline Phosphatase 43 Total Protein 6.4 Albumin 4.2 Triglycerides Cholesterol LDL Cholesterol Direct VLDL Cholesterol HDL Cholesterol Lipase 208.3 Urine Color YELLOW Urine Appearance SLIGHTLY-CLOUDY Urine pH 6.0 Ur Specific [place] 1.017 Urine Protein NEGATIVE Urine Glucose (UA) NEGATIVE Urine Ketones NEGATIVE Urine Blood SMALL H Urine Nitrite NEGATIVE Ur Leukocyte Esterase SMALL H Urine WBC (Auto) 29 Urine RBC (Auto) 6 10/25/18 06:24 WBC RBC Hgb Hct MCV MCH MCHC RDW Plt Count Seg Neutrophils % Lymphocytes % Monocytes % Eosinophils % Basophils % Absolute Neutrophils Absolute Lymphocytes Absolute Monocytes Absolute Eosinophils Absolute Basophils Sodium 141.7 Potassium 3.7 Chloride 108 H Carbon Dioxide 28 Anion Gap 6 BUN 11 Creatinine 1.04 Est GFR ( Amer) > 60 Est GFR (Non-Af Amer) > 60 Glucose 88 Calcium 8.9 Magnesium 2.0 Total Bilirubin 0.8 AST 22 ALT 30 Alkaline Phosphatase 43 Total Protein 5.4 L Albumin 3.3 L Triglycerides 317 H Cholesterol 117.77 LDL Cholesterol Direct 44 VLDL Cholesterol 63.4 H HDL Cholesterol 36 L Lipase Urine Color Urine Appearance Urine pH Ur Specific [place] Urine Protein Urine Glucose (UA) Urine Ketones Urine Blood Urine Nitrite Ur Leukocyte Esterase Urine WBC (Auto) Urine RBC (Auto) 10/24/18 10/25/18 11:03 06:24 Troponin I < 0.012 NT-Pro-B Natriuret Pep 94 Impressions: Abdomen/Pelvis CT 10/24/18 10:26 IMPRESSION: 1. Long segment diffuse bowel wall thickening involving the terminal ileum to the level of the ileocecal valve with associated mesenteric engorgement and small volume adjacent ascites. Findings suggestive of inflammatory bowel disease (Crohn's disease). 2. Multiple nonobstructing renal stones, left greater than right. Findings discussed with Dr. Ralph at the time of interpretation. Chest X-Ray 10/24/18 10:27 IMPRESSION: Borderline cardiomegaly without pulmonary edema. Assessment and Plan - Diagnosis (1) Ileitis Is this a current diagnosis for this admission?: Yes Plan: Unclear etiology but likely infectious CT Abd/Pelvis reveals long segment diffuse bowel wall thickening involving the terminal ileum to the level of the ileocecal valve with associated mesenteric engorgement and small volume adjacent ascites. Findings suggestive of inflammatory bowel disease. This is highly unlikely due to patient's age & no PMH of IBD colonoscopy was relatively benign - revealed multiple polyps, d iverticulosis, internal hemorrhoids. GI consulted - discussed with Dr. Carranza. Agree that this is likely infectious ileitis made worse by the patient taking Immodium Initiated IV ciprofloxacin and Flagyl Send stool samples for culture/C.diff PCR when possible Maintenance IVF -gentle hydration given the patient's history of CHF PRN IV analgesia If patient's symptoms have not improved in 3 days, plan for repeat CT 10/25/18: We will start to advance his diet to clear liquids and see how he tolerates. Still consider repeating CT scan if he does not continue to improve. Encouraged patient to ambulate today as much as possible. (2) CHF (congestive heart failure) Qualifiers: Heart failure type: combined systolic and diastolic Is this a current diagnosis for this admission?: Yes Plan: History of CHF Echocardiogram from 2017 indicates LVEF less than 30% EKG shows NSR, no evidence of ischemia or infarction Check Pro-BNP Continue metoprolol Currently no signs of fluid overload. Holding patient's home diuretic to the fact of requiring IV fluids at this point. Need to monitor very carefully for signs of fluid overload. (3) Coronary artery disease Qualifiers: Coronary Disease-Associated Artery/Lesion type: [place] artery [place] vs. transplanted heart: [place] heart Associated angina: with unspecified angina Qualified Code(s): I25.119 - Atherosclerotic heart disease of [place] coronary artery with unspecified angina pectoris Is this a current diagnosis for this admission?: Yes Plan: We will continue his home medications monitor carefully. - Time Time Spent with patient: 25-34 minutes Medications reviewed and adjusted accordingly: Yes Anticipated discharge: Home
[2018-10-25] MEDS ORDERED: ACETAMINOPHEN 325 MG TABLET PO PRN (13:11)
[2018-10-25] MEDS: LOSARTAN POTASSIUM 25 MG TABLET PO SCH ×2 (17:14→17:16)
[2018-10-25] MEDS: LATANOPROST 0.005% OPH SOLN 2.5 ML OU SCH (21:27)
[2018-10-25] MEDS: TAMSULOSIN HCL 0.4 MG CAP.SR.24H PO SCH (21:29)
[2018-10-25] MEDS ORDERED: (PENDING PHARMACY ID) (Latanoprost/Pf [Latanoprost 0.005% Eye Drop] 1 DROP) OU SCH (22:00)
[2018-10-26 06:37] LABS: ANION GAP 9 (5-19); BLOOD UREA NITROGEN 9 mg/dL (7-20); CARBON DIOXIDE 25 mmol/L (22-30); CHLORIDE 107 mmol/L (98-107); GLUCOSE 95 mg/dL (75-110); POTASSIUM 3.4 mmol/L (3.6-5.0); SODIUM 140.5 mmol/L (137-145)
[2018-10-26] MEDS: FOLIC ACID 1 MG TABLET PO SCH (09:09)
[2018-10-26] MEDS: ESCITALOPRAM OXALATE 10 MG TABLET PO SCH (09:09)
[2018-10-26] MEDS: METOPROLOL SUCCINATE 25 MG TAB.SR.24H PO SCH ×2 (09:09→21:33)
[2018-10-26] MEDS: LOSARTAN POTASSIUM 25 MG TABLET PO SCH (09:09)
[2018-10-26] MEDS: PANTOPRAZOLE SODIUM 40 MG VIAL IV SCH ×2 (09:09→21:31)
[2018-10-26] MEDS: APIXABAN 5 MG TABLET PO SCH ×2 (09:09→21:33)
[2018-10-26] MEDS: CIPROFLOXACIN 400 MG/D5W RTU 400 MG/200 ML RTUPB IV SCH ×2 (09:10→21:32)
[2018-10-26] MEDS: PREDNISONE 5 MG TABLET PO SCH (09:11)
[2018-10-26] MEDS: TIMOLOL MALEATE 0.5% OPH SOLN 5 ML OU SCH ×2 (09:11→21:32)
--- NOTE | 2018-10-26 13:08 | PDOC PROGRESS REPORT ---
Subjective Progress Note for:: 10/26/18 Subjective:: spoke with patient today has not had to have pain medication for the past 24 hours admits that pain is some better had BM x2, solid, no diarrhea patient had biologic infusion on 10/10 and next is due on 11/10 trial of oral intake today labs have been normal patient may benefit from increasing his dose of steroids back to 40mg and have a slow taper. this will transition thru the next dose of biologic infusion Reason For Visit: COLITIS Physical Exam Vital Signs: Temp Pulse Resp BP Pulse Ox 98.6 F 72 18 116/66 97 10/26/18 11:00 10/26/18 11:00 10/26/18 11:00 10/26/18 11:00 10/26/18 11:00 Intake & Output 10/25/18 10/26/18 10/27/18 06:59 06:59 06:59 Intake Total 1500 2500 Balance 1500 2500 Weight 106.594 kg 106.5 kg General appearance: PRESENT: no acute distress, well-developed, well-nourished Head exam: PRESENT: atraumatic, normocephalic Eye exam: PRESENT: EOMI, PERRLA. ABSENT: nystagmus, periorbital swelling, scleral icterus Mouth exam: PRESENT: moist, neck supple Throat exam: ABSENT: tonsillar exudate, tonsillogmegaly Neck exam: ABSENT: meningismus, tenderness, thyromegaly Respiratory exam: PRESENT: symmetrical, tachypnea. ABSENT: unlabored Cardiovascular exam: PRESENT: RRR, +S1, +S2 GI/Abdominal exam: PRESENT: soft. ABSENT: rebound, rigid, tenderness Extremities exam: ABSENT: joint swelling Neurological exam: PRESENT: oriented to time, oriented to situation, CN II-XII grossly intact Focused psych exam: ABSENT: restlessness Skin exam: PRESENT: normal color. ABSENT: mottled, pallor, urticaria, vesicles Results Laboratory Results: 10/25/18 06:24 10/26/18 05:54 10/26/18 05:54 Sodium 140.5 Potassium 3.4 L Chloride 107 Carbon Dioxide 25 Anion Gap 9 BUN 9 Creatinine 0.89 Est GFR ( Amer) > 60 Est GFR (Non-Af Amer) > 60 Glucose 95 Calcium 9.0 10/24/18 10:26 Clean Catch Midstream Urine Culture - Final Mixed Urogenital [place] 10/24/18 10/25/18 11:03 06:24 Troponin I < 0.012 NT-Pro-B Natriuret Pep 94 Impressions: Abdomen/Pelvis CT 10/24/18 10:26 IMPRESSION: 1. Long segment diffuse bowel wall thickening involving the terminal ileum to the level of the ileocecal valve with associated mesenteric engorgement and small volume adjacent ascites. Findings suggestive of inflammatory bowel disease (Crohn's disease). 2. Multiple nonobstructing renal stones, left greater than right. Findings discussed with Dr. Ralph at the time of interpretation. Chest X-Ray 10/24/18 10:27 IMPRESSION: Borderline cardiomegaly without pulmonary edema. Assessment & Plan - Diagnosis (1) Ileitis Is this a current diagnosis for this admission?: Yes Plan: presumed flare of Crohn's with history of RA, and symptoms WBC has been normal and so infectious process now is less likely patient may benefit from having his steroid increased back to 40mg and stay on this dose for 1 week with 10mg taper per week this should transition him thru to the next dose of biologic patient to try some oral intake, and if tolerate could likely be discharged with close outpatient follow up discussed plan with patient - Time Time Spent with patient: 15-24 minutes
[2018-10-26] MEDS ORDERED: PROMETHAZINE HCL INJ 25 MG/1 ML VIAL IV PRN (13:30)
[2018-10-26] MEDS ORDERED: ONDANSETRON HCL INJ/PF 4 MG/2 ML SDV IV PRN (14:00)
--- NOTE | 2018-10-26 18:12 | PDOC PROGRESS REPORT ---
Subjective Progress Note for:: 10/26/18 Subjective:: No adverse events overnight. His only complaint today is that how he is gotten to eat is liquids and he would like to have his diet advanced. He is not having any abdominal pain. He had a bowel movement. No fevers. No blood in his stool. Reason For Visit: COLITIS Physical Exam Vital Signs: Temp Pulse Resp BP Pulse Ox 98.7 F 95 19 109/74 95 10/26/18 15:00 10/26/18 15:00 10/26/18 15:00 10/26/18 15:00 10/26/18 15:00 Intake & Output 10/25/18 10/26/18 10/27/18 06:59 06:59 06:59 Intake Total 1500 2500 200 Balance 1500 2500 200 Weight 106.594 kg 106.5 kg 106.5 kg General appearance: PRESENT: no acute distress, cooperative Respiratory exam: PRESENT: clear to auscultation nikita. ABSENT: accessory muscle use Cardiovascular exam: PRESENT: RRR GI/Abdominal exam: PRESENT: normal bowel sounds, soft. Absent: Tenderness Extremities exam: ABSENT: pedal edema, tenderness Musculoskeletal exam: PRESENT: full ROM Neurological exam: PRESENT: alert, oriented to person, oriented to place, oriented to time, oriented to situation Psychiatric exam: ABSENT: agitated, anxious Skin exam: PRESENT: dry, normal color, warm Results Laboratory Results: 10/25/18 06:24 10/26/18 05:54 10/26/18 05:54 Sodium 140.5 Potassium 3.4 L Chloride 107 Carbon Dioxide 25 Anion Gap 9 BUN 9 Creatinine 0.89 Est GFR ( Amer) > 60 Est GFR (Non-Af Amer) > 60 Glucose 95 Calcium 9.0 10/24/18 10:26 Clean Catch Midstream Urine Culture - Final Mixed Urogenital Lona 10/24/18 10/25/18 11:03 06:24 Troponin I < 0.012 NT-Pro-B Natriuret Pep 94 Impressions: Abdomen/Pelvis CT 10/24/18 10:26 IMPRESSION: 1. Long segment diffuse bowel wall thickening involving the terminal ileum to the level of the ileocecal valve with associated mesenteric engorgement and small volume adjacent ascites. Findings suggestive of inflammatory bowel disease (Crohn's disease). 2. Multiple nonobstructing renal stones, left greater than right. Findings discussed with Dr. Ralph at the time of interpretation. Chest X-Ray 10/24/18 10:27 IMPRESSION: Borderline cardiomegaly without pulmonary edema. Assessment and Plan - Diagnosis (1) Ileitis Is this a current diagnosis for this admission?: Yes Plan: Has a history of Crohn's disease. Symptoms seem to have improved. Were giving him a trial of p.o. Dr. Lovell recommended increasing his prednisone back to 40 mg a day and tapering it every week by 10 mg until he gets his next dose of biological infusion the first week of November. If he tolerates p.o. overnight we can send him home in the morning. - Time Time Spent with patient: 25-34 minutes
[2018-10-26] MEDS: TAMSULOSIN HCL 0.4 MG CAP.SR.24H PO SCH (21:32)
[2018-10-26] MEDS: LATANOPROST 0.005% OPH SOLN 2.5 ML OU SCH (21:32)
[2018-10-27 08:25] VITALS: BP 98/55
[2018-10-27] MEDS: LOSARTAN POTASSIUM 25 MG TABLET PO SCH (09:17)
[2018-10-27] MEDS: CIPROFLOXACIN 400 MG/D5W RTU 400 MG/200 ML RTUPB IV SCH (09:17)
[2018-10-27] MEDS: APIXABAN 5 MG TABLET PO SCH (09:18)
[2018-10-27] MEDS: ESCITALOPRAM OXALATE 10 MG TABLET PO SCH (09:18)
[2018-10-27] MEDS: FOLIC ACID 1 MG TABLET PO SCH (09:18)
[2018-10-27] MEDS: TIMOLOL MALEATE 0.5% OPH SOLN 5 ML OU SCH (09:18)
[2018-10-27] MEDS: METOPROLOL SUCCINATE 25 MG TAB.SR.24H PO SCH (09:18)
[2018-10-27] MEDS: PANTOPRAZOLE SODIUM 40 MG VIAL IV SCH (09:18)
[2018-10-27] MEDS: PREDNISONE 5 MG TABLET PO SCH (09:19)
--- NOTE | 2018-10-27 18:17 | PDOC DISCHARGE SUMMARY ---
General - Admit/Disc Date/PCP Admission Date/Primary Care Provider: 10/24/18 14:46 CHEN KEYS, DO Discharge Date: 10/27/18 - Discharge Diagnosis (1) Ileitis Is this a current diagnosis for this admission?: Yes Summary: Seen in consultation by GI, felt to be noninfectious. 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 - Additional Information Resuscitation Status: Full Code Discharge Diet: Cardiac, Diabetic Discharge Activity: Activity As Tolerated Prescriptions: Prednisone [Deltasone 20 mg Tablet] See Protocol PO DAILY #35 tablet Home Medications: Allopurinol [Zyloprim 100 mg Tablet] 100 mg PO DAILY 02/27/18 Cetirizine HCl [Zyrtec 10 mg Tablet] 10 mg PO DAILY 02/27/18 Ergocalciferol (Vitamin D2) [Drisdol 50,000 unit (1.25MG) Capsule] 50,000 unit PO TH@1000 02/27/18 Fluticasone Propionate [Flonase Nasal Wister 50 Mcg/Wister 16 gm] 2 spray NASL DAILY 02/27/18 Losartan Potassium [Cozaar 25 mg Tablet] 1 tab PO DAILY 02/27/18 Metoprolol Succinate [Toprol Xl 25 mg Tab.sr] 25 mg PO Q12 02/27/18 Prednisone [Deltasone 5 mg Tablet] 5 mg PO DAILY 02/27/18 Tamsulosin HCl [Flomax 0.4 mg Cap.sr] 0.4 mg PO DAILY 02/27/18 Torsemide [Demadex 20 mg Tablet] 20 mg PO DAILYP PRN 02/27/18 Apixaban [Eliquis 5 mg Tablet] 5 mg PO Q12 04/06/18 Tocilizumab [Actemra] 800 mg IV-INFUSE .[id number] 04/06/18 Diphenhydramine HCl [Benadryl 25 mg Capsule] 25 mg PO TIDP PRN 10/24/18 Erythromycin Base [Erythromycin Oph 1 gm Oint Ud] 1 applic OU QID 10/24/18 Escitalopram Oxalate [Lexapro] 10 mg PO DAILY 10/24/18 Evolocumab [Repatha Sureclick] 140 mg SQ Q14D 10/24/18 Folic Acid [Folvite 1 mg Tablet] 1 tab PO DAILY 10/24/18 Latanoprost/Pf [Latanoprost 0.005% Eye Drop] 1 drop OU QHS 10/24/18 Ondansetron HCl [Zofran 8 mg Tablet] 8 mg PO QIDP PRN 10/24/18 Timolol [Betimol] 5 ml OU Q12 10/24/18 Tizanidine HCl [Zanaflex] 4 mg PO QHS 10/24/18 Prednisone [Deltasone 20 mg Tablet] See Protocol PO DAILY #35 tablet 10/27/18 History of Present Illness History of Present Illness: KERRY COBURN is a 77 year old male with a PMH of CHF, 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 He presented to [facility] with a 4-day history of diarrhea. The patient states he began experiencing abdominal pain approximately 4 days ago, thought it was related to constipation and took a stool softener. Within 24 hours he developed significant diarrhea and umbilical abdominal pain. Patient describes the pain as intermittent, severe and cramping, radiating to his bilateral flanks. He then began taking Imodium to attempt to control his diarrhea and simethicone for "gas pains." He also endorses nausea and vomiting, for which she took Zofran. The patient reports these medications did not offer relief, his pain got so bad this morning that he asked his daughter to drive him to the emergency department. Vital signs upon arrival BP 139/78 HR 87 RR 20 T 97.6 SPO2 99%. Laboratory studies were completely benign, including CBC, CMP and cardiac enzymes. CT abdomen/pelvis indicative of long segment diffuse bowel wall thickening involving the terminal ileum to the level of the ileocecal valve, mesenteric engorgement, small volume of adjacent ascites. Radiologist interpreted these findings as inflammatory bowel disease. Additionally, there were multiple nonobstructing renal calculi present, left more than right. Upon examination, the patient is resting comfortably in bed on room air. He is endorses umbilical abdominal pain, radiating to the bilateral lower quadrants and bilateral flanks. He endorses nausea, vomiting and diarrhea. Denies lower back pain, fever or chills. Abdomen is soft, rotund, TTP to the umbilicus, bilateral lower quadrants. Hypoactive bowel sounds. Discussed the patient's case with senior examiner, Dr. Carranza, who agrees that a new diagnosis of IBD in a 77-year-old patient is highly unlikely. Given the patient's symptomology and radiological findings, this is most likely infectious colitis, made worse by Imodium. Plan to admit to the hospitalist service for acute colitis. Hospital Course Hospital Course: He was seen in consultation by GI who felt like this was not an infectious colitis, but rather an inflammatory colitis possibly related to his history of Crohn's disease. He was put on some steroids and his symptoms improved. We had him on some antibiotics by GI did not recommend that he continue on antibiotics. He is on prednisone at home daily, and GI recommended increasing him back up to 40 mg a day tapering by 10 mg every 7 days. His labs and examination were reassuring and he was discharged in good condition. Physical Exam Vital Signs: Temp Pulse Resp BP Pulse Ox 98.2 F 75 19 98/55 L 97 10/27/18 11:50 10/27/18 11:50 10/27/18 11:50 10/27/18 11:50 10/27/18 11:50 Intake & Output 10/26/18 10/27/18 10/28/18 06:59 06:59 06:59 Intake Total 2500 1742 400 Balance 2500 1742 400 Weight 106.5 kg 106.5 kg General appearance: PRESENT: no acute distress, cooperative Respiratory exam: PRESENT: clear to auscultation nikita. ABSENT: accessory muscle use Cardiovascular exam: PRESENT: RRR GI/Abdominal exam: PRESENT: normal bowel sounds, soft. Absent: Tenderness Extremities exam: ABSENT: pedal edema, tenderness Musculoskeletal exam: PRESENT: full ROM Neurological exam: PRESENT: alert, oriented to person, oriented to place, oriented to time, oriented to situation Psychiatric exam: ABSENT: agitated, anxious Skin exam: PRESENT: dry, normal color, warm Results Laboratory Results: 10/25/18 06:24 10/26/18 05:54 10/24/18 10/25/18 11:03 06:24 Troponin I < 0.012 NT-Pro-B Natriuret Pep 94 Impressions: Abdomen/Pelvis CT 10/24/18 10:26 IMPRESSION: 1. Long segment diffuse bowel wall thickening involving the terminal ileum to the level of the ileocecal valve with associated mesenteric engorgement and small volume adjacent ascites. Findings suggestive of inflammatory bowel disease (Crohn's disease). 2. Multiple nonobstructing renal stones, left greater than right. Findings discussed with Dr. Ralph at the time of interpretation. Chest X-Ray 10/24/18 10:27 IMPRESSION: Borderline cardiomegaly without pulmonary edema. Qualifiers - * PATIENT BEING DISCHARGED WITH ANY OF THE FOLLOWING DIAGNOSIS: No
== END 2018-10-27 12:45 | disposition home or self-care (01) | DRG 394 ==
LOC: ER 10:06 → EH 14:46 → 4S 18:22
PROVIDERS: ADMIT Internal Medicine; ATTEND Internal Medicine
DX: K52.1 Toxic gastroenteritis and colitis (principal); I50.42 Chronic combined systolic (congestive) and diastolic (congestive) heart failure; T38.0X5A Adverse effect of glucocorticoids and synthetic analogues, initial encounter; E11.9 Type 2 diabetes mellitus without complications; M06.9 Rheumatoid arthritis, unspecified; N20.0 Calculus of kidney; I25.10 Atherosclerotic heart disease of native coronary artery without angina pectoris; I11.0 Hypertensive heart disease with heart failure; Z60.2 Problems related to living alone; Z79.01 Long term (current) use of anticoagulants; Z79.899 Other long term (current) drug therapy; Z86.718 Personal history of other venous thrombosis and embolism; Z86.010 Personal history of colon polyps; Z95.5 Presence of coronary angioplasty implant and graft; Z86.711 Personal history of pulmonary embolism; Z90.49 Acquired absence of other specified parts of digestive tract; Z82.49 Family history of ischemic heart disease and other diseases of the circulatory system; Z88.0 Allergy status to penicillin; Z88.2 Allergy status to sulfonamides; Z88.8 Allergy status to other drugs, medicaments and biological substances
CPT/HCPCS: 36415; 71045; 74177; 80048; 80053; 80061; 81001; 83036; 83690; 83735; 83880; 84484; 85025; 87086; 93005; 93010; 94640; 96361; 96374; 99285; J0744; J1170; J2405; J2550; J3490; J7030; J7512; S0119; S0164

== ENCOUNTER 2019-02-02 07:46 | Emergency (ER) | payer MEDICARE, OTHER ==
[2019-02-02 08:45] LABS: ABSOLUTE BASOPHILS # (AUTO) 0.1 10^3/uL (0.0-0.2); ABSOLUTE EOSINOPHILS # (AUTO) 0.1 10^3/uL (0.0-0.6); ABSOLUTE LYMPHOCYTES (AUTO) 2.3 10^3/uL (0.5-4.7); ABSOLUTE MONOCYTES (AUTO) 0.6 10^3/uL (0.1-1.4); ABSOLUTE NEUT (AUTO) 3.3 10^3/uL (1.7-8.2); BASOPHILS % (AUTO) 0.8 % (0-2); EOSINOPHILS % (AUTO) 0.9 % (0-6); HEMATOCRIT 41.7 % (37.9-51.0); HEMOGLOBIN 13.9 g/dL (13.5-17.0); LYMPHOCYTES % (AUTO) 36.4 % (13-45); MEAN CORPUSCULAR HEMOGLOBIN 31.4 pg (27.0-33.4); MEAN CORPUSCULAR HGB CONC 33.4 g/dL (32.0-36.0); MEAN CORPUSCULAR VOLUME 94 fl (80-97); MONOCYTES % (AUTO) 9.4 % (3-13); PLATELET COUNT 157 10^3/uL (150-450); RED BLOOD COUNT 4.44 10^6/uL (4.35-5.55); RED CELL DISTRIBUTION WIDTH 14.5 % (11.5-14.0); SEGMENTED NEUTROPHILS % (AUTO) 52.5 % (42-78); TOTAL CELLS COUNTED % (AUTO) 100 %; WHITE BLOOD COUNT 6.3 10^3/uL (4.0-10.5)
[2019-02-02 08:54] LABS: APPEARANCE,URINE SLIGHTLY-CLOUDY; BILIRUBIN,URINE NEGATIVE (NEGATIVE); CALCIUM OXALATE CRYSTALS,URINE FEW /HPF; COLOR,URINE YELLOW; GLUCOSE, URINE NEGATIVE (NEGATIVE); KETONES,URINE NEGATIVE (NEGATIVE); LEUKOCYTE ESTERASE,URINE SMALL (NEGATIVE); NITRITE,URINE NEGATIVE (NEGATIVE); PROTEIN,URINE 30 mg/dL (NEGATIVE); URINE SPECIFIC GRAVITY 1.017; UROBILINOGEN,URINE NEGATIVE mg/dL (<2.0)
[2019-02-02 09:00] LABS: ALANINE AMINOTRANSFERASE 36 U/L (21-72); ALBUMIN 3.5 g/dL (3.5-5.0); ALKALINE PHOSPHATASE 31 U/L (38-126); ASPARTATE AMINO TRANSFERASE 27 U/L (17-59); BILIRUBIN,DIRECT 0.1 mg/dL (0.0-0.4); BILIRUBIN,TOTAL 0.5 mg/dL (0.2-1.3); BLOOD UREA NITROGEN 16 mg/dL (7-20); CALCIUM 9.1 mg/dL (8.4-10.2); CARBON DIOXIDE 32 mmol/L (22-30); CHLORIDE 105 mmol/L (98-107); GLUCOSE 89 mg/dL (75-110); LIPASE 255.9 U/L (23-300); POTASSIUM 3.8 mmol/L (3.6-5.0); SODIUM 140.3 mmol/L (137-145); TOTAL PROTEIN 5.4 g/dL (6.3-8.2)
[2019-02-02 09:05] LABS: ANION GAP 3 (5-19)
--- NOTE | 2019-02-02 09:09 | ER Document Report ---
ED General - General Chief Complaint: Flank Pain Stated Complaint: FLANK PAIN Time Seen by Provider: 02/02/19 09:08 Primary Care Provider: CHEN KEYS, [Primary Care Provider] - Follow up as needed TRAVEL OUTSIDE OF THE [place] IN LAST 30 DAYS: No - HPI Notes: 78-year-old male with history of kidney stones, DVTs, hypertension, heart failure to the emergency department with complaints of left-sided flank pain that has been ongoing for the past 10 days. States that he has been trying to manage it at home but yesterday he started to notice some difficulty making his stream and ayah blood in his urine. States he thinks he may have passed a small stone in his urine this morning but was concerned when the pain continued. He has been taking Flomax nightly. He is seen by a urologist in [place] named Dr. Robles. Dr. Robles has placed a stent before as well as done lithotripsy. Patient denies any fevers, vomiting, nausea, chest pain, shortness of breath. He does take Eliquis for control of his DVTs. - Related Data Allergies/Adverse Reactions: celecoxib [From Celebrex] Allergy (Severe, Verified 02/02/19 07:48) Chest pain leflunomide [From Arava] Allergy (Severe, Verified 02/02/19 07:48) Chest pain-Full list of symptoms on 05/18/13 DC Summary meloxicam [From Mobic] Allergy (Severe, Verified 02/02/19 07:48) Chest pain methotrexate [Methotrexate] Allergy (Severe, Verified 02/02/19 07:48) Anaphylaxis ketorolac tromethamine [From Toradol] Allergy (Unknown, Verified 02/02/19 07:48) see comment NSAIDS (Non-Steroidal Anti-Inflamma Allergy (Verified 02/02/19 07:48) Sulfa (Sulfonamide Antibiotics) Adverse Reaction (Severe, Verified 02/02/19 07:48) Diarrhea Penicillins Adverse Reaction (Unknown, Verified 02/02/19 07:48) Rash Past Medical History - General Information source: Patient, Relative - Social History Smoking Status: Never Smoker Frequency of alcohol use: None Drug Abuse: None Lives with: Family, Spouse/Significant other Family History: Reviewed & Not Pertinent - PATIENT DOES NOT KNOW PARENTAL MEDICAL HISTORY. 1/2 SISTER HAS 'OBGYN CANCER', Hypertension - Past Medical History Cardiac Medical History: Reports: Hx Congestive Heart Failure - LVEF 30%, Hx Coronary Artery Disease - CARDIAC CATH WITH ONE STENT, Hx DVT - FEBRUARY 2017. IVC FILTER, Hx Pulmonary Embolism - ON ELIQUIS Denies: Hx Heart Attack, Hx Hypertension - ON MEDS FOR HEART FAILURE Pulmonary Medical History: Denies: Hx Asthma, Hx Bronchitis, Hx COPD, Hx Pneumonia, Hx Tuberculosis Neurological Medical History: Denies: Hx Cerebrovascular Accident, Hx Seizures Renal/ Medical History: Reports: Hx Kidney Stones. Denies: Hx Peritoneal Dialysis GI Medical History: Denies: Hx Hiatal Hernia, Hx Ulcer Musculoskeletal Medical History: Reports Hx Arthritis - RA, Reports Hx Gout Psychiatric Medical History: Reports: Hx Depression Past Surgical History: Reports: Hx Appendectomy, Hx Cardiac Catheterization, Hx Cardiac Surgery - stent X1, Hx Cholecystectomy, Hx Orthopedic Surgery - ankle / elbows, Other - Ureteral stent left kidney Removal stones and stent 2 weeks ago. Denies: Hx Open Heart Surgery - CATHERIZATIONS - Immunizations Hx Diphtheria, Pertussis, Tetanus Vaccination: Yes Hx Pneumococcal Vaccination: 08/08/13 Review of Systems - Review of Systems Constitutional: denies: Chills, Diaphoresis, Fever EENT: No symptoms reported Cardiovascular: denies: Chest pain, Palpitations, Heart racing, Dizziness, Ligh theaded Respiratory: denies: Cough, Short of breath, Wheezing Gastrointestinal: Abdominal pain, Nausea. denies: Diarrhea, Vomiting Genitourinary: Dysuria, Flank pain, Hematuria, Other - Faculty making stream. denies: Incontinence Male Genitourinary: denies: Testicular pain Musculoskeletal: No symptoms reported Hematologic/Lymphatic: Blood clots - history of DVTs, Easy bleeding, Easy bruising - Patient is on Eliquis Neurological/Psychological: No symptoms reported -: Yes All other systems reviewed and negative Physical Exam - Vital signs Vitals: Temp Pulse Resp BP Pulse Ox 97.8 F 62 16 130/81 H 99 02/02/19 07:48 02/02/19 07:48 02/02/19 07:48 02/02/19 07:48 02/02/19 07:48 Interpretation: Normal, Hypertensive - General General appearance: Appears well In distress: None - HEENT Head: Normocephalic, Atraumatic Eyes: Normal Pupils: PERRL - Respiratory Respiratory status: No respiratory distress Chest status: Nontender Breath sounds: Normal Chest palpation: Normal - Cardiovascular Rhythm: Regular Heart sounds: Normal auscultation Murmur: No Notes: No pitting edema - Abdominal Inspection: Obese Distension: No distension Bowel sounds: Normal Tenderness: Nontender Organomegaly: No organomegaly - Back Back: CVA tenderness - + left CVA tenderness - Extremities General upper extremity: Normal inspection, Nontender, Normal color, Normal ROM, Normal temperature General lower extremity: Normal inspection, Nontender, Normal color, Normal ROM, Normal temperature, Normal weight bearing. No: Lupis's sign - Neurological Neuro grossly intact: Yes Cognition: Normal Orientation: AAOx4 [place] Coma Scale Eye Opening: Spontaneous Jenny Coma Scale Verbal: Oriented Jenny Coma Scale Motor: Obeys Commands Jenny Coma Scale Total: 15 Speech: Normal Motor strength normal: LUE, RUE, LLE, RLE Sensory: Normal - Psychological Associated symptoms: Normal affect, Normal mood - Skin Skin Temperature: Warm Skin Moisture: Dry Skin Color: Normal Course - Re-evaluation Re-evalutation: 02/02/19 11:18 Patient is doing better after pain medication. States he is much more comfortable. Pain initially when I saw him was 7 out of 10 and is now a 1-2. Discussed CT findings with him. Suspect that he passed a stone early this morning. He has several stones in each kidney and he agrees that he needs to follow-up with his urologist. He does have Flomax at home and I will write him for Percocet. I will also write him for some Phenergan for nausea. He cannot take NSAIDs because he is on Eliquis. - Vital Signs Vital signs: Temp Pulse Resp BP Pulse Ox 97.8 F 62 16 130/81 H 99 02/02/19 07:48 02/02/19 07:48 02/02/19 07:48 02/02/19 07:48 02/02/19 07:48 - Laboratory Result Diagrams: 02/02/19 08:34 02/02/19 08:34 Laboratory results interpreted by me: 02/02/19 02/02/19 02/02/19 08:34 08:34 08:34 RDW 14.5 H Carbon Dioxide 32 H Anion Gap 3 L Alkaline Phosphatase 31 L Total Protein 5.4 L Urine Protein 30 H Urine Blood LARGE H Ur Leukocyte Esterase SMALL H 02/02/19 11:37 02/02/19 02/02/19 08:34 08:34 WBC 6.3 Hgb 13.9 Hct 41.7 Sodium 140.3 Potassium 3.8 Chloride 105 BUN 16 Creatinine 0.86 - Diagnostic Test Radiology reviewed: Image reviewed - Did CT reading with no obstructive uropathy but several stones in bilateral kidneys., Reports reviewed - Transfer of Care Notes: 02/02/19 11:19 Impression: Flank pain, Kidney stones, hematuria. Noted UA with a large amount of blood. Noted CT scan with no obstructive uropathy. Will have patient follow closely with urologist. I have encouraged him to return immediately if his symptoms worsen with intractable pain, intractable vomiting, urinary retention, fevers. He is to call his urologist today without fail. Discharge - Discharge Clinical Impression: Flank pain, Kidney stones, Hematuria Condition: Good Disposition: HOME, SELF-CARE Instructions: Kidney Stone ([facility]) Additional Instructions: FOLLOW UP WITH YOUR UROLOGIST, DR. ROBLES, WITHOUT FAIL -- CALL HIM TODAY TO SET UP AN APPOINTMENT FOR NEXT WEEK. RETURN HERE IF INTRACTABLE PAIN, INTRACTABLE VOMITING, FEVERS, URINARY RETENTION. Prescriptions: Oxycodone HCl/Acetaminophen [Percocet 5-325 mg Tablet] 1 - 2 tab PO Q4H PRN #15 tablet PRN Reason: Promethazine HCl [Phenergan 25 mg Tablet] 1 tab PO Q6H PRN #15 tablet PRN Reason: Referrals: CHEN KEYS DO [Primary Care Provider] - Follow up as needed
[2019-02-02] MEDS ORDERED: NORMAL SALINE 1000 ML 1,000 ML IV ONE (09:21)
[2019-02-02] MEDS ORDERED: MORPHINE SULFATE 10 MG/ML INJ IV ONE ×2 (09:21→10:26)
[2019-02-02] MEDS ORDERED: ONDANSETRON HCL INJ/PF 4 MG/2 ML SDV IV ONE (09:22)
--- NOTE | 2019-02-02 09:54 | RADIOLOGY REPORT (SQ) ---
EXAM DESCRIPTION: CT ABD/PELVIS NO ORAL OR IV COMPLETED DATE/TIME: 02/02/2019 9:36 am REASON FOR STUDY: flank pain, eval kidney stone COMPARISON: 06/10/2016 and 01/15/2013. TECHNIQUE: CT scan of the abdomen and pelvis performed without intravenous or oral contrast. Images reviewed with lung, soft tissue, and bone windows. Reconstructed coronal and sagittal MPR images revi ewed. All images stored on PACS. All CT scanners at this facility use dose modulation, iterative reconstruction, and/or weight based d osing when appropriate to reduce radiation dose to as low as reasonably achievable (ALARA). [facility]: Dose Right [facility]: CareDose [facility]: Dose Right [facility]: Teradose 4D [facility]: Smart Technologies RADIATION DOSE: CT Rad equipment meets quality standard of care and radiation dose reduction techniq ues were employed. CTDIvol: 18.2 mGy. DLP: 1057 mGy-cm.mGy. LIMITATIONS: None. FINDINGS: LOWER CHEST: Stable 5 mm nodule in the right lower lobe and 2 mm nodule in the lateral lef t lower lobe. NON-CONTRASTED LIVER, SPLEEN, ADRENALS: Evaluation limited by lack of IV contrast. Punctate calcifie d granulomas in the spleen. No identified significant masses. PANCREAS: No masses. No peripancreatic inflammatory changes. GALLBLADDER: Surgically absent. RIGHT KIDNEY AND URETER: No suspicious masses. Assessment limited by lack of IV contrast. Multiple calyceal calculi. No hydronephrosis or hydroureter. LEFT KIDNEY AND URETER: No suspicious masses. Assessment limited by lack of IV contrast. Multiple c alyceal calculi. No hydronephrosis or hydroureter. AORTA AND RETROPERITONEUM: No aneurysm. No retroperitoneal masses or adenopathy. Inferior vena cava filter present. BOWEL AND PERITONEAL CAVITY: Diverticuli throughout the colon. No obvious masses or inflammatory carol nges. No free fluid. APPENDIX: Surgically absent. PELVIS, BLADDER, AND ABDOMINAL WALL:No abnormal masses. No free fluid. Bladder normal. BONES: No significant findings. Degenerative changes in the spine. OTHER: No other significant finding. IMPRESSION: 1. NUMEROUS NONOBSTRUCTING CALYCEAL CALCULI IN BOTH KIDNEYS. NO URETERAL CALCULI. NO HYDRONEPHROSIS OR HYDROURETER. 2. COLONIC DIVERTICULOSIS. NO CT FINDINGS OF ACUTE DIVERTICULITIS. 3. NO OTHER SIGNIFICANT OR ACUTE PROCESS IN THE ABDOMEN OR PELVIS. COMMENT: Quality ID # [id number]: Final reports with documentation of one or more dose reduction techniques (e.g., Automated exposure control, adjustment of the mA and/or kV according to patient size, use of iterative reconstruction technique) TECHNICAL DOCUMENTATION: JOB ID: [id number] [employer]- All Rights Reserved Reading location - IP/workstation name: [email or web address] BY [facility]
[2019-02-02 12:04] VITALS: BP 122/83
== END 2019-02-02 12:04 | disposition home or self-care (01) ==
LOC: ER 07:46
DX: N20.0 Calculus of kidney (principal); R31.9 Hematuria, unspecified; R10.9 Unspecified abdominal pain; E66.9 Obesity, unspecified; I50.9 Heart failure, unspecified; I25.10 Atherosclerotic heart disease of native coronary artery without angina pectoris; Z86.718 Personal history of other venous thrombosis and embolism; Z88.0 Allergy status to penicillin; Z88.2 Allergy status to sulfonamides; Z87.442 Personal history of urinary calculi
CPT/HCPCS: 96376; 99284; 96361; 96374; 96375; 36415; 87086; 83690; 85025; 80053; 81001; 74176; J2270; J2405; J7030

== ENCOUNTER 2019-05-16 13:29 | Observation (INO) | payer MEDICARE, OTHER ==
[2019-05-16] MEDS ORDERED: HYDROMORPHONE HCL INJ/PF 2 MG/ML AMPULE IV ONE ×2 (14:06→16:45)
[2019-05-16] MEDS ORDERED: NORMAL SALINE 500 ML IV PRN (14:08)
--- NOTE | 2019-05-16 14:12 | ER Document Report ---
ED Medical Screen (RME) - General Chief Complaint: Possible Kidney Stone Stated Complaint: POSSIBLE KIDNEY STONES Time Seen by Provider: 05/16/19 14:00 Primary Care Provider: CHEN KEYS DO [Primary Care Provider] - Follow up as needed Notes: Patient is a 78-year-old male with known kidney stones who presents the emergency department with right-sided back pain. He states that he feels like there are razor blades in him. He was supposed to see his urologist today at 330, but the pain was so severe that he came to the emergency department. He took oxycodone, but had little relief. Patient has history of congestive heart failure, [place], and multiple comorbidities. Exam: Rocking back and forth. Abdominal and CVA tenderness. I have greeted and performed a rapid initial assessment of this patient. A comprehensive ED assessment and evaluation of the patient, analysis of test results and completion of medical decision making process will be conducted by an additional ED providers. TRAVEL OUTSIDE OF THE [place] IN LAST 30 DAYS: No - Related Data Allergies/Adverse Reactions: celecoxib [From Celebrex] Allergy (Severe, Verified 02/02/19 07:48) Chest pain leflunomide [From Arava] Allergy (Severe, Verified 02/02/19 07:48) Chest pain-Full list of symptoms on 05/18/13 DC Summary meloxicam [From Mobic] Allergy (Severe, Verified 02/02/19 07:48) Chest pain methotrexate [Methotrexate] Allergy (Severe, Verified 02/02/19 07:48) Anaphylaxis ketorolac tromethamine [From Toradol] Allergy (Unknown, Verified 02/02/19 07:48) see comment NSAIDS (Non-Steroidal Anti-Inflamma Allergy (Verified 02/02/19 07:48) Sulfa (Sulfonamide Antibiotics) Adverse Reaction (Severe, Verified 02/02/19 07:48) Diarrhea Penicillins Adverse Reaction (Unknown, Verified 02/02/19 07:48) Rash Past Medical History - Social History Frequency of alcohol use: Rare Drug Abuse: None - Past Medical History Cardiac Medical History: Reports: Hx Congestive Heart Failure - LVEF 30%, Hx Coronary Artery Disease - CARDIAC CATH WITH ONE STENT, Hx DVT - FEBRUARY 2017. IVC FILTER, Hx Pulmonary Embolism - ON ELIQUIS Denies: Hx Heart Attack, Hx Hypertension - ON MEDS FOR HEART FAILURE Pulmonary Medical History: Denies: Hx Asthma, Hx Bronchitis, Hx COPD, Hx Pneumonia, Hx Tuberculosis Neurological Medical History: Denies: Hx Cerebrovascular Accident, Hx Seizures Renal/ Medical History: Reports: Hx Kidney Stones. Denies: Hx Peritoneal Dialysis GI Medical History: Denies: Hx Hiatal Hernia, Hx Ulcer Musculoskeltal Medical History: Reports Hx Arthritis - RA, Reports Hx Gout Psychiatric Medical History: Reports: Hx Depression Past Surgical History: Reports: Hx Appendectomy, Hx Cardiac Catheterization, Hx Cardiac Surgery - stent X1, Hx Cholecystectomy, Hx Orthopedic Surgery - ankle / elbows, Other - Ureteral stent left kidney Removal stones and stent 2 weeks ago. Denies: Hx Open Heart Surgery - CATHERIZATIONS - Immunizations Hx Diphtheria, Pertussis, Tetanus Vaccination: Yes Physical Exam - Vital signs Vitals: Temp Pulse Resp BP Pulse Ox 98.5 F 107 H 22 H 123/84 97 05/16/19 13:53 05/16/19 13:53 05/16/19 13:53 05/16/19 13:53 05/16/19 13:53 Course - Vital Signs Vital signs: Temp Pulse Resp BP Pulse Ox 98.5 F 107 H 22 H 123/84 97 05/16/19 13:53 05/16/19 13:53 05/16/19 13:53 05/16/19 13:53 05/16/19 13:53 Doctor's Discharge - Discharge Referrals: CHEN KEYS DO [Primary Care Provider] - Follow up as needed
[2019-05-16] MEDS ORDERED: PROMETHAZINE HCL INJ 25 MG/1 ML VIAL IV ONE (14:59)
[2019-05-16 15:07] LABS: HEMATOCRIT 49.5 % (37.9-51.0); HEMOGLOBIN 16.5 g/dL (13.5-17.0); MEAN CORPUSCULAR HEMOGLOBIN 32.3 pg (27.0-33.4); MEAN CORPUSCULAR HGB CONC 33.3 g/dL (32.0-36.0); MEAN CORPUSCULAR VOLUME 97 fl (80-97); PLATELET COUNT 179 10^3/uL (150-450); WHITE BLOOD COUNT 15.5 10^3/uL (4.0-10.5)
[2019-05-16 15:11] LABS: APPEARANCE,URINE SLIGHTLY-CLOUDY; BILIRUBIN,URINE NEGATIVE (NEGATIVE); COLOR,URINE YELLOW; GLUCOSE, URINE NEGATIVE (NEGATIVE); KETONES,URINE NEGATIVE (NEGATIVE); PROTEIN,URINE 30 mg/dL (NEGATIVE); URINE SPECIFIC GRAVITY 1.019; UROBILINOGEN,URINE NEGATIVE mg/dL (<2.0)
--- NOTE | 2019-05-16 15:29 | RADIOLOGY REPORT (SQ) ---
EXAM DESCRIPTION: CT ABD/PELVIS NO ORAL OR IV COMPLETED DATE/TIME: 05/16/2019 3:09 pm REASON FOR STUDY: FLANK PAIN COMPARISON: 02/02/2019 TECHNIQUE: CT scan of the abdomen and pelvis performed without intravenous or oral contrast. Images reviewed with lung, soft tissue, and bone windows. Reconstructed coronal and sagittal MPR images revi ewed. All images stored on PACS. All CT scanners at this facility use dose modulation, iterative reconstruction, and/or weight based d osing when appropriate to reduce radiation dose to as low as reasonably achievable (ALARA). [facility]: Dose Right [facility]: CareDose [facility]: Dose Right [facility]: Teradose 4D [facility]: Gate2Play RADIATION DOSE: mGy. LIMITATIONS: None. FINDINGS: LOWER CHEST: Coronary atherosclerosis. No acute findings. NON-CONTRASTED LIVER, SPLEEN, ADRENALS: Evaluation limited by lack of IV contrast. No identified sign ificant masses. Few calcified splenic granuloma. PANCREAS: No masses. No peripancreatic inflammatory changes. GALLBLADDER: Surgically absent. RIGHT KIDNEY AND URETER: No suspicious masses. Assessment limited by lack of IV contrast. Multiple nonobstructing stones, not significantly changed from prior. No hydronephrosis or hydroureter. LEFT KIDNEY AND URETER: No suspicious masses. Assessment limited by lack of IV contrast. Multiple n onobstructing renal stones, largest within the lower pole measuring 10 mm, similar prior. No hydron ephrosis or hydroureter. AORTA AND RETROPERITONEUM: Aortoiliac atherosclerosis without aneurysm. No retroperitoneal adenopath y or mass. Inferior vena cava filter below the level of the renal veins. BOWEL AND PERITONEAL CAVITY: Multiple scattered colonic diverticula. No focal bowel wall thickening. No evidence of intestinal obstruction. APPENDIX: Surgically absent. PELVIS, BLADDER, AND ABDOMINAL WALL:Decompressed urinary bladder. No pelvic free fluid or adenopathy . BONES: No acute bony abnormality. No suspicious osseous lesions. Vacuum disc phenomenon throughout the lumbar spine with multilevel disc height loss. OTHER: No other significant finding. IMPRESSION: 1. Multiple bilateral nonobstructing renal stones, similar to prior. No evidence of ob structive uropathy or hydronephrosis. 2. No other evidence of acute intra-abdominal/pelvic process. COMMENT: Quality ID # [id number]: Final reports with documentation of one or more dose reduction techniques (e.g., Automated exposure control, adjustment of the mA and/or kV according to patient size, use of iterative reconstruction technique) TECHNICAL DOCUMENTATION: JOB ID: [id number] [employer] [facility] [employer]- All Rights Reserved Reading location - IP/workstation name: [email or web address]
[2019-05-16 15:34] LABS: ABSOLUTE LYMPHOCYTES# (MANUAL) 1.7 10^3/uL (0.5-4.7); ABSOLUTE MONOCYTES # (MANUAL) 1.1 10^3/uL (0.1-1.4); BASOPHILS % (MANUAL) 0 % (0-2); EOSINOPHILS % (MANUAL) 0 % (0-6); LYMPHOCYTES % (MANUAL) 11 % (13-45); MONOCYTES % (MANUAL) 7 % (3-13); PLATELET COMMENT ADEQUATE; RBC MORPHOLOGY COMMENT NORMO-CYTIC/CHROMIC; SEGMENTED NEUTROPHILS % (MAN) 82 % (42-78); TOTAL CELLS COUNTED 100
[2019-05-16] MEDS ORDERED: CEFEPIME 2 GM/D5W RTU 2 GM/50 ML RTUPB IV ONE (16:44)
[2019-05-16 16:56] LABS: INTERNATIONAL RATION (INR) 1.06; PROTHROMBIN TIME 13.8 SEC (11.4-15.4)
[2019-05-16 16:57] LABS: PARTIAL THROMBOPLASTIN TIME 22.1 SEC (23.5-35.8)
[2019-05-16 17:17] LABS: ALBUMIN 3.5 g/dL (3.5-5.0); ALKALINE PHOSPHATASE 36 U/L (38-126); ANION GAP 7 (5-19); ASPARTATE AMINO TRANSFERASE 30 U/L (17-59); BILIRUBIN,TOTAL 1.2 mg/dL (0.2-1.3); BLOOD UREA NITROGEN 27 mg/dL (7-20); CALCIUM 8.8 mg/dL (8.4-10.2); CARBON DIOXIDE 26 mmol/L (22-30); CHLORIDE 106 mmol/L (98-107); GLUCOSE 99 mg/dL (75-110); POTASSIUM 4.2 mmol/L (3.6-5.0); TOTAL PROTEIN 5.8 g/dL (6.3-8.2)
--- NOTE | 2019-05-16 17:42 | RADIOLOGY REPORT (SQ) ---
EXAM DESCRIPTION: CHEST SINGLE VIEW COMPLETED DATE/TIME: 05/16/2019 5:31 pm REASON FOR STUDY: tachy, eval for sepsis COMPARISON: None. EXAM PARAMETERS: NUMBER OF VIEWS: One view. TECHNIQUE: Single frontal radiographic view of the chest acquired. RADIATION DOSE: NA LIMITATIONS: None. FINDINGS: LUNGS AND PLEURA: No opacities, masses or pneumothorax. No pleural effusion. MEDIASTINUM AND HILAR STRUCTURES: No masses. Contour normal. HEART AND VASCULAR STRUCTURES: Heart size is borderline. There is no pulmonary edema. BONES: No acute findings. HARDWARE: Loop recorder. OTHER: No other significant finding. IMPRESSION: Borderline cardiomegaly without pulmonary edema. TECHNICAL DOCUMENTATION: JOB ID: [id number] [employer]- All Rights Reserved Reading location - IP/workstation name: [email or web address]
[2019-05-16] MEDS ORDERED: ONDANSETRON HCL INJ/PF 4 MG/2 ML SDV IV PRN (18:03)
[2019-05-16] MEDS ORDERED: ACETAMINOPHEN 325 MG TABLET PO PRN (18:03)
[2019-05-16] MEDS ORDERED: NORMAL SALINE 1000 ML 1,000 ML IV PRN (18:03)
--- NOTE | 2019-05-16 18:03 | PDOC H&P ---
History of Present Illness Admission Date/PCP: CHEN KEYS DO Patient complains of: Complaints of abdominal pain last for the 4-5 days. History of Present Illness: KERRY COBURN is a 78 year old male history of congestive heart failure with EF of around 30%, coronary artery disease status post stent placement several years ago has a heart monitor as per the patient, hypertension, recurrent history of kidney stones, gallbladder removal appendicectomy came to the emergency room with complaints of 4 to 5 days of abdominal pain associated nausea and occasional diarrhea. He called his urologist in [facility] and he was advised to come to the hospital here for further management. In the emergency room WBC count found to be 15,500 patient was tachycardic and patient gives a history of fever at home. Pain scale according to the patient is 10 /[address] abdomen pelvis was done and no urinary stents were seen no obstruction was seen. Several nonobstructing stones are seen in both kidneys. She did agree to stay in the hospital for further management including IV antibiotic therapy. Past Medical History Cardiac Medical History: Reports: Congestive Heart Failure - LVEF 30%, Coronary Artery Disease - CARDIAC CATH WITH ONE STENT, DVT - FEBRUARY 2017. IVC FILTER, Pulmonary Embolism - ON ELIQUIS Denies: Myocardial Infarction, Hypertension - ON MEDS FOR HEART FAILURE Pulmonary Medical History: Denies: Asthma, Bronchitis, Chronic Obstructive Pulmonary Disease (COPD), Pneumonia, Tuberculosis Neurological Medical History: Denies: Seizures GI Medical History: Denies: Hiatal Hernia Musculoskeltal Medical History: Reports: Arthritis - RA, Gout Psychiatric Medical History: Reports: Depression Hematology: Denies: Anemia, Sickle Cell Disease Past Surgical History Past Surgical History: Reports: Appendectomy, Cardiac Catheterization, Cholecystectomy, Orthopedic Surgery - ankle / elbows, Other - Ureteral stent left kidney Removal stones and stent 2 weeks ago Social History Smoking Status: Never Smoker Frequency of Alcohol Use: Rare Hx Recreational Drug Use: Yes Drugs: None Hx Prescription Drug Abuse: No - Advance Directive Resuscitation Status: Full Code Family History Family History: Reviewed & Not Pertinent - PATIENT DOES NOT KNOW PARENTAL MEDICAL HISTORY. 1/2 SISTER HAS 'OBGYN CANCER', Hypertension Parental Family History Reviewed: Yes - Unknown family history Children Family History Reviewed: Yes Sibling(s) Family History Reviewed.: Yes Medication/Allergy Home Medications: Allopurinol [Zyloprim 100 mg Tablet] 100 mg PO DAILY 02/27/18 Cetirizine HCl [Zyrtec 10 mg Tablet] 10 mg PO DAILY 02/27/18 Ergocalciferol (Vitamin D2) [Drisdol 50,000 unit (1.25MG) Capsule] 50,000 unit PO TH@1000 02/27/18 Fluticasone Propionate [Flonase Nasal Tobyhanna 50 Mcg/Tobyhanna 16 gm] 2 spray NASL DAILY 02/27/18 Losartan Potassium [Cozaar 25 mg Tablet] 1 tab PO DAILY 02/27/18 Metoprolol Succinate [Toprol Xl 25 mg Tab.sr] 25 mg PO Q12 02/27/18 Prednisone [Deltasone 5 mg Tablet] 5 mg PO DAILY 02/27/18 Tamsulosin HCl [Flomax 0.4 mg Cap.sr] 0.4 mg PO DAILY 02/27/18 Torsemide [Demadex 20 mg Tablet] 20 mg PO DAILYP PRN 02/27/18 Apixaban [Eliquis 5 mg Tablet] 5 mg PO Q12 04/06/18 Tocilizumab [Actemra] 800 mg IV-INFUSE .[id number] 04/06/18 Diphenhydramine HCl [Benadryl 25 mg Capsule] 25 mg PO TIDP PRN 10/24/18 Erythromycin Base [Erythromycin Oph 1 gm Oint Ud] 1 applic OU QID 10/24/18 Escitalopram Oxalate [Lexapro] 10 mg PO DAILY 10/24/18 Evolocumab [Repatha Sureclick] 140 mg SQ Q14D 10/24/18 Folic Acid [Folvite 1 mg Tablet] 1 tab PO DAILY 10/24/18 Latanoprost/Pf [Latanoprost 0.005% Eye Drop] 1 drop OU QHS 10/24/18 Ondansetron HCl [Zofran 8 mg Tablet] 8 mg PO QIDP PRN 10/24/18 Timolol [Betimol] 5 ml OU Q12 10/24/18 Tizanidine HCl [Zanaflex] 4 mg PO QHS 10/24/18 Prednisone [Deltasone 20 mg Tablet] See Protocol PO DAILY #35 tablet 10/27/18 Oxycodone HCl/Acetaminophen [Percocet 5-325 mg Tablet] 1 - 2 tab PO Q4H PRN #15 tablet 02/02/19 Promethazine HCl [Phenergan 25 mg Tablet] 1 tab PO Q6H PRN #15 tablet 02/02/19 Allergies/Adverse Reactions: celecoxib [From Celebrex] Allergy (Severe, Verified 02/02/19 07:48) Chest pain leflunomide [From Arava] Allergy (Severe, Verified 02/02/19 07:48) Chest pain-Full list of symptoms on 05/18/13 DC Summary meloxicam [From Mobic] Allergy (Severe, Verified 02/02/19 07:48) Chest pain methotrexate [Methotrexate] Allergy (Severe, Verified 02/02/19 07:48) Anaphylaxis ketorolac tromethamine [From Toradol] Allergy (Unknown, Verified 02/02/19 07:48) see comment NSAIDS (Non-Steroidal Anti-Inflamma Allergy (Verified 02/02/19 07:48) Sulfa (Sulfonamide Antibiotics) Adverse Reaction (Severe, Verified 02/02/19 07:48) Diarrhea Penicillins Adverse Reaction (Unknown, Verified 02/02/19 07:48) Rash Review of Systems Constitutional: PRESENT: fever(s). ABSENT: fatigue, headache(s), night sweats, weakness Eyes: ABSENT: visual disturbances Ears: ABSENT: hearing changes Nose, Mouth, and Throat: ABSENT: sore throat Cardiovascular: ABSENT: chest pain, dyspnea on exertion, orthropnea, palpitations Respiratory: ABSENT: dyspnea, hemoptysis Gastrointestinal: PRESENT: abdominal pain, diarrhea, nausea Genitourinary: PRESENT: dysuria Musculoskeletal: ABSENT: joint swelling Neurological: ABSENT: abnormal gait, abnormal speech, confusion, dizziness, focal weakness, syncope Psychiatric: ABSENT: anxiety, depression, homidical ideation, suicidal ideation Physical Exam Vital Signs: Temp Pulse Resp BP Pulse Ox 98.5 F 107 H 22 H 123/84 97 05/16/19 13:53 05/16/19 13:53 05/16/19 13:53 05/16/19 13:53 05/16/19 13:53 Intake & Output 05/15/19 05/16/19 05/17/19 06:59 06:59 06:59 Intake Total 500 Balance 500 Weight 100.2 kg General appearance: PRESENT: cooperative, obese, other - moderate distress Eye exam: PRESENT: PERRLA Mouth exam: PRESENT: moist, neck supple, tongue midline Teeth exam: PRESENT: poor dentation Neck exam: ABSENT: carotid bruit, JVD, lymphadenopathy, thyromegaly Respiratory exam: PRESENT: decreased breath sounds Cardiovascular exam: PRESENT: RRR. ABSENT: diastolic murmur, rubs, systolic m urmur Vascular exam: PRESENT: normal capillary refill GI/Abdominal exam: PRESENT: normal bowel sounds, soft. ABSENT: distended, guarding, mass, organolmegaly, rebound, tenderness Rectal exam: PRESENT: deferred Extremities exam: PRESENT: full ROM. ABSENT: calf tenderness, clubbing, pedal edema Neurological exam: PRESENT: alert, awake, oriented to person, oriented to place, oriented to time, oriented to situation, CN II-XII grossly intact. ABSENT: motor sensory deficit Skin exam: PRESENT: dry, intact, warm. ABSENT: cyanosis, rash Results Laboratory Results: 05/16/19 14:30 05/16/19 16:21 05/16/19 05/16/19 05/16/19 14:30 14:30 14:30 WBC 15.5 H RBC 5.10 Hgb 16.5 Hct 49.5 MCV 97 MCH 32.3 MCHC 33.3 RDW 14.0 Plt Count 179 Seg Neutrophils % Not Reportable Sodium Cancelled Potassium Cancelled Chloride Cancelled Carbon Dioxide Cancelled Anion Gap Cancelled BUN Cancelled Creatinine Cancelled Est GFR ( Amer) Cancelled Est GFR (Non-Af Amer) Cancelled Glucose Cancelled Lactic Acid Calcium Cancelled Total Bilirubin Cancelled AST Cancelled Alkaline Phosphatase Cancelled Total Protein Cancelled Albumin Cancelled Urine Color YELLOW Urine Appearance SLIGHTLY-CLOUDY Urine pH 6.0 Ur Specific Castile 1.019 Urine Protein 30 H Urine Glucose (UA) NEGATIVE Urine Ketones NEGATIVE Urine Blood LARGE H Urine RBC (Auto) 179 05/16/19 05/16/19 16:21 16:21 WBC RBC Hgb Hct MCV MCH MCHC RDW Plt Count Seg Neutrophils % Sodium 138.5 Potassium 4.2 Chloride 106 Carbon Dioxide 26 Anion Gap 7 BUN 27 H Creatinine 1.00 Est GFR ( Amer) > 60 Est GFR (Non-Af Amer) Glucose 99 Lactic Acid 1.9 Calcium 8.8 Total Bilirubin 1.2 AST 30 Alkaline Phosphatase 36 L Total Protein 5.8 L Albumin 3.5 Urine Color Urine Appearance Urine pH Ur Specific Castile Urine Protein Urine Glucose (UA) Urine Ketones Urine Blood Urine RBC (Auto) Impressions: Abdomen/Pelvis CT 05/16/19 00:00 IMPRESSION: 1. Multiple bilateral nonobstructing renal stones, similar to prior. No evidence of obstructive uropathy or hydronephrosis. 2. No other evidence of acute intra-abdominal/pelvic process. Chest X-Ray 05/16/19 00:00 IMPRESSION: Borderline cardiomegaly without pulmonary edema. Assessment and Plan - Diagnosis (1) Kidney stones Is this a current diagnosis for this admission?: Yes (2) Coronary artery disease Qualifiers: Coronary Disease-Associated Artery/Lesion type: hoopa artery Lummi vs. transplanted heart: hoopa heart Associated angina: with unspecified angina Qualified Code(s): I25.119 - Atherosclerotic heart disease of hoopa coronary artery with unspecified angina pectoris Is this a current diagnosis for this admission?: No (3) History of DVT (deep vein thrombosis) Is this a current diagnosis for this admission?: No (4) History of pulmonary embolism Is this a current diagnosis for this admission?: No (5) UTI (urinary tract infection) Qualifiers: Urinary tract infection type: site unspecified Is this a current diagnosis for this admission?: Yes - Plan Summary Summary: 1.kidney stones Patient is going to be admitted to [facility] for nonobstructing kidney stones associated with severe abdominal pain 05/17, UTI. Blood cultures urine cultures are requested to start on gentle IV fluid therapy, GI prophylaxis initiated. Patient is Eliquis at home. Got him on a Dilaudid 2 mg IV every 4 as needed. To start the patient on levo floxacillin. 2.hypertension Pressure is 123/84. To give gentle hydration. To watch for blood pressures every shift. 3.history of DVT with IVC filter and history of pulmonary embolism. Continues on Eliquis at home to continue the medication during the hospital stay. 4.history of coronary artery disease with stent placement No complaints of chest pain at the time of examination. 5. obesity BMI is more than 31 diet exercise weight loss lifestyle modifications are discussed with the patient. 6.history of chronic back pain. To put him on morphine 2 mg IV every 4 as needed for back pain. - Time Time Spent with patient: 25-34 minutes Medications reviewed and adjusted accordingly: Yes Anticipated discharge: Home
[2019-05-16 18:56] LABS: CREATINE KINASE MB 1.22 ng/mL (<4.55); TROPONIN I < 0.012 ng/mL
[2019-05-16 19:21] LABS: URINE AMPHETAMINES SCREEN NEGATIVE; URINE BARBITURATES SCREEN NEGATIVE; URINE BENZODIAZEPINES SCREEN NEGATIVE; URINE COCAINE SCREEN NEGATIVE; URINE MARIJUANA (THC) SCREEN NEGATIVE; URINE METHADONE SCREEN NEGATIVE; URINE PHENCYCLIDINE SCREEN NEGATIVE
[2019-05-16] MEDS ORDERED: PROMETHAZINE HCL 25 MG SUPP.RECT PR PRN (20:52)
[2019-05-16] MEDS: PROMETHAZINE HCL 25 MG TABLET PO PRN (21:37)
[2019-05-16] MEDS: HYDROMORPHONE HCL INJ/PF 2 MG/ML AMPULE IV SCH (21:39)
[2019-05-16] MEDS ORDERED: LOSARTAN POTASSIUM 25 MG TABLET PO ONE (22:45)
[2019-05-16] MEDS ORDERED: METOPROLOL TARTRATE 25 MG TABLET PO ONE (22:45)
[2019-05-16] MEDS ORDERED: APIXABAN 5 MG TABLET PO ONE (22:45)
[2019-05-16] MEDS ORDERED: TAMSULOSIN HCL 0.4 MG CAP.SR.24H PO ONE (23:00)
[2019-05-17 01:04] LABS: CREATINE KINASE MB 1.16 ng/mL (<4.55)
[2019-05-17 01:07] LABS: TROPONIN I < 0.012 ng/mL
--- NOTE | 2019-05-17 03:37 | ER Document Report ---
Entered by SONALI DEVRIES SCRIBE 05/16/19 [id number] Acting as scribe for:VITOR ANGUIANO DO ED GI/ - General Chief Complaint: Possible Kidney Stone Stated Complaint: POSSIBLE KIDNEY STONES Time Seen by Provider: 05/16/19 14:00 Mode of Arrival: Ambulatory Information source: Patient Notes: Patient is a 78-year-old male with an extensive history of kidney stones that presents to the emergency department today with complaints of left flank pain that radiates down into his left testicle. Patient states "oh I know I have a stone". Patient then mentions that today is "kind of unique for his kidney stones" further clarifying that today he has this pressure that goes from his left flank down into his left testicle which is unusual. Patient describes his pain as "little razor blades". Patient states he took oxycodone this morning at 10 AM which did not really change his pain. Patient adds that he has an appointment with his urologist in [place], Dr. Horne, this afternoon at 330. Patient denies a cough or fever. TRAVEL OUTSIDE OF THE [place] IN LAST 30 DAYS: No - Related Data Allergies/Adverse Reactions: celecoxib [From Celebrex] Allergy (Severe, Verified 02/02/19 07:48) Chest pain leflunomide [From Arava] Allergy (Severe, Verified 02/02/19 07:48) Chest pain-Full list of symptoms on 05/18/13 DC Summary meloxicam [From Mobic] Allergy (Severe, Verified 02/02/19 07:48) Chest pain methotrexate [Methotrexate] Allergy (Severe, Verified 02/02/19 07:48) Anaphylaxis ketorolac tromethamine [From Toradol] Allergy (Unknown, Verified 02/02/19 07:48) see comment NSAIDS (Non-Steroidal Anti-Inflamma Allergy (Verified 02/02/19 07:48) Sulfa (Sulfonamide Antibiotics) Adverse Reaction (Severe, Verified 02/02/19 07:48) Diarrhea Penicillins Adverse Reaction (Unknown, Verified 02/02/19 07:48) Rash Past Medical History - General Information source: Patient, [facility] Records - Social History Smoking Status: Never Smoker Cigarette use (# per day): No Chew tobacco use (# tins/day): No Frequency of alcohol use: Rare Drug Abuse: None Lives with: Family Family History: Reviewed & Not Pertinent - PATIENT DOES NOT KNOW PARENTAL ME DICAL HISTORY. 1/2 SISTER HAS 'OBGYN CANCER', Hypertension Patient has suicidal ideation: No Patient has homicidal ideation: No - Past Medical History Cardiac Medical History: Reports: Hx Congestive Heart Failure - LVEF 30%, Hx Coronary Artery Disease - CARDIAC CATH WITH ONE STENT, Hx DVT - FEBRUARY 2017. IVC FILTER, Hx Pulmonary Embolism - ON ELIQUIS Renal/ Medical History: Reports: Hx Kidney Stones GI Medical History: Denies: Hx Hiatal Hernia, Hx Ulcer Musculoskeletal Medical History: Reports Hx Arthritis - RA, Reports Hx Gout Psychiatric Medical History: Reports: Hx Depression Past Surgical History: Reports: Hx Appendectomy, Hx Cardiac Catheterization, Hx Cardiac Surgery - stent X1, Hx Cholecystectomy, Hx Orthopedic Surgery - ankle / elbows, Other - Ureteral stent left kidney Removal stones and stent 2 weeks ago. Denies: Hx Open Heart Surgery - CATHERIZATIONS - Immunizations Hx Diphtheria, Pertussis, Tetanus Vaccination: Yes Hx Pneumococcal Vaccination: 08/08/13 Review of Systems - Review of Systems Constitutional: denies: Fever EENT: No symptoms reported Cardiovascular: No symptoms reported Respiratory: denies: Cough Gastrointestinal: No symptoms reported Genitourinary: See HPI, Flank pain - left Male Genitourinary: See HPI, Testicular pain - left Musculoskeletal: No symptoms reported Skin: No symptoms reported Hematologic/Lymphatic: No symptoms reported Neurological/Psychological: No symptoms reported -: Yes All other systems reviewed and negative Physical Exam - Vital signs Vitals: Temp Pulse Resp BP Pulse Ox 98.5 F 107 H 22 H 123/84 97 05/16/19 13:53 05/16/19 13:53 05/16/19 13:53 05/16/19 13:53 05/16/19 13:53 Interpretation: Tachycardic - General General appearance: Appears well, Alert Notes: Appears uncomfortable - HEENT Head: Normocephalic, Atraumatic Eyes: Normal Pupils: PERRL Mucous membranes: Dry - Respiratory Respiratory status: No respiratory distress Chest status: Nontender Breath sounds: Normal Chest palpation: Normal - Cardiovascular Rhythm: Regular Heart sounds: Normal auscultation Murmur: No - Abdominal Inspection: Normal Distension: No distension Bowel sounds: Normal Tenderness: Nontender Organomegaly: No organomegaly - Back Back: Normal, CVA tenderness - L - Extremities General upper extremity: Normal inspection, Nontender, Normal color, Normal ROM, Normal temperature General lower extremity: Normal inspection, Nontender, Normal color, Normal ROM, Normal temperature, Normal weight bearing. No: Lupis's sign - Neurological Neuro grossly intact: Yes Cognition: Normal Orientation: AAOx4 Blanchard Coma Scale Eye Opening: Spontaneous Jenny Coma Scale Verbal: Oriented Blanchard Coma Scale Motor: Obeys Commands Blanchard Coma Scale Total: 15 Speech: Normal Motor strength normal: LUE, RUE, LLE, RLE Sensory: Normal - Psychological Associated symptoms: Normal affect, Normal mood - Skin Skin Temperature: Warm Skin Moisture: Dry Skin Color: Normal Course - Re-evaluation Re-evalutation: 05/16/19 16:42 Spoke with urology at [facility], Dr. Wade, who states that he does not think the patient needs to be transferred to his facility, that he can be admitted here for further treatment. No old cultures documented. Patient is a 78-year-old male with a history of kidney stones who comes in complaining of flank pain that he cannot manage at home. Discussed with urology at [facility]. No evidence for septic stone. Will send urine culture. Given flank pain and dysuria with no evidence for ureteral stone, concerned that patient has possible UTI versus pyelonephritis. He has an elevated white blood cell count left shift. Urine culture and blood culture sent. Cefepime initiated. Discussed with the hospitalist will admit the patient. Patient is agreeable to this plan. Stable at the time of admission more comfortable with Dilaudid in the emergency department. - Vital Signs Vital signs: Temp Pulse Resp BP Pulse Ox 98.0 F 89 16 137/78 H 95 05/16/19 23:17 05/17/19 02:00 05/16/19 23:17 05/16/19 23:17 05/16/19 23:17 - Laboratory Result Diagrams: 05/16/19 14:30 05/16/19 16:21 Laboratory results interpreted by me: 05/16/19 05/16/19 05/16/19 14:30 14:30 16:21 WBC 15.5 H Seg Neuts % (Manual) 82 H Lymphocytes % (Manual) 11 L Abs Neuts (Manual) 12.7 H APTT BUN 27 H Alkaline Phosphatase 36 L Creatine Kinase Total Protein 5.8 L Urine Protein 30 H Urine Blood LARGE H Leukocyte Esterase Rfl TRACE H 05/16/19 05/16/19 16:21 16:21 WBC Seg Neuts % (Manual) Lymphocytes % (Manual) Abs Neuts (Manual) APTT 22.1 L BUN Alkaline Phosphatase Creatine Kinase 27 L Total Protein Urine Protein Urine Blood Leukocyte Esterase Rfl Discharge - Discharge Clinical Impression: Flank pain with concern for pyelonephrit Condition: Stable Disposition: ADMITTED INPATIENT Admitting Provider: Uday (Hospitalist) Unit Admitted: Telemetry I personally performed the services described in the documentation, reviewed and edited the documentation which was dictated to the scribe in my presence, and it accurately records my words and actions.
[2019-05-17] MEDS: PANTOPRAZOLE SODIUM 40 MG TABLET.DR PO SCH ×2 (05:44→18:42)
[2019-05-17] MEDS: CEFEPIME 2 GM/D5W RTU 2 GM/50 ML RTUPB IV SCH ×2 (05:45→18:42)
[2019-05-17] MEDS: HYDROMORPHONE HCL INJ/PF 2 MG/ML AMPULE IV SCH ×7 (05:45→23:55)
[2019-05-17] MEDS ORDERED: TORSEMIDE 20 MG TABLET PO PRN (07:26)
[2019-05-17] MEDS ORDERED: TOCILIZUMAB IV SCH (07:30)
[2019-05-17] MEDS ORDERED: CYANOCOBALAMIN (VITAMIN B-12) INJ 1000 MCG/1 ML VIAL IM SCH (07:30)
[2019-05-17] MEDS ORDERED: ERGOCALCIFEROL (VITAMIN D2) 50000 UNIT (1.25 MG) CAPSULE PO SCH (08:00)
[2019-05-17 08:34] LABS: ABSOLUTE LYMPHOCYTES (AUTO) 1.2 10^3/uL (0.5-4.7); ABSOLUTE MONOCYTES (AUTO) 0.8 10^3/uL (0.1-1.4); ABSOLUTE NEUT (AUTO) 7.4 10^3/uL (1.7-8.2); BASOPHILS % (AUTO) 0.1 % (0-2); EOSINOPHILS % (AUTO) 0.2 % (0-6); HEMATOCRIT 44.1 % (37.9-51.0); HEMOGLOBIN 14.7 g/dL (13.5-17.0); LYMPHOCYTES % (AUTO) 12.8 % (13-45); MEAN CORPUSCULAR HEMOGLOBIN 32.5 pg (27.0-33.4); MEAN CORPUSCULAR HGB CONC 33.3 g/dL (32.0-36.0); MEAN CORPUSCULAR VOLUME 98 fl (80-97); MONOCYTES % (AUTO) 8.1 % (3-13); PLATELET COUNT 143 10^3/uL (150-450); RED CELL DISTRIBUTION WIDTH 14.2 % (11.5-14.0); SEGMENTED NEUTROPHILS % (AUTO) 78.8 % (42-78); TOTAL CELLS COUNTED % (AUTO) 100 %; WHITE BLOOD COUNT 9.4 10^3/uL (4.0-10.5)
[2019-05-17 09:00] LABS: CREATINE KINASE MB 1.01 ng/mL (<4.55)
[2019-05-17 09:06] LABS: TROPONIN I < 0.012 ng/mL
[2019-05-17 09:12] LABS: ALBUMIN 3.2 g/dL (3.5-5.0); ALKALINE PHOSPHATASE 35 U/L (38-126); ANION GAP 6 (5-19); ASPARTATE AMINO TRANSFERASE 30 U/L (17-59); BILIRUBIN,DIRECT 0.1 mg/dL (0.0-0.4); BLOOD UREA NITROGEN 24 mg/dL (7-20); CALCIUM 8.4 mg/dL (8.4-10.2); CARBON DIOXIDE 26 mmol/L (22-30); CHLORIDE 108 mmol/L (98-107); CHOLESTEROL 162.37 mg/dL (0-200); CREATINE KINASE 21 U/L (55-170); GLUCOSE 100 mg/dL (75-110); POTASSIUM 4.5 mmol/L (3.6-5.0); TOTAL PROTEIN 5.3 g/dL (6.3-8.2); TRIGLYCERIDES 262 mg/dL (<150)
[2019-05-17 09:22] LABS: DIRECT LDL 68 mg/dL (<100)
[2019-05-17 09:23] LABS: VLDL CHOLESTEROL 52.4 mg/dL (10-31)
[2019-05-17] MEDS: LEVOFLOXACIN 500 MG/D5W RTU 500 MG/100 ML RTUPB IV SCH (09:40)
[2019-05-17] MEDS: CETIRIZINE 10 MG TABLET PO SCH (09:40)
[2019-05-17] MEDS: ESCITALOPRAM OXALATE 10 MG TABLET PO SCH (09:40)
[2019-05-17] MEDS: METOPROLOL TARTRATE 25 MG TABLET PO SCH ×2 (09:41→22:24)
[2019-05-17] MEDS: ALLOPURINOL 300 MG TABLET PO SCH (09:41)
[2019-05-17] MEDS: APIXABAN 5 MG TABLET PO SCH ×2 (09:41→22:25)
[2019-05-17] MEDS: PREDNISONE 5 MG TABLET PO SCH (09:41)
[2019-05-17] MEDS: FLUTICASONE NASAL SPRAY 50 MCG/SPRY 120 SPRAY/16 GM NASL SCH (09:42)
--- NOTE | 2019-05-17 09:44 | PDOC PROGRESS REPORT ---
Subjective Progress Note for:: 05/17/19 Subjective:: 78 year old male history of congestive heart failure with EF of around 30%, coronary artery disease status post stent placement several years ago has a heart monitor as per the patient, hypertension, recurrent history of kidney stones, gallbladder removal appendicectomy came to the emergency room with complaints of 4 to 5 days of abdominal pain associated nausea and occasional diarrhea. He called his urologist in [facility] and he was advised to come to the hospital here for further management. In the emergency room WBC count found to be 15,500 patient was tachycardic and patient gives a history of fever at home. Pain scale according to the patient is 10 /10. CT abdomen pelvis was done and no urinary stents were seen no obstruction was seen. Several nonobstructing stones are seen in both kidneys. She did agree to stay in the hospital for further management including IV antibiotic therapy. [id number]-old male with multiple medical problems admitted with severe back pains associated with urinary symptoms he has history of recurrent kidney stones. Patient states he is feeling much better today but still having the severe pains in the left and right costovertebral angles. No acute events in the last 24 hours. Afebrile. Reason For Visit: URINARY STONES Physical Exam Vital Signs: Temp Pulse Resp BP Pulse Ox 97.9 F 78 17 145/96 H 96 05/17/19 07:11 05/17/19 07:11 05/17/19 07:11 05/17/19 07:11 05/17/19 07:11 Intake & Output 05/16/19 05/17/19 05/18/19 06:59 06:59 06:59 Intake Total 600 Output Total 675 Balance -75 Weight 101.8 kg General appearance: PRESENT: no acute distress Head exam: PRESENT: atraumatic Eye exam: PRESENT: PERRLA Mouth exam: PRESENT: dry mucosa Teeth exam: PRESENT: poor dentation Neck exam: ABSENT: carotid bruit, JVD, lymphadenopathy, thyromegaly Respiratory exam: PRESENT: decreased breath sounds Cardiovascular exam: PRESENT: RRR. ABSENT: diastolic murmur, rubs, systolic murmur Vascular exam: PRESENT: normal capillary refill GI/Abdominal exam: PRESENT: normal bowel sounds, soft. ABSENT: distended, guarding, mass, organolmegaly, rebound, tenderness Rectal exam: PRESENT: deferred Extremities exam: PRESENT: full ROM. ABSENT: calf tenderness, clubbing, pedal edema Neurological exam: PRESENT: alert, awake, oriented to person, oriented to place, oriented to time, oriented to situation, CN II-XII grossly intact. ABSENT: motor sensory deficit Psychiatric exam: PRESENT: appropriate affect, normal mood. ABSENT: homicidal ideation, suicidal ideation Results Laboratory Results: 05/17/19 08:00 05/17/19 08:00 05/16/19 05/16/19 05/16/19 14:30 14:30 14:30 WBC 15.5 H RBC 5.10 Hgb 16.5 Hct 49.5 MCV 97 MCH 32.3 MCHC 33.3 RDW 14.0 Plt Count 179 Seg Neutrophils % Not Reportable Sodium Cancelled Potassium Cancelled Chloride Cancelled Carbon Dioxide Cancelled Anion Gap Cancelled BUN Cancelled Creatinine Cancelled Est GFR ( Amer) Cancelled Est GFR (Non-Af Amer) Cancelled Glucose Cancelled Lactic Acid Calcium Cancelled Magnesium Total Bilirubin Cancelled AST Cancelled Alkaline Phosphatase Cancelled Total Protein Cancelled Albumin Cancelled Triglycerides Cholesterol LDL Cholesterol Direct VLDL Cholesterol HDL Cholesterol TSH Urine Color YELLOW Urine Appearance SLIGHTLY-CLOUDY Urine pH 6.0 Ur Specific [place] 1.019 Urine Protein 30 H Urine Glucose (UA) NEGATIVE Urine Ketones NEGATIVE Urine Blood LARGE H Urine RBC (Auto) 179 05/16/19 05/16/19 05/17/19 16:21 16:21 08:00 WBC 9.4 RBC 4.50 Hgb 14.7 Hct 44.1 MCV 98 H MCH 32.5 MCHC 33.3 RDW 14.2 H Plt Count 143 L Seg Neutrophils % 78.8 H Sodium 138.5 Potassium 4.2 Chloride 106 Carbon Dioxide 26 Anion Gap 7 BUN 27 H Creatinine 1.00 Est GFR ( Amer) > 60 Est GFR (Non-Af Amer) Glucose 99 Lactic Acid 1.9 Calcium 8.8 Magnesium Total Bilirubin 1.2 AST 30 Alkaline Phosphatase 36 L Total Protein 5.8 L Albumin 3.5 Triglycerides Cholesterol LDL Cholesterol Direct VLDL Cholesterol HDL Cholesterol TSH Urine Color Urine Appearance Urine pH Ur Specific [place] Urine Protein Urine Glucose (UA) Urine Ketones Urine Blood Urine RBC (Auto) 05/17/19 05/17/19 08:00 08:00 WBC RBC Hgb Hct MCV MCH MCHC RDW Plt Count Seg Neutrophils % Sodium 139.6 Potassium 4.5 Chloride 108 H Carbon Dioxide 26 Anion Gap 6 BUN 24 H Creatinine 0.86 Est GFR ( Amer) > 60 Est GFR (Non-Af Amer) Glucose 100 Lactic Acid Calcium 8.4 Magnesium 2.2 Total Bilirubin 1.0 AST 30 Alkaline Phosphatase 35 L Total Protein 5.3 L Albumin 3.2 L Triglycerides 262 H Cholesterol 162.37 LDL Cholesterol Direct 68 VLDL Cholesterol 52.4 H HDL Cholesterol 53 TSH 0.33 L Urine Color Urine Appearance Urine pH Ur Specific [place] Urine Protein Urine Glucose (UA) Urine Ketones Urine Blood Urine RBC (Auto) 05/16/19 05/16/19 05/17/19 16:21 16:21 00:21 Creatine Kinase 27 L 24 L CK-MB (CK-2) 1.22 Troponin I < 0.012 05/17/19 05/17/19 05/17/19 00:21 08:00 08:00 Creatine Kinase 21 L CK-MB (CK-2) 1.16 1.01 Troponin I < 0.012 < 0.012 Impressions: Abdomen/Pelvis CT 05/16/19 00:00 IMPRESSION: 1. Multiple bilateral nonobstructing renal stones, similar to prior. No evidence of obstructive uropathy or hydronephrosis. 2. No other evidence of acute intra-abdominal/pelvic process. Chest X-Ray 05/16/19 00:00 IMPRESSION: Borderline cardiomegaly without pulmonary edema. Assessment and Plan - Diagnosis (1) Kidney stones Is this a current diagnosis for this admission?: Yes (2) Coronary artery disease Qualifiers: Coronary Disease-Associated Artery/Lesion type: [place] artery [place] vs. transplanted heart: [place] heart Associated angina: with unspecified angina Qualified Code(s): I25.119 - Atherosclerotic heart disease of [place] coronary artery with unspecified angina pectoris Is this a current diagnosis for this admission?: No (3) History of DVT (deep vein thrombosis) Is this a current diagnosis for this admission?: No (4) History of pulmonary embolism Is this a current diagnosis for this admission?: No (5) UTI (urinary tract infection) Qualifiers: Urinary tract infection type: site unspecified Is this a current diagnosis for this admission?: Yes - Plan Summary Summary: 1.kidney stones Patient is going to be admitted to [facility] for nonobstructing kidney stones associated with severe abdominal pain 05/17, UTI. Blood cultures urine cultures are requested to start on gentle IV fluid therapy, GI prophylaxis initiated. Patient is Eliquis at home. Got him on a Dilaudid 2 mg IV every 4 as needed. To start the patient on levo floxacillin. 05/17/2019-patient came in with severe back pains he has history of recurrent kidney stones ER physician talked to the urologist in [place] as per their advice patient was admitted here for IV hydration and antibiotic therapy. Afebrile no acute events in the last 24 hours. wBC count is 9400. Cultures are negative so far. Pain scale of 8/10. 2.hypertension Pressure is 123/84. To give gentle hydration. To watch for blood pressures every shift. 05/17/2019-patient blood pressure today is 117/83. Stable. To discontinue IV fluids. 3.history of DVT with IVC filter and history of pulmonary embolism. Continues on Eliquis at home to continue the medication during the hospital stay. 4.history of coronary artery disease with stent placement No complaints of chest pain at the time of examination. 5. obesity BMI is more than 31 diet exercise weight loss lifestyle modifications are discussed with the patient. 6.history of chronic back pain. To put him on morphine 2 mg IV every 4 as needed for back pain.
[2019-05-17] MEDS ORDERED: (PENDING PHARMACY ID) (Escitalopram Oxalate [Lexapro] 5 MG) PO SCH (10:00)
[2019-05-17] MEDS: PROMETHAZINE HCL 25 MG TABLET PO PRN (16:58)
[2019-05-17] MEDS ORDERED: TAMSULOSIN HCL 0.4 MG CAP.SR.24H PO SCH (22:00)
[2019-05-17] MEDS ORDERED: LOSARTAN POTASSIUM 25 MG TABLET PO SCH (22:00)
[2019-05-17] MEDS: TIZANIDINE HCL 4 MG TABLET PO SCH (22:25)
[2019-05-18] MEDS: HYDROMORPHONE HCL INJ/PF 2 MG/ML AMPULE IV SCH ×2 (03:57→08:33)
[2019-05-18 05:29] LABS: ABSOLUTE LYMPHOCYTES (AUTO) 2.5 10^3/uL (0.5-4.7); ABSOLUTE MONOCYTES (AUTO) 0.8 10^3/uL (0.1-1.4); ABSOLUTE NEUT (AUTO) 6.7 10^3/uL (1.7-8.2); BASOPHILS % (AUTO) 0.1 % (0-2); EOSINOPHILS % (AUTO) 0.2 % (0-6); HEMATOCRIT 45.8 % (37.9-51.0); HEMOGLOBIN 15.1 g/dL (13.5-17.0); LYMPHOCYTES % (AUTO) 24.6 % (13-45); MEAN CORPUSCULAR HEMOGLOBIN 32.5 pg (27.0-33.4); MEAN CORPUSCULAR VOLUME 99 fl (80-97); MONOCYTES % (AUTO) 8.4 % (3-13); PLATELET COUNT 150 10^3/uL (150-450); RED BLOOD COUNT 4.65 10^6/uL (4.35-5.55); RED CELL DISTRIBUTION WIDTH 13.9 % (11.5-14.0); SEGMENTED NEUTROPHILS % (AUTO) 66.7 % (42-78); TOTAL CELLS COUNTED % (AUTO) 100 %; WHITE BLOOD COUNT 10.1 10^3/uL (4.0-10.5)
[2019-05-18 05:57] LABS: ALBUMIN 3.6 g/dL (3.5-5.0); ALKALINE PHOSPHATASE 39 U/L (38-126); ANION GAP 5 (5-19); ASPARTATE AMINO TRANSFERASE 40 U/L (17-59); BILIRUBIN,DIRECT 0.2 mg/dL (0.0-0.4); BILIRUBIN,TOTAL 0.9 mg/dL (0.2-1.3); BLOOD UREA NITROGEN 22 mg/dL (7-20); CALCIUM 8.5 mg/dL (8.4-10.2); CARBON DIOXIDE 27 mmol/L (22-30); CHLORIDE 106 mmol/L (98-107); GLUCOSE 98 mg/dL (75-110); POTASSIUM 4.8 mmol/L (3.6-5.0); TOTAL PROTEIN 5.8 g/dL (6.3-8.2)
[2019-05-18] MEDS: CEFEPIME 2 GM/D5W RTU 2 GM/50 ML RTUPB IV SCH (06:19)
[2019-05-18] MEDS: PANTOPRAZOLE SODIUM 40 MG TABLET.DR PO SCH (06:20)
[2019-05-18] MEDS: CETIRIZINE 10 MG TABLET PO SCH (09:21)
[2019-05-18] MEDS: TIZANIDINE HCL 4 MG TABLET PO SCH (09:21)
[2019-05-18] MEDS: METOPROLOL TARTRATE 25 MG TABLET PO SCH (09:21)
[2019-05-18] MEDS: ALLOPURINOL 300 MG TABLET PO SCH (09:22)
[2019-05-18] MEDS: APIXABAN 5 MG TABLET PO SCH (09:22)
[2019-05-18] MEDS: ESCITALOPRAM OXALATE 10 MG TABLET PO SCH (09:22)
[2019-05-18] MEDS: PREDNISONE 5 MG TABLET PO SCH (09:22)
[2019-05-18] MEDS: LEVOFLOXACIN 500 MG/D5W RTU 500 MG/100 ML RTUPB IV SCH (09:23)
[2019-05-18] MEDS: FLUTICASONE NASAL SPRAY 50 MCG/SPRY 120 SPRAY/16 GM NASL SCH (09:28)
--- NOTE | 2019-05-18 10:24 | PDOC DISCHARGE SUMMARY ---
Impression - Admit/DC Date/PCP Admission Date/Primary Care Provider: 05/16/19 18:14 CHEN KEYS, Discharge Date: 05/18/19 - Discharge Diagnosis (1) Kidney stones Is this a current diagnosis for this admission?: Yes (2) Coronary artery disease Is this a current diagnosis for this admission?: No (3) History of DVT (deep vein thrombosis) Is this a current diagnosis for this admission?: No (4) History of pulmonary embolism Is this a current diagnosis for this admission?: No (5) UTI (urinary tract infection) Is this a current diagnosis for this admission?: Yes - Assessment Summary: 1.kidney stones Patient is going to be admitted to [facility] for nonobstructing kidney stones associated with severe abdominal pain 05/17, UTI. Blood cultures urine cultures are requested to start on gentle IV fluid therapy, GI prophylaxis initiated. Patient is Eliquis at home. Got him on a Dilaudid 2 mg IV every 4 as needed. To start the patient on levo floxacillin. 05/17/2019-patient came in with severe back pains he has history of recurrent kidney stones ER physician talked to the urologist in [place] as per their advice patient was admitted here for IV hydration and antibiotic therapy. Afebrile no acute events in the last 24 hours. wBC count is 9400. Cultures are negative so far. Pain scale of 8/10. 05/18/2019-patient says pain is much better. Expressing desire to go home today. Is also expressing desire to follow-up with his urologist as soon as possible. He has enough pain medications at home. 2.hypertension Pressure is 123/84. To give gentle hydration. To watch for blood pressures every shift. 05/17/2019-patient blood pressure today is 117/83. Stable. To discontinue IV fluids. 05/18/2019-patient's blood pressure today is 120/70. Stable. He was advised to continue the home medications on discharge. 3.history of DVT with IVC filter and history of pulmonary embolism. Continues on Eliquis at home to continue the medication during the hospital stay. 05/18/2019-patient has history of DVT and IVC filter placement, history of pulmonary embolism on Eliquis at home he was strongly advised to continue Eliquis at home. 4.history of coronary artery disease with stent placement No complaints of chest pain at the time of examination. 5. obesity BMI is more than 31 diet exercise weight loss lifestyle modifications are discussed with the patient. 6.history of chronic back pain. To put him on morphine 2 mg IV every 4 as needed for back pain. - Additional Information Resuscitation Status: Full Code Referrals: CHEN KEYS DO [Primary Care Provider] - Follow up as needed Home Medications: Allopurinol [Zyloprim 300 mg Tablet] 300 mg PO DAILY 05/16/19 Apixaban [Eliquis 5 mg Tablet] 5 mg PO Q12 05/16/19 Cetirizine HCl [Zyrtec 10 mg Tablet] 10 mg PO DAILY 05/16/19 Cyanocobalamin (Vitamin B-12) [Vitamin B-12 Inj 1000 Mcg/1 ml Vial] 1,000 mcg IM . AND 05/16/19 Ergocalciferol (Vitamin D2) [Drisdol 50,000 unit (1.25MG) Capsule] 50,000 unit PO TH@0800 05/16/19 Escitalopram Oxalate [Lexapro] 5 mg PO DAILY 05/16/19 Fluticasone Propionate [Flonase Nasal [place] 50 Mcg/[place] 16 gm] 1 spray NASL DAILY 05/16/19 Folic Acid [Folvite 1 mg Tablet] 1 mg PO DAILY 05/16/19 Losartan Potassium [Cozaar 25 mg Tablet] 12.5 mg PO QHS 05/16/19 Metoprolol Tartrate [Lopressor 25 mg Tablet] 25 mg PO Q12 05/16/19 Ondansetron HCl [Zofran 8 mg Tablet] 8 mg PO Q12HP PRN 05/16/19 Oxycodone HCl/Acetaminophen [Oxycodone-Acetaminophen 10-325] 1 each PO Q4HP PRN 05/16/19 Prednisone [Deltasone 5 mg Tablet] 5 mg PO DAILY 05/16/19 Tamsulosin HCl [Flomax 0.4 mg Cap.sr] 0.4 mg PO PCSUPPER 05/16/19 Tocilizumab [Actemra] 800 mg IV .EVERY 28 DAYS 05/16/19 Torsemide [Demadex 20 mg Tablet] 20 mg PO DAILYP PRN 05/16/19 Apixaban [Eliquis 5 mg Tablet] 5 mg PO Q12 tablet 10/11/19 History of Present Illiness History of Present Illness: KERRY COBURN is a 78 year old male history of congestive heart failure with EF of around 30%, coronary artery disease status post stent placement several years ago has a heart monitor as per the patient, hypertension, recurrent history of kidney stones, gallbladder removal appendicectomy came to the emergency room with complaints of 4 to 5 days of abdominal pain associated nausea and occasional diarrhea. He called his urologist in [facility] and he was advised to come to the hospital here for further management. In the emergency room WBC count found to be 15,500 patient was tachycardic and patient gives a history of fever at home. Pain scale according to the patient is 10 /10. CT abdomen pelvis was done and no urinary stents were seen no obstruction was seen. Several nonobstructing stones are seen in both kidneys. She did agree to stay in the hospital for further management including IV antibiotic therapy. Hospital Course Hospital Course: 78 year old male history of congestive heart failure with EF of around 30%, coronary artery disease status post stent placement several years ago has a heart monitor as per the patient, hypertension, recurrent history of kidney stones, gallbladder removal appendicectomy came to the emergency room with complaints of 4 to 5 days of abdominal pain associated nausea and occasional diarrhea. He called his urologist in [facility] and he was advised to come to the hospital here for further management. In the emergency room WBC count found to be 15,500 patient was tachycardic and patient gives a history of fever at home. Pain scale according to the patient is 10 /10. CT abdomen pelvis was done and no urinary stents were seen no obstruction was seen. Several nonobstructing stones are seen in both kidneys. She did agree to stay in the hospital for further management including IV antibiotic therapy. 05/[id number]-old male with multiple medical problems admitted with severe back pains associated with urinary symptoms he has history of recurrent kidney stones. Patient states he is feeling much better today but still having the severe pains in the left and right costovertebral angles. No acute events in the last 24 hours. Afebrile. Physical Exam Vital Signs: Temp Pulse Resp BP Pulse Ox 98.0 F 72 18 119/69 96 05/18/19 03:32 05/18/19 07:00 05/18/19 03:32 05/18/19 03:32 05/18/19 03:32 Intake & Output 05/17/19 05/18/19 05/19/19 06:59 06:59 06:59 Intake Total 600 1800 Output Total 675 1550 Balance -75 250 Weight 101.8 kg 102.1 kg General appearance: PRESENT: no acute distress, obese Head exam: PRESENT: atraumatic Eye exam: PRESENT: PERRLA Mouth exam: PRESENT: moist, tongue midline Teeth exam: PRESENT: poor dentation Neck exam: ABSENT: carotid bruit, JVD, lymphadenopathy, thyromegaly Respiratory exam: PRESENT: clear to auscultation [place]. ABSENT: rales, rhonchi, wheezes Cardiovascular exam: PRESENT: RRR. ABSENT: diastolic murmur, rubs, systolic murmur GI/Abdominal exam: PRESENT: normal bowel sounds, soft. ABSENT: distended, guarding, mass, organolmegaly, rebound, tenderness Rectal exam: PRESENT: deferred Extremities exam: PRESENT: calf tenderness Neurological exam: PRESENT: alert, awake, oriented to person, oriented to place, oriented to time, oriented to situation, CN II-XII grossly intact. ABSENT: motor sensory deficit Psychiatric exam: PRESENT: appropriate affect, normal mood. ABSENT: homicidal ideation, suicidal ideation Results Laboratory Results: WBC 10.1 10^3/uL (4.0-10.5) 05/18/19 05:17 RBC 4.65 10^6/uL (4.35-5.55) 05/18/19 05:17 Hgb 15.1 g/dL (13.5-17.0) 05/18/19 05:17 Hct 45.8 % (37.9-51.0) 05/18/19 05:17 MCV 99 fl (80-97) H 05/18/19 05:17 MCH 32.5 pg (27.0-33.4) 05/18/19 05:17 MCHC 33.0 g/dL (32.0-36.0) 05/18/19 05:17 RDW 13.9 % (11.5-14.0) 05/18/19 05:17 Plt Count 150 10^3/uL (150-450) 05/18/19 05:17 Lymph % (Auto) 24.6 % (13-45) 05/18/19 05:17 [place] % (Auto) 8.4 % (3-13) 05/18/19 05:17 Eos % (Auto) 0.2 % (0-6) 05/18/19 05:17 Baso % (Auto) 0.1 % (0-2) 05/18/19 05:17 Absolute Neuts (auto) 6.7 10^3/uL (1.7-8.2) 05/18/19 05:17 Absolute Lymphs (auto) 2.5 10^3/uL (0.5-4.7) 05/18/19 05:17 Absolute Monos (auto) 0.8 10^3/uL (0.1-1.4) 05/18/19 05:17 Absolute Eos (auto) 0.0 10^3/uL (0.0-0.6) 05/18/19 05:17 Absolute Basos (auto) 0.0 10^3/uL (0.0-0.2) 05/18/19 05:17 Total Counted 100 05/16/19 14:30 Seg Neutrophils % 66.7 % (42-78) 05/18/19 05:17 Seg Neuts % (Manual) 82 % (42-78) H 05/16/19 14:30 Lymphocytes % (Manual) 11 % (13-45) L 05/16/19 14:30 Monocytes % (Manual) 7 % (3-13) 05/16/19 14:30 Eosinophils % (Manual) 0 % (0-6) 05/16/19 14:30 Basophils % (Manual) 0 % (0-2) 05/16/19 14:30 Abs Neuts (Manual) 12.7 10^3/uL (1.7-8.2) H 05/16/19 14:30 Abs Lymphs (Manual) 1.7 10^3/uL (0.5-4.7) 05/16/19 14:30 Abs Monocytes (Manual) 1.1 10^3/uL (0.1-1.4) 05/16/19 14:30 Absolute Eos (Manual) 0.0 10^3/uL (0.0-0.6) 05/16/19 14:30 Abs Basophils (Manual) 0.0 10^3/uL (0.0-0.2) 05/16/19 14:30 Platelet Comment ADEQUATE 05/16/19 14:30 RBC Morph Comment NORMO-CYTIC/CHROMIC 05/16/19 14:30 PT 13.8 SEC (11.4-15.4) 05/16/19 16:21 INR 1.06 05/16/19 16:21 APTT 22.1 SEC (23.5-35.8) L 05/16/19 16:21 Sodium 138.3 mmol/L (137-145) 05/18/19 05:17 Potassium 4.8 mmol/L (3.6-5.0) 05/18/19 05:17 Chloride 106 mmol/L (98-107) 05/18/19 05:17 Carbon Dioxide 27 mmol/L (22-30) 05/18/19 05:17 Anion Gap 5 (5-19) 05/18/19 05:17 BUN 22 mg/dL (7-20) H 05/18/19 05:17 Creatinine 0.97 mg/dL (0.52-1.25) 05/18/19 05:17 Est GFR ( Amer) > 60 (>60) 05/18/19 05:17 Est GFR (Non-Af Amer) Cancelled 05/16/19 14:30 Est GFR (MDRD) Non-Af > 60 (>60) 05/18/19 05:17 Glucose 98 mg/dL (75-110) 05/18/19 05:17 Hemoglobin A1c % 5.9 % (4.7-6.0) 05/17/19 08:00 Lactic Acid 1.9 mmol/L (0.7-2.1) 05/16/19 16:21 Calcium 8.5 mg/dL (8.4-10.2) 05/18/19 05:17 Magnesium 2.2 mg/dL (1.6-2.3) 05/18/19 05:17 Total Bilirubin 0.9 mg/dL (0.2-1.3) 05/18/19 05:17 Direct Bilirubin 0.2 mg/dL (0.0-0.4) 05/18/19 05:17 Neonat Total Bilirubin Not Reportable 05/18/19 05:17 Neonat Direct Bilirubin Not Reportable 05/18/19 05:17 Neonat Indirect Bili Not Reportable 05/18/19 05:17 AST 40 U/L (17-59) 05/18/19 05:17 ALT 41 U/L (<50) 05/18/19 05:17 Alkaline Phosphatase 39 U/L (38-126) 05/18/19 05:17 Creatine Kinase 21 U/L (55-170) L 05/17/19 08:00 CK-MB (CK-2) 1.01 ng/mL (<4.55) 05/17/19 08:00 Troponin I < 0.012 ng/mL 05/17/19 08:00 Total Protein 5.8 g/dL (6.3-8.2) L 05/18/19 05:17 Albumin 3.6 g/dL (3.5-5.0) 05/18/19 05:17 Triglycerides 262 mg/dL (<150) H 05/17/19 08:00 Cholesterol 162.37 mg/dL (0-200) 05/17/19 08:00 LDL Cholesterol Direct 68 mg/dL (<100) 05/17/19 08:00 VLDL Cholesterol 52.4 mg/dL (10-31) H 05/17/19 08:00 HDL Cholesterol 53 mg/dL (>40) 05/17/19 08:00 EGFR Cancelled 05/16/19 14:30 TSH 0.33 uIU/mL (0.47-4.68) L 05/17/19 08:00 Urine Color YELLOW 05/16/19 14:30 Urine Appearance SLIGHTLY-CLOUDY 05/16/19 14:30 Urine pH 6.0 (5.0-9.0) 05/16/19 14:30 Ur Specific [place] 1.019 05/16/19 14:30 Urine Protein 30 mg/dL (NEGATIVE) H 05/16/19 14:30 Urine Glucose (UA) NEGATIVE mg/dL (NEGATIVE) 05/16/19 14:30 Urine Ketones NEGATIVE mg/dL (NEGATIVE) 05/16/19 14:30 Urine Blood LARGE (NEGATIVE) H 05/16/19 14:30 Urine Nitrite (Reflex) NEGATIVE (NEGATIVE) 05/16/19 14:30 Urine Bilirubin NEGATIVE (NEGATIVE) 05/16/19 14:30 Urine Urobilinogen NEGATIVE mg/dL (<2.0) 05/16/19 14:30 Leukocyte Esterase Rfl TRACE (NEGATIVE) H 05/16/19 14:30 Urine RBC (Auto) 179 /HPF 05/16/19 14:30 Urine WBC (Reflex) 30 /HPF 05/16/19 14:30 Squamous Epi Cells Auto <1 /HPF 05/16/19 14:30 Urine Mucus (Auto) OCC /LPF 05/16/19 14:30 Urine Ascorbic Acid NEGATIVE (NEGATIVE) 05/16/19 14:30 Urine Opiates Screen NEGATIVE 05/16/19 14:30 Urine Methadone Screen NEGATIVE 05/16/19 14:30 Ur Barbiturates Screen NEGATIVE 05/16/19 14:30 Ur Phencyclidine Scrn NEGATIVE 05/16/19 14:30 Ur Amphetamines Screen NEGATIVE 05/16/19 14:30 U Benzodiazepines Scrn NEGATIVE 05/16/19 14:30 Urine Cocaine Screen NEGATIVE 05/16/19 14:30 U Marijuana (THC) Screen NEGATIVE 05/16/19 14:30 05/16/19 05/17/19 05/17/19 16:21 00:21 08:00 CK-MB (CK-2) 1.22 1.16 1.01 Troponin I < 0.012 < 0.012 < 0.012 Impressions: Abdomen/Pelvis CT 05/16/19 00:00 IMPRESSION: 1. Multiple bilateral nonobstructing renal stones, similar to prior. No evidence of obstructive uropathy or hydronephrosis. 2. No other evidence of acute intra-abdominal/pelvic process. Chest X-Ray 05/16/19 00:00 IMPRESSION: Borderline cardiomegaly without pulmonary edema. Plan Time Spent: Greater than 30 Minutes Stroke Is this a Stroke Patient?: No Acute Heart Failure - Is this a Heart Failure Patient?: No
[2019-05-18 10:51] VITALS: BP 129/98
[2019-05-22] MEDS ORDERED: CYANOCOBALAMIN (VITAMIN B-12) INJ 1000 MCG/1 ML VIAL IM SCH (10:00)
== END 2019-05-18 12:06 | disposition home or self-care (01) ==
LOC: ER 13:29 → INTOOBSV 18:14 → EH 18:14 → 3W 19:50
PROVIDERS: ADMIT Internal Medicine; ATTEND Internal Medicine
DX: N20.0 Calculus of kidney (principal); N39.0 Urinary tract infection, site not specified; I25.119 Atherosclerotic heart disease of native coronary artery with unspecified angina pectoris; I11.0 Hypertensive heart disease with heart failure; I50.9 Heart failure, unspecified; E66.9 Obesity, unspecified; G89.29 Other chronic pain; M54.9 Dorsalgia, unspecified; R00.0 Tachycardia, unspecified; R50.9 Fever, unspecified; R19.7 Diarrhea, unspecified; M06.9 Rheumatoid arthritis, unspecified; M10.9 Gout, unspecified; I25.2 Old myocardial infarction; Z86.718 Personal history of other venous thrombosis and embolism; Z86.711 Personal history of pulmonary embolism; Z95.5 Presence of coronary angioplasty implant and graft; Z79.02 Long term (current) use of antithrombotics/antiplatelets; Z68.32 Body mass index [BMI] 32.0-32.9, adult; Z79.899 Other long term (current) drug therapy; Z90.49 Acquired absence of other specified parts of digestive tract; Z87.442 Personal history of urinary calculi; Z82.49 Family history of ischemic heart disease and other diseases of the circulatory system; Z96.0 Presence of urogenital implants; Z95.828 Presence of other vascular implants and grafts
CPT/HCPCS: 96376; 99285; 96361; 96375; 96365; 36415 ×3; 87040; 87086; 82553 ×2; 82550 ×2; 83735 ×2; 84443; 85025 ×3; 85610; 85730; 80053 ×3; 81001; 84484 ×2; 80307; 83036; 83605; 80061; 71045; 74176; G0378 ×2; A9270 ×23; J1956 ×2; J3490 ×3; J1170 ×3; J2550; J7030; J7040; J0692 ×3; J7512

== ENCOUNTER 2019-07-16 12:20 | Emergency (ER) | payer MEDICARE, OTHER ==
--- NOTE | 2019-07-16 12:51 | ER Document Report ---
ED Medical Screen (RME) - General Chief Complaint: Shoulder Pain Stated Complaint: RIGHT SHOULDER PAIN Time Seen by Provider: 07/16/19 12:47 Primary Care Provider: CHEN KEYS DO [Primary Care Provider] - Follow up as needed Mode of Arrival: Medic Information source: Patient Notes: 78-year-old male presented to ED for complaint of pain in the neck and right shoulder. He had surgery on his neck 4 days ago with 2 plates placed and cervical fusion on 11 July. He states this was done in [place] Dr. AMARAL. He states he went to lower the handle on his recliner this morning and he felt a snap on the right side of his neck with extreme pain to his neck and right shoulder since then. States the pain is been that way since he tried to lower the recliner. He states for short period of time he lost all movement in his right arm and leg he is moving the arm freely and the leg freely at this time. He states they feel numb and weird but he can move them now. He states he did take 6 mg of Dilaudid at 1030. I have greeted and performed a rapid initial assessment of this patient. A comprehensive ED assessment and evaluation of the patient, analysis of test results and completion of medical decision making process will be conducted by an additional ED providers. TRAVEL OUTSIDE OF THE [place] IN LAST 30 DAYS: No - Related Data Allergies/Adverse Reactions: celecoxib [From Celebrex] Allergy (Severe, Verified 07/16/19 12:34) Chest pain leflunomide [From Arava] Allergy (Severe, Verified 07/16/19 12:34) Chest pain-Full list of symptoms on 05/18/13 DC Summary meloxicam [From Mobic] Allergy (Severe, Verified 07/16/19 12:34) Chest pain methotrexate [Methotrexate] Allergy (Severe, Verified 07/16/19 12:34) Anaphylaxis ketorolac tromethamine [From Toradol] Allergy (Unknown, Verified 07/16/19 12:34) see comment NSAIDS (Non-Steroidal Anti-Inflamma Allergy (Verified 07/16/19 12:34) Sulfa (Sulfonamide Antibiotics) Adverse Reaction (Severe, Verified 07/16/19 12:34) Diarrhea Penicillins Adverse Reaction (Unknown, Verified 07/16/19 12:34) Rash Past Medical History - Past Medical History Cardiac Medical History: Reports: Hx Congestive Heart Failure - LVEF 30%, Hx Coronary Artery Disease - CARDIAC CATH WITH ONE STENT, Hx DVT - FEBRUARY 2017. IVC FILTER, Hx Pulmonary Embolism - ON ELIQUIS Denies: Hx Heart Attack, Hx Hypertension - ON MEDS FOR HEART FAILURE Pulmonary Medical History: Denies: Hx Asthma, Hx Bronchitis, Hx COPD, Hx Pneumonia, Hx Tuberculosis Neurological Medical History: Denies: Hx Cerebrovascular Accident, Hx Seizures Renal/ Medical History: Reports: Hx Kidney Stones. Denies: Hx Peritoneal Dialysis GI Medical History: Denies: Hx Hiatal Hernia, Hx Ulcer Musculoskeltal Medical History: Reports Hx Arthritis - RA, Reports Hx Gout Psychiatric Medical History: Reports: Hx Depression Past Surgical History: Reports: Hx Appendectomy, Hx Cardiac Catheterization, Hx Cardiac Surgery - stent X1, Hx Cholecystectomy, Hx Orthopedic Surgery - ankle / elbows, Other - Ureteral stent left kidney Removal stones and stent 2 weeks ago. Denies: Hx Open Heart Surgery - CATHERIZATIONS - Immunizations Hx Diphtheria, Pertussis, Tetanus Vaccination: Yes Doctor's Discharge - Discharge Referrals: CHEN KEYS DO [Primary Care Provider] - Follow up as needed
--- NOTE | 2019-07-16 13:21 | RADIOLOGY REPORT (SQ) ---
EXAM DESCRIPTION: CT CERVICAL SPINE WITHOUT COMPLETED DATE/TIME: 07/16/2019 1:07 pm REASON FOR STUDY: Recent surgery new injury pain COMPARISON: 2013 TECHNIQUE: Axial images acquired through the cervical spine without intravenous contrast. Images re viewed with lung, soft tissue and bone windows. Reconstructed coronal and sagittal MPR images review ed. Images stored on PACS. All CT scanners at this facility use dose modulation, iterative reconstruction, and/or weight based d osing when appropriate to reduce radiation dose to as low as reasonably achievable (ALARA). [facility]: Dose Right [facility]: CareDose [facility]: Dose Right [facility]: Teradose 4D [facility]: Code Scouts RADIATION DOSE: CT Rad equipment meets quality standard of care and radiation dose reduction techniq ues were employed. CTDIvol: 24.8 mGy. DLP: 530 mGy-cm. mGy. LIMITATIONS: Metal artifact. FINDINGS: ALIGNMENT: Slight anterolisthesis of C2 relative to C3. MINERALIZATION: Normal. VERTEBRAL BODIES: No fractures or dislocation. DISCS: Multilevel disc space narrowing with osteophytes. FACETS, LATERAL MASSES, POSTERIOR ELEMENTS: Dorsal laminectomies at C3 and C4. HARDWARE: Interlaminar fusion at C3 and C4. VISUALIZED RIBS: No fractures. LUNG APICES AND SOFT TISSUES: No significant or acute findings. OTHER: No other significant finding. IMPRESSION: Degenerative and postsurgical changes. TECHNICAL DOCUMENTATION: JOB ID: [id number] Quality ID # [id number]: Final reports with documentation of one or more dose reduction techniques (e.g., Au tomated exposure control, adjustment of the mA and/or kV according to patient size, use of iterative reconstruction technique) 2010 [employer]- All Rights Reserved Reading location - IP/workstation name: [email or web address]
[2019-07-16] MEDS ORDERED: HYDROMORPHONE HCL INJ/PF 2 MG/ML AMPULE IV ONE ×2 (15:29→16:06)
--- NOTE | 2019-07-16 16:08 | ER Document Report ---
ED Neck/Back Problem - General Chief Complaint: Neck Injury Stated Complaint: RIGHT SHOULDER PAIN Time Seen by Provider: 07/16/19 12:47 Primary Care Provider: CHEN KEYS DO [NO LOCAL MD] - Follow up as needed Mode of Arrival: Medic Information source: Patient Notes: NACHO HPI/: 78-year-old male presented to ED for complaint of pain in the neck and right suzan ulder. He had surgery on his neck 4 days ago with 2 plates placed and cervical fusion on 11 July. He states this was done in [place] Dr. EMMANUEL. He states he went to lower the handle on his recliner this morning and he felt a snap on the right side of his neck with extreme pain to his neck and right shoulder since then. States the pain is been that way since he tried to lower the recliner. He states for short period of time he lost all movement in his right arm and leg he is moving the arm freely and the leg freely at this time. He states they feel numb and weird but he can move them now. He states he did take 6 mg of Dilaudid at 1030. TRAVEL OUTSIDE OF THE [place] IN LAST 30 DAYS: No - Related Data Allergies/Adverse Reactions: celecoxib [From Celebrex] Allergy (Severe, Verified 07/16/19 12:34) Chest pain leflunomide [From Arava] Allergy (Severe, Verified 07/16/19 12:34) Chest pain-Full list of symptoms on 05/18/13 DC Summary meloxicam [From Mobic] Allergy (Severe, Verified 07/16/19 12:34) Chest pain methotrexate [Methotrexate] Allergy (Severe, Verified 07/16/19 12:34) Anaphylaxis ketorolac tromethamine [From Toradol] Allergy (Unknown, Verified 07/16/19 12:34) see comment NSAIDS (Non-Steroidal Anti-Inflamma Allergy (Verified 07/16/19 12:34) Sulfa (Sulfonamide Antibiotics) Adverse Reaction (Severe, Verified 07/16/19 12:34) Diarrhea Penicillins Adverse Reaction (Unknown, Verified 07/16/19 12:34) Rash Past Medical History - General Information source: Patient - Social History Smoking Status: Never Smoker Frequency of alcohol use: None Drug Abuse: None Family History: Reviewed & Not Pertinent - PATIENT DOES NOT KNOW PARENTAL MEDICAL HISTORY. 1/2 SISTER HAS 'OBGYN CANCER', Hypertension Patient has suicidal ideation: No Patient has homicidal ideation: No - Past Medical History Cardiac Medical History: Reports: Hx Congestive Heart Failure - LVEF 30%, Hx Coronary Artery Disease - CARDIAC CATH WITH ONE STENT, Hx DVT - FEBRUARY 2017. IVC FILTER, Hx Hypertension, Hx Pulmonary Embolism - ON ELIQUIS Denies: Hx Heart Attack Pulmonary Medical History: Denies: Hx Asthma, Hx Bronchitis, Hx COPD, Hx Pneumonia, Hx Tuberculosis Neurological Medical History: Denies: Hx Cerebrovascular Accident, Hx Seizures Renal/ Medical History: Reports: Hx Kidney Stones. Denies: Hx Peritoneal Dialysis GI Medical History: Denies: Hx Hepatitis, Hx Hiatal Hernia, Hx Ulcer Musculoskeletal Medical History: Reports Hx Arthritis - RA, Reports Hx Gout Psychiatric Medical History: Reports: Hx Depression Infectious Medical History: Denies: Hx Hepatitis Past Surgical History: Reports: Hx Appendectomy, Hx Cardiac Catheterization, Hx Cardiac Surgery - stent X1, Hx Cholecystectomy, Hx Orthopedic Surgery - ankle / elbows, Other - Ureteral stent left kidney Removal stones and stent 2 weeks ago. Denies: Hx Open Heart Surgery - CATHERIZATIONS, Hx Pacemaker - Immunizations Hx Diphtheria, Pertussis, Tetanus Vaccination: Yes Hx Pneumococcal Vaccination: 08/08/13 Review of Systems - Review of Systems Constitutional: No symptoms reported EENT: No symptoms reported Cardiovascular: No symptoms reported Respiratory: No symptoms reported Gastrointestinal: No symptoms reported Genitourinary: No symptoms reported Male Genitourinary: No symptoms reported Musculoskeletal: See HPI Skin: No symptoms reported Hematologic/Lymphatic: No symptoms reported Neurological/Psychological: No symptoms reported Physical Exam - Vital signs Vitals: Temp Pulse Resp BP Pulse Ox 97.9 F 79 20 148/95 H 93 07/16/19 12:28 07/16/19 12:28 07/16/19 12:28 07/16/19 12:28 07/16/19 12:28 - Notes Notes: PHYSICAL EXAMINATION: GENERAL: Well-appearing, well-nourished and in no acute distress. HEAD: Atraumatic, normocephalic. EYES: Pupils equal round and reactive to light, extraocular movements intact, sclera anicteric, conjunctiva are normal. ENT: Nares patent, oropharynx clear without exudates. Moist mucous membranes. NECK: Normal range of motion, supple without lymphadenopathy, cervical collar in place LUNGS: Breath sounds clear to auscultation bilaterally and equal. No wheezes rales or rhonchi. HEART: Regular rate and rhythm without murmurs ABDOMEN: Soft, nontender, nondistended abdomen. No guarding, no rebound. No masses appreciated. Musculoskeletal: Normal range of motion, no pitting or edema. No cyanosis. NEUROLOGICAL: Face symmetric. Tongue protrudes midline. Extraocular motions intact. Pupils are 2 mm and equally reactive. Normal speech, normal gait. 5 out of 5 strength in both the distal and proximal upper and lower extremities bilaterally. Sensation is grossly intact throughout. Finger to nose testing normal. Pronator drift normal. PSYCH: Normal mood, normal affect. SKIN: Warm, Dry, normal turgor, no rashes or lesions noted. Course - Re-evaluation Re-evalutation: Cervical Spine CT 07/16/19 12:51 IMPRESSION: Degenerative and postsurgical changes. Cervical Spine X-Ray 07/16/19 17:14 IMPRESSION: Limited evaluation of the cervical spine - the C6 and C7 vertebral bodies and the craniocervical junction is excluded from the [id number]. There is posterior fusion hardware at C3-C4; the hardware is in proper alignment and there is no discrete periprosthetic fracture. 07/16/19 16:00 Ugo placed to [facility] to consult with Dr. Emmanuel, neurosurgery. 07/16/19 16:45 Second call placed to [facility] to consult with patient's neurosurgeon. 07/16/19 18:[address] Liriano, neurosurgery [facility]. He would like images sent to him of patient's CT as well as x-rays here. Patient has now received several rounds of pain medications with out relief. Patient does not appear to be in any acute distress and has been resting comfortably in between my assessments. 07/16/19 19:17 Spoke with patient's neurosurgeon, he has reviewed all the images. He states if no neuro deficits patient can be discharged home with follow-up in the office. 07/16/19 19:46 Patient reports he is still in severe pain, requesting to be admitted to the hospital for pain control. 07/16/19 20:19 Spoke with hospitalist, Dr. Horne who declines admission at this time. Orders placed for Flexeril, discussed with patient that he does not meet admission criteria. Patient continues to feel that he needs to be admitted to the hospital. His son is at the bedside trying to speak to him and talk him into trying to be discharged home. I have offered prescription for Flexeril, I have offered transport home. 07/16/19 22:23 Extensive time has been spent with this patient. I will just left the room with the nursing supervisor speech. The patient has been refusing to be discharged stating that his pain is out of control. Every time I enter the room the patient is resting what appears to be peacefully in no acute distress. We have discussed option of having a fentanyl patch placed and discharged home with plan to follow-up with neurosurgeon, under the agreement that he refrain from taking any Dilaudid while the fentanyl patch is in place. His son has been at the bedside and is agreeable to this. I have again offered to contact friendly transport. Patient now wants additional time to think about this. 07/16/19 23:26 Patient has agreed to be discharged home via friendly transport. A fentanyl patch was ordered. Patient and son at bedside agreed to not use any Dilaudid tablets until the fentanyl patch is removed and he is spoken with his neurosurg fadia. 07/17/19 00:24 Patient discharged via family transport ambulance who is at the bedside. - Vital Signs Vital signs: Temp Pulse Resp BP Pulse Ox 98.3 F 96 18 139/90 H 91 L 07/17/19 00:15 07/17/19 00:15 07/17/19 00:15 07/17/19 00:15 07/17/19 00:15 Discharge - Discharge Clinical Impression: Neck pain, Postoperative pain Cervical strain Qualifiers: Encounter type: initial encounter Qualified Code(s): S16.1XXA - Strain of muscle, fascia and tendon at neck level, initial encounter Condition: Stable Disposition: HOME, SELF-CARE Additional Instructions: You were seen in the emergency department with sudden onset neck pain after having surgery 4 days ago. I have consulted with your neurosurgeon and he has reviewed the CAT scan and x-rays that we took here. He does not see any acute damage caused by the abrupt movements that you made when trying to reposition your recliner. A fentanyl patch was applied, do not take your Dilaudid tablets while the fentanyl patch is in place. Please call their office tomorrow morning to initiate a follow-up. Return to the emergency department for any new or worsening symptoms. Prescriptions: Cyclobenzaprine HCl [Flexeril 10 mg Tablet] 10 mg PO TIDP PRN #15 tab PRN Reason: Referrals: CHEN KEYS DO [NO LOCAL MD] - Follow up as needed
[2019-07-16] MEDS ORDERED: DIAZEPAM INJ 10 MG/2 ML DISP.SYRIN IV ONE (17:21)
--- NOTE | 2019-07-16 17:44 | RADIOLOGY REPORT (SQ) ---
EXAM DESCRIPTION: CERV SP 3 VIEW OR LESS COMPLETED DATE/TIME: 07/16/2019 5:34 pm REASON FOR STUDY: AP/LAT, neck pain s/p surgery COMPARISON: None. NUMBER OF VIEWS: Two views. TECHNIQUE: AP and lateral views of the cervical spine were obtained. LIMITATIONS: None. FINDINGS: MINERALIZATION: Normal. ALIGNMENT: Anatomic. VERTEBRAE: Evaluation of the C6 and C7 vertebral bodies and of the craniocervical junction is limited due to superimposition of soft tissues. The feet to 2 C5 vertebral bodies heights are preserved. T here is no fracture. DISCS: The C3-C4 intervertebral disc space is narrowed. HARDWARE: Bilateral lateral mass screws at C3-C4. There is no periprosthetic fracture. SOFT TISSUES: No abnormality of the prevertebral soft tissues. OTHER: No other finding. IMPRESSION: Limited evaluation of the cervical spine - the C6 and C7 vertebral bodies and the cranio cervical junction is excluded from the [id number]. There is posterior fusion hardware at C3-C4; t he hardware is in proper alignment and there is no discrete periprosthetic fracture. TECHNICAL DOCUMENTATION: JOB ID: [id number] [employer]- All Rights Reserved Reading location - IP/workstation name: [email or web address]
[2019-07-16] MEDS ORDERED: FENTANYL CITRATE INJ/PF 100 MCG/2 ML AMPUL IV ONE (19:44)
[2019-07-16] MEDS ORDERED: CYCLOBENZAPRINE HCL 10 MG TABLET PO ONE (20:09)
[2019-07-16] MEDS ORDERED: OXYCODONE-ACETAMINOPHEN 5-325 MG TABLET PO ONE (21:05)
[2019-07-16] MEDS ORDERED: PROMETHAZINE HCL 25 MG TABLET PO ONE (21:41)
[2019-07-16] MEDS ORDERED: FENTANYL 75 MCG/HR PATCH.TD72 TD ONE (22:50)
[2019-07-17 00:21] VITALS: BP 139/90
== END 2019-07-17 00:20 | disposition home or self-care (01) ==
LOC: ER 12:20
DX: S16.1XXA Strain of muscle, fascia and tendon at neck level, initial encounter (principal); X58.XXXA Exposure to other specified factors, initial encounter; M54.2 Cervicalgia; G89.18 Other acute postprocedural pain; M47.9 Spondylosis, unspecified; M25.511 Pain in right shoulder; Z98.1 Arthrodesis status; I10 Essential (primary) hypertension; I25.10 Atherosclerotic heart disease of native coronary artery without angina pectoris; Z95.5 Presence of coronary angioplasty implant and graft; Z88.8 Allergy status to other drugs, medicaments and biological substances; Z88.2 Allergy status to sulfonamides; Z88.0 Allergy status to penicillin
CPT/HCPCS: 96376; 99285; 96374; 96375; 72040; 72125; A9270 ×4; J3360; J3010; J1170; J3490

== ENCOUNTER 2019-07-27 13:15 | Emergency (ER) | payer MEDICARE, OTHER ==
[2019-07-27] MEDS ORDERED: LIDOCAINE 1% INJ-PF (10 MG/ML) 30 ML SDV INJ ONE (13:51)
--- NOTE | 2019-07-27 13:56 | ER Document Report ---
ED Extremity Problem, Lower - General Chief Complaint: Leg Injury Stated Complaint: LEG INJURY Time Seen by Provider: 07/27/19 13:51 Primary Care Provider: ELBA PORTILLO PA-C [Primary Care Provider] - Follow up in 3-5 days Mode of Arrival: Wheelchair Information source: Patient Notes: 78-year-old male presented to ED for small laceration to the left lower leg. Patient was getting into his truck when he caught his leg on the door of the truck causing a small laceration to the lower leg. He is alert oriented respirations regular nonlabored speaking in full sentences. He did recently have a neck surgery and is now wearing a collar. He is on blood thinners heart medications and NSAIDs. The only thing he needs at this time is a few sutures in his laceration TRAVEL OUTSIDE OF THE [place] IN LAST 30 DAYS: No - HPI Patient complains to provider of: Injury, Pain Location: Leg Occurred: Just prior to arrival Where: Home, Outdoors Onset/Duration: Sudden Quality of pain: Sharp Severity: Moderate Pain Level: 2 Context: Laceration Recent injury: Yes Associated symptoms: Painful ambulation Exacerbated by: Movement, Walking Relieved by: Nothing - Related Data Allergies/Adverse Reactions: celecoxib [From Celebrex] Allergy (Severe, Verified 07/16/19 12:34) Chest pain leflunomide [From Arava] Allergy (Severe, Verified 07/16/19 12:34) Chest pain-Full list of symptoms on 05/18/13 DC Summary meloxicam [From Mobic] Allergy (Severe, Verified 07/16/19 12:34) Chest pain methotrexate [Methotrexate] Allergy (Severe, Verified 07/16/19 12:34) Anaphylaxis ketorolac tromethamine [From Toradol] Allergy (Unknown, Verified 07/16/19 12:34) see comment NSAIDS (Non-Steroidal Anti-Inflamma Allergy (Verified 07/16/19 12:34) Sulfa (Sulfonamide Antibiotics) Adverse Reaction (Severe, Verified 07/16/19 12:34) Diarrhea Penicillins Adverse Reaction (Unknown, Verified 07/16/19 12:34) Rash Past Medical History - General Information source: Patient - Social History Smoking Status: Never Smoker Lives with: Family Family History: Reviewed & Not Pertinent - PATIENT DOES NOT KNOW PARENTAL MEDICAL HISTORY. 1/2 SISTER HAS 'OBGYN CANCER', Hypertension Patient has suicidal ideation: No - Past Medical History Cardiac Medical History: Reports: Hx Congestive Heart Failure - LVEF 30%, Hx Coronary Artery Disease - CARDIAC CATH WITH ONE STENT, Hx DVT - FEBRUARY 2017. IVC FILTER, Hx Hypertension, Hx Pulmonary Embolism - ON ELIQUIS Pulmonary Medical History: Reports: None EENT Medical History: Reports: None Neurological Medical History: Reports: None Endocrine Medical History: Reports: None Renal/ Medical History: Reports: Hx Kidney Stones Malignancy Medical History: Reports None GI Medical History: Reports: None Musculoskeletal Medical History: Reports Hx Arthritis - RA, Reports Hx Gout Skin Medical History: Reports None Psychiatric Medical History: Reports: Hx Depression Traumatic Medical History: Reports: None Infectious Medical History: Reports: None Past Surgical History: Reports: Hx Appendectomy, Hx Cardiac Catheterization, Hx Cardiac Surgery - stent X1, Hx Cholecystectomy, Hx Orthopedic Surgery - ankle / elbows, Other - Ureteral stent left kidney Removal stones and stent 2 weeks ago - Immunizations Hx Diphtheria, Pertussis, Tetanus Vaccination: Yes Hx Pneumococcal Vaccination: 08/08/13 Review of Systems - Review of Systems Constitutional: No symptoms reported EENT: No symptoms reported Cardiovascular: No symptoms reported Respiratory: No symptoms reported Gastrointestinal: No symptoms reported Genitourinary: No symptoms reported Male Genitourinary: No symptoms reported Musculoskeletal: No symptoms reported Skin: Other Hematologic/Lymphatic: No symptoms reported Neurological/Psychological: No symptoms reported Physical Exam - Vital signs Vitals: Temp Pulse Resp BP Pulse Ox 97.5 F 71 18 122/67 96 07/27/19 13:24 07/27/19 13:24 07/27/19 13:24 07/27/19 13:24 07/27/19 13:24 Interpretation: Normal - General General appearance: Appears well, Alert - HEENT Head: Normocephalic, Atraumatic Eyes: Normal Pupils: PERRL - Respiratory Respiratory status: No respiratory distress Chest status: Nontender Breath sounds: Normal Chest palpation: Normal - Cardiovascular Rhythm: Regular Heart sounds: Normal auscultation Murmur: No - Abdominal Inspection: Normal Distension: No distension Bowel sounds: Normal Tenderness: Nontender Organomegaly: No organomegaly - Back Back: Normal, Nontender - Extremities General upper extremity: Normal inspection, Nontender, Normal color, Normal ROM, Normal temperature General lower extremity: Normal color, Normal ROM, Normal temperature, Normal weight bearing. No: Lupis's sign Calf: Laceration - Neurological Neuro grossly intact: Yes Cognition: Normal Orientation: AAOx4 Barclay Coma Scale Eye Opening: Spontaneous Jenny Coma Scale Verbal: Oriented Jenny Coma Scale Motor: Obeys Commands Barclay Coma Scale Total: 15 Speech: Normal Motor strength normal: LUE, RUE, LLE, RLE Sensory: Normal - Psychological Associated symptoms: Normal affect, Normal mood - Skin Skin Temperature: Warm Skin Moisture: Dry Skin Color: Normal Skin irregularity: Laceration - Flap laceration to the left lower leg Location of irregularity: Extremities - 20 Course - Vital Signs Vital signs: Temp Pulse Resp BP Pulse Ox 98.1 F 80 18 115/66 96 07/27/19 14:45 07/27/19 14:45 07/27/19 14:45 07/27/19 14:45 07/27/19 14:45 Procedures - Laceration/Wound Repair Left Lateral Leg Time completed: 14:31 Wound length (cm): 6 Wound's Depth, Shape: Flap Laceration pre-procedure: Sterile PPE donned, Sterile drapes applied, Shur-Clens applied Anesthetic type: 1% Lidocaine Volume Anesthetic (mLs): 5 Wound explored: Contaminated Irrigated w/ Saline (mLs): 400 Wound Repaired With: Sutures Suture Size/Type: 4:0, Ethilon Number of Sutures: 6 Layer Closure?: No Post-procedure wound care: Sterile dressing applied - with telpha, gauze tape then coban Discharge - Discharge Clinical Impression: Laceration of left lower leg Qualifiers: Encounter type: initial encounter Qualified Code(s): S81.812A - Laceration without foreign body, left lower leg, initial encounter Condition: Stable Disposition: HOME, SELF-CARE Additional Instructions: LACERATION CARE: Your laceration has been sutured to keep the skin edges aligned during healing. The time of suture removal depends on the nature and location of your cut. Please follow the care instructions the doctor has outlined for you and return for further care, according to the schedule you've been given. Keep the wound and dressing clean. Unless you were told otherwise, you may shower daily, blotting the wound dry with a clean, unused towel. At other times, If the dressing gets wet or blood soaked, remove it and blot the wound dry, then reapply a new dressing. Unless you were instructed otherwise, dressings should be changed at least daily. If any signs of infection occur (swelling, redness, drainage, increasing tenderness, red streaks, tender lumps in the armpit or groin above the laceration, or fever), see the doctor immediately. SOAP CLEANSING: Gently wash the wound daily using a mild soap (like Ivory, Phisoderm, Neutrogena). Use warm water, rubbing gently until all debris, ooze, and crusting have been washed from the wound. Allow to dry briefly (about 10 minutes) after cleaning. Repeat this cleansing at least three times a day for the first two days and then once or twice a day. ANTIBIOTIC OINTMENT PROTECTION: Your wounds are such that dressing them is not practical or optional. After cleansing, you should apply a thin coating of antibiotic ointment (Bacitracin, not Neosporin) to the wounds at least three times daily. This lessens infection risk, and may decrease the amount of scarring. Use a q-tip or dull butter knife, not your finger, to apply this ointment. Any debris or ooze which builds up in the ointment should be gently rubbed off with a sterile gauze pad. Harder crusting may need to be gently scrubbed off with a clean wash cloth with soap and warm water, perhaps applying a warm, wet wash cloth to the wound for ten minutes first. Development of redness, severe itching, or blistering may mean allergy to the ointment. See the doctor. FOLLOW-UP CARE: Please return in __3___ days for an infection check and dressing change. Your sutures should be removed in ___10-12__ days. To facilitate a timely removal of your sutures, you may return to the Emergency Department at [facility]. You do not need to call for an appointment, but the best time to come in for suture removal is early in the morning. If you have been referred to another physician for follow-up care, call that physicians office for an appointment as you were instructed. If you experience a significant change in your laceration, or if you are concerned there may be an infection (swelling, redness, drainage, increasing tenderness, red streaks, tender lumps in the armpit or groin above the laceration, or fever), return to the Emergency Department immediately re-evaluation. Referrals: ELBA PORTILLO PA-C [Primary Care Provider] - Follow up in 3-5 days
[2019-07-27] MEDS ORDERED: DOXYCYCLINE HYCLATE 100 MG TABLET PO ONE (14:08)
[2019-07-27 14:45] VITALS: BP 115/66
== END 2019-07-27 14:45 | disposition home or self-care (01) ==
LOC: ER 13:15
DX: S81.812A Laceration without foreign body, left lower leg, initial encounter (principal); W22.8XXA Striking against or struck by other objects, initial encounter; Y93.89 Activity, other specified; Y92.009 Unspecified place in unspecified non-institutional (private) residence as the place of occurrence of the external cause; I25.10 Atherosclerotic heart disease of native coronary artery without angina pectoris; I10 Essential (primary) hypertension; M06.9 Rheumatoid arthritis, unspecified; Z86.711 Personal history of pulmonary embolism; Z86.718 Personal history of other venous thrombosis and embolism; Z79.01 Long term (current) use of anticoagulants; Z79.899 Other long term (current) drug therapy; Z79.1 Long term (current) use of non-steroidal anti-inflammatories (NSAID); Z98.890 Other specified postprocedural states; Z88.8 Allergy status to other drugs, medicaments and biological substances; Z95.5 Presence of coronary angioplasty implant and graft
CPT/HCPCS: 99283; 12002; J3490

== ENCOUNTER 2019-08-04 10:06 | Inpatient (IN) | payer MEDICARE, OTHER ==
[2019-08-04] MEDS ORDERED: PROMETHAZINE HCL INJ 25 MG/1 ML VIAL IV ONE (11:53)
[2019-08-04] MEDS ORDERED: NORMAL SALINE 1000 ML 1,000 ML IV ONE (11:53)
--- NOTE | 2019-08-04 12:01 | ER Document Report ---
ED General - General Chief Complaint: Nausea/Vomiting Stated Complaint: WEAKNESS Time Seen by Provider: 08/04/19 11:43 Primary Care Provider: JEMAL PORTILLO PA-C [Primary Care Provider] - Follow up as needed TRAVEL OUTSIDE OF THE [place] IN LAST 30 DAYS: No - HPI Notes: Patient is a 78-year-old male who presents emergency department for evaluation of nausea and vomiting. He states that it started last night. He had 4-5 episodes of nonbloody, nonbilious emesis. He states this morning he continues to dry heave. He has had some nausea throughout the month with his oral Dilau did, which she has been given for his neck pain. He states it had been working, it is not working right now. No fevers or chills to his knowledge. Minimal coughing. He states he believes he had a bowel movement yesterday, but believes it to have been small, but really cannot remember any of the details. Patient is status post cervical spine surgery on July 11. He does note that he has been having some dribbling with urination, but states that this is not new. He also has some pain in his lower back, again not a new pain for him. - Related Data Allergies/Adverse Reactions: celecoxib [From Celebrex] Allergy (Severe, Verified 07/16/19 12:34) Chest pain leflunomide [From Arava] Allergy (Severe, Verified 07/16/19 12:34) Chest pain-Full list of symptoms on 05/18/13 DC Summary meloxicam [From Mobic] Allergy (Severe, Verified 07/16/19 12:34) Chest pain methotrexate [Methotrexate] Allergy (Severe, Verified 07/16/19 12:34) Anaphylaxis ketorolac tromethamine [From Toradol] Allergy (Unknown, Verified 07/16/19 12:34) see comment NSAIDS (Non-Steroidal Anti-Inflamma Allergy (Verified 07/16/19 12:34) Sulfa (Sulfonamide Antibiotics) Adverse Reaction (Severe, Verified 07/16/19 12:34) Diarrhea Penicillins Adverse Reaction (Unknown, Verified 07/16/19 12:34) Rash Home Medications: Eliquis, metropolol, losartan Past Medical History - General Information source: Patient - Social History Smoking Status: Never Smoker Frequency of alcohol use: Rare Drug Abuse: None Family History: Reviewed & Not Pertinent - PATIENT DOES NOT KNOW PARENTAL MEDICAL HISTORY. 1/2 SISTER HAS 'OBGYN CANCER', Hypertension Patient has suicidal ideation: No Patient has homicidal ideation: No - Past Medical History Cardiac Medical History: Reports: Hx Congestive Heart Failure - LVEF 30%, Hx Coronary Artery Disease - CARDIAC CATH WITH ONE STENT, Hx DVT - FEBRUARY 2017. IVC FILTER, Hx Hypertension, Hx Pulmonary Embolism - ON ELIQUIS Denies: Hx Heart Attack Pulmonary Medical History: Denies: Hx Asthma, Hx Bronchitis, Hx COPD, Hx Pneumonia, Hx Tuberculosis Neurological Medical History: Denies: Hx Cerebrovascular Accident, Hx Seizures Renal/ Medical History: Reports: Hx Kidney Stones. Denies: Hx Peritoneal Dialysis GI Medical History: Denies: Hx Hepatitis, Hx Hiatal Hernia, Hx Ulcer Musculoskeletal Medical History: Reports Hx Arthritis - RA, Reports Hx Gout Psychiatric Medical History: Reports: Hx Depression Infectious Medical History: Denies: Hx Hepatitis Past Surgical History: Reports: Hx Appendectomy, Hx Cardiac Catheterization, Hx Cardiac Surgery - stent X1, Hx Cholecystectomy, Hx Orthopedic Surgery - ankle / elbows, Other - Ureteral stent left kidney Removal stones and stent 2 weeks ago. Denies: Hx Open Heart Surgery - CATHERIZATIONS, Hx Pacemaker - Immunizations Hx Diphtheria, Pertussis, Tetanus Vaccination: Yes Hx Pneumococcal Vaccination: 08/08/13 Review of Systems - Review of Systems Constitutional: No symptoms reported EENT: No symptoms reported Cardiovascular: No symptoms reported Respiratory: See HPI Gastrointestinal: See HPI Genitourinary: See HPI Musculoskeletal: See HPI Skin: No symptoms reported Neurological/Psychological: No symptoms reported Physical Exam - Vital signs Vitals: Temp Pulse Resp BP Pulse Ox 97.8 F 101 H 20 163/101 H 100 08/04/19 10:13 08/04/19 10:13 08/04/19 10:13 08/04/19 10:13 08/04/19 10:13 - Notes Notes: Is a 78-year-old male who appears the stated age in moderate amount of stress. He is intermittently gagging, c-collar is in place. Vital signs reviewed, please refer to chart. Head is normocephalic, atraumatic. Pupils equal round, reactive to light. Neck is immobilized in c-collar, bandage in place over the posterior spine. It is clean, dry, intact.. Heart is regular rate and rhythm. Lungs are clear to auscultation bilaterally. Abdomen is soft, nontender, normoactive bowel sounds throughout. Extremities without cyanosis, clubbing. Posterior calves are nontender. Peripheral pulses are equal. Skin is warm and dry. He has a well approximated sutured laceration noted to the left lower leg, with no signs of induration, erythema, fluctuance. Patient is awake, alert, neurological exam is nonfocal. Course - Re-evaluation Re-evalutation: 08/04/19 12:00 Patient presents emergency department for evaluation. He was initially brought in by EMS, who found his lactate to be elevated. He had an elevated heart rate on arrival. I do have some concerns about the possibility of sepsis in this patient is having urinary symptoms, vomiting, and also had recent surgery. Sepsis protocol orders were placed. I did review this patient's cardiac history. He has a known congestive heart failure history, and last documented ejection fraction was 30%. I do not feel comfortable giving this patient a 30 cc/kg bolus, especially given the fact that he is obese. He is given 1 L, further medicated with Phenergan. Patient's blood pressure is stable at this time. We will continue to monitor. 08/04/19 16:02 Patient was monitored here for some time. His tachycardia remained stable, despite 1500 of fluids. At this point, patient comes close, but does not actually meet, sepsis criteria. His heart rate is elevated, and he does have a potential source in his urine, but he does not have a leukocytosis. His respiratory rate is normal. He has no other signs of endorgan damage. Although I did cover him with antibiotic treatment for possible sepsis, I do not feel comfortable giving this patient, with a EF of 30%, 30 cc/kg bolus based on sepsis criteria which I do not believe he fully meets at this time. I am concerned, however, about his continued hypokalemia, his refractory elevated heart rate, likely secondary to beta-carol withdrawal, and the possible urinary tract infection, awaiting culture, which could not be adequately treated with oral antibiotics if this patient continues to have emesis. I spoke with nurse practitioner Jemal Pepe, he will come down and assess the patient for admission. - Vital Signs Vital signs: Temp Pulse Resp BP Pulse Ox 98.7 F 101 H 17 120/55 L 97 08/04/19 15:01 08/04/19 10:13 08/04/19 15:01 08/04/19 15:01 08/04/19 15:01 - Laboratory Result Diagrams: 08/04/19 10:11 08/04/19 10:11 Laboratory results interpreted by me: 08/04/19 08/04/19 08/04/19 10:11 10:11 10:11 MCV 98 H RDW 14.3 H VBG pH VBG pCO2 Potassium 3.1 L Lactic Acid 2.9 H Magnesium 1.5 L Total Protein 5.5 L Urine Ketones Leukocyte Esterase Rfl 08/04/19 08/04/19 12:24 12:33 MCV RDW VBG pH 7.45 H VBG pCO2 31.6 L Potassium Lactic Acid Magnesium Total Protein Urine Ketones 80 H Leukocyte Esterase Rfl TRACE H - Diagnostic Test Radiology reviewed: Reports reviewed Radiology results interpreted by me: 08/04/19 16:03 Chest X-Ray 08/04/19 11:52 IMPRESSION: LOW LUNG VOLUMES. NO SIGNIFICANT RADIOGRAPHIC FINDING IN THE CHEST. - EKG Interpretation by Me Additional EKG results interpreted by me: 08/04/19 16:03 Sinus tachycardia with a rate of 110 bpm. Left axis deviation. Normal intervals. Nonspecific ST changes, but no acute changes concerning for ischemia or infarction. No significant changes when compared to prior study of October 2018 Discharge - Discharge Clinical Impression: Hypokalemia, Sinus tachycardia Intractable vomiting Qualifiers: Vomiting type: unspecified Nausea presence: with nausea Qualified Code(s): R11.2 - Nausea with vomiting, unspecified Urinary tract infection Qualifiers: Urinary tract infection type: site unspecified Hematuria presence: without hematuria Qualified Code(s): N39.0 - Urinary tract infection, site not specified Condition: Stable Disposition: ADMITTED INPATIENT Admitting Provider: Jia (Hospitalist) Unit Admitted: Telemetry Referrals: JEMAL PORTILLO PA-C [Primary Care Provider] - Follow up as needed
[2019-08-04 12:09] LABS: ABSOLUTE EOSINOPHILS # (AUTO) 0.3 10^3/uL (0.0-0.6); ABSOLUTE LYMPHOCYTES (AUTO) 2.3 10^3/uL (0.5-4.7); ABSOLUTE MONOCYTES (AUTO) 0.6 10^3/uL (0.1-1.4); ABSOLUTE NEUT (AUTO) 4.1 10^3/uL (1.7-8.2); BASOPHILS % (AUTO) 0.6 % (0-2); EOSINOPHILS % (AUTO) 4.3 % (0-6); HEMATOCRIT 43.7 % (37.9-51.0); HEMOGLOBIN 14.6 g/dL (13.5-17.0); LYMPHOCYTES % (AUTO) 31.3 % (13-45); MEAN CORPUSCULAR HEMOGLOBIN 32.6 pg (27.0-33.4); MEAN CORPUSCULAR HGB CONC 33.3 g/dL (32.0-36.0); MEAN CORPUSCULAR VOLUME 98 fl (80-97); MONOCYTES % (AUTO) 8.5 % (3-13); PLATELET COUNT 186 10^3/uL (150-450); RED BLOOD COUNT 4.46 10^6/uL (4.35-5.55); RED CELL DISTRIBUTION WIDTH 14.3 % (11.5-14.0); SEGMENTED NEUTROPHILS % (AUTO) 55.3 % (42-78); TOTAL CELLS COUNTED % (AUTO) 100 %; WHITE BLOOD COUNT 7.4 10^3/uL (4.0-10.5)
[2019-08-04 12:11] LABS: INTERNATIONAL RATION (INR) 0.99; PROTHROMBIN TIME 13.1 SEC (11.4-15.4)
[2019-08-04 12:13] LABS: ALBUMIN 3.5 g/dL (3.5-5.0); ALKALINE PHOSPHATASE 40 U/L (38-126); ANION GAP 11 (5-19); ASPARTATE AMINO TRANSFERASE 36 U/L (17-59); BILIRUBIN,DIRECT 0.2 mg/dL (0.0-0.4); BILIRUBIN,TOTAL 0.8 mg/dL (0.2-1.3); BLOOD UREA NITROGEN 10 mg/dL (7-20); CALCIUM 9.6 mg/dL (8.4-10.2); CARBON DIOXIDE 27 mmol/L (22-30); CHLORIDE 105 mmol/L (98-107); GLUCOSE 106 mg/dL (75-110); POTASSIUM 3.1 mmol/L (3.6-5.0); TOTAL PROTEIN 5.5 g/dL (6.3-8.2)
[2019-08-04] MEDS ORDERED: NORMAL SALINE 500 ML IV ONE (12:28)
[2019-08-04 12:44] LABS: VENOUS BLOOD BASE EXCESS -1.7 mmol/L; VENOUS BLOOD HCO3 21.4 mmol/L (20-32); VENOUS BLOOD PCO2 31.6 mmHg (35-63); VENOUS BLOOD PH 7.45 (7.30-7.42)
[2019-08-04 12:58] LABS: APPEARANCE,URINE SLIGHTLY-CLOUDY; BILIRUBIN,URINE NEGATIVE (NEGATIVE); COLOR,URINE YELLOW; GLUCOSE, URINE NEGATIVE (NEGATIVE); KETONES,URINE 80 mg/dL (NEGATIVE); PROTEIN,URINE NEGATIVE (NEGATIVE); URINE SPECIFIC GRAVITY 1.013; UROBILINOGEN,URINE NEGATIVE mg/dL (<2.0)
--- NOTE | 2019-08-04 13:00 | RADIOLOGY REPORT (SQ) ---
EXAM DESCRIPTION: CHEST SINGLE VIEW COMPLETED DATE/TIME: 08/04/2019 12:40 pm REASON FOR STUDY: sepsis eval COMPARISON: 05/16/2019 NUMBER OF VIEWS: One view. TECHNIQUE: Single frontal radiographic view of the chest acquired. LIMITATIONS: None. FINDINGS: LUNGS AND PLEURA: Low lung volumes. No opacities, masses or pneumothorax. No pleural eff usion. MEDIASTINUM AND HILAR STRUCTURES: No masses. No contour abnormality. HEART AND VASCULAR STRUCTURES: Normal size. No evidence for failure. BONES: No acute findings. HARDWARE: None in the chest. OTHER: No other significant finding. IMPRESSION: LOW LUNG VOLUMES. NO SIGNIFICANT RADIOGRAPHIC FINDING IN THE CHEST. TECHNICAL DOCUMENTATION: JOB ID: [id number] [employer]- All Rights Reserved Reading location - IP/workstation name: [email or web address]
[2019-08-04 13:03] LABS: A TYPE INFLUENZA AG NEGATIVE (NEGATIVE); B INFLUENZA AG NEGATIVE (NEGATIVE)
[2019-08-04] MEDS: POTASSI CL 20 MEQ/50 ML RIDER 20 MEQ/50 ML RTUPB IV SCH ×2 (13:29→16:33)
--- NOTE | 2019-08-04 13:44 | EKG REPORT ---
SEVERITY:- ABNORMAL ECG - SINUS TACHYCARDIA PROBABLE LEFT ATRIAL ABNORMALITY LEFT ANTERIOR FASCICULAR BLOCK NONSPECIFIC T ABNORMALITIES, LATERAL LEADS : Confirmed by: Merlyn Lara MD 04-Aug-2019 13:44:13
[2019-08-04] MEDS ORDERED: METOPROLOL SUCCINATE 25 MG TAB.SR.24H PO ONE (13:59)
[2019-08-04] MEDS ORDERED: CEFTRIAXONE 1 GM/D5W RTU 1 GM/50 ML RTUPB IV ONE (14:15)
[2019-08-04] MEDS ORDERED: POTASSIUM CHLORIDE 10 MEQ TABLET.ER PO ONE (14:54)
[2019-08-04] MEDS ORDERED: TEMAZEPAM 7.5 MG CAPSULE PO PRN (16:21)
[2019-08-04] MEDS ORDERED: NORMAL SALINE 1000 ML 1,500 ML IV PRN (16:21)
[2019-08-04] MEDS ORDERED: MAGNESIUM SULFATE/D5W 1 GM/100 ML RTUPB IV ONE (16:27)
[2019-08-04] MEDS ORDERED: AZTREONAM INJ 1 GM VIAL IV PRN (16:30)
[2019-08-04] MEDS ORDERED: VANCOMYCIN HCL 0 MG in DEXTROSE 5%-WATER 250 ML IV NR (16:30)
--- NOTE | 2019-08-04 16:39 | PDOC H&P ---
History of Present Illness Admission Date/PCP: 08/04/19 16:16 ELBA PORTILLO PA-C Patient complains of: Nausea vomiting and weakness History of Present Illness: KERRY COBURN is a 78 year old male who presents emergency department evaluation nausea and vomiting. He states that started last night has had for 5 episodes of nonbloody non-bile acid emesis. He states that this morning he continued to dry heave and thought it might be because of his oral Dilaudid which he takes for neck pain. He had minimal cough although he states he believes to have a bowel movement yesterday but has been small and really cannot give further details. Status post cervical spine surgery on July 11. He also does noted to have some dribbling with urination but states that it is not new for him. He said no treatment prior to arrival all oral intake been aggravating factor. Past Medical History Cardiac Medical History: Reports: Congestive Heart Failure - LVEF 30%, Coronary Artery Disease - CARDIAC CATH WITH ONE STENT, DVT - FEBRUARY 2017. IVC FILTER, Hypertension, Pulmonary Embolism - ON ELIQUIS Denies: Myocardial Infarction Pulmonary Medical History: Denies: Asthma, Bronchitis, Chronic Obstructive Pulmonary Disease (COPD), Pneumonia, Tuberculosis Neurological Medical History: Denies: Seizures GI Medical History: Denies: Hepatitis, Hiatal Hernia Musculoskeltal Medical History: Reports: Arthritis - RA, Gout Psychiatric Medical History: Reports: Depression Hematology: Denies: Anemia, Sickle Cell Disease Past Surgical History Past Surgical History: Reports: Appendectomy, Cardiac Catheterization, Cholecystectomy, Orthopedic Surgery - ankle / elbows, Other - Ureteral stent left kidney Removal stones and stent 2 weeks ago Denies: Pacemaker Social History Information Source: Patient Lives with: Family Smoking Status: Never Smoker Electronic Cigarette use?: No Frequency of Alcohol Use: None Hx Recreational Drug Use: No Drugs: None Hx Prescription Drug Abuse: No - Advance Directive Resuscitation Status: Full Code Family History Family History: Hypertension Parental Family History Reviewed: Yes Children Family History Reviewed: Yes Sibling(s) Family History Reviewed.: Yes Medication/Allergy Home Medications: Allopurinol [Zyloprim 300 mg Tablet] 300 mg PO DAILY 05/16/19 Apixaban [Eliquis 5 mg Tablet] 5 mg PO Q12 05/16/19 Cetirizine HCl [Zyrtec 10 mg Tablet] 10 mg PO DAILY 05/16/19 Cyanocobalamin (Vitamin B-12) [Vitamin B-12 Inj 1000 Mcg/1 ml Vial] 1,000 mcg IM . AND 05/16/19 Ergocalciferol (Vitamin D2) [Drisdol 50,000 unit (1.25MG) Capsule] 50,000 unit PO TH@0800 05/16/19 Escitalopram Oxalate [Lexapro] 20 mg PO DAILY 05/16/19 Fluticasone Propionate [Flonase Nasal [place] 50 Mcg/[place] 16 gm] 1 spray NASL DAILY 05/16/19 Folic Acid [Folvite 1 mg Tablet] 1 mg PO DAILY 05/16/19 Losartan Potassium [Cozaar 25 mg Tablet] 12.5 mg PO QHS 05/16/19 Prednisone [Deltasone 5 mg Tablet] 5 mg PO DAILY 05/16/19 Tamsulosin HCl [Flomax 0.4 mg Cap.sr] 0.4 mg PO PCSUPPER 05/16/19 Tocilizumab [Actemra] 800 mg IV .EVERY 28 DAYS 05/16/19 Torsemide [Demadex 20 mg Tablet] 20 mg PO DAILYP PRN 05/16/19 Gabapentin [Neurontin 300 mg Capsule] 300 mg PO Q12 08/04/19 Hydromorphone HCl 4 mg PO Q4HP PRN 08/04/19 Metoprolol Succinate [Toprol Xl 25 mg Tab.sr] 25 mg PO Q12 08/04/19 Promethazine HCl [Phenergan 25 mg Tablet] 25 mg PO Q12HP PRN 08/04/19 Tizanidine HCl 2 mg PO HSP PRN MDD 4 MG 08/04/19 Allergies/Adverse Reactions: celecoxib [From Celebrex] Allergy (Severe, Verified 07/16/19 12:34) Chest pain leflunomide [From Arava] Allergy (Severe, Verified 07/16/19 12:34) Chest pain-Full list of symptoms on 05/18/13 DC Summary meloxicam [From Mobic] Allergy (Severe, Verified 07/16/19 12:34) Chest pain methotrexate [Methotrexate] Allergy (Severe, Verified 07/16/19 12:34) Anaphylaxis ketorolac tromethamine [From Toradol] Allergy (Unknown, Verified 07/16/19 12:34) see comment NSAIDS (Non-Steroidal Anti-Inflamma Allergy (Verified 07/16/19 12:34) Sulfa (Sulfonamide Antibiotics) Adverse Reaction (Severe, Verified 07/16/19 12:34) Diarrhea Penicillins Adverse Reaction (Unknown, Verified 07/16/19 12:34) Rash Review of Systems Constitutional: PRESENT: weakness Gastrointestinal: PRESENT: nausea, vomiting Physical Exam Vital Signs: Temp Pulse Resp BP Pulse Ox 98.7 F 101 H 22 H 138/90 H 96 08/04/19 15:01 08/04/19 10:13 08/04/19 16:01 08/04/19 16:00 08/04/19 16:01 Intake & Output 08/03/19 08/04/19 08/05/19 06:59 06:59 06:59 Intake Total 1600 Balance 1600 Weight 104 kg General appearance: PRESENT: no acute distress, well-developed, well-nourished Head exam: PRESENT: atraumatic, normocephalic Eye exam: PRESENT: conjunctiva pink, EOMI, PERRLA. ABSENT: scleral icterus Ear exam: PRESENT: normal external ear exam Mouth exam: PRESENT: moist, tongue midline Neck exam: PRESENT: other - Cervical neck collar in place.. ABSENT: carotid bruit, JVD, lymphadenopathy, thyromegaly Respiratory exam: PRESENT: clear to auscultation nikita, decreased breath sounds, symmetrical, unlabored. ABSENT: rales, rhonchi, wheezes Cardiovascular exam: PRESENT: RRR. ABSENT: diastolic murmur, rubs, systolic murmur Pulses: PRESENT: +1 pedal pulses bilateral Vascular exam: PRESENT: normal capillary refill GI/Abdominal exam: PRESENT: normal bowel sounds, soft. ABSENT: distended, guarding, mass, organolmegaly, rebound, tenderness Rectal exam: PRESENT: deferred Extremities exam: PRESENT: full ROM. ABSENT: calf tenderness, clubbing, pedal edema Neurological exam: PRESENT: alert, awake, oriented to person, oriented to place, oriented to time, oriented to situation, CN II-XII grossly intact. ABSENT: motor sensory deficit Psychiatric exam: PRESENT: appropriate affect, normal mood. ABSENT: homicidal ideation, suicidal ideation Skin exam: PRESENT: dry, intact, warm. ABSENT: cyanosis, rash Results Laboratory Results: 08/04/19 10:11 08/04/19 10:11 08/04/19 08/04/19 08/04/19 10:11 10:11 10:11 WBC 7.4 RBC 4.46 Hgb 14.6 Hct 43.7 MCV 98 H MCH 32.6 MCHC 33.3 RDW 14.3 H Plt Count 186 Seg Neutrophils % 55.3 VBG pH VBG pCO2 VBG HCO3 VBG Base Excess Sodium 143.3 Potassium 3.1 L Chloride 105 Carbon Dioxide 27 Anion Gap 11 BUN 10 Creatinine 0.79 Est GFR ( Amer) > 60 Glucose 106 Lactic Acid 2.9 H Calcium 9.6 Magnesium 1.5 L Total Bilirubin 0.8 AST 36 Alkaline Phosphatase 40 Total Protein 5.5 L Albumin 3.5 Urine Color Urine Appearance Urine pH Ur Specific [place] Urine Protein Urine Glucose (UA) Urine Ketones Urine Blood Urine RBC (Auto) 08/04/19 08/04/19 12:24 12:33 WBC RBC Hgb Hct MCV MCH MCHC RDW Plt Count Seg Neutrophils % VBG pH 7.45 H VBG pCO2 31.6 L VBG HCO3 21.4 VBG Base Excess -1.7 Sodium Potassium Chloride Carbon Dioxide Anion Gap BUN Creatinine Est GFR ( Amer) Glucose Lactic Acid Calcium Magnesium Total Bilirubin AST Alkaline Phosphatase Total Protein Albumin Urine Color YELLOW Urine Appearance SLIGHTLY-CLOUDY Urine pH 8.0 Ur Specific [place] 1.013 Urine Protein NEGATIVE Urine Glucose (UA) NEGATIVE Urine Ketones 80 H Urine Blood NEGATIVE Urine RBC (Auto) 5 Impressions: Chest X-Ray 08/04/19 11:52 IMPRESSION: LOW LUNG VOLUMES. NO SIGNIFICANT RADIOGRAPHIC FINDING IN THE CHEST. Assessment and Plan - Diagnosis (1) Sepsis Is this a current diagnosis for this admission?: Yes Plan: 08/04/2019-patient is tachycardic, has a lactic acid of 2.9. Urine does show some white cells. Patient given 1.5 L normal saline in the ER and metoprolol succinate for his tachycardia. I am going to switch patient over to sure he gets 30 mL/kg normal saline bolus followed by normal saline at 125 an hour. Will repeat lactic acid in appropriate timeframe. Also place patient on vanc omycin and Aztreonam Awaiting cultures (2) Sinus tachycardia Is this a current diagnosis for this admission?: Yes Plan: 08/04/2019-most likely related to his sepsis. Will hydrate with 30 mL/kg IV bolus followed by 125 mL daily chloride drip (3) Hypokalemia Is this a current diagnosis for this admission?: Yes Plan: 08/04/2019-patient receiving potassium chloride replacement will repeat BMP in a.m. (4) Intractable vomiting Qualifiers: Vomiting type: unspecified Nausea presence: with nausea Qualified Code(s): R11.2 - Nausea with vomiting, unspecified Is this a current diagnosis for this admission?: Yes Plan: 08/04/2019-Zofran. (5) UTI (urinary tract infection) Qualifiers: Urinary tract infection type: site unspecified Hematuria presence: without hematuria Qualified Code(s): N39.0 - Urinary tract infection, site not specified Is this a current diagnosis for this admission?: Yes Plan: 08/04/2019-IV antibiotics including vancomycin and Aztreonam (6) Hypomagnesemia Is this a current diagnosis for this admission?: Yes Plan: 2018-1 g IV mag repeat mag level in a.m. - Time Time Spent with patient: 35 or more minutes - Inpatient Certification Based on my medical assessment, after consideration of the patient's comorbidities, presenting symptoms, or acuity I expect that the services needed warrant INPATIENT care.: Yes I certify that my determination is in accordance with my understanding of Medicare's requirements for reasonable and necessary INPATIENT services [42 CFR 412.3e].: Yes Medical Necessity: Significant Comorbidiites Make Outpatient Treatment Too Risky, Need Close Monitoring Due to Risk of Patient Decompensation, Need For IV Fluids, Need for IV Antibiotics
[2019-08-04] MEDS ORDERED: AZTREONAM 1 GM in DEXTROSE 5%-WATER 50 ML IV SCH (18:00)
[2019-08-04] MEDS ORDERED: PROMETHAZINE HCL INJ 25 MG/1 ML VIAL IV PRN (18:02)
[2019-08-04] MEDS ORDERED: AZTREONAM INJ 1 GM VIAL ONE (18:27)
[2019-08-04] MEDS ORDERED: VANCOMYCIN HCL INJ 1000 MG VIAL IV PRN (20:33)
[2019-08-04] MEDS ORDERED: VANCOMYCIN HCL 1,750 MG in DEXTROSE 5%-WATER 500 ML IV ONE (21:00)
[2019-08-04] MEDS ORDERED: TORSEMIDE 20 MG TABLET PO PRN (21:25)
[2019-08-04] MEDS ORDERED: HYDROMORPHONE HCL 2 MG TABLET PO PRN (21:25)
[2019-08-04] MEDS ORDERED: PROMETHAZINE HCL 25 MG TABLET PO PRN (21:25)
[2019-08-04] MEDS ORDERED: MAG HYDROX/AL HYDROX/SIMETH SUSP 30 ML UDCUP PO PRN (21:43)
[2019-08-04] MEDS ORDERED: MAGNESIUM HYDROXIDE SUSP 30 ML UDCUP PO PRN (21:43)
[2019-08-04] MEDS: DEXTROSE 5%-LACTATED RINGERS 1,000 ML IV PRN (22:59)
[2019-08-04] MEDS: HYDROCORTISONE SOD SUCCINATE INJ/PF 100 MG/2 ML SDV IV SCH (23:01)
[2019-08-04] MEDS: GABAPENTIN 300 MG CAPSULE PO SCH (23:02)
[2019-08-04] MEDS: APIXABAN 5 MG TABLET PO SCH (23:02)
[2019-08-04] MEDS: METOCLOPRAMIDE HCL 10 MG TABLET PO SCH (23:02)
[2019-08-04] MEDS: TIZANIDINE HCL 4 MG TABLET PO SCH (23:02)
[2019-08-04] MEDS: LOSARTAN POTASSIUM 25 MG TABLET PO SCH (23:02)
[2019-08-04] MEDS: METOPROLOL SUCCINATE 25 MG TAB.SR.24H PO SCH (23:03)
[2019-08-05] MEDS: DEXTROSE 5%-LACTATED RINGERS 1,000 ML IV PRN (03:12)
[2019-08-05] MEDS: HYDROCORTISONE SOD SUCCINATE INJ/PF 100 MG/2 ML SDV IV SCH (06:15)
[2019-08-05 06:39] LABS: ABSOLUTE BASOPHILS # (AUTO) 0.1 10^3/uL (0.0-0.2); ABSOLUTE LYMPHOCYTES (AUTO) 1.2 10^3/uL (0.5-4.7); ABSOLUTE MONOCYTES (AUTO) 0.3 10^3/uL (0.1-1.4); ABSOLUTE NEUT (AUTO) 4.9 10^3/uL (1.7-8.2); EOSINOPHILS % (AUTO) 0.7 % (0-6); LYMPHOCYTES % (AUTO) 18.5 % (13-45); MEAN CORPUSCULAR HEMOGLOBIN 32.7 pg (27.0-33.4); MEAN CORPUSCULAR HGB CONC 33.3 g/dL (32.0-36.0); MEAN CORPUSCULAR VOLUME 98 fl (80-97); PLATELET COUNT 173 10^3/uL (150-450); RED BLOOD COUNT 3.97 10^6/uL (4.35-5.55); SEGMENTED NEUTROPHILS % (AUTO) 74.8 % (42-78); TOTAL CELLS COUNTED % (AUTO) 100 %; WHITE BLOOD COUNT 6.5 10^3/uL (4.0-10.5)
[2019-08-05 07:00] LABS: ALBUMIN 2.9 g/dL (3.5-5.0); ALKALINE PHOSPHATASE 33 U/L (38-126); ANION GAP 6 (5-19); ASPARTATE AMINO TRANSFERASE 35 U/L (17-59); BILIRUBIN,DIRECT 0.2 mg/dL (0.0-0.4); BILIRUBIN,TOTAL 0.6 mg/dL (0.2-1.3); BLOOD UREA NITROGEN 5 mg/dL (7-20); CALCIUM 8.3 mg/dL (8.4-10.2); CARBON DIOXIDE 26 mmol/L (22-30); CHLORIDE 112 mmol/L (98-107); GLUCOSE 160 mg/dL (75-110); TOTAL PROTEIN 4.8 g/dL (6.3-8.2)
[2019-08-05] MEDS: APIXABAN 5 MG TABLET PO SCH ×2 (09:10→22:00)
[2019-08-05] MEDS: METOCLOPRAMIDE HCL 10 MG TABLET PO SCH ×2 (09:10→11:37)
[2019-08-05] MEDS: DOCUSATE SODIUM 100 MG CAPSULE PO SCH ×2 (09:10→17:00)
[2019-08-05] MEDS: ACETAMINOPHEN 325 MG TABLET PO PRN ×2 (09:10→17:01)
[2019-08-05] MEDS: ALLOPURINOL 300 MG TABLET PO SCH (09:11)
[2019-08-05] MEDS: CETIRIZINE 10 MG TABLET PO SCH (09:11)
[2019-08-05] MEDS: METOPROLOL SUCCINATE 25 MG TAB.SR.24H PO SCH ×2 (09:11→22:03)
[2019-08-05] MEDS: GABAPENTIN 300 MG CAPSULE PO SCH ×2 (09:11→22:00)
[2019-08-05] MEDS: FOLIC ACID 1 MG TABLET PO SCH (09:11)
[2019-08-05] MEDS: FLUTICASONE NASAL SPRAY 50 MCG/SPRY 120 SPRAY/16 GM NASL SCH (09:45)
[2019-08-05] MEDS ORDERED: ESCITALOPRAM OXALATE 10 MG TABLET PO SCH (10:00)
[2019-08-05] MEDS ORDERED: NORMAL SALINE 1000 ML 1,000 ML IV PRN (11:38)
[2019-08-05] MEDS ORDERED: DEXTROSE 5%-NORMAL SALINE 1,000 ML IV PRN (11:47)
[2019-08-05] MEDS ORDERED: ONDANSETRON HCL INJ/PF 4 MG/2 ML SDV IV PRN (12:18)
--- NOTE | 2019-08-05 12:54 | PDOC PROGRESS REPORT ---
Subjective Progress Note for:: 08/05/19 Subjective:: KERRY COBURN is a 78 year old male who presents emergency department evaluation nausea and vomiting. He states that started last night has had for 5 episodes of nonbloody non-bile acid emesis. He states that this morning he continued to dry heave and thought it might be because of his oral Dilaudid which he takes for neck pain. He had minimal cough although he states he believes to have a bowel movement yesterday but has been small and really cannot give further details. Status post cervical spine surgery on July 11. He also does noted to have some dribbling with urination but states that it is not new for him. He said no treatment prior to arrival all oral intake been aggravating factor. 08/05/2019. No acute events overnight. Patient has not had any recurrence of his nausea or vomiting, has not eaten yet. Denies any chest pain, shortness of breath, abdominal pain. Vitals have been stable. Possible DC home tomorrow. Reason For Visit: SEPSIS UNKNOW ORIGIN Physical Exam Vital Signs: Temp Pulse Resp BP Pulse Ox 97.7 F 56 L 20 135/70 H 95 08/05/19 07:06 08/05/19 07:06 08/05/19 07:06 08/05/19 07:06 08/05/19 07:06 Intake & Output 08/04/19 08/05/19 08/06/19 06:59 06:59 06:59 Intake Total 4400 1000 Output Total 200 Balance 4200 1000 Weight 105.5 kg General appearance: PRESENT: morbidly obese Head exam: PRESENT: atraumatic, normocephalic, other - Neck collar in place. Respiratory exam: PRESENT: clear to auscultation nikita. ABSENT: rales, rhonchi, wheezes Cardiovascular exam: PRESENT: RRR. ABSENT: diastolic murmur, rubs, systolic murmur GI/Abdominal exam: PRESENT: normal bowel sounds, soft. ABSENT: distended, guarding, mass, organolmegaly, rebound, tenderness Neurological exam: PRESENT: alert, awake, oriented to person, oriented to place, oriented to time, oriented to situation, CN II-XII grossly intact. ABSENT: motor sensory deficit Results Laboratory Results: 08/05/19 04:36 08/05/19 04:36 08/04/19 08/04/19 08/04/19 10:11 12:24 12:33 WBC RBC Hgb Hct MCV MCH MCHC RDW Plt Count Seg Neutrophils % VBG pH 7.45 H VBG pCO2 31.6 L VBG HCO3 21.4 VBG Base Excess -1.7 Sodium Potassium Chloride Carbon Dioxide Anion Gap BUN Creatinine Est GFR ( Amer) Glucose Lactic Acid Calcium Magnesium 1.5 L Total Bilirubin AST Alkaline Phosphatase Total Protein Albumin Urine Color YELLOW Urine Appearance SLIGHTLY-CLOUDY Urine pH 8.0 Ur Specific [place] 1.013 Urine Protein NEGATIVE Urine Glucose (UA) NEGATIVE Urine Ketones 80 H Urine Blood NEGATIVE Urine RBC (Auto) 5 08/04/19 08/04/19 08/04/19 16:00 19:20 22:00 WBC RBC Hgb Hct MCV MCH MCHC RDW Plt Count Seg Neutrophils % VBG pH VBG pCO2 VBG HCO3 VBG Base Excess Sodium Potassium Chloride Carbon Dioxide Anion Gap BUN Creatinine Est GFR ( Amer) Glucose Lactic Acid 1.3 1.5 1.4 Calcium Magnesium Total Bilirubin AST Alkaline Phosphatase Total Protein Albumin Urine Color Urine Appearance Urine pH Ur Specific [place] Urine Protein Urine Glucose (UA) Urine Ketones Urine Blood Urine RBC (Auto) 08/05/19 08/05/19 04:36 04:36 WBC 6.5 RBC 3.97 L Hgb 13.0 L Hct 39.0 MCV 98 H MCH 32.7 MCHC 33.3 RDW 14.0 Plt Count 173 Seg Neutrophils % 74.8 VBG pH VBG pCO2 VBG HCO3 VBG Base Excess Sodium 144.3 Potassium 4.0 Chloride 112 H Carbon Dioxide 26 Anion Gap 6 BUN 5 L Creatinine 0.66 Est GFR ( Amer) > 60 Glucose 160 H Lactic Acid Calcium 8.3 L Magnesium Total Bilirubin 0.6 AST 35 Alkaline Phosphatase 33 L Total Protein 4.8 L Albumin 2.9 L Urine Color Urine Appearance Urine pH Ur Specific [place] Urine Protein Urine Glucose (UA) Urine Ketones Urine Blood Urine RBC (Auto) Impressions: Chest X-Ray 08/04/19 11:52 IMPRESSION: LOW LUNG VOLUMES. NO SIGNIFICANT RADIOGRAPHIC FINDING IN THE CHEST. Assessment and Plan - Diagnosis (1) Gastroenteritis Is this a current diagnosis for this admission?: Yes Plan: Resolved. Likely viral gastroenteritis. Denies any nausea or vomiting. P.o. tolerant. Continue volume resuscitation guided by volume status, monitor electrolytes and replace as needed. (2) Hypokalemia Is this a current diagnosis for this admission?: Yes Plan: Resolved. Most likely due to GI losses. No acute EKG changes. Replace as needed. (3) Hypomagnesemia Is this a current diagnosis for this admission?: Yes Plan: Likely due to GI losses. Supplemental magnesium. Magnesium level tomorrow. (4) Sinus tachycardia Is this a current diagnosis for this admission?: Yes Plan: Resolved. This was most likely due to dehydration caused by gastroenteritis. Restart CAD meds. Monitor vitals. Continue volume restriction. PRN metoprolol. (5) CHF (congestive heart failure) Qualifiers: Heart failure type: combined systolic and diastolic Is this a current diagnosis for this admission?: Yes Plan: Compensated. Not acutely exacerbated. History of CHF ejection fraction 30%. Home meds are torsemide, metoprolol and losartan. Restart home meds. Cardiac diet, volume restriction. (6) UTI (urinary tract infection) Qualifiers: Urinary tract infection type: site unspecified Hematuria presence: without hematuria Qualified Code(s): N39.0 - Urinary tract infection, site not specified Is this a current diagnosis for this admission?: Yes Plan: Urine positive for small leukocyte esterase. Denies any UTI symptoms. Likely pyuria. Received 1 dose of aztreonam, vancomycin and ceftriaxone in ED. Follow-up culture. (7) Coronary artery disease Qualifiers: Coronary Disease-Associated Artery/Lesion type: solomon artery [place] vs. transplanted heart: solomon heart Associated angina: with unspecified angina Qualified Code(s): I25.119 - Atherosclerotic heart disease of solomon coronary artery with unspecified angina pectoris Is this a current diagnosis for this admission?: Yes (8) Opioid dependence with current use Is this a current diagnosis for this admission?: Yes Plan: Opioid dependency due to chronic back pain. Resume home meds. Monitor for falls and respiratory depression. Outpatient pain management follow-up. (9) Pulmonary emboli Is this a current diagnosis for this admission?: Yes Plan: History of PE. Diagnosed on 02/27/2019. Patient is on apixaban 5 mg p.o. twice daily. SPO2 WNL on RA. Has any chest pain. Continue apixaban. Follow-up with PCP. (10) Rheumatoid arthritis Qualifiers: Rheumatoid factor presence: unspecified presence Laterality: unspecified laterality Is this a current diagnosis for this admission?: Yes Plan: Not on acute flare. Takes Actemra and prednisone Allergic to the methotrexate. Restart home meds. Outpatient PCP and rheumatology follow-up. (11) Sepsis Is this a current diagnosis for this admission?: Yes Plan: Ruled out. Vitals WNL. Lactic acid WNL. Patient presented with tachycardia, mildly elevated lactic acid due to volume depletion caused by viral gastroenteritis. Patient received 1 dose of vancomycin, aztreonam and ceftriaxone in the ED. Blood cultures negative so far.
[2019-08-05] MEDS ORDERED: IPRATROPIUM/ALBUTEROL 0.5-2.5 MG/3 ML AMPUL NEB PRN (12:55)
[2019-08-05] MEDS ORDERED: TAMSULOSIN HCL 0.4 MG CAP.SR.24H PO SCH (18:00)
[2019-08-05] MEDS: HYDROMORPHONE HCL 2 MG TABLET PO PRN (20:12)
[2019-08-05 20:17] LABS: C DIFFICILE GDH POSITIVE (NEGATIVE)
[2019-08-05] MEDS: TIZANIDINE HCL 4 MG TABLET PO SCH (22:00)
[2019-08-05] MEDS: LOSARTAN POTASSIUM 25 MG TABLET PO SCH (22:02)
[2019-08-06] MEDS: ACETAMINOPHEN 325 MG TABLET PO PRN (07:21)
[2019-08-06] MEDS: HYDROMORPHONE HCL 2 MG TABLET PO PRN (08:16)
[2019-08-06] MEDS: DOCUSATE SODIUM 100 MG CAPSULE PO SCH (09:09)
[2019-08-06] MEDS: METOPROLOL SUCCINATE 25 MG TAB.SR.24H PO SCH (09:34)
[2019-08-06] MEDS: FLUTICASONE NASAL SPRAY 50 MCG/SPRY 120 SPRAY/16 GM NASL SCH (09:35)
[2019-08-06] MEDS: APIXABAN 5 MG TABLET PO SCH (09:35)
[2019-08-06] MEDS: GABAPENTIN 300 MG CAPSULE PO SCH (09:35)
[2019-08-06] MEDS: ALLOPURINOL 300 MG TABLET PO SCH (09:35)
[2019-08-06] MEDS: CETIRIZINE 10 MG TABLET PO SCH (09:35)
[2019-08-06] MEDS: FOLIC ACID 1 MG TABLET PO SCH (09:35)
[2019-08-06 12:18] VITALS: BP 129/64
--- NOTE | 2019-08-06 12:29 | PDOC DISCHARGE SUMMARY ---
Impression - Admit/DC Date/PCP Admission Date/Primary Care Provider: 08/04/19 16:21 ELBA PORTILLO PA-C Discharge Date: 08/06/19 - Discharge Diagnosis (1) Acute gastroenteritis Is this a current diagnosis for this admission?: Yes (2) History of coronary artery disease Is this a current diagnosis for this admission?: Yes (3) Hypokalemia Is this a current diagnosis for this admission?: Yes (4) Hypomagnesemia Is this a current diagnosis for this admission?: Yes (5) Opioid dependence with current use Is this a current diagnosis for this admission?: Yes (6) History of pulmonary embolism Is this a current diagnosis for this admission?: Yes (7) Rheumatoid arthritis Is this a current diagnosis for this admission?: Yes (8) Chronic systolic heart failure Is this a current diagnosis for this admission?: Yes - Assessment Summary: Patient presented with nausea vomiting diarrhea. He was admitted with some concern for sepsis initially has documentation states that he was tachycardic with mild lactic acidosis of 2.9 and urinalysis showed trace leukocyte esterase. He was given IV fluids and started on IV antibiotics. Chest x-ray showed no evidence of infiltrates. CBC showed no leukocytosis. Metabolic panel revealed hypokalemia likely from his vomiting and diarrhea. Further review of patient revealed that patient was not in fact experiencing any urinary symptoms and was unlikely to be having a urinary tract infection. Antibiotics were discontinued as patient was deemed to just be having significant dehydration secondary to gastroenteritis. Of note patient did not meet sepsis criteria and lactic acidosis is only very minimal and likely from hypovolemia from his gastroenteritis. Patient was continued with supportive care with IV hydration and antiemetics. Patient was also tested for C. difficile which was negative and influenza was also negative as well. Blood cultures have been negative after 24 hours. Patient symptoms are currently resolved and patient has tolerated diet and states that he would like to go home today. Patient is being discharged in stable conditions to follow-up with his primary care provider. - Additional Information Resuscitation Status: Full Code Discharge Diet: As Tolerated Discharge Activity: Activity As Tolerated Referrals: ELBA PORTILLO PA-C [Primary Care Provider] - Follow up as needed Home Medications: Allopurinol [Zyloprim 300 mg Tablet] 300 mg PO DAILY 05/16/19 Apixaban [Eliquis 5 mg Tablet] 5 mg PO Q12 05/16/19 Cetirizine HCl [Zyrtec 10 mg Tablet] 10 mg PO DAILY 05/16/19 Cyanocobalamin (Vitamin B-12) [Vitamin B-12 Inj 1000 Mcg/1 ml Vial] 1,000 mcg IM . AND 05/16/19 Ergocalciferol (Vitamin D2) [Drisdol 50,000 unit (1.25MG) Capsule] 50,000 unit PO TH@0800 05/16/19 Escitalopram Oxalate [Lexapro] 20 mg PO DAILY 05/16/19 Fluticasone Propionate [Flonase Nasal Ullin 50 Mcg/Ullin 16 gm] 1 spray NASL DAILY 05/16/19 Folic Acid [Folvite 1 mg Tablet] 1 mg PO DAILY 05/16/19 Losartan Potassium [Cozaar 25 mg Tablet] 12.5 mg PO QHS 05/16/19 Prednisone [Deltasone 5 mg Tablet] 5 mg PO DAILY 05/16/19 Tamsulosin HCl [Flomax 0.4 mg Cap.sr] 0.4 mg PO PCSUPPER 05/16/19 Tocilizumab [Actemra] 800 mg IV .EVERY 28 DAYS 05/16/19 Torsemide [Demadex 20 mg Tablet] 20 mg PO DAILYP PRN 05/16/19 Gabapentin [Neurontin 300 mg Capsule] 300 mg PO Q12 08/04/19 Hydromorphone HCl 4 mg PO Q4HP PRN 08/04/19 Metoprolol Succinate [Toprol Xl 25 mg Tab.sr] 25 mg PO Q12 08/04/19 Promethazine HCl [Phenergan 25 mg Tablet] 25 mg PO Q12HP PRN 08/04/19 Tizanidine HCl 2 mg PO HSP PRN MDD 4 MG 08/04/19 History of Present Illiness History of Present Illness: KERRY COBURN is a 78 year old male who presents emergency department evaluation nausea and vomiting. He states that started last night has had for 5 episodes of nonbloody non-bile acid emesis. He states that this morning he continued to dry heave and thought it might be because of his oral Dilaudid which he takes for neck pain. He had minimal cough although he states he believes to have a bowel movement yesterday but has been small and really cannot give further details. Status post cervical spine surgery on July 11. He also does noted to have some dribbling with urination but states that it is not new for him. He said no treatment prior to arrival all oral intake been aggravating factor. Physical Exam Vital Signs: Temp Pulse Resp BP Pulse Ox 98.4 F 79 18 129/64 H 93 08/06/19 12:16 08/06/19 12:16 08/06/19 12:16 08/06/19 12:16 08/06/19 12:16 Intake & Output 08/05/19 08/06/19 08/07/19 06:59 06:59 06:59 Intake Total 4400 2570 Output Total 200 250 Balance 4200 2320 Weight 105.5 kg 106.11 kg General appearance: PRESENT: no acute distress, cooperative Neck exam: ABSENT: JVD Respiratory exam: PRESENT: clear to auscultation nikita GI/Abdominal exam: PRESENT: soft. ABSENT: guarding, rebound, rigid, tenderness Results Laboratory Results: WBC 6.5 10^3/uL (4.0-10.5) 08/05/19 04:36 RBC 3.97 10^6/uL (4.35-5.55) L 08/05/19 04:36 Hgb 13.0 g/dL (13.5-17.0) L 08/05/19 04:36 Hct 39.0 % (37.9-51.0) 08/05/19 04:36 MCV 98 fl (80-97) H 08/05/19 04:36 MCH 32.7 pg (27.0-33.4) 08/05/19 04:36 MCHC 33.3 g/dL (32.0-36.0) 08/05/19 04:36 RDW 14.0 % (11.5-14.0) 08/05/19 04:36 Plt Count 173 10^3/uL (150-450) 08/05/19 04:36 Lymph % (Auto) 18.5 % (13-45) 08/05/19 04:36 [place]illiam % (Auto) 5.0 % (3-13) 08/05/19 04:36 Eos % (Auto) 0.7 % (0-6) 08/05/19 04:36 Baso % (Auto) 1.0 % (0-2) 08/05/19 04:36 Absolute Neuts (auto) 4.9 10^3/uL (1.7-8.2) 08/05/19 04:36 Absolute Lymphs (auto) 1.2 10^3/uL (0.5-4.7) 08/05/19 04:36 Absolute Monos (auto) 0.3 10^3/uL (0.1-1.4) 08/05/19 04:36 Absolute Eos (auto) 0.0 10^3/uL (0.0-0.6) 08/05/19 04:36 Absolute Basos (auto) 0.1 10^3/uL (0.0-0.2) 08/05/19 04:36 Seg Neutrophils % 74.8 % (42-78) 08/05/19 04:36 PT 13.1 SEC (11.4-15.4) 08/04/19 10:11 INR 0.99 08/04/19 10:11 VBG pH 7.45 (7.30-7.42) H 08/04/19 12:33 VBG pCO2 31.6 mmHg (35-63) L 08/04/19 12:33 VBG HCO3 21.4 mmol/L (20-32) 08/04/19 12:33 VBG Base Excess -1.7 mmol/L 08/04/19 12:33 Sodium 144.3 mmol/L (137-145) 08/05/19 04:36 Potassium 4.0 mmol/L (3.6-5.0) 08/05/19 04:36 Chloride 112 mmol/L (98-107) H 08/05/19 04:36 Carbon Dioxide 26 mmol/L (22-30) 08/05/19 04:36 Anion Gap 6 (5-19) 08/05/19 04:36 BUN 5 mg/dL (7-20) L 08/05/19 04:36 Creatinine 0.66 mg/dL (0.52-1.25) 08/05/19 04:36 Est GFR ( Amer) > 60 (>60) 08/05/19 04:36 Est GFR (MDRD) Non-Af > 60 (>60) 08/05/19 04:36 Glucose 160 mg/dL (75-110) H 08/05/19 04:36 Lactic Acid 1.4 mmol/L (0.7-2.1) 08/04/19 22:00 Calcium 8.3 mg/dL (8.4-10.2) L 08/05/19 04:36 Magnesium 1.5 mg/dL (1.6-2.3) L 08/04/19 10:11 Total Bilirubin 0.6 mg/dL (0.2-1.3) 08/05/19 04:36 Direct Bilirubin 0.2 mg/dL (0.0-0.4) 08/05/19 04:36 Neonat Total Bilirubin Not Reportable 08/05/19 04:36 Neonat Direct Bilirubin Not Reportable 08/05/19 04:36 Neonat Indirect Bili Not Reportable 08/05/19 04:36 AST 35 U/L (17-59) 08/05/19 04:36 ALT 20 U/L (<50) 08/05/19 04:36 Alkaline Phosphatase 33 U/L (38-126) L 08/05/19 04:36 Total Protein 4.8 g/dL (6.3-8.2) L 08/05/19 04:36 Albumin 2.9 g/dL (3.5-5.0) L 08/05/19 04:36 Urine Color YELLOW 08/04/19 12:24 Urine Appearance SLIGHTLY-CLOUDY 08/04/19 12:24 Urine pH 8.0 (5.0-9.0) 08/04/19 12:24 Ur Specific [place] 1.013 08/04/19 12:24 Urine Protein NEGATIVE mg/dL (NEGATIVE) 08/04/19 12:24 Urine Glucose (UA) NEGATIVE mg/dL (NEGATIVE) 08/04/19 12:24 Urine Ketones 80 mg/dL (NEGATIVE) H 08/04/19 12:24 Urine Blood NEGATIVE (NEGATIVE) 08/04/19 12:24 Urine Nitrite (Reflex) NEGATIVE (NEGATIVE) 08/04/19 12:24 Urine Bilirubin NEGATIVE (NEGATIVE) 08/04/19 12:24 Urine Urobilinogen NEGATIVE mg/dL (<2.0) 08/04/19 12:24 Leukocyte Esterase Rfl TRACE (NEGATIVE) H 08/04/19 12:24 Urine RBC (Auto) 5 /HPF 08/04/19 12:24 Urine WBC (Reflex) 10 /HPF 08/04/19 12:24 Urine Mucus (Auto) RARE /LPF 08/04/19 12:24 Urine Ascorbic Acid NEGATIVE (NEGATIVE) 08/04/19 12:24 Stl C. Difficile GDH Ag POSITIVE (NEGATIVE) 08/05/19 18:13 Stl C.difficile Tox A&B NEGATIVE (NEGATIVE) 08/05/19 18:13 Stl C.difficile Tox PCR NEGATIVE (NEGATIVE) 08/05/19 18:13 Influenza A (Rapid) NEGATIVE (NEGATIVE) 08/04/19 12:30 Influenza B (Rapid) NEGATIVE (NEGATIVE) 08/04/19 12:30 Impressions: Chest X-Ray 08/04/19 11:52 IMPRESSION: LOW LUNG VOLUMES. NO SIGNIFICANT RADIOGRAPHIC FINDING IN THE CHEST. Plan Time Spent: Less than 30 Minutes Stroke Is this a Stroke Patient?: No Acute Heart Failure - Is this a Heart Failure Patient?: Yes Documentation of LVEF assessment?: Yes LVEF < 40%?: Yes-if yes answer questions a through e a) Discharged on ACEI?: N/A Discharged on ARB b) Discharges on ARB?: Yes c) Discharged on ARNI?: No-Document Contraindications Reason(s) not discharged on ARNI: ELINA d) Discharged on evidence-based Beta carol(carvedilol, sustained release metoprolol succinate, or bisoprolol)?: Yes e) For LVEF <35%, discharged on Aldosterone antagonist?: N/A (LVEF > or = 35%) 3. Anticoagulant therapy for permanect/persistent/paraoxysmal Afib or Aflutter: N/A
== END 2019-08-06 13:40 | disposition home or self-care (01) | DRG 392 ==
LOC: ER 10:06 → UNDOADMIN 16:16 → EH 16:16 → 3N 17:44
PROVIDERS: ADMIT Internal Medicine; ATTEND Internal Medicine
DX: A08.4 Viral intestinal infection, unspecified (principal); I50.22 Chronic systolic (congestive) heart failure; F11.20 Opioid dependence, uncomplicated; E87.6 Hypokalemia; E83.42 Hypomagnesemia; E66.01 Morbid (severe) obesity due to excess calories; G89.29 Other chronic pain; M54.9 Dorsalgia, unspecified; M54.2 Cervicalgia; E86.0 Dehydration; I11.0 Hypertensive heart disease with heart failure; I25.10 Atherosclerotic heart disease of native coronary artery without angina pectoris; M06.9 Rheumatoid arthritis, unspecified; J44.9 Chronic obstructive pulmonary disease, unspecified; M10.9 Gout, unspecified; F32.9 Major depressive disorder, single episode, unspecified; Z90.49 Acquired absence of other specified parts of digestive tract; Z95.5 Presence of coronary angioplasty implant and graft; Z86.711 Personal history of pulmonary embolism; Z79.01 Long term (current) use of anticoagulants; Z95.828 Presence of other vascular implants and grafts; Z96.0 Presence of urogenital implants; Z82.49 Family history of ischemic heart disease and other diseases of the circulatory system; Z88.2 Allergy status to sulfonamides; Z88.0 Allergy status to penicillin; Z88.6 Allergy status to analgesic agent; Z88.8 Allergy status to other drugs, medicaments and biological substances
CPT/HCPCS: 36415; 71045; 80053; 81001; 82803; 83605; 83735; 85025; 85610; 87040; 87324; 87449; 87493; 87804; 93005; 93010; 94660; 96361; 96365; 96366; 96367; 96375; 99285; J0696; J1720; J2405; J2550; J3475; J3480; J3490; J7030; J7040; J7042; J7121

== ENCOUNTER 2020-06-13 09:33 | Emergency (ER) | payer MEDICARE, OTHER ==
--- NOTE | 2020-06-13 10:08 | ER Document Report ---
ED Medical Screen (RME) - General Chief Complaint: Flank Pain Stated Complaint: BACK PAIN Time Seen by Provider: 06/13/20 10:05 Primary Care Provider: ELBA PORTILLO PA-C [Primary Care Provider] - Follow up as needed Mode of Arrival: Ambulatory Information source: Patient Notes: 79-year-old male presented to ED for right flank pain that also goes down his right buttocks down his right leg. He states he has had multiple kidney stones it feels like a stone but not like a stone he says it is a lot different than his normal stones. We will get blood urine and CT. He states he has not had any nausea vomiting diarrhea or fever. He does have considerable tenderness to the flank area and the pelvic area I have greeted and performed a rapid initial assessment of this patient. A comprehensive ED assessment and evaluation of the patient, analysis of test results and completion of medical decision making process will be conducted by an additional ED providers. TRAVEL OUTSIDE OF THE [place] IN LAST 30 DAYS: No - Related Data Allergies/Adverse Reactions: celecoxib [From Celebrex] Allergy (Severe, Verified 07/16/19 12:34) Chest pain leflunomide [From Arava] Allergy (Severe, Verified 07/16/19 12:34) Chest pain-Full list of symptoms on 05/18/13 DC Summary meloxicam [From Mobic] Allergy (Severe, Verified 07/16/19 12:34) Chest pain methotrexate [Methotrexate] Allergy (Severe, Verified 07/16/19 12:34) Anaphylaxis ketorolac tromethamine [From Toradol] Allergy (Unknown, Verified 07/16/19 12:34) see comment NSAIDS (Non-Steroidal Anti-Inflamma Allergy (Verified 07/16/19 12:34) Sulfa (Sulfonamide Antibiotics) Adverse Reaction (Severe, Verified 07/16/19 12:34) Diarrhea Penicillins Adverse Reaction (Unknown, Verified 07/16/19 12:34) Rash Home Medications: Rinvoq. dilaudid Past Medical History - Social History Chew tobacco use (# tins/day): No Frequency of alcohol use: None Drug Abuse: None - Past Medical History Cardiac Medical History: Reports: Hx Congestive Heart Failure, Hx Coronary Artery Disease - CARDIAC CATH WITH ONE STENT, Hx DVT - FEBRUARY 2017. IVC FILTER, Hx Hypertension, Hx Pulmonary Embolism - ON ELIQUIS Denies: Hx Heart Attack Pulmonary Medical History: Denies: Hx Asthma, Hx Bronchitis, Hx COPD, Hx Pneumonia, Hx Tuberculosis Neurological Medical History: Denies: Hx Cerebrovascular Accident, Hx Seizures Renal/ Medical History: Reports: Hx Kidney Stones. Denies: Hx Peritoneal Dialysis GI Medical History: Denies: Hx Hepatitis, Hx Hiatal Hernia, Hx Ulcer Musculoskeltal Medical History: Reports Hx Arthritis - RA, Reports Hx Gout Psychiatric Medical History: Reports: Hx Depression Infectious Medical History: Denies: Hx Hepatitis Past Surgical History: Reports: Hx Appendectomy, Hx Cardiac Catheterization, Hx Cardiac Surgery - stent X1, Hx Cholecystectomy, Hx Orthopedic Surgery - ankle / elbows, Other - Ureteral stent left kidney Removal stones and stent 2 weeks ago. Denies: Hx Open Heart Surgery - CATHERIZATIONS, Hx Pacemaker - Immunizations Hx Diphtheria, Pertussis, Tetanus Vaccination: Yes Physical Exam - Vital signs Vitals: Temp Pulse Resp BP Pulse Ox 97.5 F 92 16 132/73 H 97 06/13/20 09:41 06/13/20 09:41 06/13/20 09:41 06/13/20 09:41 06/13/20 09:41 Course - Vital Signs Vital signs: Temp Pulse Resp BP Pulse Ox 97.5 F 92 16 132/73 H 97 06/13/20 09:41 06/13/20 09:41 06/13/20 09:41 06/13/20 09:41 06/13/20 09:41 Doctor's Discharge - Discharge Referrals: ELBA PORTILLO PA-C [Primary Care Provider] - Follow up as needed
[2020-06-13] MEDS ORDERED: NORMAL SALINE 1000 ML 1,000 ML IV ONE (10:09)
[2020-06-13 10:35] LABS: ABSOLUTE BASOPHILS # (AUTO) 0.1 10^3/uL (0.0-0.2); ABSOLUTE EOSINOPHILS # (AUTO) 0.2 10^3/uL (0.0-0.6); ABSOLUTE LYMPHOCYTES (AUTO) 2.5 10^3/uL (0.5-4.7); ABSOLUTE MONOCYTES (AUTO) 0.6 10^3/uL (0.1-1.4); ABSOLUTE NEUT (AUTO) 4.8 10^3/uL (1.7-8.2); BASOPHILS % (AUTO) 0.9 % (0-2); EOSINOPHILS % (AUTO) 2.4 % (0-6); HEMATOCRIT 44.6 % (37.9-51.0); HEMOGLOBIN 15.4 g/dL (13.5-17.0); LYMPHOCYTES % (AUTO) 30.6 % (13-45); MEAN CORPUSCULAR HEMOGLOBIN 32.7 pg (27.0-33.4); MEAN CORPUSCULAR HGB CONC 34.4 g/dL (32.0-36.0); MEAN CORPUSCULAR VOLUME 95 fl (80-97); MONOCYTES % (AUTO) 7.9 % (3-13); PLATELET COUNT 180 10^3/uL (150-450); RED CELL DISTRIBUTION WIDTH 14.8 % (11.5-14.0); SEGMENTED NEUTROPHILS % (AUTO) 58.2 % (42-78); TOTAL CELLS COUNTED % (AUTO) 100 %; WHITE BLOOD COUNT 8.2 10^3/uL (4.0-10.5)
--- NOTE | 2020-06-13 10:53 | RADIOLOGY REPORT (SQ) ---
EXAM DESCRIPTION: CT ABD/PELVIS NO ORAL OR IV IMAGES COMPLETED DATE/TIME: 06/13/2020 10:27 am REASON FOR STUDY: Right flank, pelvic, back pain COMPARISON: 05/16/2019 TECHNIQUE: CT scan of the abdomen and pelvis performed without intravenous or oral contrast. Images reviewed with lung, soft tissue, and bone windows. Reconstructed coronal and sagittal MPR images revi ewed. All images stored on PACS. All CT scanners at this facility use dose modulation, iterative reconstruction, and/or weight based d osing when appropriate to reduce radiation dose to as low as reasonably achievable (ALARA). [facility]: Dose Right [facility]: CareDose [facility]: Dose Right [facility]: Teradose 4D [facility]: Smart logolineup RADIATION DOSE: CT Rad equipment meets quality standard of care and radiation dose reduction techniq ues were employed. CTDIvol: 17.2 mGy. DLP: 941 mGy-cm.mGy. LIMITATIONS: None. FINDINGS: LOWER CHEST: No significant findings. No nodules or infiltrates. NON-CONTRASTED LIVER, SPLEEN, ADRENALS: Evaluation limited by lack of IV contrast. No identified sign ificant masses. PANCREAS: No masses. No peripancreatic inflammatory changes. GALLBLADDER: Surgically absent. RIGHT KIDNEY AND URETER: No suspicious masses. Assessment limited by lack of IV contrast. Multiple nonobstructing right renal calculi. No hydronephrosis or hydroureter. LEFT KIDNEY AND URETER: No suspicious masses. Assessment limited by lack of IV contrast. Multiple n onobstructing left renal calculi. Hounsfield units measure just under 1,000. The largest stone sydni ures 9 mm. No hydronephrosis or hydroureter. AORTA AND RETROPERITONEUM: No aneurysm. No retroperitoneal masses or adenopathy. IVC filter is in pl drake. BOWEL AND PERITONEAL CAVITY: No obvious masses or inflammatory changes. No free fluid. APPENDIX: Surgically absent. PELVIS, BLADDER, AND ABDOMINAL WALL:No abnormal masses. No free fluid. Bladder normal. BONES: Degenerative changes in the lumbar spine. OTHER: No other significant finding. IMPRESSION: Nonobstructing bilateral renal calculi as described. No acute findings in the abdomen o r pelvis. COMMENT: Quality ID # [id number]: Final reports with documentation of one or more dose reduction techniques (e.g., Automated exposure control, adjustment of the mA and/or kV according to patient size, use of iterative reconstruction technique) TECHNICAL DOCUMENTATION: JOB ID: [id number] 2010 [employer]- All Rights Reserved Reading location - IP/workstation name: [email or web address]
[2020-06-13] MEDS ORDERED: HYDROMORPHONE HCL INJ/PF 2 MG/ML AMPULE IV ONE (11:01)
[2020-06-13 11:03] LABS: APPEARANCE,URINE SLIGHTLY-CLOUDY; BILIRUBIN,URINE NEGATIVE (NEGATIVE); GLUCOSE, URINE NEGATIVE (NEGATIVE); KETONES,URINE NEGATIVE (NEGATIVE); LEUKOCYTE ESTERASE,URINE TRACE (NEGATIVE); NITRITE,URINE NEGATIVE (NEGATIVE); PROTEIN,URINE NEGATIVE (NEGATIVE); URINE SPECIFIC GRAVITY 1.017; UROBILINOGEN,URINE NEGATIVE mg/dL (<2.0)
[2020-06-13 11:05] LABS: ALBUMIN 4.3 g/dL (3.5-5.0); ALKALINE PHOSPHATASE 62 U/L (38-126); ANION GAP 8 (5-19); ASPARTATE AMINO TRANSFERASE 50 U/L (17-59); BILIRUBIN,TOTAL 0.6 mg/dL (0.2-1.3); BLOOD UREA NITROGEN 19 mg/dL (7-20); CARBON DIOXIDE 29 mmol/L (22-30); CHLORIDE 104 mmol/L (98-107); GLUCOSE 97 mg/dL (75-110); POTASSIUM 4.2 mmol/L (3.6-5.0); TOTAL PROTEIN 6.6 g/dL (6.3-8.2)
[2020-06-13 11:08] LABS: COLOR,URINE YELLOW
--- NOTE | 2020-06-13 12:15 | ER Document Report ---
Entered by MYLENE MELARA SCRIBE 06/13/20 1059 Acting as scribe for:MALACHI SMALL MD ED GI/ - General Chief Complaint: Flank Pain Stated Complaint: BACK PAIN Time Seen by Provider: 06/13/20 10:05 Primary Care Provider: ELBA PORTILLO PA-C [Primary Care Provider] - Follow up as needed Mode of Arrival: Ambulatory Information source: Patient Notes: This 79 year old male patient with a history of kidney stones and chronic back pain presents to the ED today for evaluation of right flank pain that radiates to his groin, buttocks, and down his right leg. Patient states that he takes Dilaudid and Lyrica for back and nerve pain, respectively and that he took 4 mg Dilaudid at 0700 and Lyrica at 0830 this morning. Pain is a 4/5 in severity at this time. Denies nausea, vomiting, fever, or chills. TRAVEL OUTSIDE OF THE [place] IN LAST 30 DAYS: No - Related Data Allergies/Adverse Reactions: celecoxib [From Celebrex] Allergy (Severe, Verified 07/16/19 12:34) Chest pain leflunomide [From Arava] Allergy (Severe, Verified 07/16/19 12:34) Chest pain-Full list of symptoms on 05/18/13 DC Summary meloxicam [From Mobic] Allergy (Severe, Verified 07/16/19 12:34) Chest pain methotrexate [Methotrexate] Allergy (Severe, Verified 07/16/19 12:34) Anaphylaxis ketorolac tromethamine [From Toradol] Allergy (Unknown, Verified 07/16/19 12:34) see comment NSAIDS (Non-Steroidal Anti-Inflamma Allergy (Verified 07/16/19 12:34) Sulfa (Sulfonamide Antibiotics) Adverse Reaction (Severe, Verified 07/16/19 12:34) Diarrhea Penicillins Adverse Reaction (Unknown, Verified 07/16/19 12:34) Rash Home Medications: Rinvoq. dilaudid Past Medical History - General Information source: Patient, [facility] Records - Social History Smoking Status: Never Smoker Cigarette use (# per day): No Chew tobacco use (# tins/day): No Smoking Education Provided: No Frequency of alcohol use: None Drug Abuse: None Family History: Reviewed & Not Pertinent, Hypertension Patient has suicidal ideation: No Patient has homicidal ideation: No - Past Medical History Cardiac Medical History: Reports: Hx Congestive Heart Failure, Hx Coronary Artery Disease - CARDIAC CATH WITH ONE STENT, Hx DVT - FEBRUARY 2017. IVC FILTER, Hx Hypertension, Hx Pulmonary Embolism - ON ELIQUIS Renal/ Medical History: Reports: Hx Kidney Stones Musculoskeletal Medical History: Reports Hx Arthritis - RA, Reports Hx Gout Psychiatric Medical History: Reports: Hx Depression Past Surgical History: Reports: Hx Appendectomy, Hx Cardiac Catheterization, Hx Cardiac Surgery - stent X1, Hx Cholecystectomy, Hx Orthopedic Surgery - ankle / elbows, Other - Ureteral stent left kidney Removal stones and stent 2 weeks ago - Immunizations Hx Diphtheria, Pertussis, Tetanus Vaccination: Yes Hx Pneumococcal Vaccination: 08/08/13 Review of Systems - Review of Systems Constitutional: See HPI. denies: Chills, Fever EENT: No symptoms reported Cardiovascular: No symptoms reported Respiratory: No symptoms reported Gastrointestinal: See HPI. denies: Nausea, Vomiting Genitourinary: See HPI, Flank pain Male Genitourinary: No symptoms reported Musculoskeletal: See HPI, Back pain, Muscle pain Skin: No symptoms reported Hematologic/Lymphatic: No symptoms reported Neurological/Psychological: No symptoms reported -: Yes All other systems reviewed and negative Physical Exam - Vital signs Vitals: Temp Pulse Resp BP Pulse Ox 97.5 F 92 16 132/73 H 97 06/13/20 09:41 06/13/20 09:41 06/13/20 09:41 06/13/20 09:41 06/13/20 09:41 - General General appearance: Alert In distress: None - Respiratory Respiratory status: No respiratory distress Chest status: Nontender Breath sounds: Normal Chest palpation: Normal - Cardiovascular Rhythm: Regular Heart sounds: Normal auscultation Murmur: No Friction rub: No Gallop: None auscultated - Abdominal Inspection: Normal Distension: No distension Bowel sounds: Normal Tenderness: Nontender - Abdomen soft Organomegaly: No organomegaly - Back Back: CVA tenderness - Right CVA tenderness to percussion - Extremities General upper extremity: Normal inspection General lower extremity: Normal inspection. No: Edema - Neurological Neuro grossly intact: Yes Orientation: AAOx4 Jenny Coma Scale Eye Opening: Spontaneous [place] Coma Scale Verbal: Oriented Jenny Coma Scale Motor: Obeys Commands [place] Coma Scale Total: 15 - Psychological Associated symptoms: Normal affect, Normal mood - Skin Skin Temperature: Warm Skin Moisture: Dry Skin Color: Normal Course - Re-evaluation Re-evalutation: 06/14/20 07:00 After receiving IV fluids and IV Dilaudid patient's right flank pain diminished. Patient reports that he felt better. 06/14/20 07:02 Patient was reevaluated prior to discharge. Patient reports that his pain was under control and that he had all the medications he needed to control pain from renal colic, passing kidney stone and chronic low back pain. Patient reports he will follow-up with his urologist. - Vital Signs Vital signs: Temp Pulse Resp BP Pulse Ox 97.9 F 92 15 132/75 H 98 06/13/20 12:26 06/13/20 09:41 06/13/20 12:26 06/13/20 12:26 06/13/20 12:25 06/14/20 07:00 Vital signs stable - Laboratory Result Diagrams: 06/13/20 10:10 06/13/20 10:10 Laboratory results interpreted by me: 06/13/20 06/13/20 06/13/20 10:10 10:10 10:10 RDW 14.8 H Lipase 301.8 H Urine Blood SMALL H Ur Leukocyte Esterase TRACE H 06/14/20 07:01 Laboratories showed small amount of blood trace leukocyte esterase in urine. Patient's lipase is 301 with normal upper limit is 300. Most likely patient's laboratories indicate that patient was passing a kidney stone through the right ureter. - Diagnostic Test Radiology reviewed: Image reviewed, Reports reviewed Radiology results interpreted by me: 06/14/20 07:01 Abdomen/Pelvis CT 06/13/20 10:09 IMPRESSION: Nonobstructing bilateral renal calculi as described. No acute findings in the abdomen or pelvis. Patient CT scan of abdomen and pelvis shows nonobstructing bilateral renal calculi no evidence for obstruction or hydrohydronephrosis. No other acute findings seen within the abdomen or pelvis. Discharge - Discharge Clinical Impression: Kidney stone, Acute right flank pain Condition: Stable Disposition: HOME, SELF-CARE Additional Instructions: Kidney Stone You are passing or have passed a kidney stone. These stones are usually d ue to increased calcium or uric acid concentrations in your urine. Stones within the kidney itself are not painful. The pain occurs as the stone leaves the kidney to pass down the long tube, called the ureter, leading to the bladder. If the stone is small, it will usually pass by itself. Most patients can pass the stone at home. You will usually receive medications for pain, nausea or vomiting, and sometimes a medication to assist in passing the kidney stone. However, if the pain is very severe or if vomiting prevents you from taking oral pain medications, you may need to return for further treatment. Drink three or four quarts of fluids per day. You will be given pain medication (if needed) and urine strainers. Strain all your urine to see if the stone passes. If your doctor has asked you to bring the stone in for analysis, return with the stone once it has passed. Return if pain or vomiting become severe, if you develop a high fever, if you are unable to pass your urine, or if other unusual symptoms occur. Referrals: ELBA PORTILLO PA-C [Primary Care Provider] - Follow up as needed I personally performed the services described in the documentation, reviewed and edited the documentation which was dictated to the scribe in my presence, and it accurately records my words and actions.
[2020-06-13 12:41] VITALS: BP 132/75
== END 2020-06-13 12:38 | disposition home or self-care (01) ==
LOC: ER 09:33
DX: N20.0 Calculus of kidney (principal); R31.9 Hematuria, unspecified; R10.9 Unspecified abdominal pain; M79.10 Myalgia, unspecified site; M79.2 Neuralgia and neuritis, unspecified; M54.9 Dorsalgia, unspecified; G89.29 Other chronic pain; Z79.891 Long term (current) use of opiate analgesic; Z79.899 Other long term (current) drug therapy; I25.10 Atherosclerotic heart disease of native coronary artery without angina pectoris; I10 Essential (primary) hypertension; Z88.8 Allergy status to other drugs, medicaments and biological substances
CPT/HCPCS: 99285; 96361; 96374; 36415; 83690; 85025; 80053; 81001; 74176; J1170; J7030

== ENCOUNTER → 2020-08-18 | Outpatient (CLI) | payer MEDICARE, OTHER ==
[~2020-08-18] MED LIST changes: +COVID-19 VACCINE (PFIZER)/PF 30 MCG/0.3 ML VIAL IM ONE; +EPINEPHRINE INJ/PF 1 MG/1 ML AMPULE IM PRN; -FENTANYL CITRATE INJ/PF 100 MCG/2 ML AMPUL ONE; -LIDOCAINE 2% INJ-PF (100 MG/5 ML) SYRINGE ONE; -MIDAZOLAM 2 MG/2 ML INJ ONE; -PROPOFOL INJ 200 MG/20 ML VIAL IV ONE
== END ==
LOC: EMPHEALTH 09:56
PROVIDERS: ATTEND Internal Medicine
DX: Z23 Encounter for immunization (principal)
CPT/HCPCS: 91300

== ENCOUNTER 2020-08-24 09:36 | Inpatient (IN) | payer MEDICARE, OTHER ==
[2020-08-24] MEDS ORDERED: RINGERS LACTATED IV ONE (10:25)
[2020-08-24] MEDS ORDERED: IMIPENEM/CILASTATIN SODIUM INJ 500 MG VIAL IV ONE (10:25)
[2020-08-24] MEDS ORDERED: FENTANYL CITRATE INJ/PF 100 MCG/2 ML AMPUL IV ONE (10:29)
[2020-08-24] MEDS ORDERED: HYDROCORTISONE SOD SUCCINATE INJ/PF 100 MG/2 ML SDV IV ONE (10:30)
[2020-08-24] MEDS ORDERED: PROCHLORPERAZINE EDISYLATE INJ 10 MG/2 ML VIAL IV ONE (10:36)
--- NOTE | 2020-08-24 10:37 | ER Document Report ---
ED General - General Stated Complaint: VOMITING, NAUSEA, COUGH Time Seen by Provider: 08/24/20 10:03 Primary Care Provider: JEMAL PORTILLO PA-C [Primary Care Provider] - Follow up as needed TRAVEL OUTSIDE OF THE [place] IN LAST 30 DAYS: No - HPI Notes: Chief complaint: I hurt all over, and coughing and I am having nausea and vomiting History of present illness: Mr. Eduardo is a 79-year-old male followed by Jemal Portillo PA-C with a history of rheumatoid arthritis taking infusion therapy with a biologic every 28 days and also on 5 mg of prednisone daily now presenting with complaints that since last night he has been hurting all over, coughing, vomiting intermittently and experiencing low-grade fever. This gentleman is a non-smoker. He says he is producing green sputum. He denies shortness of breath or chest pain but says he hurts from head to toe. He notes that he was recently seen by urologist and told that he had a kidney stone on the right side. He says his right flank discomfort is been worse this morning. He denies dysuria. He has vomited multiple times. We also note that he took Covid vaccine 6 days ago. Patient has a past history of DVT. He has a Kirk filter in situ. He continues to take Eliquis. Review of his past records shows that he was treated here about 2 years ago for sepsis related to pneumonia. He notes multiple drug allergies including penicillin which causes an urticarial rash. - Related Data Allergies/Adverse Reactions: celecoxib [From Celebrex] Allergy (Severe, Verified 08/24/20 10:26) Chest pain leflunomide [From Arava] Allergy (Severe, Verified 08/24/20 10:26) Chest pain-Full list of symptoms on 05/18/13 DC Summary meloxicam [From Mobic] Allergy (Severe, Verified 08/24/20 10:26) Chest pain methotrexate [Methotrexate] Allergy (Severe, Verified 08/24/20 10:26) Anaphylaxis ketorolac tromethamine [From Toradol] Allergy (Unknown, Verified 08/24/20 10:26) see comment NSAIDS (Non-Steroidal Anti-Inflamma Allergy (Verified 08/24/20 10:26) Sulfa (Sulfonamide Antibiotics) Adverse Reaction (Severe, Verified 08/24/20 10:26) Diarrhea Penicillins Adverse Reaction (Unknown, Verified 08/24/20 10:26) Rash Past Medical History - General Information source: Patient, [facility] Records - Social History Smoking Status: Never Smoker Frequency of alcohol use: None Drug Abuse: None Lives with: Family Family History: Reviewed & Not Pertinent, Hypertension - Past Medical History Cardiac Medical History: Reports: Hx Congestive Heart Failure, Hx Coronary Artery Disease - CARDIAC CATH WITH ONE STENT, Hx DVT - FEBRUARY 2017. IVC FILTER, Hx Hypertension, Hx Pulmonary Embolism - ON ELIQUIS Denies: Hx Heart Attack Pulmonary Medical History: Reports: Hx Pneumonia Denies: Hx Asthma, Hx Bronchitis, Hx COPD, Hx Tuberculosis Neurological Medical History: Denies: Hx Cerebrovascular Accident, Hx Seizures Endocrine Medical History: Denies: Hx Diabetes Mellitus Type 1, Hx Diabetes Mellitus Type 2 Renal/ Medical History: Reports: Hx Kidney Stones. Denies: Hx Peritoneal Dialysis GI Medical History: Denies: Hx Hepatitis, Hx Hiatal Hernia, Hx Ulcer Musculoskeletal Medical History: Reports Hx Arthritis - RA, Reports Hx Gout Psychiatric Medical History: Reports: Hx Depression Infectious Medical History: Denies: Hx Hepatitis Past Surgical History: Reports: Hx Appendectomy, Hx Cardiac Catheterization, Hx Cardiac Surgery - stent X1, Hx Cholecystectomy, Hx Orthopedic Surgery - ankle / elbows, Other - Ureteral stent left kidney Removal stones and stent 2 weeks ago. Denies: Hx Open Heart Surgery - CATHERIZATIONS, Hx Pacemaker - Immunizations Hx Diphtheria, Pertussis, Tetanus Vaccination: Yes Hx Pneumococcal Vaccination: 08/08/13 Review of Systems - Review of Systems Notes: Constitutional: As per HPI. HENT: Negative for sore throat. Eyes: Negative for visual changes. Cardiovascular: Negative for chest pain. Respiratory: As per HPI. Gastrointestinal: As per HPI. Genitourinary: As per HPI. Musculoskeletal: As per HPI. Skin: Negative for rash. Neurological: Negative for headaches, focal weakness or numbness. 10 point ROS negative except as marked above and in HPI. Physical Exam - Vital signs Vitals: Temp Pulse Resp BP Pulse Ox 100.9 F H 112 H 18 117/75 96 08/24/20 09:44 08/24/20 09:44 08/24/20 09:44 08/24/20 09:44 08/24/20 09:44 - Notes Notes: GENERAL: Elderly male experiencing shaking rigors and appearing potentially septic. SKIN: Pale and dry. Good turgor no rashes. HEAD: Normocephalic atraumatic. EYES: PERRLA. EOMI. Conjunctivae and sclerae clear. EARS: CANALS AND TMS CLEAR. NOSE: CLEAR. MOUTH: Moist mucosa. Good dentition. No stridor or edema. No drooling. NECK: Supple. No masses or thyromegaly. No adenopathy. Carotids 2+ without bruits. No JVD. BACK: Symmetrical mild right CVA tenderness. CHEST: Slight rattling cough. Respirations unlabored. Breath sounds clear and symmetrical. HEART: Tachycardic regular rhythm. No murmur gallop or rub. ABDOMEN: Multiple surgical scars present. Soft nontender without masses, organomegaly or rebound. Bowel sounds normally active. No bruits. GENITALIA: Deferred. EXTREMITIES: No edema. No calf tenderness. Cap refill less than 1.5 seconds. Dorsalis pedis and posterior tibial pulses 3+ and symmetrical. NEUROLOGICAL: GCS 13. Eyes are closed initially. Opens to verbal command. Appropriately oriented to person place and day but not to month. Mildly lethargic. Fluent speech. Cranial nerves II through XII intact. Sensorimotor and cerebellar normal. Normal tone. PSYCHIATRIC: Anxious affect. Course - Re-evaluation Re-evalutation: 08/24/20 10:40 Sepsis protocol has been initiated. Patient is going to receive a stress dose of steroids IV. Blood cultures drawn. Antibiotic coverage initiated with imipenem. 08/24/20 10:40 08/24/20 12:23 Patient is got about 1500 cc of normal saline IV at this time. He feels substantially better. He is still tachycardic to about 120. His temperature is 103. He says he actually feels a lot better with current interventions. He is no longer nauseated or vomiting. His pain is controlled. His Covid test and influenza test were negative. His chest x-ray shows no focal infiltrate. He is coughing up some thick sputum and this is been submitted for culture and Gram stain. White count is normal. Hemoglobin is normal. Comprehensive metabolic profile is unremarkable. Lactate level 2.0. Noncontrast CT abdomen/pelvis sh ows a 5 mm stone at the left UVJ with hydronephrosis present. Patient has not been able to urinate up to now but is currently obtaining a urine specimen for us. I reviewed current findings with patient and with his family members. 08/24/20 16:47 This gentleman now has an oxygen requirement of 3 L/min to maintain a good saturation. He feels substantially better. I obtained a CTA of the chest. No evidence of any pulmonary emboli but he does have infiltrate left lower lobe. His Covid testing was negative. He will be admitted by Dr. Jones. I have discussed findings with patient and his family. - Vital Signs Vital signs: Temp Pulse Resp BP Pulse Ox 98.7 F 112 H 22 H 111/63 96 08/24/20 15:51 08/24/20 09:44 08/24/20 15:22 08/24/20 15:51 08/24/20 15:51 - Laboratory Results Result Diagrams: 08/24/20 10:34 08/24/20 10:34 Laboratory Results Interpreted: 08/24/20 08/24/20 08/24/20 10:34 10:34 12:28 RDW 14.6 H BUN 21 H Urine Glucose (UA) 50 H Urine Ketones TRACE H Urine Blood LARGE H Critical Laboratory Results Reviewed: Yes Attending or Supervising Physician who Reviewed Labs: SARAH CEHEVERRIA - Radiology Results Radiology Results Interpreted: 08/24/20 16:49 Chest X-Ray 08/24/20 10:25 IMPRESSION: NO ACUTE RADIOGRAPHIC FINDING IN THE CHEST. Abdomen/Pelvis CT 08/24/20 10:28 IMPRESSION: 5 mm distal left ureteral stone with mild left hydronephrosis and hydroureter. Chest/Abdomen CTA 08/24/20 13:38 IMPRESSION: 1. No visualized pulmonary embolism. 2. Left lower lobe consolidation may reflect pneumonia or atelectasis. Additional bilateral opacities likely representing atelectasis appear possible component of mild edema. Critical Radiology Results Reviewed: Yes Attending or Supervising Physician who Reviewed Radiology: SARAH ECHEVERRIA - EKG Interpretation by Me Additional EKG results interpreted by me: 08/24/20 12:25 Twelve-lead EKG reviewed by me contemporaneously: 1046 hrs. Indication for study: Tachycardia Rhythm: Sinus tachycardia Rate: 118 Intervals: Normal intervals QRS axis: -[address]/T wave changes: None Comparison with prior tracing: Persistent left anterior fascicular block Interpretation: Sinus tachycardia. Left anterior fascicular block. Discharge - Discharge Clinical Impression: Pneumonia, Hypoxemic respiratory failure, Nephrolithiasis Condition: Good Disposition: ADMITTED INPATIENT Admitting Provider: Kendy (Hospitalist) Unit Admitted: Medical Floor Referrals: JEMAL PORTILLO PA-C [Primary Care Provider] - Follow up as needed
--- NOTE | 2020-08-24 11:07 | RADIOLOGY REPORT (SQ) ---
EXAM DESCRIPTION: CHEST SINGLE VIEW IMAGES COMPLETED DATE/TIME: 08/24/2020 10:41 am REASON FOR STUDY: cough COMPARISON: Chest films 08/04/2019, 05/16/2019 EXAM PARAMETERS: NUMBER OF VIEWS: One view. TECHNIQUE: Single frontal radiographic view of the chest acquired. RADIATION DOSE: NA LIMITATIONS: Large patient, portable technique FINDINGS: LUNGS AND PLEURA: No opacities, masses or pneumothorax. No pleural effusion. MEDIASTINUM AND HILAR STRUCTURES: No masses. Contour normal. HEART AND VASCULAR STRUCTURES: Heart normal in size. Normal vasculature. BONES: No acute findings. HARDWARE: None in the chest. OTHER: No other significant finding. IMPRESSION: NO ACUTE RADIOGRAPHIC FINDING IN THE CHEST. TECHNICAL DOCUMENTATION: JOB ID: [id number] 2010 [employer]- All Rights Reserved Reading location - IP/workstation name: [id number]
[2020-08-24 11:15] LABS: ABSOLUTE EOSINOPHILS # (AUTO) 0.1 10^3/uL (0.0-0.6); ABSOLUTE LYMPHOCYTES (AUTO) 1.6 10^3/uL (0.5-4.7); ABSOLUTE MONOCYTES (AUTO) 0.5 10^3/uL (0.1-1.4); ABSOLUTE NEUT (AUTO) 6.6 10^3/uL (1.7-8.2); BASOPHILS % (AUTO) 0.4 % (0-2); EOSINOPHILS % (AUTO) 1.5 % (0-6); HEMOGLOBIN 14.6 g/dL (13.5-17.0); LYMPHOCYTES % (AUTO) 18.3 % (13-45); MEAN CORPUSCULAR HEMOGLOBIN 31.7 pg (27.0-33.4); MEAN CORPUSCULAR VOLUME 93 fl (80-97); MONOCYTES % (AUTO) 5.6 % (3-13); PLATELET COUNT 178 10^3/uL (150-450); RED BLOOD COUNT 4.61 10^6/uL (4.35-5.55); RED CELL DISTRIBUTION WIDTH 14.6 % (11.5-14.0); SEGMENTED NEUTROPHILS % (AUTO) 74.2 % (42-78); TOTAL CELLS COUNTED % (AUTO) 100 %; WHITE BLOOD COUNT 8.8 10^3/uL (4.0-10.5)
[2020-08-24 11:18] LABS: VENOUS BLOOD BASE EXCESS 2.9 mmol/L; VENOUS BLOOD HCO3 29.8 mmol/L (20-32); VENOUS BLOOD PCO2 54.3 mmHg (35-63); VENOUS BLOOD PH 7.36 (7.30-7.42)
[2020-08-24 11:33] LABS: ALBUMIN 4.1 g/dL (3.5-5.0); ALKALINE PHOSPHATASE 80 U/L (38-126); ANION GAP 7 (5-19); ASPARTATE AMINO TRANSFERASE 41 U/L (17-59); BILIRUBIN,DIRECT 0.3 mg/dL (0.0-0.4); BILIRUBIN,TOTAL 0.6 mg/dL (0.2-1.3); BLOOD UREA NITROGEN 21 mg/dL (7-20); CALCIUM 9.6 mg/dL (8.4-10.2); CARBON DIOXIDE 30 mmol/L (22-30); CHLORIDE 103 mmol/L (98-107); GLUCOSE 101 mg/dL (75-110); POTASSIUM 4.3 mmol/L (3.6-5.0); TOTAL PROTEIN 6.6 g/dL (6.3-8.2)
[2020-08-24] MEDS ORDERED: ACETAMINOPHEN 650 MG SUPP.RECT PR ONE (11:42)
[2020-08-24 11:46] LABS: INTERNATIONAL RATION (INR) 0.95; PROTHROMBIN TIME 12.9 SEC (11.4-15.4)
--- NOTE | 2020-08-24 11:53 | RADIOLOGY REPORT (SQ) ---
EXAM DESCRIPTION: CT ABD/PELVIS NO ORAL OR IV IMAGES COMPLETED DATE/TIME: 08/24/2020 11:35 am REASON FOR STUDY: flank pain COMPARISON: CT abdomen pelvis 06/13/2020, 05/16/2019 TECHNIQUE: CT scan of the abdomen and pelvis performed without intravenous or oral contrast. Images reviewed with lung, soft tissue, and bone windows. Reconstructed coronal and sagittal MPR images revi ewed. All images stored on PACS. All CT scanners at this facility use dose modulation, iterative reconstruction, and/or weight based d osing when appropriate to reduce radiation dose to as low as reasonably achievable (ALARA). [facility]: Dose Right [facility]: CareDose [facility]: Dose Right [facility]: Teradose 4D [facility]: [employer] RADIATION DOSE: CT Rad equipment meets quality standard of care and radiation dose reduction techniq ues were employed. CTDIvol: 16.5 mGy. DLP: 949 mGy-cm.mGy. LIMITATIONS: None. FINDINGS: 5 mm distal left ureteral stone at the UVJ, causing mild left hydronephrosis and hydrouret er. Stone best shown on axial image 83 and coronal image 51 There are multiple other left-sided subcentimeter intrarenal nonobstructive stones measuring about 55 0 Hounsfield units. No left renal masses or cysts. LOWER CHEST: No significant findings. No nodules or infiltrates. NON-CONTRASTED LIVER, SPLEEN, ADRENALS: Evaluation limited by lack of IV contrast. No identified sign ificant masses. PANCREAS: No masses. No peripancreatic inflammatory changes. GALLBLADDER: Surgically absent. RIGHT KIDNEY AND URETER: No suspicious masses. Assessment limited by lack of IV contrast. Multiple less than 5 mm right intrarenal nonobstructive stones. No right ureteral stones. No hydronephrosis or hydroureter. LEFT KIDNEY AND URETER: As above. AORTA AND RETROPERITONEUM: No aneurysm. No retroperitoneal masses or adenopathy. IVC filter present BOWEL AND PERITONEAL CAVITY: Scattered colonic diverticula. No obvious masses or inflammatory change s. No free fluid. APPENDIX: Surgically absent PELVIS, BLADDER, AND ABDOMINAL WALL:No abnormal masses. No free fluid. Left ureterovesical junction 5 mm stone coronal image 2. BONES: No significant findings. OTHER: No other significant finding. IMPRESSION: 5 mm distal left ureteral stone with mild left hydronephrosis and hydroureter. COMMENT: Quality ID # [id number]: Final reports with documentation of one or more dose reduction techniques (e.g., Automated exposure control, adjustment of the mA and/or kV according to patient size, use of iterative reconstruction technique) TECHNICAL DOCUMENTATION: JOB ID: [id number] 2010 [employer]- All Rights Reserved Reading location - IP/workstation name: [id number]
[2020-08-24] MEDS ORDERED: ACETAMINOPHEN 325 MG TABLET PO ONE (12:25)
[2020-08-24 12:56] LABS: APPEARANCE,URINE SLIGHTLY-CLOUDY; BILIRUBIN,URINE NEGATIVE (NEGATIVE); COLOR,URINE YELLOW; GLUCOSE, URINE 50 mg/dL (NEGATIVE); KETONES,URINE TRACE mg/dL (NEGATIVE); PROTEIN,URINE NEGATIVE (NEGATIVE); URINE SPECIFIC GRAVITY 1.015; UROBILINOGEN,URINE NEGATIVE mg/dL (<2.0)
[2020-08-24] MEDS ORDERED: NORMAL SALINE 1000 ML 1,000 ML IV ONE (13:37)
--- NOTE | 2020-08-24 16:24 | RADIOLOGY REPORT (SQ) ---
EXAM DESCRIPTION: CTA CHEST IMAGES COMPLETED DATE/TIME: 08/24/2020 12:50 pm REASON FOR STUDY: hypoxemia, hx. PE COMPARISON: Single-view chest same day and CT chest 02/27/2018 TECHNIQUE: CT scan of the chest performed using helical scanning technique with dynamic intravenous contrast injection. Images reviewed with lung, soft tissue and bone windows. Reconstructed coronal and sagittal MPR images reviewed. Additional 3 dimensional post-processing performed to develop Maximal Intensity Projection images (TX P). All images stored on PACS. All CT scanners at this facility use dose modulation, iterative reconstruction, and/or weight based d osing when appropriate to reduce radiation dose to as low as reasonably achievable (ALARA). [facility]: Dose Right [facility]: CareDose [facility]: Dose Right [facility]: Teradose 4D [facility]: [employer] CONTRAST TYPE AND DOSE: contrast/concentration: Isovue 350.00 mmol/ml; Total Contrast Delivered: 75. 0 ml; Total Saline Delivered: 75.0 ml Contrast bolus optimized for the pulmonary arteries. Not diagnostic for the aorta. RENAL FUNCTION: Creatinine 0.95 RADIATION DOSE: CT Rad equipment meets quality standard of care and radiation dose reduction techniq ues were employed. CTDIvol: 14.9 - 25.7 mGy. DLP: 895 mGy-cm. . LIMITATIONS: Motion artifact. FINDINGS: LUNGS AND PLEURA: Left lower lobe consolidation may represent pneumonia or atelectasis. A dditional bilateral nonspecific opacities likely predominantly represent atelectasis. There may be s ome mild septal thickening. No pleural effusion or pneumothorax. AORTA AND GREAT VESSELS: Fusiform ectasia of the ascending thoracic aorta measuring 3.8 cm. HEART: No pericardial effusion. Coronary artery calcifications. PULMONARY ARTERIES: No filling defects within the main, right or left pulmonary arteries. No filling defects within the lobar, segmental or visualized subsegmental pulmonary arteries. Some of the dist al branches are not optimally assessed due to motion artifact, particularly in the left lower lobe HILAR AND MEDIASTINAL STRUCTURES: Calcified left hilar and mediastinal lymph nodes compatible with ol d granulomatous disease. No pathologically enlarged noncalcified lymphadenopathy. HARDWARE: None in the chest. UPPER ABDOMEN: No significant findings. Limited exam. THYROID AND OTHER SOFT TISSUES: No masses. No adenopathy. BONES: Chronic left rib fractures. No destructive bone lesions. 3D MIPS: Confirm above findings. OTHER: No other significant finding. IMPRESSION: 1. No visualized pulmonary embolism. 2. Left lower lobe consolidation may reflect pneumonia or atelectasis. Additional bilateral opaciti es likely representing atelectasis appear possible component of mild edema. COMMENT: Quality ID # [id number]: Final reports with documentation of one or more dose reduction techniques (e.g., Automated exposure control, adjustment of the mA and/or kV according to patient size, use of iterative reconstruction technique) TECHNICAL DOCUMENTATION: JOB ID: [id number] 2010 [employer]- All Rights Reserved Reading location - IP/workstation name: [email or web address]
[2020-08-24] MEDS ORDERED: ONDANSETRON HCL INJ/PF 4 MG/2 ML SDV IV PRN (17:48)
[2020-08-24] MEDS ORDERED: OXYCODONE-ACETAMINOPHEN 5-325 MG TABLET PO PRN (17:48)
[2020-08-24] MEDS ORDERED: IPRATROPIUM/ALBUTEROL 0.5-2.5 MG/3 ML AMPUL NEB PRN (17:48)
[2020-08-24] MEDS ORDERED: MAGNESIUM HYDROXIDE SUSP 30 ML UDCUP PO PRN (17:48)
[2020-08-24] MEDS ORDERED: TEMAZEPAM 7.5 MG CAPSULE PO PRN (17:48)
[2020-08-24] MEDS ORDERED: NORMAL SALINE 1000 ML 1,000 ML IV PRN (17:48)
[2020-08-24] MEDS ORDERED: GUAIFENESIN/D-METHORPHAN (200-20 MG) SYRUP 10 ML PO PRN (17:56)
[2020-08-24] MEDS ORDERED: LEVOFLOXACIN 750 MG/D5W RTU 750 MG/150 ML RTUPB IV SCH (18:00)
--- NOTE | 2020-08-24 18:03 | PDOC H&P ---
History of Present Illness Admission Date/PCP: ELBA PORTILLO PA-C Patient complains of: This patient presents emergency room with sudden onset of difficulty breathing and shortness of breath. This apparently started 1 day prior to admission. He has been admitted for further evaluation and management. History of Present Illness: KERRY COBURN is a 79 year old male Patient was apparently hypoxemic on initial presentation. He also complained of a cough with greenish sputum, low-grade fever and generalized aches and pain. Patient did receive Covid vaccine 6 days ago. Covid test done today was negative. He does have a history of a DVT and he has a [place] filter in situ. CT scan done reveals left lower lobe consolidation likely pneumonia. He was hypoxemic during his stay in the emergency department. By the time I saw him he reports feeling better. Because of his age, presenting symptoms with hypoxemia as well as suspicion of pneumonia patient is being admitted for further management. He was treated with Primaxin as well as steroids in the emergency room. He was noted to be initially febrile on presentation with his T-max at 103.1 Past Medical History Cardiac Medical History: Reports: Congestive Heart Failure, Coronary Artery Disease - CARDIAC CATH WITH ONE STENT, DVT - FEBRUARY 2017. IVC FILTER, Hypertension, Pulmonary Embolism - ON ELIQUIS Denies: Myocardial Infarction Pulmonary Medical History: Reports: Pneumonia Denies: Asthma, Bronchitis, Chronic Obstructive Pulmonary Disease (COPD), Tuberculosis Neurological Medical History: Denies: Seizures Endocrine Medical History: Denies: Diabetes Mellitus Type 1, Diabetes Mellitus Type 2 GI Medical History: Reports: Gastroesophageal Reflux Disease Denies: Hepatitis, Hiatal Hernia Musculoskeltal Medical History: Reports: Arthritis - RA, Gout Psychiatric Medical History: Reports: Depression Hematology: Denies: Anemia, Sickle Cell Disease Past Surgical History Past Surgical History: Reports: Appendectomy, Cardiac Catheterization, Cholecystectomy, Orthopedic Surgery - ankle / elbows, Other - Ureteral stent left kidney Removal stones and stent 2 weeks ago Denies: Pacemaker Social History Information Source: Patient Lives with: Family Smoking Status: Never Smoker Frequency of Alcohol Use: Rare Hx Recreational Drug Use: No Drugs: None Hx Prescription Drug Abuse: No - Advance Directive Resuscitation Status: Full Code Family History Family History: Reviewed & Not Pertinent, Hypertension Parental Family History Reviewed: No Children Family History Reviewed: Yes Sibling(s) Family History Reviewed.: Yes Medication/Allergy Home Medications: Allopurinol [Zyloprim 300 mg Tablet] 300 mg PO DAILY 05/16/19 Apixaban [Eliquis 5 mg Tablet] 5 mg PO Q12 05/16/19 Cetirizine HCl [Zyrtec 10 mg Tablet] 10 mg PO DAILY 05/16/19 Cyanocobalamin (Vitamin B-12) [Vitamin B-12 Inj 1000 Mcg/1 ml Vial] 1,000 mcg IM . AND 05/16/19 Ergocalciferol (Vitamin D2) [Drisdol 50,000 unit (1.25MG) Capsule] 50,000 unit PO TH@0800 05/16/19 Escitalopram Oxalate [Lexapro] 20 mg PO DAILY 05/16/19 Fluticasone Propionate [Flonase Nasal [place] 50 Mcg/[place] 16 gm] 1 spray NASL DAILY 05/16/19 Folic Acid [Folvite 1 mg Tablet] 1 mg PO DAILY 05/16/19 Losartan Potassium [Cozaar 25 mg Tablet] 12.5 mg PO QHS 05/16/19 Prednisone [Deltasone 5 mg Tablet] 5 mg PO DAILY 05/16/19 Tamsulosin HCl [Flomax 0.4 mg Cap.sr] 0.4 mg PO PCSUPPER 05/16/19 Tocilizumab [Actemra] 800 mg IV .EVERY 28 DAYS 05/16/19 Torsemide [Demadex 20 mg Tablet] 20 mg PO DAILYP PRN 05/16/19 Gabapentin [Neurontin 300 mg Capsule] 300 mg PO Q12 08/04/19 Hydromorphone HCl 4 mg PO Q4HP PRN 08/04/19 Metoprolol Succinate [Toprol Xl 25 mg Tab.sr] 25 mg PO Q12 08/04/19 Promethazine HCl [Phenergan 25 mg Tablet] 25 mg PO Q12HP PRN 08/04/19 Tizanidine HCl 2 mg PO HSP PRN MDD 4 MG 08/04/19 Allergies/Adverse Reactions: celecoxib [From Celebrex] Allergy (Severe, Verified 08/24/20 10:26) Chest pain leflunomide [From Arava] Allergy (Severe, Verified 08/24/20 10:26) Chest pain-Full list of symptoms on 05/18/13 DC Summary meloxicam [From Mobic] Allergy (Severe, Verified 08/24/20 10:26) Chest pain methotrexate [Methotrexate] Allergy (Severe, Verified 08/24/20 10:26) Anaphylaxis ketorolac tromethamine [From Toradol] Allergy (Unknown, Verified 08/24/20 10:26) see comment NSAIDS (Non-Steroidal Anti-Inflamma Allergy (Verified 08/24/20 10:26) Sulfa (Sulfonamide Antibiotics) Adverse Reaction (Severe, Verified 08/24/20 10:26) Diarrhea Penicillins Adverse Reaction (Unknown, Verified 08/24/20 10:26) Rash Review of Systems Constitutional: PRESENT: chills, fever(s). ABSENT: anorexia Eyes: ABSENT: visual disturbances Ears: ABSENT: hearing changes Cardiovascular: ABSENT: chest pain, edema, palpitations Respiratory: PRESENT: cough, sputum Genitourinary: ABSENT: dysuria, hematuria Musculoskeletal: ABSENT: joint swelling Neurological: ABSENT: abnormal gait, abnormal speech, confusion, dizziness, focal weakness, syncope Psychiatric: ABSENT: anxiety, depression, homidical ideation, suicidal ideation Physical Exam Vital Signs: Temp Pulse Resp BP Pulse Ox 98.7 F 112 H 22 H 106/60 95 08/24/20 15:51 08/24/20 09:44 08/24/20 15:22 08/24/20 17:01 08/24/20 17:01 Intake & Output 08/23/20 08/24/20 08/25/20 06:59 06:59 06:59 Intake Total 4320 Balance 4320 Weight 102.2 kg General appearance: PRESENT: no acute distress, well-developed, well-nourished Head exam: PRESENT: atraumatic, normocephalic Eye exam: PRESENT: conjunctiva pink, EOMI, PERRLA. ABSENT: scleral icterus Ear exam: PRESENT: normal external ear exam Mouth exam: PRESENT: moist Neck exam: ABSENT: carotid bruit, JVD, lymphadenopathy, thyromegaly Respiratory exam: PRESENT: decreased breath sounds, rhonchi - Left lower lung, unlabored. ABSENT: rales, wheezes Cardiovascular exam: PRESENT: RRR. ABSENT: diastolic murmur, rubs, systolic murmur Pulses: PRESENT: normal dorsalis pedis pul Vascular exam: PRESENT: normal capillary refill GI/Abdominal exam: PRESENT: normal bowel sounds, soft. ABSENT: distended, guarding, mass, organolmegaly, rebound, tenderness Rectal exam: PRESENT: deferred Extremities exam: PRESENT: full ROM. ABSENT: calf tenderness, clubbing, pedal edema Neurological exam: PRESENT: alert, awake, oriented to person, oriented to place, oriented to time, oriented to situation, CN II-XII grossly intact. ABSENT: motor sensory deficit Psychiatric exam: PRESENT: appropriate affect, normal mood. ABSENT: homicidal ideation, suicidal ideation Skin exam: PRESENT: dry, intact, warm. ABSENT: cyanosis, rash Results Laboratory Results: 08/24/20 10:34 08/24/20 10:34 08/24/20 08/24/20 08/24/20 10:34 10:34 10:34 WBC 8.8 RBC 4.61 Hgb 14.6 Hct 43.0 MCV 93 MCH 31.7 MCHC 34.0 RDW 14.6 H Plt Count 178 Seg Neutrophils % 74.2 VBG pH 7.36 VBG pCO2 54.3 VBG HCO3 29.8 VBG Base Excess 2.9 Sodium 140.3 Potassium 4.3 Chloride 103 Carbon Dioxide 30 Anion Gap 7 BUN 21 H Creatinine 0.95 Est GFR ( Amer) > 60 Glucose 101 Lactic Acid Calcium 9.6 Total Bilirubin 0.6 AST 41 Alkaline Phosphatase 80 Total Protein 6.6 Albumin 4.1 Urine Color Urine Appearance Urine pH Ur Specific [place] Urine Protein Urine Glucose (UA) Urine Ketones Urine Blood Urine RBC (Auto) 08/24/20 08/24/20 08/24/20 10:34 12:28 14:01 WBC RBC Hgb Hct MCV MCH MCHC RDW Plt Count Seg Neutrophils % VBG pH VBG pCO2 VBG HCO3 VBG Base Excess Sodium Potassium Chloride Carbon Dioxide Anion Gap BUN Creatinine Est GFR ( Amer) Glucose Lactic Acid 2.0 2.1 Calcium Total Bilirubin AST Alkaline Phosphatase Total Protein Albumin Urine Color YELLOW Urine Appearance SLIGHTLY-CLOUDY Urine pH 6.0 Ur Specific [place] 1.015 Urine Protein NEGATIVE Urine Glucose (UA) 50 H Urine Ketones TRACE H Urine Blood LARGE H Urine RBC (Auto) >182 08/24/20 16:42 WBC RBC Hgb Hct MCV MCH MCHC RDW Plt Count Seg Neutrophils % VBG pH VBG pCO2 VBG HCO3 VBG Base Excess Sodium Potassium Chloride Carbon Dioxide Anion Gap BUN Creatinine Est GFR ( Amer) Glucose Lactic Acid 2.0 Calcium Total Bilirubin AST Alkaline Phosphatase Total Protein Albumin Urine Color Urine Appearance Urine pH Ur Specific [place] Urine Protein Urine Glucose (UA) Urine Ketones Urine Blood Urine RBC (Auto) 08/24/20 10:34 Troponin I < 0.012 Impressions: Chest X-Ray 08/24/20 10:25 IMPRESSION: NO ACUTE RADIOGRAPHIC FINDING IN THE CHEST. Abdomen/Pelvis CT 08/24/20 10:28 IMPRESSION: 5 mm distal left ureteral stone with mild left hydronephrosis and hydroureter. Chest/Abdomen CTA 08/24/20 13:38 IMPRESSION: 1. No visualized pulmonary embolism. 2. Left lower lobe consolidation may reflect pneumonia or atelectasis. Additional bilateral opacities likely representing atelectasis appear possible component of mild edema. Assessment and Plan - Diagnosis (1) Acute hypoxemic respiratory failure Is this a current diagnosis for this admission?: Yes Plan: We will continue with oxygen support and wean off as tolerated (2) Community acquired pneumonia Is this a current diagnosis for this admission?: Yes Plan: Patient received a dose of Primaxin in the emergency room. I will put him on Levaquin as he is apparently allergic to penicillins (3) Sepsis Is this a current diagnosis for this admission?: Yes Plan: Patient was initially hypoxemic, febrile and hypotensive with a source infection qualifying/sepsis. We will continue with cautious IV fluids. - Time Time Spent with patient: 25-34 minutes Medications reviewed and adjusted accordingly: Yes Anticipated Discharge Disposition: Home, Self Care Anticipated Discharge Timeframe: within 72 hours
--- NOTE | 2020-08-24 20:31 | EKG REPORT ---
SEVERITY:- ABNORMAL ECG - SINUS TACHYCARDIA LEFT ANTERIOR FASCICULAR BLOCK : Confirmed by: Merlyn Lara MD 24-Aug-2020 20:30:35
[2020-08-24] MEDS: HYDROMORPHONE HCL 2 MG TABLET PO PRN (20:49)
[2020-08-24] MEDS: APIXABAN 5 MG TABLET PO SCH (21:09)
[2020-08-24] MEDS: ACETAMINOPHEN 325 MG TABLET PO PRN (21:15)
[2020-08-25] MEDS ORDERED: PANTOPRAZOLE SODIUM 20 MG TABLET.DR PO SCH (06:00)
[2020-08-25] MEDS: HYDROMORPHONE HCL 2 MG TABLET PO PRN (06:20)
[2020-08-25 07:19] LABS: ANION GAP 6 (5-19); BLOOD UREA NITROGEN 19 mg/dL (7-20); CALCIUM 8.9 mg/dL (8.4-10.2); CARBON DIOXIDE 27 mmol/L (22-30); CHLORIDE 105 mmol/L (98-107); GLUCOSE 92 mg/dL (75-110); POTASSIUM 4.2 mmol/L (3.6-5.0)
[2020-08-25 08:07] LABS: ABSOLUTE BASOPHILS # (AUTO) 0.1 10^3/uL (0.0-0.2); ABSOLUTE EOSINOPHILS # (AUTO) 0.1 10^3/uL (0.0-0.6); ABSOLUTE LYMPHOCYTES (AUTO) 2.1 10^3/uL (0.5-4.7); ABSOLUTE MONOCYTES (AUTO) 0.9 10^3/uL (0.1-1.4); ABSOLUTE NEUT (AUTO) 8.1 10^3/uL (1.7-8.2); BASOPHILS % (AUTO) 0.6 % (0-2); EOSINOPHILS % (AUTO) 0.8 % (0-6); HEMATOCRIT 37.5 % (37.9-51.0); LYMPHOCYTES % (AUTO) 18.9 % (13-45); MEAN CORPUSCULAR HEMOGLOBIN 30.7 pg (27.0-33.4); MEAN CORPUSCULAR HGB CONC 32.9 g/dL (32.0-36.0); MEAN CORPUSCULAR VOLUME 93 fl (80-97); MONOCYTES % (AUTO) 8.1 % (3-13); RED BLOOD COUNT 4.02 10^6/uL (4.35-5.55); RED CELL DISTRIBUTION WIDTH 14.4 % (11.5-14.0); SEGMENTED NEUTROPHILS % (AUTO) 71.6 % (42-78); TOTAL CELLS COUNTED % (AUTO) 100 %; WHITE BLOOD COUNT 11.3 10^3/uL (4.0-10.5)
[2020-08-25 08:08] LABS: PLATELET COUNT 139 10^3/uL (150-450)
[2020-08-25 08:10] LABS: HEMOGLOBIN 12.3 g/dL (13.5-17.0)
[2020-08-25] MEDS ORDERED: DOCUSATE SODIUM 100 MG CAPSULE PO SCH (10:00)
[2020-08-25] MEDS: APIXABAN 5 MG TABLET PO SCH (10:17)
[2020-08-25] MEDS: ACETAMINOPHEN 325 MG TABLET PO PRN (11:22)
[2020-08-25] MEDS ORDERED: HYDROMORPHONE HCL 2 MG TABLET PO ONE (11:30)
[2020-08-25 12:28] VITALS: BP 103/66
[2020-08-25] MEDS ORDERED: LEVOFLOXACIN 500 MG TABLET PO SCH (14:30)
--- NOTE | 2020-08-25 17:23 | PDOC DISCHARGE SUMMARY ---
Impression - Admit/DC Date/PCP Admission Date/Primary Care Provider: 08/24/20 17:55 ELBA PORTILLO PA-C Discharge Date: 08/25/20 - Discharge Diagnosis (1) Acute hypoxemic respiratory failure Is this a current diagnosis for this admission?: Yes (2) Community acquired pneumonia Is this a current diagnosis for this admission?: Yes (3) Sepsis Is this a current diagnosis for this admission?: Yes - Additional Information Resuscitation Status: Full Code Discharge Diet: As Tolerated Discharge Activity: Activity As Tolerated Referrals: ELBA PORTILLO PA-C [Primary Care Provider] - Follow up as needed (08/25 OFFICE IS CLOSED TODAY.) Prescriptions: Levofloxacin [Levaquin 500 mg Tablet] 500 mg PO DAILY #5 tablet Home Medications: Apixaban [Eliquis 5 mg Tablet] 5 mg PO Q12 05/16/19 Cetirizine HCl [Zyrtec 10 mg Tablet] 10 mg PO DAILY 05/16/19 Ergocalciferol (Vitamin D2) [Drisdol 50,000 unit (1.25MG) Capsule] 50,000 unit PO TH@0800 05/16/19 Escitalopram Oxalate [Lexapro] 20 mg PO DAILY 05/16/19 Fluticasone Propionate [Flonase Nasal [place] 50 Mcg/[place] 16 gm] 1 spray NASL DAILY 05/16/19 Folic Acid [Folvite 1 mg Tablet] 1 mg PO DAILY 05/16/19 Losartan Potassium [Cozaar 25 mg Tablet] 12.5 mg PO QHS 05/16/19 Prednisone [Deltasone 5 mg Tablet] 5 mg PO DAILY 05/16/19 Tamsulosin HCl [Flomax 0.4 mg Cap.sr] 0.4 mg PO PCSUPPER 05/16/19 Hydromorphone HCl 4 mg PO Q4HP PRN 08/04/19 Metoprolol Succinate [Toprol Xl 25 mg Tab.sr] 25 mg PO Q12 08/04/19 Promethazine HCl [Phenergan 25 mg Tablet] 25 mg PO Q12HP PRN 08/04/19 Tizanidine HCl 2 mg PO HSP PRN MDD 4 MG 08/04/19 Duloxetine HCl 40 mg PO DAILY 08/25/20 Levofloxacin [Levaquin 500 mg Tablet] 500 mg PO DAILY #5 tablet 08/25/20 Naldemedine Tosylate [Symproic] 0.2 mg PO DAILY 08/25/20 Upadacitinib [Rinvoq] 15 mg PO DAILY 08/25/20 History of Present Illiness History of Present Illness: KERRY COBURN is a 79 year old male Patient was apparently hypoxemic on initial presentation. He also complained of a cough with greenish sputum, low-grade fever and generalized aches and pain. Patient did receive Covid vaccine 6 days ago. Covid test done today was negative. He does have a history of a DVT and he has a [place] filter in situ. CT scan done reveals left lower lobe consolidation likely pneumonia. He was hypoxemic during his stay in the emergency department. By the time I saw him he reports feeling better. Because of his age, presenting symptoms with hypoxemia as well as suspicion of pneumonia patient is being admitted for fur ther management. He was treated with Primaxin as well as steroids in the emergency room. He was noted to be initially febrile on presentation with his T-max at 103.1 Hospital Course Hospital Course: Patient was admitted with acute hypoxemic respiratory failure thought to be secondary to pneumonia. He was also initially septic. Patient was started on IV Levaquin and given oxygen supplementation. He rapidly improved over the next 24 hours. He has remained afebrile and has been hemodynamically stable. He is requiring no further oxygen supplementation and at this time it is felt that he could be discharged home for further recuperation. Patient is agreeable to the plan he has been discharged home Physical Exam Vital Signs: Temp Pulse Resp BP Pulse Ox 98.2 F 95 16 103/66 97 08/25/20 15:02 08/25/20 15:02 08/25/20 15:02 08/25/20 15:02 08/25/20 15:02 Intake & Output 08/24/20 08/25/20 08/26/20 06:59 06:59 06:59 Intake Total 4930 1000 Output Total 450 Balance 4480 1000 Weight 102 kg General appearance: PRESENT: no acute distress, well-developed, well-nourished Head exam: PRESENT: atraumatic, normocephalic Eye exam: PRESENT: conjunctiva pink, EOMI, PERRLA. ABSENT: scleral icterus Ear exam: PRESENT: normal external ear exam Mouth exam: PRESENT: moist, tongue midline Neck exam: ABSENT: carotid bruit, JVD, lymphadenopathy, thyromegaly Respiratory exam: PRESENT: clear to auscultation [place], unlabored. ABSENT: rales, rhonchi, wheezes Cardiovascular exam: PRESENT: RRR, +S1, +S2. ABSENT: diastolic murmur, rubs, systolic murmur Pulses: PRESENT: normal dorsalis pedis pul Vascular exam: PRESENT: normal capillary refill GI/Abdominal exam: PRESENT: normal bowel sounds, soft. ABSENT: distended, guarding, mass, organolmegaly, rebound, tenderness Rectal exam: PRESENT: deferred Extremities exam: PRESENT: full ROM. ABSENT: calf tenderness, clubbing, pedal edema Neurological exam: PRESENT: alert, awake, oriented to person, oriented to place, oriented to time, oriented to situation, CN II-XII grossly intact. ABSENT: motor sensory deficit Psychiatric exam: PRESENT: appropriate affect, normal mood. ABSENT: homicidal ideation, suicidal ideation Skin exam: PRESENT: dry, intact, warm. ABSENT: cyanosis, rash Results Laboratory Results: WBC 11.3 10^3/uL (4.0-10.5) H 08/25/20 06:06 RBC 4.02 10^6/uL (4.35-5.55) L 08/25/20 06:06 Hgb 12.3 g/dL (13.5-17.0) L D 08/25/20 06:06 Hct 37.5 % (37.9-51.0) L 08/25/20 06:06 MCV 93 fl (80-97) 08/25/20 06:06 MCH 30.7 pg (27.0-33.4) 08/25/20 06:06 MCHC 32.9 g/dL (32.0-36.0) 08/25/20 06:06 RDW 14.4 % (11.5-14.0) H 08/25/20 06:06 Plt Count 139 10^3/uL (150-450) L 08/25/20 06:06 Lymph % (Auto) 18.9 % (13-45) 08/25/20 06:06 [place] % (Auto) 8.1 % (3-13) 08/25/20 06:06 Eos % (Auto) 0.8 % (0-6) 08/25/20 06:06 Baso % (Auto) 0.6 % (0-2) 08/25/20 06:06 Absolute Neuts (auto) 8.1 10^3/uL (1.7-8.2) 08/25/20 06:06 Absolute Lymphs (auto) 2.1 10^3/uL (0.5-4.7) 08/25/20 06:06 Absolute Monos (auto) 0.9 10^3/uL (0.1-1.4) 08/25/20 06:06 Absolute Eos (auto) 0.1 10^3/uL (0.0-0.6) 08/25/20 06:06 Absolute Basos (auto) 0.1 10^3/uL (0.0-0.2) 08/25/20 06:06 Seg Neutrophils % 71.6 % (42-78) 08/25/20 06:06 PT 12.9 SEC (11.4-15.4) 08/24/20 10:34 INR 0.95 08/24/20 10:34 VBG pH 7.36 (7.30-7.42) 08/24/20 10:34 VBG pCO2 54.3 mmHg (35-63) 08/24/20 10:34 VBG HCO3 29.8 mmol/L (20-32) 08/24/20 10:34 VBG Base Excess 2.9 mmol/L 08/24/20 10:34 Sodium 137.9 mmol/L (137-145) 08/25/20 06:06 Potassium 4.2 mmol/L (3.6-5.0) 08/25/20 06:06 Chloride 105 mmol/L (98-107) 08/25/20 06:06 Carbon Dioxide 27 mmol/L (22-30) 08/25/20 06:06 Anion Gap 6 (5-19) 08/25/20 06:06 BUN 19 mg/dL (7-20) 08/25/20 06:06 Creatinine 0.81 mg/dL (0.52-1.25) 08/25/20 06:06 Est GFR ( Amer) > 60 (>60) 08/25/20 06:06 Est GFR (MDRD) Non-Af > 60 (>60) 08/25/20 06:06 Glucose 92 mg/dL (75-110) 08/25/20 06:06 POC Glucose 88 mg/dL (70-110) 08/24/20 10:45 Lactic Acid 2.0 mmol/L (0.7-2.1) 08/24/20 16:42 Calcium 8.9 mg/dL (8.4-10.2) 08/25/20 06:06 Total Bilirubin 0.6 mg/dL (0.2-1.3) 08/24/20 10:34 Direct Bilirubin 0.3 mg/dL (0.0-0.4) 08/24/20 10:34 Neonat Total Bilirubin Not Reportable 08/24/20 10:34 Neonat Direct Bilirubin Not Reportable 08/24/20 10:34 Neonat Indirect Bili Not Reportable 08/24/20 10:34 AST 41 U/L (17-59) 08/24/20 10:34 ALT 27 U/L (<50) 08/24/20 10:34 Alkaline Phosphatase 80 U/L (38-126) 08/24/20 10:34 Troponin I < 0.012 ng/mL 08/24/20 10:34 Total Protein 6.6 g/dL (6.3-8.2) 08/24/20 10:34 Albumin 4.1 g/dL (3.5-5.0) 08/24/20 10:34 Urine Color YELLOW 08/24/20 12:28 Urine Appearance SLIGHTLY-CLOUDY 08/24/20 12:28 Urine pH 6.0 (5.0-9.0) 08/24/20 12:28 Ur Specific [place] 1.015 08/24/20 12:28 Urine Protein NEGATIVE mg/dL (NEGATIVE) 08/24/20 12:28 Urine Glucose (UA) 50 mg/dL (NEGATIVE) H 08/24/20 12:28 Urine Ketones TRACE mg/dL (NEGATIVE) H 08/24/20 12:28 Urine Blood LARGE (NEGATIVE) H 08/24/20 12:28 Urine Nitrite (Reflex) NEGATIVE (NEGATIVE) 08/24/20 12:28 Urine Bilirubin NEGATIVE (NEGATIVE) 08/24/20 12:28 Urine Urobilinogen NEGATIVE mg/dL (<2.0) 08/24/20 12:28 Leukocyte Esterase Rfl NEGATIVE (NEGATIVE) 08/24/20 12:28 Urine RBC (Auto) >182 /HPF 08/24/20 12:28 Urine Bacteria (Auto) TRACE /HPF 08/24/20 12:28 Urine Mucus (Auto) RARE /LPF 08/24/20 12:28 Urine Ascorbic Acid NEGATIVE (NEGATIVE) 08/24/20 12:28 Influenza A (RT-PCR) NEGATIVE (NEGATIVE) 08/24/20 11:21 Influenza B (RT-PCR) NEGATIVE (NEGATIVE) 08/24/20 11:21 RSV (RT-PCR) NEGATIVE (NEGATIVE) 08/24/20 11:21 SARS-CoV-2 Rap RNA(RT-PCR) NEGATIVE (NEGATIVE) 08/24/20 11:21 08/24/20 10:34 Troponin I < 0.012 Impressions: Chest X-Ray 08/24/20 10:25 IMPRESSION: NO ACUTE RADIOGRAPHIC FINDING IN THE CHEST. Abdomen/Pelvis CT 08/24/20 10:28 IMPRESSION: 5 mm distal left ureteral stone with mild left hydronephrosis and hydroureter. Chest/Abdomen CTA 08/24/20 13:38 IMPRESSION: 1. No visualized pulmonary embolism. 2. Left lower lobe consolidation may reflect pneumonia or atelectasis. Additional bilateral opacities likely representing atelectasis appear possible component of mild edema. Plan Health Concerns: He is to follow-up with his primary care physician further evaluation Time Spent: Less than 30 Minutes Stroke Is this a Stroke Patient?: No Acute Heart Failure Is this a Heart Failure Patient?: No
== END 2020-08-25 16:01 | disposition home or self-care (01) | DRG 871 ==
LOC: ER 09:36 → EH 17:55 → 4S 18:57
PROVIDERS: ADMIT Internal Medicine; ATTEND Internal Medicine
DX: A41.9 Sepsis, unspecified organism (principal); J18.9 Pneumonia, unspecified organism; J96.01 Acute respiratory failure with hypoxia; N13.2 Hydronephrosis with renal and ureteral calculous obstruction; R65.20 Severe sepsis without septic shock; I25.10 Atherosclerotic heart disease of native coronary artery without angina pectoris; M06.9 Rheumatoid arthritis, unspecified; K21.9 Gastro-esophageal reflux disease without esophagitis; F32.9 Major depressive disorder, single episode, unspecified; Z95.5 Presence of coronary angioplasty implant and graft; Z79.52 Long term (current) use of systemic steroids; Z86.718 Personal history of other venous thrombosis and embolism; Z79.02 Long term (current) use of antithrombotics/antiplatelets; Z88.8 Allergy status to other drugs, medicaments and biological substances; Z88.2 Allergy status to sulfonamides; Z88.0 Allergy status to penicillin; Z86.711 Personal history of pulmonary embolism; Z20.828 Contact with and (suspected) exposure to other viral communicable diseases; Z79.891 Long term (current) use of opiate analgesic; Z95.828 Presence of other vascular implants and grafts
CPT/HCPCS: 36415; 71045; 71275; 74176; 80048; 80053; 81001; 82803; 82962; 83605; 84484; 85025; 85610; 87040; 87070; 87077; 87205; 93005; 93010; 96361; 96365; 96375; 99285; 0241U; C9803; J0743; J0780; J1720; J1956; J3010; J3490; J7030; J7120